=== PATIENT | female | born 1950 | race Caucasian/White ===

== ENCOUNTER 2016-11-14 09:00 | Day surgery (SDC) | payer MEDICARE ==
[2016-11-13 09:46] VITALS: BMI 23.7
[~2016-11-14 09:00] MED LIST: LACTATED RINGERS 1,000 ML IV SCH; LIDOCAINE 1% 20 ML VIAL (10MG/ML) FOR IV START INTRADERMA PRN
[2016-11-14 09:27] VITALS: TEMP 98.5
[2016-11-14] MEDS ORDERED: LIDOCAINE 1% 20 ML VIAL (10MG/ML) FOR IV START INTRADERMA ONE (09:32)
[2016-11-14] MEDS ORDERED: PROPOFOL 10 MG/ML 20 ML VIAL IV ONE (10:10)
--- NOTE | 2016-11-14 10:27 | P.PCN ---
Date of Procedure: 11/14/16 Procedure(s) Performed: BRIEF HISTORY: Patient is a 65-year-old pleasant white female, scheduled for an elective colonoscopy as a part of evaluation of Hemoccult-positive stool. Last colonoscopy was 10 years ago which was normal. PROCEDURE PERFORMED: Colonoscopy. PREOPERATIVE DIAGNOSIS: Hemoccult-positive stool.. IV sedation per Anesthesia. PROCEDURE: After informed consent was obtained, the patient, was brought into the endoscopy unit. IV sedation was administered by Anesthesia under continuous monitoring. Digital rectal examination was normal. Initially the Olympus CF- 160 flexible video colonoscope was then inserted in the rectum, gradually advanced into the cecum without any difficulty. Careful examination was performed as the scope was gradually being withdrawn. Ileocecal valve and the appendiceal orifice were visualized and appeared normal. Prep was excellent. Mucosa of the cecum, ascending colon, transverse colon, descending colon, sigmoid colon, and rectum appeared normal. Scattered sigmoid diverticulosis seen. Retroflexion was performed in the rectum and no lesions were seen. The patient tolerated the procedure well. IMPRESSION: Normal-appearing colon from rectum to cecum with no evidence of colorectal neoplasia. Scattered sigmoid diverticulosis. RECOMMENDATIONS: Findings of this examination were discussed with the patient as well as her family. She was advised to have a repeat screening colonoscopy in 10 years.
[2016-11-14 10:47] VITALS: RESP 18
[2016-11-14 11:00] VITALS: BP 126/67; PULSE 68
== END 2016-11-14 11:07 | disposition home or self-care (01) ==
LOC: ORWHC2ENDO 09:00
PROVIDERS: ATTEND Internal Medicine Gastroenterology
DX: K57.30 Diverticulosis of large intestine without perforation or abscess without bleeding (principal); K92.1 Melena; I10 Essential (primary) hypertension; G47.33 Obstructive sleep apnea (adult) (pediatric); Z79.899 Other long term (current) drug therapy
CPT/HCPCS: 45378; J2704

== ENCOUNTER → 2017-01-14 | Outpatient (CLI) | payer MEDICARE ==
--- NOTE | 2017-01-16 09:14 | MM ---
Reason for exam: clinical finding. Last mammogram was performed 5 months ago. History: Patient is postmenopausal and is nulliparous. Family history of breast cancer in maternal aunt at age 50 and breast cancer in maternal cousin at age 50. Taking estrogen for 12 years. Indicated problem(s): pain in the right breast. Physical Findings: Nurse did not find any significant physical abnormalities on exam. MG 3D Diag Mammo W/Cad RT CC and MLO view(s) were taken of the right breast. Prior study comparison: August 28, 2016, mammogram. May 26, 2015, mammogram. There are scattered fibroglandular densities. A lateral asymmetric density on the CC view does not persist on spot tomosynthesis. A precautionary follow up is recommended at the time of patients annual exam. These results were verbally communicated with the patient and result sheet given to the patient on 01/14/17. ASSESSMENT: Probably benign, BI-RAD 3 RECOMMENDATION: Follow-up diagnostic mammogram of both breasts in 7 months. Back on schedule for August 2016. Manage patient on a clinical basis with regard to right breast pain.
== END | disposition home or self-care (01) ==
LOC: RADMAMWWP 09:28
PROVIDERS: ATTEND Obstetrics & Gynecology
DX: N64.4 Mastodynia (principal)
CPT/HCPCS: G0206; G0279

== ENCOUNTER → 2017-03-01 | Outpatient (CLI) | payer MEDICARE ==
[2017-03-01 11:06] LABS: Anion Gap 12 mmol/L; Blood Urea Nitrogen 10 mg/dL (7-17); Calcium 9.9 mg/dL (8.4-10.2); Carbon Dioxide 26 mmol/L (22-30); Chloride 100 mmol/L (98-107); Glucose 79 mg/dL (74-99); Non-African American GFR(MDRD) >60 (>60 ml/min/1.73 sqM); Potassium 3.8 mmol/L (3.5-5.1); Sodium 138 mmol/L (137-145)
== END | disposition home or self-care (01) ==
LOC: LABWHC1 09:24
PROVIDERS: ATTEND Internal Medicine Interventional Cardiology
DX: I10 Essential (primary) hypertension (principal)
CPT/HCPCS: 36415; 80048

== ENCOUNTER → 2017-09-25 | Outpatient (CLI) | payer MEDICARE ==
[2017-09-25 09:55] LABS: Albumin 4.1 g/dL (3.5-5.0); Alkaline Phosphatase 70 U/L (38-126); Calcium 9.7 mg/dL (8.4-10.2); Phosphorus 3.5 mg/dL (2.5-4.5); Total Protein 6.7 g/dL (6.3-8.2)
[2017-09-25 16:12] LABS: Parathyroid Hormone Intact 58.2 pg/mL (14.0-72.0)
[2017-09-25 17:12] LABS: Vitamin D 25 Hydroxy 27.8 ng/mL (30.0-100.0)
== END | disposition home or self-care (01) ==
LOC: LABWHC1 08:38
PROVIDERS: ATTEND Internal Medicine Endocrinology, Diabetes & Metabolism
DX: N95.1 Menopausal and female climacteric states (principal); Z92.23 Personal history of estrogen therapy; M41.20 Other idiopathic scoliosis, site unspecified; E55.9 Vitamin D deficiency, unspecified
CPT/HCPCS: 36415; 82040; 82306; 82310; 82565; 82670; 83735; 83970; 84075; 84100; 84155

== ENCOUNTER → 2017-09-25 | Outpatient (CLI) | payer MEDICARE ==
--- NOTE | 2017-09-25 09:16 | MM ---
Reason for exam: screening (asymptomatic). Last mammogram was performed 8 months ago. History: Patient is postmenopausal and is nulliparous. Family history of breast cancer in maternal aunt at age 50 and breast cancer in maternal cousin at age 50. Taking estrogen. Physical Findings: A clinical breast exam by your physician is recommended on an annual basis and results should be correlated with mammographic findings. MG 3D Diag Mammo W/Cad CATHY Bilateral CC and MLO view(s) were taken. Prior study comparison: January 14, 2017, right breast MG 3d diag mammo w/cad RT. August 28, 2016, mammogram. The breast tissue is heterogeneously dense. This may lower the sensitivity of mammography. Lateral posterior nodular asymmetry right breast stable for 6 months. No persisting abnormality seen on 3D spot view. Additional 6 month follow up recommended. These results were verbally communicated with the patient and result sheet given to the patient on 09/25/17. ASSESSMENT: Probably benign, BI-RAD 3 RECOMMENDATION: Follow-up diagnostic mammogram of the right breast in 6 months.
== END | disposition home or self-care (01) ==
LOC: RADMAMWWP 07:38
PROVIDERS: ATTEND Obstetrics & Gynecology
DX: R92.8 Other abnormal and inconclusive findings on diagnostic imaging of breast (principal)
CPT/HCPCS: 77066; G0279

== ENCOUNTER 2017-12-02 16:12 | Observation (INO) | payer MEDICARE ==
[2017-12-02 18:29] LABS: Basophils % (A) 1 %; Eosinophils # (A) 0.1 k/uL (0-0.7); Eosinophils % (A) 1 %; HCT 37.9 % (34.0-46.0); HGB 12.3 gm/dL (11.4-16.0); Lymphocytes # (A) 2.2 k/uL (1.0-4.8); Lymphocytes % (A) 38 %; MCH 26.7 pg (25.0-35.0); MCHC 32.4 g/dL (31.0-37.0); MCV 82.6 fL (80.0-100.0); Mean Platelet Volume 6.7; Monocytes # (A) 0.3 k/uL (0-1.0); Monocytes % (A) 6 %; Neutrophils % (A) 52 %; Platelet Count 275 k/uL (150-450); RDW 13.7 % (11.5-15.5); WBC 5.7 k/uL (3.8-10.6)
[2017-12-02 18:40] LABS: ALT 37 U/L (9-52); AST 31 U/L (14-36); Albumin 4.2 g/dL (3.5-5.0); Alkaline Phosphatase 76 U/L (38-126); Amylase 55 U/L (30-110); Anion Gap 11 mmol/L; Blood Urea Nitrogen 10 mg/dL (7-17); Calcium 10.1 mg/dL (8.4-10.2); Carbon Dioxide 29 mmol/L (22-30); Chloride 102 mmol/L (98-107); Glucose 90 mg/dL (74-99); Lipase 74 U/L (23-300); Potassium 3.9 mmol/L (3.5-5.1); Sodium 142 mmol/L (137-145); Total Bilirubin 0.2 mg/dL (0.2-1.3)
[2017-12-02 18:47] LABS: Creatine Kinase 96 U/L (30-135)
[2017-12-02 19:00] LABS: Creatine Kinase MB 1.6 ng/mL (0.0-2.4); Troponin I <0.012 ng/mL (0.000-0.034)
--- NOTE | 2017-12-02 19:21 | ED ---
Abdominal Pain HPI <Jarett Marcos - Last Filed: 12/02/17 20:03> - General Source: patient Mode of arrival: wheelchair Limitations: no limitations <Shanthi Bernstein - Last Filed: 12/02/17 20:13> - General Chief Complaint: Abdominal Pain Stated Complaint: Chest Pain Time Seen by Provider: 12/02/17 18:44 - History of Present Illness Initial Comments: 67-year-old female patient presents to the emergency department today for complaints of left-sided chest pain. Patient states that the pain started yesterday evening on her way home from a barbecue. Patient states that the pain started as a slight ache and progressively worsened until it was very uncomfortable. Patient states the pain woke her up multiple times through the night last night. Patient states that this morning she had an episode of palpitations and then the pain resolved. Patient states that she does have a history of palpitations that was not unusual. Patient states that a couple hours later the pain started again as a dull ache and progressively worsened. Patient states that she has also had increased fatigue over the last 3 days. Patient denies any shortness of breath, nausea, vomiting, or sweats with this. She denies any radiation of the pain to her back. She denies any recent travel , long car rides, leg pain, or calf pain. Shes has had an increase of cough over the last couple of days, states she believes it is from allergies. Patient denies any recent rash, fever, chills, abdominal pain, diarrhea, constipation, back pain, numbness, tingling, dizziness, weakness, hematuria, dysuria, urinary urgency, urinary frequency, headache, visual changes, or any other complaints. (Shanthi Bernstein) - Related Data Home Medications Medication Instructions Recorded Confirmed Estrogens, Conjugated [Premarin] 0.3 mg PO QAM 11/13/16 12/02/17 Losartan Potassium [Cozaar] 100 mg PO QAM 11/13/16 12/02/17 Multivitamins, Thera [Multivitamin 1 tab PO DAILY 11/13/16 12/02/17 (formulary)] Cholecalciferol (Vitamin D3) 2,000 unit PO DAILY 12/02/17 12/02/17 [Vitamin D3] Hydrochlorothiazide [Hydrodiuril] 25 mg PO DAILY 12/02/17 12/02/17 Selenium Sulfate Lotion 1 applic TOPICAL DAILY PRN 12/02/17 12/02/17 Allergies Allergy/AdvReac Type Severity Reaction Status Date / Time celecoxib [From Celebrex] Allergy Rash/Hives Verified 12/02/17 19:35 Review of Systems ROS Other: All systems not noted in ROS Statement are negative. <Jarett Marcos - Last Filed: 12/02/17 20:03> ROS Other: All systems not noted in ROS Statement are negative. <Shanthi Bernstein - Last Filed: 12/02/17 20:13> ROS Statement: Those systems with pertinent positive or pertinent negative responses have been documented in the HPI. Past Medical History Past Medical History: Hypertension, Sleep Apnea/CPAP/BIPAP Additional Past Medical History / Comment(s): uses cpap,heart murmur,PVCs History of Any Multi-Drug Resistant Organisms: None Reported Past Surgical History: Back Surgery, Cardiac Ablation, Hysterectomy Additional Past Surgical History / Comment(s): fusion to back,rt shoulder repair Past Anesthesia/Blood Transfusion Reactions: Postoperative Nausea & Vomiting ( PONV) Past Psychological History: No Psychological Hx Reported Smoking Status: Former smoker Past Alcohol Use History: Occasional Past Drug Use History: None Reported - Past Family History Mother Family Medical History: Cancer Additional Family Medical History / Comment(s): pancreatic Father Family Medical History: No Reported History <Shanthi Bernstein - Last Filed: 12/02/17 20:13> General Exam Limitations: no limitations General appearance: alert, in no apparent distress, other (This is a well- developed, well-nourished adult female patient in no acute distress. Vital signs upon presentation are temperature 98.0F, pulse 70, respirations 18, blood pressure 188/74, pulse ox 99% on room air.) Eye exam: Present: normal appearance, PERRL, EOMI. Absent: scleral icterus, conjunctival injection, periorbital swelling ENT exam: Present: normal exam, normal oropharynx, mucous membranes moist Respiratory exam: Present: normal lung sounds bilaterally. Absent: respiratory distress, wheezes, rales, rhonchi, stridor, chest wall tenderness Cardiovascular Exam: Present: regular rate, normal rhythm, normal heart sounds. Absent: systolic murmur, diastolic murmur, rubs, gallop, clicks GI/Abdominal exam: Present: soft, normal bowel sounds. Absent: distended, tenderness, guarding, rebound, rigid Neurological exam: Present: alert, oriented X3, CN II-XII intact Psychiatric exam: Present: normal affect, normal mood Skin exam: Present: warm, dry, intact, normal color. Absent: rash <Shanthi Bernstein - Last Filed: 12/02/17 20:13> Course <Jarett Marcos - Last Filed: 12/02/17 20:03> <Shanthi Bernstein - Last Filed: 12/02/17 20:13> Vital Signs 12/02/17 16:31 Temperature 98.0 F Pulse Rate 70 Respiratory 18 Rate Blood Pressure 188/74 O2 Sat by Pulse 99 Oximetry - Reevaluation(s) Reevaluation #1: 12/02/17 20:03 PA supervision: I did personally do a [id number] evaluation the patient did discuss findings with her and her . The patient's presentation is consistent with unstable angina she's been having recurrent chest pain and feels tired. No prior history of heart disease. Physical exam is thus far unremarkable chest lungs are clear heart was regular no murmurs. Patient will be admitted case was discussed with Dr. Edwards. (Jarett Marcos) Medical Decision Making - Lab Data Result diagrams: 12/02/17 18:20 12/02/17 18:20 <Jarett Marcos - Last Filed: 12/02/17 20:03> - Lab Data Result diagrams: 12/02/17 18:20 12/02/17 18:20 - EKG Data -: EKG Interpreted by Me - Radiology Data Radiology results: report reviewed, image reviewed <Shanthi Bernstein - Last Filed: 12/02/17 20:13> - Medical Decision Making 67-year-old female patient presents to the emergency department today for complaints of intermittent episodes of left-sided chest pain over the last 2 days. Physical examination is unremarkable. Lungs are clear to auscultation with good air movement. Patient is currently pain-free. Patient also did have an episode of palpitations. Heart sounds are normal. Regular rhythm. Chest x- ray shows no acute cardiopulmonary process. EKG shows normal sinus rhythm. Patient will be admitted, heparin started, and she'll see cardiology tomorrow. My attending Dr. Marcos was in to see and evaluate the patient. She agrees with this plan. (Shanthi Bernstein) - Lab Data Lab Results 12/02/17 12/02/17 12/02/17 Range/Units 18:20 18:20 18:20 WBC 5.7 (3.8-10.6) k/uL RBC 4.60 (3.80-5.40) m/uL Hgb 12.3 (11.4-16.0) gm/dL Hct 37.9 (34.0-46.0) % MCV 82.6 (80.0-100.0) fL MCH 26.7 (25.0-35.0) pg MCHC 32.4 (31.0-37.0) g/dL RDW 13.7 (11.5-15.5) % Plt Count 275 (150-450) k/uL Neutrophils % 52 % Lymphocytes % 38 % Monocytes % 6 % Eosinophils % 1 % Basophils % 1 % Neutrophils # 3.0 (1.3-7.7) k/uL Lymphocytes # 2.2 (1.0-4.8) k/uL Monocytes # 0.3 (0-1.0) k/uL Eosinophils # 0.1 (0-0.7) k/uL Basophils # 0.0 (0-0.2) k/uL Sodium 142 (137-145) mmol/L Potassium 3.9 (3.5-5.1) mmol/L Chloride 102 (98-107) mmol/L Carbon Dioxide 29 (22-30) mmol/L Anion Gap 11 mmol/L BUN 10 (7-17) mg/dL Creatinine 0.50 L (0.52-1.04) mg/dL Est GFR (CKD-EPI)AfAm >90 (>60 ml/min/1.73 sqM) Est GFR (CKD-EPI)NonAf >90 (>60 ml/min/1.73 sqM) Glucose 90 (74-99) mg/dL Calcium 10.1 (8.4-10.2) mg/dL Total Bilirubin 0.2 (0.2-1.3) mg/dL AST 31 (14-36) U/L ALT 37 (9-52) U/L Alkaline Phosphatase 76 (38-126) U/L Total Creatine Kinase 96 (30-135) U/L CK-MB (CK-2) 1.6 (0.0-2.4) ng/mL CK-MB (CK-2) Rel Index 1.7 Troponin I <0.012 (0.000-0.034) ng/mL Total Protein 7.0 (6.3-8.2) g/dL Albumin 4.2 (3.5-5.0) g/dL Amylase 55 (30-110) U/L Lipase 74 (23-300) U/L - EKG Data EKG Comments: EKG obtained at 1708 shows normal sinus rhythm. Ventricular rate is 65,. Interval 144, QRS duration 96, QT 428, QTC 445. No evidence of ST elevation or depression. No ectopy. (Shanthi Bernstein) - Radiology Data Two-view x-ray of the chest shows a heart and mediastinum are normal. Lungs are clear. Diaphragm is normal. There is mild thoracic dextroscoliosis. Impression by Dr. Dowell shows no cardiopulmonary disease. (Shanthi Bernstein) Disposition <Jarett Marcos - Last Filed: 12/02/17 20:03> Decision to Admit Reason: Admit from EC Decision Date: 12/02/17 Decision Time: 20:13 <Shanthi Bernstein - Last Filed: 12/02/17 20:13> Clinical Impression: Chest pain Disposition: ADMITTED IP TO THIS [facility] Condition: Serious Referrals: Meir Mckeon DO [Primary Care Provider] - 1-2 days
--- NOTE | 2017-12-02 19:21 | XR ---
EXAMINATION TYPE: XR chest 2V DATE OF EXAM: 12/02/2017 COMPARISON: NONE HISTORY: Chest pain TECHNIQUE: Frontal and lateral views of the chest are obtained. FINDINGS: Heart and mediastinum are normal. Lungs are clear. Diaphragm is normal. There is mild thor acic dextroscoliosis. IMPRESSION: No cardiopulmonary disease.
[2017-12-02] MEDS ORDERED: HEPARIN SODIUM,PORCINE 5,000 UNIT/ML 1 ML VIAL IV ONE (20:09)
[2017-12-02] MEDS ORDERED: ASPIRIN 81 MG PO STA (20:09)
[2017-12-02] MEDS ORDERED: NITROGLYCERIN SL TABS 0.4 MG TAB SUBLINGUAL PRN (20:09)
[2017-12-02] MEDS ORDERED: [UNRECOGNIZED DRUG - OTHER] TOPICAL PRN (20:13)
[2017-12-02] MEDS ORDERED: HEPARIN SODIUM,PORCINE/D5W PMX 25,000 UNIT in DEXTROSE/WATER 1 500ML.BAG IV SCH (20:15)
[2017-12-02 23:56] VITALS: BMI 23.9
[2017-12-03 01:01] LABS: Creatine Kinase 90 U/L (30-135)
[2017-12-03 01:14] LABS: Creatine Kinase MB 1.4 ng/mL (0.0-2.4); Troponin I <0.012 ng/mL (0.000-0.034)
[2017-12-03] MEDS ORDERED: HEPARIN SODIUM,PORCINE 5,000 UNIT/ML 1 ML VIAL IV PRN (05:15)
[2017-12-03 06:21] LABS: Cholesterol 185 mg/dL (<200); HDL Cholesterol 76 mg/dL (40-60); LDL Cholesterol,Calculated 88 mg/dL (0-99); Triglycerides 107 mg/dL (<150)
[2017-12-03 06:30] LABS: Creatine Kinase 72 U/L (30-135)
[2017-12-03 06:43] LABS: Troponin I <0.012 ng/mL (0.000-0.034)
[2017-12-03 08:09] VITALS: BP 117/58; PULSE 70; RESP 18; TEMP 98.4
[2017-12-03] MEDS ORDERED: HYDROCHLOROTHIAZIDE 25 MG TAB PO SCH (09:00)
[2017-12-03] MEDS ORDERED: ESTROGENS, CONJUGATED 0.3 MG TAB PO SCH (09:00)
[2017-12-03] MEDS ORDERED: ASPIRIN 325 MG TAB PO SCH (09:00)
[2017-12-03] MEDS ORDERED: CHOLECALCIFEROL 1,000 UNIT TAB PO SCH (09:00)
[2017-12-03] MEDS ORDERED: LOSARTAN 50 MG TAB PO SCH (09:00)
--- NOTE | 2017-12-03 11:44 | HP ---
HISTORY AND PHYSICAL HISTORY AND PHYSICAL AND DISCHARGE SUMMARY DATE OF ADMISSION: 12/02/2017 DATE OF DISCHARGE: 12/03/2017 DATE OF SERVICE: 12/03/2017 PRESENTING COMPLAINT: Left lower chest pain. HISTORY OF PRESENTING COMPLAINT: This is a pleasant 67-year-old patient of Dr. Mckeon. Chronic stable medical conditions include hypertension, obstructive sleep apnea uses CPAP machine and a small brain aneurysm. She does not know the details of the latter. The patient Saturday evening noticed just below the breast around the lower right end of the rib, mild sharp pain present off and on for the last couple of days, some worsening with movement. Does not get worse with deep breath. The patient has no shortness of breath. No dizziness. No lightheadedness. No perspiration. No obvious radiation. The patient denies any obvious heartburn. The patient has arthritis in the joints especially the hands and other joints. Not really related to activity. The patient is admitted to rule out a cardiac cause. Apparently, patient did have a stress test about a year ago at [facility]. REVIEW OF SYSTEMS: CONSTITUTIONAL: None. HEENT: None. RESPIRATORY: None. CARDIOVASCULAR: None. GASTROINTESTINAL: None. GENITOURINARY: None. MUSCULOSKELETAL: Arthritic pain in joints. DERMATOLOGICAL: None. HEMATOLOGIC: None. LYMPHATIC: None. PSYCHIATRY: None. NEUROLOGICAL: None. PAST MEDICAL HISTORY: Past medical history of hypertension, obstructive sleep apnea, small brain aneurysm, PVCs. PAST SURGICAL HISTORY: Back surgery, cardiac ablation, hysterectomy, fusion to the back, right shoulder repair. SOCIAL HISTORY: Smoked a pack a day for 16 years, stopped in 1979. . Retired. [employer] grad[employer]. FAMILY HISTORY: Family history of pancreatic cancer. HOME MEDICATIONS: 1. Selenium 1 application topical daily p.r.n. 2. Hydrochlorothiazide 25 mg p.o. daily. 3. Vitamin D3, 2000 units p.o. daily. 4. Multivitamin 1 tablet p.o. daily. 5. Cozaar 100 mg p.o. daily. 6. Conjugated estrogen 0.3 mg p.o. daily. ALLERGIES: Allergy to Celebrex. PHYSICAL EXAMINATION: On examination, temperature 98.4, pulse 70, respiration 18, blood pressure 117/58, pulse ox 95% on room air. GENERAL APPEARANCE: Average built, sitting up, not in distress, comfortable. EYES: Pupils equal. Conjunctivae normal. HENT: External appearance of nose and ears normal. Oral cavity normal. NECK: JVD not raised. Mass not palpable. RESPIRATORY: Effort normal. LUNGS: Clear. CARDIOVASCULAR: First and second sounds normal. No edema. ABDOMEN: Soft, nontender. Liver and spleen not palpable. LYMPHATIC: No lymph node palpable in the neck or axillae. PSYCHIATRY: Alert and oriented x3. Mood and affect normal. NEUROLOGICAL: Pupils equal. Cranial nerves grossly intact. Power and sensation grossly intact. MUSCULOSKELETAL: Evidence of severe osteoarthritis especially in the hands and mild tenderness at the lower end of costochondral junction below the rib cage. INVESTIGATIONS: White count 5.7, hemoglobin 12.3. Potassium 3.9. Troponin x3 negative. LDL 88. EKG normal sinus rhythm, some flipped T-waves from V1 to V3. ASSESSMENT: 1. Left anterior chest wall pain at the lower end of the rib cage appears to be more musculoskeletal, but given patient's age need to rule out a cardiac cause. 2. Essential hypertension. 3. Obstructive sleep apnea, uses a CPAP. 4. Small brain aneurysm, stable. PLAN: Patient was seen by Cardiology, Dr. Richard, who said the patient to walk around does fine. The patient has walked about in the hallway and feels good otherwise. The patient will follow up with [facility]. Care was discussed with the patient. Questions were answered. This is both a history physical and discharge summary on Yoselin Cash. Home medications are going to be same, no change. MMODL / IJN: [id number] /
[2017-12-03] MEDS ORDERED: MULTIVITAMINS, THERA 1 EACH TAB PO SCH (12:00)
--- NOTE | 2017-12-03 12:01 | ECHOF ---
Referral Reason:cp, aortic murmur MEASUREMENTS -------- HEIGHT: 160.0 cm WEIGHT: 61.2 kg BP: 117/58 IVSd: 1.3 cm (0.6 - 1.1) LVIDd: 3.5 cm (3.9 - 5.3) LVPWd: 1.2 cm (0.6 - 1.1) IVSs: 1.5 cm LVIDs: 2.5 cm LVPWs: 1.4 cm LAESV Index (A-L): 25.42 ml/m Ao Diam: 3.0 cm (2.0 - 3.7) AV Cusp: 1.7 cm (1.5 - 2.6) LA Diam: 3.2 cm (2.7 - 3.8) MV EXCURSION: 11.236 mm (> 18.000) MV EF SLOPE: 89 mm/s (70 - 150) EPSS: 0.2 cm MV E Jurgen: 0.98 m/s MV DecT: 272 ms MV A Jurgne: 0.96 m/s MV E/A Ratio: 1.02 AV maxP.18 mmHg AV meanP.39 mmHg AR PHT: 619 ms RAP: 5.00 mmHg RVSP: 25.41 mmHg FINDINGS -------- Sinus rhythm. This was a technically good study. The left ventricular size is normal. There is mild concentric left ventricular hypertrophy. Overa ll left ventricular systolic function is normal with, an EF between 55 - 60 %. Basal inferior LV wa ll motion is hypokinetic. The right ventricle is normal in size and function. The left atrium is normal in size. The right atrium is normal in size. Trace amount of aortic regurgitation. Peak/mean gradient across the Aortic Valve is 15.18mmHg / 8. 39mmHg. AOV is possible Bicuspid. Mild mitral annular calcification present. Mild mitral regurgitation is present. Mild tricuspid regurgitation present. The right ventricular systolic pressure, as measured by Doppl er, is 25.41mmHg. Pulmonic valve appears structurally normal. The aortic root size is normal. Normal inferior vena cava with normal inspiratory collapse consistent with estimated right atrial pre ssure of 5 mmHg. The pericardium is normal. CONCLUSIONS -------- 1. Sinus rhythm. 2. This was a technically good study. 3. The left ventricular size is normal. 4. There is mild concentric left ventricular hypertrophy. 5. Overall left ventricular systolic function is normal with, an EF between 55 - 60 %. 6. Basal inferior LV wall motion is hypokinetic. 7. The right ventricle is normal in size and function. 8. The left atrium is normal in size. 9. The right atrium is normal in size. 10. Trace amount of aortic regurgitation. 11. Peak/mean gradient across the Aortic Valve is 15.18mmHg / 8.39mmHg. 12. AOV is possible Bicuspid. 13. Mild mitral annular calcification present. 14. Mild mitral regurgitation is present. 15. Mild tricuspid regurgitation present. 16. The right ventricular systolic pressure, as measured by Doppler, is 25.41mmHg. 17. Pulmonic valve appears structurally normal. 18. The aortic root size is normal. 19. Normal inferior vena cava with normal inspiratory collapse consistent with estimated right atrial pressure of 5 mmHg. 20. The pericardium is normal. INDUSTRIAL THERAPIST: Autumn Wolfe RDCS
--- NOTE | 2017-12-03 12:46 | P.CRDCN ---
History of Present Illness History of present illness: Mrs. Cash is a pleasant 67-year-old female past medical history significant for hypertension, sleep apnea, brain aneurysm and aortic valve murmur. She denies history of coronary artery disease, diabetes mellitus or dyslipidemia. She follows with Dr. Segal in the office. We have been asked to see her in consultation for chest pain. She describes a pain under the left breast, no radiation of pain to arms, back, neck or jaw. Denies associated shortness of breath, nausea, vomiting, diaphoresis or dizziness. The pain started while she was at rest with no specific aggravating factors. She woke up the following morning with the pain again so she tried changing her position and nothing seemed to make it better. She continued on with her typical activities of the day. She bent down to get something out of the cupboard and the pain came very sharp and intensified. Relieved by the time she presented to ED and has not happened again since admission. EKG reveals sinus mechanism with no nonspecific ST abnormalities anterior leads. Chest x-ray is negative for an acute cardiopulmonary process. Laboratory data reviewed, sodium 142, potassium 3.9, creatinine 0.5, cardiac enzymes negative 3, LDL 88, HDL 76, triglycerides 107, total cholesterol 185. Current cardiac medications include aspirin 81 mg daily, losartan 100 mg daily and hydrochlorothiazide 25 mg daily. She also takes vitamin D, multivitamin and Premarin. Most recent echocardiogram performed in the office December 2016 reveals preserved left ventricular systolic function with normal ejection fraction with mild TR, mild AR and mild MR. Most recent Cardiolite stress test performed December 2016 in the office was negative for reversible ischemia. Review of Systems At the time my exam: CONSTITUTIONAL: Denies fever. Denies chills. EYES: Denies blurred vision. Denies vision changes. Denies eye pain. EARS, NOSE, MOUTH & THROAT: Denies headache. Denies sore throat. Denies ear pain. CARDIOVASCULAR: Denies chest pain. Denies shortness of breath. Denies orthopnea. Denies PND. Denies palpitations. RESPIRATORY: Denies cough. GASTROINTESTINAL: Denies abdominal pain. Denies diarrhea. Denies constipation. Denies nausea. Denies vomiting. MUSCULOSKELETAL: Denies myalgias. INTEGUMENTARY: Denies pruitis. Denies rash. NEUROLOGIC: Denies numbness. Denies tingling. Denies weakness. PSYCHIATRIC: Denies anxiety. Denies depression. ENDOCRINE: Denies fatigue. Denies weight change. Denies polydipsia. Denies polyurina. GENITOURINARY: Denies burning, hematuria or urgency with micturation. HEMATOLOGIC: Denies history of anemia. Denies bleeding. Past Medical History Past Medical History: Hypertension, Sleep Apnea/CPAP/BIPAP Additional Past Medical History / Comment(s): uses cpap,heart murmur,PVCs, brain aneurysm History of Any Multi-Drug Resistant Organisms: None Reported Past Surgical History: Back Surgery, Cardiac Ablation, Hysterectomy Additional Past Surgical History / Comment(s): fusion to back,rt shoulder repair Past Anesthesia/Blood Transfusion Reactions: Postoperative Nausea & Vomiting ( PONV) Past Psychological History: No Psychological Hx Reported Smoking Status: Former smoker Past Alcohol Use History: Occasional Additional Past Alcohol Use History / Comment(s): quit smoking ,smoked approx 14 yrs-1ppd Past Drug Use History: None Reported - Past Family History Mother Family Medical History: Cancer Additional Family Medical History / Comment(s): pancreatic Father Family Medical History: No Reported History Medications and Allergies Home Medications Medication Instructions Recorded Confirmed Type Estrogens, Conjugated [Premarin] 0.3 mg PO QAM 11/13/16 12/02/17 History Losartan Potassium [Cozaar] 100 mg PO QAM 11/13/16 12/02/17 History Multivitamins, Thera [Multivitamin 1 tab PO DAILY 11/13/16 12/02/17 History (formulary)] Cholecalciferol (Vitamin D3) 2,000 unit PO DAILY 12/02/17 12/02/17 History [Vitamin D3] Hydrochlorothiazide [Hydrodiuril] 25 mg PO DAILY 12/02/17 12/02/17 History Selenium Sulfate Lotion 1 applic TOPICAL DAILY PRN 12/02/17 12/02/17 History Aspirin 81 mg PO DAILY #1 chewable 12/03/17 Rx Allergies Allergy/AdvReac Type Severity Reaction Status Date / Time celecoxib [From Celebrex] Allergy Rash/Hives Verified 12/02/17 19:35 Physical Exam Vitals: Vital Signs Temp Pulse Pulse Resp BP BP BP 12/03/17 07:45 98.4 F 70 18 117/58 12/03/17 04:00 16 05/22/18 00:00 98.2 F 66 16 130/61 12/02/17 22:48 98.5 F 67 16 149/69 12/02/17 21:53 98.6 F 67 20 167/80 12/02/17 20:50 64 20 182/77 12/02/17 16:31 98.0 F 70 18 188/74 Pulse Ox 12/03/17 07:45 95 12/03/17 04:00 12/03/17 00:00 98 12/02/17 22:48 95 12/02/17 21:53 100 12/02/17 20:50 99 12/02/17 16:31 99 Intake and Output 12/02/17 12/03/17 12/03/17 22:59 06:59 14:59 Intake Total 146.51 Balance 146.51 Intake: Intake, IV Titration 146.51 Amount Heparin Sodium,Porcine/ 146.51 D5w Pmx 25,000 unit In Dextrose/Water 1 500ml. bag @ 12 UNITS/KG/HR 14. 69 mls/hr IV .Q24H [facility] Rx #:[id number] Other: Voiding Method Toilet # Voids 1 1 Weight 61.235 kg 61.235 kg Blood pressure 117/58 heart rate 70 afebrile maintaining oxygen saturation on room air GENERAL: This is a 67-year-old female in no apparent distress at the time of my examination. HEENT: Head is atraumatic, normocephalic. Pupils are equal, round. Sclerae anicteric. Conjunctivae are clear. Mucous membranes of the mouth are moist. Neck is supple. There is no jugular venous distention. No carotid bruit is heard. LUNGS: Clear to auscultation no wheezes, rales or rhonchi. No chest wall tenderness is noted on palpation or with deep breathing. HEART: Regular rate and rhythm with systolic ejection murmur at the base, no rubs or gallops. S1 and S2 heard. ABDOMEN: Soft, nontender. Bowel sounds are heard. No organomegaly noted. EXTREMITIES: No evidence of peripheral edema and no calf tenderness noted. VASCULAR: Radial and dorsalis pedis pulses palpated, no evidence of clubbing. NEUROLOGIC: Patient is awake, alert and oriented x3. Results 12/02/17 18:20 12/02/17 18:20 Cardiac Enzymes 0512/02/17 12/03/17 Range/Units 18:20 18:20 00:12 AST 31 (14-36) U/L CK-MB (CK-2) 1.6 1.4 (0.0-2.4) ng/mL Troponin I <0.012 <0.012 (0.000-0.034) ng/mL 12/03/17 Range/Units 05:33 AST (14-36) U/L CK-MB (CK-2) 1.0 (0.0-2.4) ng/mL Troponin I <0.012 (0.000-0.034) ng/mL Coagulation 12/03/17 Range/Units 05:33 APTT 30.4 H (22.0-30.0) sec Lipids 12/03/17 Range/Units 05:33 Triglycerides 107 (<150) mg/dL Cholesterol 185 (<200) mg/dL HDL Cholesterol 76 H (40-60) mg/dL CBC 12/02/17 Range/Units 18:20 WBC 5.7 (3.8-10.6) k/uL RBC 4.60 (3.80-5.40) m/uL Hgb 12.3 (11.4-16.0) gm/dL Hct 37.9 (34.0-46.0) % Plt Count 275 (150-450) k/uL Comprehensive Metabolic Panel 12/02/17 Range/Units 18:20 Sodium 142 (137-145) mmol/L Potassium 3.9 (3.5-5.1) mmol/L Chloride 102 (98-107) mmol/L Carbon Dioxide 29 (22-30) mmol/L BUN 10 (7-17) mg/dL Creatinine 0.50 L (0.52-1.04) mg/dL Glucose 90 (74-99) mg/dL Calcium 10.1 (8.4-10.2) mg/dL AST 31 (14-36) U/L ALT 37 (9-52) U/L Alkaline Phosphatase 76 (38-126) U/L Total Protein 7.0 (6.3-8.2) g/dL Albumin 4.2 (3.5-5.0) g/dL Current Medications Generic Name Dose Route Start Last Admin Trade Name Freq PRN Reason Stop Dose Admin Aspirin 325 mg 12/03/17 09:00 Aspirin PO DAILY [facility] Cholecalciferol 2,000 unit 12/03/17 09:00 Vitamin D3 PO DAILY [facility] Estrogens Conjugated 0.3 mg 12/03/17 09:00 Premarin PO QAM [facility] Heparin Sodium (Porcine) 0 unit 12/03/17 05:15 12/03/17 06:58 Heparin IV 3,000 unit PER PROTOCOL PRN Administration Low PTT Protocol Hydrochlorothiazide 25 mg 12/03/17 09:00 Hydrodiuril PO DAILY [facility] Heparin Sodium/Dextrose 25,000 500 mls @ 14.69 mls/hr 12/02/17 20:15 06:58 unit/ IV Solution IV 17.14 units/kg/hr .Q24H [facility] 21 mls/hr Protocol Titration 12 UNITS/KG/HR Losartan Potassium 100 mg 12/03/17 09:00 Cozaar PO QAM [facility] Multivitamins 1 each 12/03/17 12:00 Theragran PO DAILY@1200 [facility] Nitroglycerin 0.4 mg 12/02/17 20:09 Nitrostat SUBLINGUAL Q5M PRN Chest Pain Intake and Output 12/02/17 12/03/17 12/03/17 22:59 06:59 14:59 Intake Total 146.51 Balance 146.51 Intake: Intake, IV Titration 146.51 Amount Heparin Sodium,Porcine/ 146.51 D5w Pmx 25,000 unit In Dextrose/Water 1 500ml. bag @ 12 UNITS/KG/HR 14. 69 mls/hr IV .Q24H [facility] Rx #:[id number] Other: Voiding Method Toilet # Voids 1 1 Weight 61.235 kg 61.235 kg 12/02/17 18:20 12/02/17 18:20 Assessment and Plan Assessment: ASSESSMENT 1. Chest pain, atypical. Some pleuritic factors. An acute coronary event has been ruled out with no EKG evidence of acute ischemia and negative cardiac enzymes. 2. Hypertension, controlled 3. Obstructive sleep apnea 4. Aortic valve murmur PLAN Obtain 2-D echocardiogram and Doppler study to assess cardiac structure and function and further evaluate aortic murmur. An acute coronary event has been ruled out. Discontinue heparin infusion. Increase activity and ambulate in the halls assess for any further symptoms of chest pain. If she remains chest pain-free she is stable from a cardiac standpoint. Follow-up with Dr. Segal in 2-3 weeks. Nurse Practitioner note has been reviewed, I agree with a documented findings and plan of care. Patient was seen and examined.
== END 2017-12-03 13:12 | disposition home or self-care (01) ==
LOC: EC 16:12 → 3OBS 20:03
PROVIDERS: ADMIT Hospitalist; ATTEND Hospitalist
DX: R07.89 Other chest pain (principal); I10 Essential (primary) hypertension; I49.3 Ventricular premature depolarization; I67.1 Cerebral aneurysm, nonruptured; R01.1 Cardiac murmur, unspecified; R05 Cough; R53.83 Other fatigue; G47.33 Obstructive sleep apnea (adult) (pediatric); Z99.89 Dependence on other enabling machines and devices; M19.042 Primary osteoarthritis, left hand; M19.041 Primary osteoarthritis, right hand; M19.90 Unspecified osteoarthritis, unspecified site; Z79.82 Long term (current) use of aspirin; Z79.899 Other long term (current) drug therapy; Z87.891 Personal history of nicotine dependence; Z98.1 Arthrodesis status; Z90.710 Acquired absence of both cervix and uterus; Z88.8 Allergy status to other drugs, medicaments and biological substances; Z80.0 Family history of malignant neoplasm of digestive organs
CPT/HCPCS: 99285 ×2; 96365 ×2; 96366 ×4; 96376 ×3; 36415; 93005; 93306; 80061; 80053; 82150; 82550 ×2; 82553 ×2; 83690; 84484 ×2; 85025; 85730; 71046; G0378 ×2; J1644 ×3

== ENCOUNTER → 2018-04-14 | Outpatient (CLI) | payer MEDICARE ==
[2018-04-14 16:03] LABS: Basophils % (A) 1 %; Eosinophils # (A) 0.1 k/uL (0-0.7); Eosinophils % (A) 1 %; HGB 12.1 gm/dL (11.4-16.0); Lymphocytes # (A) 2.1 k/uL (1.0-4.8); Lymphocytes % (A) 32 %; MCH 26.8 pg (25.0-35.0); MCHC 31.8 g/dL (31.0-37.0); MCV 84.3 fL (80.0-100.0); Mean Platelet Volume 6.8; Monocytes # (A) 0.3 k/uL (0-1.0); Monocytes % (A) 5 %; Neutrophils % (A) 60 %; Platelet Count 287 k/uL (150-450); RBC 4.51 m/uL (3.80-5.40); RDW 13.4 % (11.5-15.5); WBC 6.7 k/uL (3.8-10.6)
[2018-04-14 16:14] LABS: ALT 34 U/L (9-52); AST 27 U/L (14-36)
== END | disposition home or self-care (01) ==
LOC: LABWHC1 14:51
PROVIDERS: ATTEND Dermatology Procedural Dermatology
DX: B35.1 Tinea unguium (principal); L81.4 Other melanin hyperpigmentation; L82.1 Other seborrheic keratosis; L82.0 Inflamed seborrheic keratosis; D22.5 Melanocytic nevi of trunk
CPT/HCPCS: 36415; 84450; 84460; 85025

== ENCOUNTER → 2018-06-16 | Outpatient (CLI) | payer MEDICARE | END | disposition home or self-care (01) | LOC: LABWHC1 14:30 | PROVIDERS: ATTEND Specialist | DX: I67.1 Cerebral aneurysm, nonruptured (principal) | CPT/HCPCS: 36415; 82565; 84520 ==

== ENCOUNTER → 2018-07-21 | Outpatient (CLI) | payer MEDICARE ==
[2018-07-21 17:25] LABS: Basophils % (A) 0 %; Eosinophils # (A) 0.1 k/uL (0-0.7); Eosinophils % (A) 2 %; HCT 34.6 % (34.0-46.0); HGB 11.7 gm/dL (11.4-16.0); Lymphocytes # (A) 1.7 k/uL (1.0-4.8); Lymphocytes % (A) 31 %; MCH 28.3 pg (25.0-35.0); MCHC 33.7 g/dL (31.0-37.0); MCV 83.9 fL (80.0-100.0); Mean Platelet Volume 6.8; Monocytes # (A) 0.3 k/uL (0-1.0); Monocytes % (A) 6 %; Neutrophils # (A) 3.3 k/uL (1.3-7.7); Neutrophils % (A) 59 %; Platelet Count 261 k/uL (150-450); RBC 4.13 m/uL (3.80-5.40); WBC 5.5 k/uL (3.8-10.6)
[2018-07-22 05:07] LABS: ALT 28 U/L (8-44); AST 28 U/L (13-35)
== END | disposition home or self-care (01) ==
LOC: LABWHC1 16:38
PROVIDERS: ATTEND Physician Assistant Medical
DX: B35.1 Tinea unguium (principal)
CPT/HCPCS: 36415; 84450; 84460; 85025

== ENCOUNTER → 2019-01-19 | Outpatient (CLI) | payer MEDICARE ==
[2019-01-19 13:32] LABS: Basophils # (A) 0.1 k/uL (0-0.2); Basophils % (A) 1 %; Eosinophils # (A) 0.1 k/uL (0-0.7); Eosinophils % (A) 1 %; HCT 36.3 % (34.0-46.0); HGB 11.8 gm/dL (11.4-16.0); Lymphocytes % (A) 35 %; MCH 27.2 pg (25.0-35.0); MCHC 32.5 g/dL (31.0-37.0); MCV 83.9 fL (80.0-100.0); Mean Platelet Volume 6.9; Monocytes # (A) 0.3 k/uL (0-1.0); Monocytes % (A) 6 %; Neutrophils # (A) 3.1 k/uL (1.3-7.7); Neutrophils % (A) 54 %; Platelet Count 280 k/uL (150-450); RBC 4.32 m/uL (3.80-5.40); WBC 5.8 k/uL (3.8-10.6)
[2019-01-19 18:13] LABS: ALT 23 U/L (8-44); AST 26 U/L (13-35)
== END | disposition home or self-care (01) ==
LOC: LABWHC1 12:31
PROVIDERS: ATTEND Physician Assistant Medical
DX: B35.1 Tinea unguium (principal)
CPT/HCPCS: 36415; 84450; 84460; 85025

== ENCOUNTER → 2019-01-21 | Outpatient (CLI) | payer MEDICARE ==
--- NOTE | 2019-01-21 11:40 | MM ---
Reason for exam: follow-up at short interval from prior study. Last mammogram was performed 1 year and 4 months ago. History: Patient is postmenopausal and is nulliparous. Family history of breast cancer in maternal aunt at age 50 and breast cancer in maternal cousin at age 50. Taking estrogen. Physical Findings: Nurse did not find any significant physical abnormalities on exam. MG 3D Diag Mammo W/Cad CATHY Bilateral CC and MLO view(s) were taken. Prior study comparison: September 25, 2017, bilateral MG 3d diag mammo w/cad CATHY. January 14, 2017, right breast MG 3d diag mammo w/cad RT. The breast tissue is heterogeneously dense. This may lower the sensitivity of mammography. No suspicious abnormality on the left. Right upper outer quadrant posterior depth focal asymmetry appears similar to priors exams. Precautionary ultrasound will be performed. These results were verbally communicated with the patient and result sheet given to the patient on 01/21/19. ASSESSMENT: Incomplete: need additional imaging evaluation, BI-RAD 0 RECOMMENDATION: Ultrasound of the right breast.
--- NOTE | 2019-01-21 11:41 | USB ---
Reason for exam: additional evaluation requested from abnormal screening. History: Patient is postmenopausal and is nulliparous. Family history of breast cancer in maternal aunt at age 50 and breast cancer in maternal cousin at age 50. Taking estrogen. US Breast Limited RT Right limited breast ultrasound including focal area of concern, retroareolar and axilla demonstrates no cystic or solid lesion seen. [place] of dense tissue noted. These results were verbally communicated with the patient and result sheet given to the patient on 01/21/19. ASSESSMENT: Benign, BI-RAD 2 RECOMMENDATION: Routine screening mammogram of both breasts in 1 year.
== END | disposition home or self-care (01) ==
LOC: RADMAMWWP 10:16
PROVIDERS: ATTEND Family Medicine
DX: R92.8 Other abnormal and inconclusive findings on diagnostic imaging of breast (principal)
CPT/HCPCS: 77066; 76642; G0279; 77062

== ENCOUNTER → 2019-04-14 | Outpatient (CLI) | payer MEDICARE ==
--- NOTE | 2019-04-14 15:56 | XR ---
EXAMINATION TYPE: XR chest 2V DATE OF EXAM: 04/14/2019 COMPARISON: 12/02/2017 TECHNIQUE: PA and lateral views submitted. HISTORY: Cough FINDINGS: The lungs are clear and there is no pneumothorax, pleural effusion, or focal pneumonia. Curvature o f the spine noted. No overt failure. Degenerative changes are seen. IMPRESSION: 1. No acute process.
== END | disposition home or self-care (01) ==
LOC: RADXRMAIN 15:20
PROVIDERS: ATTEND Family Medicine
DX: R05 Cough (principal)
CPT/HCPCS: 71046

== ENCOUNTER → 2019-06-23 | Outpatient (CLI) | payer MEDICARE ==
--- NOTE | 2019-06-23 19:06 | CONS ---
CONSULTATION REASON FOR CONSULTATION: Sleep apnea. This is a 68-year-old female patient who has been evaluated and treated for sleep apnea back in 2011. Her initial evaluation was done by Dr. Reilly. Today she is coming in to see me for further advice. The patient was diagnosed having obstructive sleep apnea based on a polysomnogram that was done on 05/12/2012. The patient was found to have an AHI of 18.6 with a minimum pulse ox of 81 percent. The patient was given CPAP pressure of 7 cm of water. Over the years she has continued using her CPAP without any major difficulties and she is using a Irwin FX nose pillow. No recent weight gain or weight loss. She used to weigh 135 pounds at the time of her diagnosis and currently she is up to 139, which is only 4 pounds weight gain. She has history of hypertension, history of premature ventricular beats for which she has undergone ablation. She has also history of essential tremors. She goes to bed around midnight and wakes up at 8 o'clock in the morning. She is averaging around 7-8 hours of sleep. No major hypersomnia or sleepiness during the day. No snoring while on the CPAP therapy. No apneas while on CPAP therapy. No choking or gasping sensation while on CPAP therapy. The patient has no anxiety. No depression. No tiredness or fatigue during the day. Her machine is functional and she has adequate humidification and comfort while on treatment. PAST MEDICAL HISTORY: 1. Obstructive sleep apnea moderate to severe with an AHI of 18.6. 2. Hypertension. 3. History of symptomatic premature ventricular contractions for which the patient has undergone ablation. 4. Hyperlipidemia. 5. History of headaches. PAST SURGICAL HISTORY: Includes hysterectomy, cardiac ablation for PVCs and tonsillectomy and right shoulder surgery and lumbar fusion. SOCIAL HISTORY: Nonsmoker. No history of alcohol. No history of IV drugs. FAMILY HISTORY: Negative for sleep apnea. ALLERGIES: Drug allergies are none. Patient is sensitive to Celebrex. REVIEW OF SYSTEMS: Fourteen-point review of system was done. Positive findings are mentioned above in history of present illness. PHYSICAL EXAMINATION: BP is 134/63, pulse 63, respirations 16, temperature is 98.1. Saturation 95% on room air. BMI 24.7. Weight is 139, Linwood score of 12. Neck size 13.5 inches. General appearance is calm and comfortable. Head is atraumatic, normocephalic. NECK: Supple. There is no JVD. No goiter or neck mass. LUNGS: Clear to auscultation. HEART: Heart sounds are regular rate and rhythm. Normal S1, S2. No S3. No murmurs. ABDOMEN: Soft, nontender. No organomegaly. EXTREMITIES: No edema. No cyanosis or clubbing. IMPRESSION: 1. Symptomatic obstructive sleep apnea moderately-severe AHI of 18 based on a sleep study in 2011 currently on CPAP pressure of 7. Compliancy was not checked as the patient did not have her CPAP machine today with her. She is however well treated and she is not symptomatic at all in regard to obstructive sleep apnea. 2. Hypertension. 3. History of multiple premature ventricular beats post ablation. 4. Hyperlipidemia. 5. History of headaches. PLAN: 1. Offer this patient AirFit P10 nose pillows. 2. Renew her supplies. 3. See me back with a CPAP machine at later stage for a compliancy check and evaluation. 4. The treatment seems to be successful for now. No need for any adjustment for the time being. The patient will contact me back earlier if she gets symptomatic. Otherwise I will see her back in a year's time in followup. MMODL / IJN: [id number] /
== END ==
LOC: SLEEP 14:10
PROVIDERS: ATTEND Internal Medicine Critical Care Medicine
DX: G47.33 Obstructive sleep apnea (adult) (pediatric) (principal); I10 Essential (primary) hypertension; E78.5 Hyperlipidemia, unspecified; I49.3 Ventricular premature depolarization; Z98.890 Other specified postprocedural states; R51 Headache; Z99.89 Dependence on other enabling machines and devices; Z88.6 Allergy status to analgesic agent
CPT/HCPCS: 99211

== ENCOUNTER → 2020-02-26 | Outpatient (CLI) | payer MEDICARE ==
--- NOTE | 2020-03-01 08:37 | MM ---
Reason for exam: screening (asymptomatic). Last mammogram was performed 1 year and 1 month ago. History: Patient is postmenopausal and is nulliparous. Family history of breast cancer in maternal aunt at age 50 and breast cancer in maternal cousin at age 50. Taking estrogen for 14 years beginning at age 54. Physical Findings: A clinical breast exam by your physician is recommended on an annual basis and results should be correlated with mammographic findings. MG 3D Screening Mammo W/Cad Bilateral CC and MLO view(s) were taken. XCCL view(s) were taken of the right breast. Prior study comparison: January 21, 2019, bilateral MG 3d diag mammo w/cad CATHY. September 25, 2017, bilateral MG 3d diag mammo w/cad CATHY. The breast tissue is heterogeneously dense. This may lower the sensitivity of mammography. No significant changes when compared with prior studies. ASSESSMENT: Negative, BI-RAD 1 RECOMMENDATION: Routine screening mammogram of both breasts in 1 year.
== END | disposition home or self-care (01) ==
LOC: RADMAMWWP 13:07
PROVIDERS: ATTEND Family Medicine
DX: Z12.31 Encounter for screening mammogram for malignant neoplasm of breast (principal)
CPT/HCPCS: 77063; 77067

== ENCOUNTER → 2020-09-07 | Outpatient (CLI) | payer MEDICARE ==
--- NOTE | 2020-09-07 16:31 | MR ---
EXAMINATION TYPE: MR lumbar spine wo con DATE OF EXAM: 09/07/2020 COMPARISON: NONE HISTORY: Pain in the RT lower back and side, neuropathy TECHNIQUE: Multiplanar, multisequence imaging of the lumbar spine is performed without IV contrast. FINDINGS: There is levoconvex scoliosis centered at L1-L2 level. Sagittal images of the lumbar spine show vertebral body height to appear satisfactory. Artifact from metallic disc spacers L4-L5 and L5-S 1 level is present. Multilevel disc desiccation is seen above this. Fairly advanced disc space narrow ing L3-L4 level The conus medullaris is normal in position and signal ending superior L1 level. The bone marrow signal intensity is overall heterogeneous. Axial images at T12-L1 level show moderate facet degenerative changes and ligamentum flavum hypertrop hy. Some posterior lateral thecal sac with mild broad disc bulge effacing the anterior thecal sac, as ymmetric [id number] right-sided neural foraminal narrowing. Axial images at L1-L2 level she moderate right greater than left facet degenerative changes and ligam entum flavum hypertrophy with lobulated posterior disc protrusion. Effacement of anterior and right p osterior lateral thecal sac. Asymmetric moderate to advanced right-sided neural foraminal narrowing. Axial images at L2-L3 level show moderate facet degenerative changes and ligamentum flavum hypertroph y effacing the posterolateral thecal sac. There is mild/moderate broad-based disc bulge effacing the anterior thecal sac. There is mild left and moderate right-sided neural foraminal narrowing. Axial images at the L3-L4 level show moderate facet degenerative changes and ligament flavum hypertro phy. There is posterior spur disc complex. There is effacement of the anterior and posterior lateral thecal sac. There is mild bilateral neural foraminal narrowing. Axial images at L4-L5 levels artifact from metallic disc spacer. There is moderate facet arthropathy and ligamentum flavum hypertrophy effacing the posterior lateral thecal sac. There is mild to moderat e left greater than right bilateral neural foraminal narrowing. Axial images at L5-S1 level show artifact from metallic disc spacer. There is moderate facet arthropa thy bilaterally. Spinal canal preserved. The bilateral neural foramina are patent. No suspicious retroperitoneal findings seen. IMPRESSION: Scoliosis and multilevel degenerative changes as detailed above. Surgical change lower jung mbar spine.
== END | disposition home or self-care (01) ==
LOC: RADMRIMAIN 10:39
PROVIDERS: ATTEND Psychiatry & Neurology Neurology
DX: M47.817 Spondylosis without myelopathy or radiculopathy, lumbosacral region (principal); M47.816 Spondylosis without myelopathy or radiculopathy, lumbar region; M41.86 Other forms of scoliosis, lumbar region; Z98.890 Other specified postprocedural states
CPT/HCPCS: 72148

== ENCOUNTER → 2021-03-10 | Outpatient (CLI) | payer MEDICARE ==
--- NOTE | 2021-03-13 09:54 | MM ---
Reason for exam: screening (asymptomatic). Last mammogram was performed 1 year ago. History: Patient is postmenopausal and is nulliparous. Family history of breast cancer in maternal aunt at age 50 and breast cancer in maternal cousin at age 50. Taking estrogen for 14 years beginning at age 54. Physical Findings: A clinical breast exam by your physician is recommended on an annual basis and results should be correlated with mammographic findings. MG 3D Screening Mammo W/Cad Bilateral CC and MLO view(s) were taken. Prior study comparison: February 26, 2020, bilateral MG 3d screening mammo w/cad. January 21, 2019, bilateral MG 3d diag mammo w/cad CATHY. The breast tissue is heterogeneously dense. This may lower the sensitivity of mammography. There are benign appearing round calcifications in the left breast. There is no discrete abnormality. ASSESSMENT: Benign, BI-RAD 2 RECOMMENDATION: Routine screening mammogram of both breasts in 1 year.
== END | disposition home or self-care (01) ==
LOC: RADMAMWWP 10:11
PROVIDERS: ATTEND Family Medicine
DX: Z12.31 Encounter for screening mammogram for malignant neoplasm of breast (principal); Z80.3 Family history of malignant neoplasm of breast
CPT/HCPCS: 77063; 77067

== ENCOUNTER → 2021-11-16 | Outpatient (CLI) | payer MEDICARE ==
[2021-11-16 15:29] LABS: African American GFR (CKD) >90 (>60 ml/min/1.73 sqM); Blood Urea Nitrogen 6 mg/dL (7-17); Non-African American GFR(CKD) >90 (>60 ml/min/1.73 sqM)
--- NOTE | 2021-11-16 16:12 | CT ---
EXAMINATION TYPE: CT abdomen w con DATE OF EXAM: 11/16/2021 COMPARISON: 08/06/2013 HISTORY: unspecified Jaundice CT DLP: 353.80 mGycm CONTRAST: CT scan of the abdomen is performed with Oral Contrast and with IV Contrast, patient injected with 10 0 mL of Isovue 300. FINDINGS: LUNG BASES-: No visible nodule. No infiltrate. LIVER/GB: There is intra and extrahepatic biliary ductal dilatation. There is distention of the gallb ladder at 8 cm. No space occupying hepatic lesion. Biliary tree is of normal caliber. PANCREAS: There is a hypoattenuating pancreatic head mass measuring 2.6 x 3.0 cm compatible with a ne oplasm. There is a dilatation of the pancreatic duct measuring 6.2 mm. No definite infiltration of th e SMA/SMV. SPLEEN: No splenic enlargement. No lesion seen. ADRENALS: No nodule. No thickening. KIDNEYS/BLADDER: No hydronephrosis. No nephrolithiasis. No distinct renal mass. Urinary bladder g rossly unremarkable. BOWEL: Normal appendix. Normal bowel caliber. No inflammation. GENITAL ORGANS: No gross abnormality. LYMPH NODES: No greater than 1cm abdominal or pelvic lymph nodes are appreciated. AORTA: No significant abnormality. OSSEOUS STRUCTURES: No significant abnormality is seen. OTHER: No significant additional abnormality is seen. IMPRESSION: 1. Pancreatic head mass felt reflect malignancy until proven otherwise. There is evidence of intra an d extrahepatic biliary ductal dilatation and distention of the gallbladder.
== END | disposition home or self-care (01) ==
LOC: RADCTMAIN 14:18
PROVIDERS: ATTEND Family Medicine
DX: R17 Unspecified jaundice (principal)
CPT/HCPCS: 82565; 84520; 74160; 36415; Q9967

== ENCOUNTER 2021-11-18 09:33 | Emergency (ER) | payer MEDICARE ==
[2021-11-18 09:38] VITALS: RESP 20; TEMP 97.9
[2021-11-18] MEDS ORDERED: SODIUM CHLORIDE 0.9% 500 ML 500 ML IV STA (10:24)
--- NOTE | 2021-11-18 10:34 | ED ---
General Adult HPI - General Chief complaint: Recheck/Abnormal Lab/Rx Stated complaint: Sent by PCP Time Seen by Provider: 11/18/21 10:15 Source: patient, RN notes reviewed, old records reviewed Mode of arrival: ambulatory Limitations: no limitations - History of Present Illness Initial comments: This is a 70-year-old female, alert and oriented times x4 that presents ambulatory complaining of jaundice. She was seen by her primary care Dr Mckeon and had a CAT scan done on and lab work. She was found to have a pancreatic mass measuring 2.6 x 3 cm. Her primary care doctor called her this morning telling her that her labs are elevated and she should go to the emergency room to have a surgeon place a drain. Patient denies any fevers, no n ausea, vomiting, no abdominal pain, Severity scale (1-10): 0 Associated Symptoms: other (Frequent stools, jaundiced) - Related Data Home Medications Medication Instructions Recorded Confirmed Estrogens, Conjugated [Premarin] 0.3 mg PO QAM 11/13/16 12/02/17 Losartan Potassium [Cozaar] 100 mg PO QAM 11/13/16 12/02/17 Multivitamins, Thera [Multivitamin 1 tab PO DAILY 11/13/16 12/02/17 (formulary)] Cholecalciferol (Vitamin D3) 2,000 unit PO DAILY 12/02/17 12/02/17 [Vitamin D3] Selenium Sulfate Lotion 1 applic TOPICAL DAILY PRN 12/02/17 12/02/17 hydroCHLOROthiazide [Hydrodiuril] 25 mg PO DAILY 12/02/17 12/02/17 Previous Rx's Medication Instructions Recorded Aspirin 81 mg PO DAILY #1 chewable 12/03/17 Allergies Allergy/AdvReac Type Severity Reaction Status Date / Time celecoxib [From Celebrex] Allergy Rash/Hives Verified 11/18/21 09:38 Review of Systems ROS Statement: Those systems with pertinent positive or pertinent negative responses have been documented in the HPI. ROS Other: All systems not noted in ROS Statement are negative. Past Medical History Past Medical History: Hypertension, Sleep Apnea/CPAP/BIPAP Additional Past Medical History / Comment(s): uses cpap,heart murmur,PVCs, brain aneurysm History of Any Multi-Drug Resistant Organisms: None Reported Past Surgical History: Back Surgery, Cardiac Ablation, Hysterectomy Additional Past Surgical History / Comment(s): fusion to back,rt shoulder repair Past Anesthesia/Blood Transfusion Reactions: Postoperative Nausea & Vomiting (PONV) Past Psychological History: No Psychological Hx Reported Smoking Status: Former smoker Past Alcohol Use History: Occasional Past Drug Use History: None Reported - Past Family History Mother Family Medical History: Cancer Additional Family Medical History / Comment(s): pancreatic Father Family Medical History: No Reported History General Exam Limitations: no limitations General appearance: alert, in no apparent distress Head exam: Present: atraumatic, normocephalic Eye exam: Present: EOMI, scleral icterus. Absent: periorbital swelling, periorbital tenderness ENT exam: Present: normal exam, normal oropharynx, mucous membranes moist Neck exam: Present: normal inspection, full ROM. Absent: tenderness, meningismus Respiratory exam: Present: normal lung sounds bilaterally. Absent: respiratory distress, accessory muscle use Cardiovascular Exam: Present: regular rate GI/Abdominal exam: Present: soft. Absent: distended, tenderness, guarding, rebound, rigid, mass Back exam: Absent: CVA tenderness (R), CVA tenderness (L) Neurological exam: Present: alert, oriented X3, normal gait Psychiatric exam: Present: normal affect, normal mood Skin exam: Present: warm, dry, other (jaundiced). Absent: cyanosis, diaphoretic Course Vital Signs 11/18/21 11/18/21 09:34 13:10 Temperature 97.9 F Pulse Rate 64 65 Respiratory 20 20 Rate Blood Pressure 178/72 164/70 O2 Sat by Pulse 97 97 Oximetry Medical Decision Making - Medical Decision Making Ultrasound of the abdomen shows a 4.6 x 3.6 x 3.4 cm mass in the pancreatic head. The pancreatic duct is markedly dilated at 8 mm. The gallbladder is distended without evidence of cholelithiasis or gallbladder wall thickening. Common bile duct is measuring 1.4 cm. Total bili 5.7, AST 532, ALT 840, alk phos 679 Vital signs are stable and patient is afebrile. Abdomen is soft and nontender. Patient has nausea but denies any vomiting. I did discuss the results of the ultrasound and lab results with the patient. I did tell her that this time we do not have the care that she requires and that would necessitate transfer to another hospital. With shared decision making between patient, myself and her [id number], it was decided that she will be discharged home and will follow up with her doctor and if symptoms worsen she will go to a higher level care facility at [facility] where she is going to be scheduled for evaluation of her pancreatic mass. Patient was advised to go to the emergency room sooner if symptoms worsen including abdominal pain, back pain, fevers, persistent nausea vomiting. Case discussed with Dr. Avery, patient was discharged. - Lab Data Result diagrams: 11/18/21 10:31 11/18/21 10:31 Lab Results 11/18/21 11/18/21 11/18/21 Range/Units 10:31 10:31 10:31 WBC 5.1 (3.8-10.6) k/uL RBC 4.17 (3.80-5.40) m/uL Hgb 11.4 (11.4-16.0) gm/dL Hct 35.6 (34.0-46.0) % MCV 85.4 (80.0-100.0) fL MCH 27.3 (25.0-35.0) pg MCHC 31.9 (31.0-37.0) g/dL RDW 14.8 (11.5-15.5) % Plt Count 344 (150-450) k/uL MPV 7.4 Neutrophils % 66 % Lymphocytes % 24 % Monocytes % 6 % Eosinophils % 1 % Basophils % 1 % Neutrophils # 3.4 (1.3-7.7) k/uL Lymphocytes # 1.2 (1.0-4.8) k/uL Monocytes # 0.3 (0-1.0) k/uL Eosinophils # 0.1 (0-0.7) k/uL Basophils # 0.0 (0-0.2) k/uL PT 10.4 (9.0-12.0) sec INR 0.9 (<1.2) APTT 23.5 (22.0-30.0) sec Sodium (137-145) mmol/L Potassium (3.5-5.1) mmol/L Chloride (98-107) mmol/L Carbon Dioxide (22-30) mmol/L Anion Gap mmol/L BUN (7-17) mg/dL Creatinine (0.52-1.04) mg/dL Est GFR (CKD-EPI)AfAm (>60 ml/min/1.73 sqM) Est GFR (CKD-EPI)NonAf (>60 ml/min/1.73 sqM) Glucose (74-99) mg/dL Plasma Lactic Acid Mark (0.7-2.0) mmol/L Calcium (8.4-10.2) mg/dL Magnesium (1.6-2.3) mg/dL Total Bilirubin (0.2-1.3) mg/dL AST (14-36) U/L ALT (4-34) U/L Alkaline Phosphatase (38-126) U/L Total Protein (6.3-8.2) g/dL Albumin (3.5-5.0) g/dL Amylase (30-110) U/L Lipase (23-300) U/L Urine Color Dark Yellow Urine Appearance Cloudy H (Clear) Urine pH 5.5 (5.0-8.0) Ur Specific [place] 1.009 (1.001-1.035) Urine Protein Negative (Negative) Urine Glucose (UA) Negative (Negative) Urine Ketones 1+ H (Negative) Urine Blood Negative (Negative) Urine Nitrite Negative (Negative) Urine Bilirubin 2+ H (Negative) Urine Urobilinogen <2.0 (<2.0) mg/dL Ur Leukocyte Esterase Negative (Negative) Urine RBC <1 (0-5) /hpf Urine WBC 2 (0-5) /hpf Ur Squamous Epith Cells 5 H (0-4) /hpf Urine Bacteria Many H (None) /hpf Urine Mucus Rare H (None) /hpf 11/18/21 11/18/21 Range/Units 10:31 10:31 WBC (3.8-10.6) k/uL RBC (3.80-5.40) m/uL Hgb (11.4-16.0) gm/dL Hct (34.0-46.0) % MCV (80.0-100.0) fL MCH (25.0-35.0) pg MCHC (31.0-37.0) g/dL RDW (11.5-15.5) % Plt Count (150-450) k/uL MPV Neutrophils % % Lymphocytes % % Monocytes % % Eosinophils % % Basophils % % Neutrophils # (1.3-7.7) k/uL Lymphocytes # (1.0-4.8) k/uL Monocytes # (0-1.0) k/uL Eosinophils # (0-0.7) k/uL Basophils # (0-0.2) k/uL PT (9.0-12.0) sec INR (<1.2) APTT (22.0-30.0) sec Sodium 140 (137-145) mmol/L Potassium 3.9 (3.5-5.1) mmol/L Chloride 107 (98-107) mmol/L Carbon Dioxide 21 L (22-30) mmol/L Anion Gap 12 mmol/L BUN 6 L (7-17) mg/dL Creatinine 0.61 (0.52-1.04) mg/dL Est GFR (CKD-EPI)AfAm >90 (>60 ml/min/1.73 sqM) Est GFR (CKD-EPI)NonAf >90 (>60 ml/min/1.73 sqM) Glucose 120 H (74-99) mg/dL Plasma Lactic Acid Mark 0.8 (0.7-2.0) mmol/L Calcium 9.9 (8.4-10.2) mg/dL Magnesium 2.0 (1.6-2.3) mg/dL Total Bilirubin 5.7 H (0.2-1.3) mg/dL AST 532 H (14-36) U/L ALT 840 H (4-34) U/L Alkaline Phosphatase 679 H (38-126) U/L Total Protein 7.6 (6.3-8.2) g/dL Albumin 4.2 (3.5-5.0) g/dL Amylase 38 (30-110) U/L Lipase 32 (23-300) U/L Urine Color Urine Appearance (Clear) Urine pH (5.0-8.0) Ur Specific [place] (1.001-1.035) Urine Protein (Negative) Urine Glucose (UA) (Negative) Urine Ketones (Negative) Urine Blood (Negative) Urine Nitrite (Negative) Urine Bilirubin (Negative) Urine Urobilinogen (<2.0) mg/dL Ur Leukocyte Esterase (Negative) Urine RBC (0-5) /hpf Urine WBC (0-5) /hpf Ur Squamous Epith Cells (0-4) /hpf Urine Bacteria (None) /hpf Urine Mucus (None) /hpf Disposition Clinical Impression: Jaundice, Pancreatic mass Disposition: HOME SELF-CARE Condition: Good Instructions (If sedation given, give patient instructions): Jaundice (ED) Additional Instructions: At this time our hospital does not have the capability for placement of a biliary stent which may be needed. We have offered to transfer you to [facility] in [place] however you have decided to go home. I believe that at this time you are stable to make this decision. Please go to the emergency room at [facility] in [place] if your symptoms worsen including abdominal pain, back pain, fevers, or persistent nausea/ vomiting. Is patient prescribed a controlled substance at d/c from ED?: No Referrals: Meir Mckeon DO [Primary Care Provider] - 1-2 days Time of Disposition: 12:25
[2021-11-18 10:52] LABS: Basophils % (A) 1 %; Eosinophils # (A) 0.1 k/uL (0-0.7); Eosinophils % (A) 1 %; HCT 35.6 % (34.0-46.0); HGB 11.4 gm/dL (11.4-16.0); Lymphocytes # (A) 1.2 k/uL (1.0-4.8); Lymphocytes % (A) 24 %; MCH 27.3 pg (25.0-35.0); MCHC 31.9 g/dL (31.0-37.0); MCV 85.4 fL (80.0-100.0); Mean Platelet Volume 7.4; Monocytes # (A) 0.3 k/uL (0-1.0); Monocytes % (A) 6 %; Neutrophils # (A) 3.4 k/uL (1.3-7.7); Neutrophils % (A) 66 %; Platelet Count 344 k/uL (150-450); RBC 4.17 m/uL (3.80-5.40); RDW 14.8 % (11.5-15.5); WBC 5.1 k/uL (3.8-10.6)
[2021-11-18 10:59] LABS: INR 0.9 (<1.2); Prothrombin Time 10.4 sec (9.0-12.0)
[2021-11-18 11:00] LABS: Partial Thromboplastin Time 23.5 sec (22.0-30.0)
[2021-11-18 11:04] LABS: AST 532 U/L (14-36); African American GFR (CKD) >90 (>60 ml/min/1.73 sqM); Albumin 4.2 g/dL (3.5-5.0); Alkaline Phosphatase 679 U/L (38-126); Amylase 38 U/L (30-110); Anion Gap 12 mmol/L; Blood Urea Nitrogen 6 mg/dL (7-17); Calcium 9.9 mg/dL (8.4-10.2); Carbon Dioxide 21 mmol/L (22-30); Chloride 107 mmol/L (98-107); Glucose 120 mg/dL (74-99); Lipase 32 U/L (23-300); Non-African American GFR(CKD) >90 (>60 ml/min/1.73 sqM); Potassium 3.9 mmol/L (3.5-5.1); Sodium 140 mmol/L (137-145); Total Bilirubin 5.7 mg/dL (0.2-1.3); Total Protein 7.6 g/dL (6.3-8.2)
--- NOTE | 2021-11-18 11:37 | US ---
EXAMINATION TYPE: US abdomen limited DATE OF EXAM: 11/18/2021 COMPARISON: Recent CT CLINICAL HISTORY: gallbladder. Painless jaundice, recent abnormal CT, abnormal labs EXAM MEASUREMENTS: Liver Length: 14.4 cm Gallbladder Wall: 0.2 cm CBD: 1.4 cm Right Kidney: 10.6 x 4.4 x 4.9 cm Pancreas: Dilated pancreatic duct at 0.8 cm, irregular hypoechoic, vascular lesion at head= 3.6 x 3. 4 x 4.6 cm Liver: Heterogeneous, however no evidence of lesion at this time, intrahepatic ductal dilatation Gallbladder: Distended Evidence for sonographic Dang's sign: No CBD: Dilated Right Kidney: wnl IMPRESSION: 1. 4.6 x 3.6 x 3.4 cm mass in the pancreatic head highly suspicious for neoplasm. The pancreatic duct is markedly dilated at 8 mm. 2. Distended gallbladder without cholelithiasis or gallbladder wall thickening. 3. Dilated common bile duct measuring 1.4 cm. 4. Normal right kidney
[2021-11-18 11:41] LABS: ALT 840 U/L (4-34)
[2021-11-18 12:11] LABS: Appearance,Urine Cloudy (Clear); Bacteria,Urine Many /hpf; Bilirubin,Urine 2+ (Negative); Blood,Urine Negative (Negative); Color,Urine Dark Yellow; Glucose,Urine (UA) Negative (Negative); Ketones,Urine 1+ (Negative); Leukocyte Esterase,Urine Negative (Negative); Mucus,Urine Rare /hpf; Nitrite,Urine Negative (Negative); PH, Urine 5.5 (5.0-8.0); Protein,Urine Negative (Negative); RBC,Urine <1 /hpf (0-5); Specific Gravity,Urine 1.009 (1.001-1.035); Squamous Epithelial Cell,Urine 5 /hpf (0-4); Urobilinogen,Urine <2.0 mg/dL (<2.0); WBC,Urine 2 /hpf (0-5)
[2021-11-18 13:10] VITALS: BP 164/70; PULSE 65
== END 2021-11-18 13:10 | disposition home or self-care (01) ==
LOC: EC 09:33
DX: R17 Unspecified jaundice (principal); I10 Essential (primary) hypertension; F17.200 Nicotine dependence, unspecified, uncomplicated; Z88.6 Allergy status to analgesic agent
CPT/HCPCS: 36415; 76705; 80053; 81001; 82150; 83605; 83690; 83735; 85025; 85610; 85730; 96360; 99284

== ENCOUNTER 2022-01-03 21:12 | Emergency (ER) | payer MEDICARE ==
[2022-01-03 23:35] VITALS: BP 137/54; PULSE 88; RESP 20; TEMP 99.6
[2022-01-03] MEDS ORDERED: ACETAMINOPHEN TAB 500 MG TAB PO STA (23:40)
[2022-01-04] MEDS ORDERED: SODIUM CHLORIDE 0.9% 1,000 ML IV STA (01:43)
[2022-01-04] MEDS ORDERED: AZITHROMYCIN 500 MG TAB PO STA (01:43)
--- NOTE | 2022-01-04 01:44 | ED ---
Fever HPI - General Chief Complaint: Fever Stated Complaint: post chemo-fever Time Seen by Provider: 01/04/22 01:38 Source: patient, RN notes reviewed, old records reviewed Mode of arrival: ambulatory Limitations: no limitations - History of Present Illness Initial Comments: This is a 71-year-old female to the emergency for today. Patient presents today for us for evaluation regards to fever. Patient is on chemotherapy but it was a week ago. June with fever today and sent DF for evaluation regards to cause a fever. Patient has no complaints other than fever she feels hot sweaty and chills. No headache sore throat cough congestion runny nose nausea vomiting diarrhea dysuria abdominal pain etc. No travel history or sick contacts MD Complaint: fever -: hour(s) Temperature Source: subjective Context: sick contacts Associated Symptoms: chills, rigors, myalgias Treatments Prior to Arrival: none - Related Data Home Medications Medication Instructions Recorded Confirmed Estrogens, Conjugated [Premarin] 0.3 mg PO QAM 11/13/16 12/02/17 Losartan Potassium [Cozaar] 100 mg PO QAM 11/13/16 12/02/17 Multivitamins, Thera [Multivitamin 1 tab PO DAILY 11/13/16 12/02/17 (formulary)] Cholecalciferol (Vitamin D3) 2,000 unit PO DAILY 12/02/17 12/02/17 [Vitamin D3] Selenium Sulfate Lotion 1 applic TOPICAL DAILY PRN 12/02/17 12/02/17 hydroCHLOROthiazide [Hydrodiuril] 25 mg PO DAILY 12/02/17 12/02/17 Previous Rx's Medication Instructions Recorded Aspirin 81 mg PO DAILY #1 chewable 12/03/17 Allergies Allergy/AdvReac Type Severity Reaction Status Date / Time celecoxib [From Celebrex] Allergy Rash/Hives Verified 01/03/22 23:49 Review of Systems ROS Statement: Those systems with pertinent positive or pertinent negative responses have been documented in the HPI. ROS Other: All systems not noted in ROS Statement are negative. Past Medical History Past Medical History: Cancer, Hypertension, Sleep Apnea/CPAP/BIPAP Additional Past Medical History / Comment(s): uses cpap,heart murmur,PVCs, brain aneurysm, pancrieatic cancer. History of Any Multi-Drug Resistant Organisms: None Reported Past Surgical History: Back Surgery, Cardiac Ablation, Hysterectomy Additional Past Surgical History / Comment(s): fusion to back,rt shoulder repair, prlasped ueterus, liver stent Past Anesthesia/Blood Transfusion Reactions: Postoperative Nausea & Vomiting (PONV) Past Psychological History: No Psychological Hx Reported Smoking Status: Former smoker Past Alcohol Use History: Occasional Past Drug Use History: None Reported - Past Family History Mother Family Medical History: Cancer Additional Family Medical History / Comment(s): pancreatic Father Family Medical History: No Reported History General Exam Limitations: no limitations General appearance: alert, in no apparent distress Head exam: Present: atraumatic, normocephalic, normal inspection Eye exam: Present: normal appearance, PERRL, EOMI. Absent: scleral icterus, conjunctival injection, periorbital swelling ENT exam: Present: normal exam, mucous membranes moist Neck exam: Present: normal inspection. Absent: tenderness, meningismus, lymphadenopathy Respiratory exam: Present: normal lung sounds bilaterally. Absent: respiratory distress, wheezes, rales, rhonchi, stridor Cardiovascular Exam: Present: regular rate, normal rhythm, normal heart sounds. Absent: systolic murmur, diastolic murmur, rubs, gallop, clicks GI/Abdominal exam: Present: soft, normal bowel sounds. Absent: distended, tenderness, guarding, rebound, rigid Extremities exam: Present: normal inspection, full ROM, normal capillary refill. Absent: tenderness, pedal edema, joint swelling, calf tenderness Back exam: Present: normal inspection Neurological exam: Present: alert, oriented X3, CN II-XII intact Psychiatric exam: Present: normal affect, normal mood Skin exam: Present: warm, dry, intact, normal color. Absent: rash Course Vital Signs 01/03/22 23:19 Temperature 99.6 F Pulse Rate 88 Respiratory 20 Rate Blood Pressure 137/54 O2 Sat by Pulse 99 Oximetry - Reevaluation(s) Reevaluation #1: 01/04/22 Medical record is reviewed Reevaluation #2: 01/04/22 A patient is informed results and questions answered Reevaluation #3: 01/04/22 Patient feels improved with fever control fluid - Consultations Consultation #1: Spoke with Dr. chelsea claros to see the patient on outpatient basis Medical Decision Making - Medical Decision Making 71 female to the emergency department for evaluation patient Dese for evaluation of fever fever with chemotherapy. No cause a fever found patient can be discharged home no antibiotics currently will follow-up with oncology - Lab Data Result diagrams: 01/04/22 01:45 01/04/22 01:45 Lab Results 01/04/22 01/04/22 01/04/22 Range/Units 01:45 01:45 01:45 WBC 19.4 H (3.8-10.6) k/uL RBC 3.55 L (3.80-5.40) m/uL Hgb 10.0 L (11.4-16.0) gm/dL Hct 29.5 L (34.0-46.0) % MCV 83.0 (80.0-100.0) fL MCH 28.1 (25.0-35.0) pg MCHC 33.8 (31.0-37.0) g/dL RDW 14.5 (11.5-15.5) % Plt Count 174 (150-450) k/uL MPV 7.6 Neutrophils % 95 % Lymphocytes % 2 % Monocytes % 3 % Eosinophils % 0 % Basophils % 0 % Neutrophils # 18.4 H (1.3-7.7) k/uL Lymphocytes # 0.3 L (1.0-4.8) k/uL Monocytes # 0.5 (0-1.0) k/uL Eosinophils # 0.0 (0-0.7) k/uL Basophils # 0.1 (0-0.2) k/uL Sodium 133 L (137-145) mmol/L Potassium 3.7 (3.5-5.1) mmol/L Chloride 101 (98-107) mmol/L Carbon Dioxide 25 (22-30) mmol/L Anion Gap 7 mmol/L BUN 15 (7-17) mg/dL Creatinine 0.62 (0.52-1.04) mg/dL Est GFR (CKD-EPI)AfAm >90 (>60 ml/min/1.73 sqM) Est GFR (CKD-EPI)NonAf >90 (>60 ml/min/1.73 sqM) Glucose 89 (74-99) mg/dL Plasma Lactic Acid Mark 1.2 (0.7-2.0) mmol/L Calcium 8.8 (8.4-10.2) mg/dL Total Bilirubin 0.6 (0.2-1.3) mg/dL AST 40 H (14-36) U/L ALT 26 (4-34) U/L Alkaline Phosphatase 174 H (38-126) U/L Total Protein 6.3 (6.3-8.2) g/dL Albumin 3.8 (3.5-5.0) g/dL Urine Color Urine Appearance (Clear) Urine pH (5.0-8.0) Ur Specific [place] (1.001-1.035) Urine Protein (Negative) Urine Glucose (UA) (Negative) Urine Ketones (Negative) Urine Blood (Negative) Urine Nitrite (Negative) Urine Bilirubin (Negative) Urine Urobilinogen (<2.0) mg/dL Ur Leukocyte Esterase (Negative) Urine RBC (0-5) /hpf Urine WBC (0-5) /hpf Ur Squamous Epith Cells (0-4) /hpf Urine Bacteria (None) /hpf Urine Mucus (None) /hpf Coronavirus (PCR) (Not Detectd) Influenza Type A RNA (Not Detectd) Influenza Type B (PCR) (Not Detectd) 01/04/22 01/04/22 01/04/22 Range/Units 01:45 01:45 03:21 WBC (3.8-10.6) k/uL RBC (3.80-5.40) m/uL Hgb (11.4-16.0) gm/dL Hct (34.0-46.0) % MCV (80.0-100.0) fL MCH (25.0-35.0) pg MCHC (31.0-37.0) g/dL RDW (11.5-15.5) % Plt Count (150-450) k/uL MPV Neutrophils % % Lymphocytes % % Monocytes % % Eosinophils % % Basophils % % Neutrophils # (1.3-7.7) k/uL Lymphocytes # (1.0-4.8) k/uL Monocytes # (0-1.0) k/uL Eosinophils # (0-0.7) k/uL Basophils # (0-0.2) k/uL Sodium (137-145) mmol/L Potassium (3.5-5.1) mmol/L Chloride (98-107) mmol/L Carbon Dioxide (22-30) mmol/L Anion Gap mmol/L BUN (7-17) mg/dL Creatinine (0.52-1.04) mg/dL Est GFR (CKD-EPI)AfAm (>60 ml/min/1.73 sqM) Est GFR (CKD-EPI)NonAf (>60 ml/min/1.73 sqM) Glucose (74-99) mg/dL Plasma Lactic Acid Mark (0.7-2.0) mmol/L Calcium (8.4-10.2) mg/dL Total Bilirubin (0.2-1.3) mg/dL AST (14-36) U/L ALT (4-34) U/L Alkaline Phosphatase (38-126) U/L Total Protein (6.3-8.2) g/dL Albumin (3.5-5.0) g/dL Urine Color Yellow Urine Appearance Cloudy H (Clear) Urine pH 5.5 (5.0-8.0) Ur Specific [place] 1.016 (1.001-1.035) Urine Protein Negative (Negative) Urine Glucose (UA) Negative (Negative) Urine Ketones Negative (Negative) Urine Blood Negative (Negative) Urine Nitrite Negative (Negative) Urine Bilirubin Negative (Negative) Urine Urobilinogen <2.0 (<2.0) mg/dL Ur Leukocyte Esterase Negative (Negative) Urine RBC <1 (0-5) /hpf Urine WBC 4 (0-5) /hpf Ur Squamous Epith Cells 4 (0-4) /hpf Urine Bacteria Moderate H (None) /hpf Urine Mucus Rare H (None) /hpf Coronavirus (PCR) Not Detected (Not Detectd) Influenza Type A RNA Not Detected (Not Detectd) Influenza Type B (PCR) Not Detected (Not Detectd) - Radiology Data Radiology results: image reviewed (Patient refusing chest x-ray) Disposition Clinical Impression: Fever of unknown origin Disposition: HOME SELF-CARE Condition: Good Instructions (If sedation given, give patient instructions): Fever in Adults (ED) Is patient prescribed a controlled substance at d/c from ED?: No Referrals: Meir Mckeon DO [Primary Care Provider] - 1-2 days Time of Disposition: 06:30
[2022-01-04 02:22] LABS: Basophils # (A) 0.1 k/uL (0-0.2); Basophils % (A) 0 %; Eosinophils % (A) 0 %; HCT 29.5 % (34.0-46.0); Lymphocytes # (A) 0.3 k/uL (1.0-4.8); Lymphocytes % (A) 2 %; MCH 28.1 pg (25.0-35.0); MCHC 33.8 g/dL (31.0-37.0); Mean Platelet Volume 7.6; Monocytes # (A) 0.5 k/uL (0-1.0); Monocytes % (A) 3 %; Neutrophils # (A) 18.4 k/uL (1.3-7.7); Neutrophils % (A) 95 %; Platelet Count 174 k/uL (150-450); RBC 3.55 m/uL (3.80-5.40); RDW 14.5 % (11.5-15.5); WBC 19.4 k/uL (3.8-10.6)
[2022-01-04 02:43] LABS: ALT 26 U/L (4-34); African American GFR (CKD) >90 (>60 ml/min/1.73 sqM); Albumin 3.8 g/dL (3.5-5.0); Anion Gap 7 mmol/L; Blood Urea Nitrogen 15 mg/dL (7-17); Calcium 8.8 mg/dL (8.4-10.2); Carbon Dioxide 25 mmol/L (22-30); Chloride 101 mmol/L (98-107); Glucose 89 mg/dL (74-99); Non-African American GFR(CKD) >90 (>60 ml/min/1.73 sqM); Sodium 133 mmol/L (137-145); Total Bilirubin 0.6 mg/dL (0.2-1.3); Total Protein 6.3 g/dL (6.3-8.2)
[2022-01-04 03:10] LABS: AST 40 U/L (14-36); Potassium 3.7 mmol/L (3.5-5.1)
[2022-01-04 03:11] LABS: Alkaline Phosphatase 174 U/L (38-126)
[2022-01-04 03:48] LABS: Appearance,Urine Cloudy (Clear); Bacteria,Urine Moderate /hpf; Bilirubin,Urine Negative (Negative); Blood,Urine Negative (Negative); Color,Urine Yellow; Glucose,Urine (UA) Negative (Negative); Ketones,Urine Negative (Negative); Leukocyte Esterase,Urine Negative (Negative); Mucus,Urine Rare /hpf; Nitrite,Urine Negative (Negative); PH, Urine 5.5 (5.0-8.0); Protein,Urine Negative (Negative); RBC,Urine <1 /hpf (0-5); Specific Gravity,Urine 1.016 (1.001-1.035); Squamous Epithelial Cell,Urine 4 /hpf (0-4); Urobilinogen,Urine <2.0 mg/dL (<2.0); WBC,Urine 4 /hpf (0-5)
== END 2022-01-04 05:14 | disposition home or self-care (01) ==
LOC: EC 21:12
DX: R50.9 Fever, unspecified (principal); I10 Essential (primary) hypertension; Z87.891 Personal history of nicotine dependence; Z20.822 Contact with and (suspected) exposure to COVID-19; Z88.6 Allergy status to analgesic agent
CPT/HCPCS: 36415; 80053; 81001; 83605; 85025; 87040; 87502; 87635

== ENCOUNTER → 2022-05-04 | Outpatient (CLI) | payer MEDICARE ==
--- NOTE | 2022-05-07 08:22 | MM ---
Reason for Exam: Screening (asymptomatic). Last mammogram was performed 1 year(s) and 2 month(s) ago. Patient History: Menarche at age 11. Patient has no children. Left ovary removed at age 54. Right ovary removed at age 54. Hysterectomy at age 54. Postmenopausal. Previous chemotherapy at age 71. Currently using Estrogen, beginning at age 54 for 14 years. Maternal cousin had breast cancer, age 50. Maternal aunt had breast cancer, age 50. Risk Values: Monika 5 year model risk: 2.0%. NCI Lifetime model risk: 5.1%. Prior Study Comparison: 05/26/2015 Screening Mammogram, Unknown. 08/28/2016 Screening Mammogram, Unknown. 01/14/2017 Right Diagnostic Mammogram, [facility]. 09/25/2017 Bilateral Diagnostic Mammogram, [facility]. 01/21/2019 Bilateral Diagnostic Mammogram, [facility]. 02/26/2020 Bilateral Screening Mammogram, [facility]. 03/10/2021 Bilateral Screening Mammogram, [facility]. Tissue Density: The breast tissue is heterogeneously dense. This may lower the sensitivity of mammography. Findings: Analyzed By CAD. There is no suspicious group of microcalcifications or new suspicious mass in either breast. Overall Assessment: Negative, BI-RAD 1 Management: Screening Mammogram of both breasts in 1 year. A clinical breast exam by your physician is recommended on an annual basis and results should be correlated with mammographic findings. Electronically signed and approved by: Gerardo Wang M.D. Radiologis
== END | disposition home or self-care (01) ==
LOC: RADMAMWWP 14:03
PROVIDERS: ATTEND Family Medicine
DX: Z12.31 Encounter for screening mammogram for malignant neoplasm of breast (principal)
CPT/HCPCS: 77063; 77067

== ENCOUNTER 2023-02-06 10:10 | Inpatient (IN) | payer MEDICARE ==
[2023-02-06] MEDS ORDERED: ACETAMINOPHEN TAB 325 MG TAB PO STA (11:31)
[2023-02-06] MEDS ORDERED: SODIUM CHLORIDE 0.9% 1,000 ML IV STA ×2 (11:31→11:34)
[2023-02-06] MEDS ORDERED: VANCOMYCIN IV PER PHARMACY 1 EACH MISC MISCELLANE PRN (11:33)
--- NOTE | 2023-02-06 11:35 | ED ---
General Adult HPI - General Chief complaint: Fever Stated complaint: chemo pt- fever Time Seen by Provider: 02/06/23 11:25 Source: patient, RN notes reviewed, old records reviewed Mode of arrival: ambulatory Limitations: no limitations - History of Present Illness Initial comments: Patient is a 72-year-old female presents emergency Department complaining of fever. I was notified by Dr. Tello of the patient's arrival. Patient is currently being treated with chemotherapy for pancreatic cancer. Had fevers of 104-105F at home. Instructed to come to the emergency department for admission, infectious workup, IV antibiotics, with infectious disease consult. Has no obvious acute infectious symptoms. Denies cough, diarrhea, nausea, vomiting, abdominal pain, chest pain. Denies any sore throat, rhinorrhea. Fever started today. Presents for further evaluation at this time. - Related Data Home Medications Medication Instructions Recorded Confirmed Apixaban [Eliquis] 5 mg PO BID 01/08/23 02/06/23 Estradiol Cream [Estrace Cream 1 applic TOPICAL MOWEFR@2100 01/08/23 02/06/23 0.01%] Famotidine [Pepcid] 20 mg PO BID 01/08/23 02/06/23 Lipase/Protease/Amylase [Ric Rangel 1 - 2 cap PO DIRECTED 01/08/23 02/06/23 24,000 Unit Capsule] Cholecalciferol [Vitamin D3 (25 25 mcg PO DAILY 02/06/23 02/06/23 Mcg = 1000 Iu)] Loperamide [Imodium] 2 - 4 mg PO BID PRN 02/06/23 02/06/23 Loperamide [Imodium] 2 mg PO DAILY 02/06/23 02/06/23 Loperamide [Imodium] 2 mg PO QAM 02/06/23 02/06/23 Loperamide [Imodium] 4 mg PO HS 02/06/23 02/06/23 Multivit-Min/Iron/Folic/Lutein 1 tab PO DAILY 02/06/23 02/06/23 [Centrum Silver Women Tablet] Ondansetron Odt [Zofran Odt] 4 mg PO Q4H PRN 02/06/23 02/06/23 Topiramate [Topamax] 50 mg PO BID 02/06/23 02/06/23 hydroCHLOROthiazide 12.5 mg PO DAILY 02/06/23 02/06/23 Allergies Allergy/AdvReac Type Severity Reaction Status Date / Time celecoxib [From Celebrex] Allergy Rash/Hives Verified 02/06/23 12:57 Review of Systems ROS Statement: Those systems with pertinent positive or pertinent negative responses have been documented in the HPI. Review of Systems: CONST: Endorses fever EYES: Denies blurry vision ENT: Denies nasal congestion C/V: Denies Chest pain RESP: Denies shortness of breath GI: Denies abdominal pain : Denies dysuria SKIN: Denies rash. MSK: Denies joint pain. NEURO: Denies headache ROS Other: All systems not noted in ROS Statement are negative. Past Medical History Past Medical History: Cancer, Hypertension, Sleep Apnea/CPAP/BIPAP Additional Past Medical History / Comment(s): heart murmur,PVCs, brain aneurysm. PANCREATIC CANCER History of Any Multi-Drug Resistant Organisms: None Reported Past Surgical History: Back Surgery, Cardiac Ablation, Hysterectomy Additional Past Surgical History / Comment(s): fusion to back,rt shoulder repair, prlasped ueterus, liver stent Past Anesthesia/Blood Transfusion Reactions: Postoperative Nausea & Vomiting (PONV) Past Psychological History: No Psychological Hx Reported Smoking Status: Current some day smoker Past Alcohol Use History: None Reported Past Drug Use History: None Reported - Past Family History Mother Family Medical History: Cancer Additional Family Medical History / Comment(s): pancreatic Father Family Medical History: No Reported History General Exam - General Exam Comments Initial Comments: General: Appears in no acute distress. Patient's febrile HEAD: Normal with no signs of head trauma. EYES: PERRLA, EOMI, conjunctiva normal, no discharge. ENT: Hearing grossly intact, normal oropharynx. RESPIRATORY: Clear breath sounds bilaterally. No wheezes, rales, or rhonchi. C/V: Regular rate and rhythm. S1 and S2 auscultated, no edema, peripheral pulses 2+ and intact throughout ABD: Abd is soft, nontender, nondistended EXT: Normal range of motion, no obvious deformity SKIN: No rashes or lesions observed on exposed skin. NEURO: Alert and oriented 4. Limitations: no limitations Course Vital Signs 02/06/23 10:17 Temperature 100.8 F H Pulse Rate 82 Respiratory 20 Rate Blood Pressure 100/62 O2 Sat by Pulse 99 Oximetry Medical Decision Making - Medical Decision Making Was pt. sent in by a medical professional or institution (DOUG Sood, CHIEF OPERATING OFFICER, urgent care, hospital, or fdc...) When possible be specific @ -No Did you speak to anyone other than the patient for history (EMS, parent, family, police, friend...)? What history was obtained from this source @ -Spoke with Dr. Tello who requested admission for the patient. Requested broad-spectrum antibiotics and infectious disease evaluation. Did you review nursing and triage notes (agree or disagree)? Why? @ -I reviewed and agree with nursing and triage notes Were old charts reviewed (outside hosp., previous admission, EMS record, old EKG, old radiological studies, urgent care reports/EKG's, fdc records)? Report findings @ -No old charts were reviewed Differential Diagnosis (chest pain, altered mental status, abdominal pain women, abdominal pain men, vaginal bleeding, weakness, fever, dyspnea, syncope, headache, dizziness, GI bleed, back pain, seizure, CVA, palpatations, mental health, musculoskeletal)? @ -Differential Fever: Pneumonia, viral URI, endocarditis, myocarditis, pericarditis, otitis, sinusitis, peritonsillar Abscess, retropharyngeal Abscess, epiglottitis, peritonitis, appendicitis, Chiquita cystitis, diverticulitis, hepatitis, colitis, UTI, PID, TOA, pyelonephritis, prostatitis, epididymitis, meningitis, encephalitis, pulmonary embolism, CVA, thyroid storm, pancreatitis, adrenal crisis, cavernous sinus thrombosis, this is not meant to be an all-inclusive list. EKG interpreted by me (3pts min.). @ -None done X-rays interpreted by me (1pt min.). @ -Chest x-ray reveals no obvious acute cardio pulmonary process. CT interpreted by me (1pt min.). @ -None done U/S interpreted by me (1pt. min.). @ -None done What testing was considered but not performed or refused? (CT, X-rays, U/S, labs)? Why? @ -None What meds were considered but not given or refused? Why? @ -None Did you discuss the management of the patient with other professionals (professionals i.e. DOUG Sood, CHIEF OPERATING OFFICER, lab, RT, psych nurse, social sciences lecturer, ampoule inspector, teacher, light armored reconnaissance officer, geriatric case manager)? Give summary @ -Yes, discussed with patient's oncologist Dr. Tello who requested admission. Discussed with the admitting physician, Dr. walden who accepted the patient. Was smoking cessation discussed for >3mins.? @ -No Was critical care preformed (if so, how long)? @ -No Were there social determinants of health that impacted care today? How? (Homelessness, low income, unemployed, alcoholism, drug addiction, transportation, low edu. Level, literacy, decrease access to med. care, senior living, rehab)? @ -No Was there de-escalation of care discussed even if they declined (Discuss DNR or withdrawal of care, Hospice)? DNR status @ -No What co-morbidities impacted this encounter? (DM, HTN, Smoking, COPD, CAD, Cancer, CVA, ARF, Chemo, Hep., AIDS, mental health diagnosis, sleep apnea, morbid obesity)? @ -None Was patient admitted / discharged? Hospital course, mention meds given and route, prescriptions, significant lab abnormalities, going to OR and other pertinent info. @ -Based on the patient's presentation and physical exam, I'm concerned for possible fever of unknown origin in a chemo cancer patient. We will obtain infectious workup and patient will be placed on vancomycin and cefepime. We'll treat with IV fluids. She was in agreement this plan. Vital signs of supplements other than the fever which will determine Tylenol. Patient's labs are remarkable for no leukocytosis. Chronic anemia. Potassium is low at 2.7 which is chronic for the patient. This will be replenished. Magnesium lab is ordered. Remainder labs unremarkable. Chest x-ray shows no obvious acute infectious process. Blood cultures and urine pending. Patient placed on vancomycin and cefepime. I did the patient. She'll be treated for her hypokalemia and we will admit the p atient. Infectious disease consulted. Patient was in agreement this plan. Dr. Tello consulted. Patient admitted under Dr. walden who accepted the patient. Undiagnosed new problem with uncertain prognosis? @ -No Drug Therapy requiring intensive monitoring for toxicity (Heparin, Nitro, Insulin, Cardizem)? @ -No Were any procedures done? @ -No Diagnosis/symptom? @ -Fever of unknown origin in a chemo cancer patient, hypokalemia Acute, or Chronic, or Acute on Chronic? @ -Acute Uncomplicated (without systemic symptoms) or Complicated (systemic symptoms)? @ -Complicated Side effects of treatment? @ -No Exacerbation, Progression, or Severe Exacerbation? @ -No Poses a threat to life or bodily function? How? (Chest pain, [place], [place], pneumonia, PE, COPD, DKA, ARF, appy, cholecystitis, CVA, Diverticulitis, Homicidal, Suicidal, threat to staff... and all critical care pts) @ -Yes - Lab Data Result diagrams: 02/06/23 11:45 02/06/23 11:45 Lab Results 02/06/23 02/06/23 02/06/23 Range/Units 11:45 11:45 11:45 WBC 6.7 (3.8-10.6) k/uL RBC 3.17 L (3.80-5.40) m/uL Hgb 8.8 L (11.4-16.0) gm/dL Hct 27.6 L (34.0-46.0) % MCV 87.3 (80.0-100.0) fL MCH 27.7 (25.0-35.0) pg MCHC 31.8 (31.0-37.0) g/dL RDW 14.7 (11.5-15.5) % Plt Count 183 (150-450) k/uL MPV 10.5 Neutrophils % 90 % Lymphocytes % 5 % Monocytes % 4 % Eosinophils % 1 % Basophils % 0 % Neutrophils # 6.0 (1.3-7.7) k/uL Lymphocytes # 0.4 L (1.0-4.8) k/uL Monocytes # 0.3 (0-1.0) k/uL Eosinophils # 0.0 (0-0.7) k/uL Basophils # 0.0 (0-0.2) k/uL Hypochromasia Slight Sodium 135 L (137-145) mmol/L Potassium 2.7 L* (3.5-5.1) mmol/L Chloride 104 (98-107) mmol/L Carbon Dioxide 23 (22-30) mmol/L Anion Gap 8 mmol/L BUN 14 (7-17) mg/dL Creatinine 0.89 (0.52-1.04) mg/dL Est GFR (CKD-EPI)AfAm 74 (>60 ml/min/1.73 sqM) Est GFR (CKD-EPI)NonAf 65 (>60 ml/min/1.73 sqM) Glucose 108 H (74-99) mg/dL Plasma Lactic Acid Mark 0.9 (0.7-2.0) mmol/L Calcium 8.4 (8.4-10.2) mg/dL Total Bilirubin 0.7 (0.2-1.3) mg/dL AST 105 H (14-36) U/L ALT 57 H (4-34) U/L Alkaline Phosphatase 151 H (38-126) U/L C-Reactive Protein 2.6 H (<1.0) mg/dL Total Protein 6.6 (6.3-8.2) g/dL Albumin 3.7 (3.5-5.0) g/dL Influenza Type A (PCR) (Not Detectd) Influenza Type B (PCR) (Not Detectd) RSV (PCR) (Not Detectd) SARS-CoV-2 (PCR) (Not Detectd) Group A Strep (PCR) (Not Detectd) 02/06/23 02/06/23 Range/Units 11:45 11:45 WBC (3.8-10.6) k/uL RBC (3.80-5.40) m/uL Hgb (11.4-16.0) gm/dL Hct (34.0-46.0) % MCV (80.0-100.0) fL MCH (25.0-35.0) pg MCHC (31.0-37.0) g/dL RDW (11.5-15.5) % Plt Count (150-450) k/uL MPV Neutrophils % % Lymphocytes % % Monocytes % % Eosinophils % % Basophils % % Neutrophils # (1.3-7.7) k/uL Lymphocytes # (1.0-4.8) k/uL Monocytes # (0-1.0) k/uL Eosinophils # (0-0.7) k/uL Basophils # (0-0.2) k/uL Hypochromasia Sodium (137-145) mmol/L Potassium (3.5-5.1) mmol/L Chloride (98-107) mmol/L Carbon Dioxide (22-30) mmol/L Anion Gap mmol/L BUN (7-17) mg/dL Creatinine (0.52-1.04) mg/dL Est GFR (CKD-EPI)AfAm (>60 ml/min/1.73 sqM) Est GFR (CKD-EPI)NonAf (>60 ml/min/1.73 sqM) Glucose (74-99) mg/dL Plasma Lactic Acid Mark (0.7-2.0) mmol/L Calcium (8.4-10.2) mg/dL Total Bilirubin (0.2-1.3) mg/dL AST (14-36) U/L ALT (4-34) U/L Alkaline Phosphatase (38-126) U/L C-Reactive Protein (<1.0) mg/dL Total Protein (6.3-8.2) g/dL Albumin (3.5-5.0) g/dL Influenza Type A (PCR) Not Detected (Not Detectd) Influenza Type B (PCR) Not Detected (Not Detectd) RSV (PCR) Not Detected (Not Detectd) SARS-CoV-2 (PCR) Not Detected (Not Detectd) Group A Strep (PCR) NOT DETECTED (Not Detectd) Disposition Clinical Impression: Fever, Pancreatic cancer, Hypokalemia Disposition: ADMITTED IP TO THIS HOSP Condition: Stable Time of Disposition: 13:40
[2023-02-06] MEDS ORDERED: CEFEPIME 2 GM in SODIUM CHLORIDE 0.9% 100 ML IVPB STA (11:42)
[2023-02-06] MEDS ORDERED: VANCOMYCIN 750 MG in SODIUM CHLORIDE 0.9% 250 ML IVPB ONE (12:00)
[2023-02-06 12:02] LABS: Basophils % (A) 0 %; Eosinophils % (A) 1 %; HCT 27.6 % (34.0-46.0); HGB 8.8 gm/dL (11.4-16.0); Hypochromasia Slight; Lymphocytes # (A) 0.4 k/uL (1.0-4.8); Lymphocytes % (A) 5 %; MCH 27.7 pg (25.0-35.0); MCHC 31.8 g/dL (31.0-37.0); MCV 87.3 fL (80.0-100.0); Mean Platelet Volume 10.5; Monocytes # (A) 0.3 k/uL (0-1.0); Monocytes % (A) 4 %; Neutrophils % (A) 90 %; Platelet Count 183 k/uL (150-450); RBC 3.17 m/uL (3.80-5.40); RDW 14.7 % (11.5-15.5); WBC 6.7 k/uL (3.8-10.6)
[2023-02-06 12:22] LABS: ALT 57 U/L (4-34); AST 105 U/L (14-36); African American GFR (CKD) 74 (>60 ml/min/1.73 sqM); Albumin 3.7 g/dL (3.5-5.0); Alkaline Phosphatase 151 U/L (38-126); Anion Gap 8 mmol/L; Blood Urea Nitrogen 14 mg/dL (7-17); C Reactive Protein 2.6 mg/dL (<1.0); Calcium 8.4 mg/dL (8.4-10.2); Carbon Dioxide 23 mmol/L (22-30); Chloride 104 mmol/L (98-107); Glucose 108 mg/dL (74-99); Non-African American GFR(CKD) 65 (>60 ml/min/1.73 sqM); Sodium 135 mmol/L (137-145); Total Bilirubin 0.7 mg/dL (0.2-1.3); Total Protein 6.6 g/dL (6.3-8.2)
[2023-02-06 12:40] LABS: Potassium 2.7 mmol/L (3.5-5.1)
[2023-02-06] MEDS ORDERED: NALOXONE 0.4 MG/ML 1 ML VIAL IV PRN (13:47)
[2023-02-06] MEDS ORDERED: POTASSIUM CHLORIDE ER 20 MEQ TAB.ER PO STA (13:50)
--- NOTE | 2023-02-06 13:52 | XR ---
EXAMINATION TYPE: XR chest 1V portable DATE OF EXAM: 02/06/2023 1:47 PM COMPARISON: Chest radiographs from 04/14/2019 TECHNIQUE: XR chest 1V portable Portable AP radiograph of the chest. CLINICAL INDICATION:Female, 72 years old with history of fever; FINDINGS: Lungs/Pleura: There is no evidence of pleural effusion, focal consolidation, or pneumothorax. Pulmonary vascularity: Unremarkable. Heart/mediastinum: Cardiomediastinal silhouette is unremarkable. Musculoskeletal: No acute osseous pathology. Scoliotic curvature. Lines/Tubes: Tqfrke-a-Xyxk projecting over the right hemithorax with distal tip projecting over the superior vena cava. IMPRESSION: No acute cardiopulmonary disease/process.
[2023-02-06 16:01] LABS: Appearance,Urine Clear (Clear); Bilirubin,Urine Negative (Negative); Blood,Urine Negative (Negative); Color,Urine Colorless; Glucose,Urine (UA) Negative (Negative); Ketones,Urine Negative (Negative); Leukocyte Esterase,Urine Negative (Negative); Nitrite,Urine Negative (Negative); Protein,Urine Negative (Negative); Specific Gravity,Urine 1.004 (1.001-1.035); Urobilinogen,Urine <2.0 mg/dL (<2.0)
[2023-02-06] MEDS ORDERED: ONDANSETRON 4 MG/2 ML VIAL IVP STA (16:17)
[2023-02-06] MEDS ORDERED: LOPERAMIDE 2 MG CAP PO PRN (16:17)
[2023-02-06] MEDS: POTASSIUM CHLORIDE 10 MEQ in WATER FOR INJECTION 1 100ML.BAG IVPB SCH ×2 (16:21→17:35)
[2023-02-06] MEDS ORDERED: LIPASE PO SCH (16:30)
[2023-02-06] MEDS ORDERED: PROTEASE PO SCH (16:30)
[2023-02-06] MEDS ORDERED: AMYLASE PO SCH (16:30)
[2023-02-06] MEDS ORDERED: [UNRECOGNIZED DRUG - OTHER] PO SCH (16:30)
[2023-02-06] MEDS: ACETAMINOPHEN TAB 325 MG TAB PO PRN (16:34)
[2023-02-06] MEDS ORDERED: LORazepam 2 MG/ML INJ IV PRN (16:53)
--- NOTE | 2023-02-06 16:53 | P.CONS ---
History of Present Illness - Reason for Consult Consult date: 02/06/23 on treatment for pancreatic adenocarcinoma Requesting physician: Cameron Lopez - Chief Complaint fever - History of Present Illness Mrs. Meng is a 72-year-old female patient of Dr. Tello past medical history of He was diagnosed in November 2021 with pancreatic adenocarcinoma. She presented with anorexia, changes in stool that started around September 2021. Symptoms persisted, stools turned later and urine turned darker, she noted jaundice and associated pruritus. CT 11/16/[address] Mckeon. Pancreatic head mass 2.6 x 3 cm with a dilated pancreatic duct, intra-and extrahepatic biliary ductal dilation as well as distention of the gallbladder, no obvious metastatic disease. US 11/19/19 24.6 x 3.6 x 3.4 cm mass in the pancreatic head, distended gallbladder and dilated CBD measuring 1.4 cm. She was seen at [facility], ERCP and EUS 11/23/21, metal stent placed FNA performed, pathology positive for adenocarcinoma. Patient had repeat imaging of the CT CAP at [facility], redemonstrating a 3.8 x 3.4 x 3.3 cm prostatic head mass. There was less than 180 encasement of superior mesenteric vein, abutment of the portal vein without encasement, and proximity to the is empty without encasement or contact. Celiac artery was normal. No obvious metastatic disease was noted. Bilirubin was elevated, and decreased after stent placement, [id number]. She was seen by [facility], borderline resectable. Neoadjuvant chemotherapy possibly radiation recommended. Started neoadjuvant FOLFIRINOX 12/21/21. The patient was seen by Dr. Corona after cycle 6, and was felt to have response on CT scan. 2 more cycles of chemotherapy recommended, followed by surgery. After cycle 8 she had biliary sepsis secondary to stent blockage. She ultimately was able to go to surgery 05/15/22, pathology was an R0 resection but 10/08 lymph nodes positive. Adjuvant chemotherapy ordered, she was started on Gemzar and Xeloda 07/19/22. She was hospitalized for febrile neutropenia after 1 cycle, and enterocolitis, Prolonged recovery. She had 2nd treatment with Gemzar alone 09/06/22. [facility] follow-up CT scans 09/13/19 unfortunately showed 8 metastatic liver lesions, CA-1 9-9 was also rising. Collaboration with GI oncology at [facility], felt that patient relapsed fairly quickly after initial treatment and 5-FU was not tolerated well going back to a regimen containing 5-FU backbone was not recommended. 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 She was evaluated for clinical trial was not eligible for those once available. Treatment options including comfort care were discussed with the patient, she opted for active treatment with Gemzar and Abraxane. She has had cycle 1 day 1, day 15 canceled because of low counts, ultimately discontinued because of family event. She was seen in the office 01/31 and cleared to start cycle 2 day 1, she received it Yesterday. She came to the hospital with complaints of fever, rigors. She denied to me oral irritation, sore throat, earache, sinus pain or pressure, unusual cough, chest pain, she is nauseated, while I was examining patient she vomited, consistency was thicker, look like digested food, no foul order, patient denied dysuria, hematuria, she had a bowel movement yesterday. Potassium 2.7, that is being replaced. WBC 6.7, ANC 6,000 platelets 183,000 hemoglobin 8.8. Patient's liver enzymes are slightly elevated. Urinary analysis is not suspicious, influenza, Strep and RSV testing negative, Chest x-ray negative for acute process Review of Systems 10 point review of systems is negative except as stated in HPI Past Medical History Past Medical History: Cancer, Hypertension, Sleep Apnea/CPAP/BIPAP Additional Past Medical History / Comment(s): heart murmur,PVCs, brain aneurysm. PANCREATIC CANCER History of Any Multi-Drug Resistant Organisms: None Reported Past Surgical History: Back Surgery, Cardiac Ablation, Hysterectomy Additional Past Surgical History / Comment(s): fusion to back,rt shoulder repair, prlasped ueterus, liver stent Past Anesthesia/Blood Transfusion Reactions: Postoperative Nausea & Vomiting (PONV) Past Psychological History: No Psychological Hx Reported Smoking Status: Current some day smoker Past Alcohol Use History: None Reported Past Drug Use History: None Reported - Past Family History Mother Family Medical History: Cancer Additional Family Medical History / Comment(s): pancreatic Father Family Medical History: No Reported History Medications and Allergies Home Medications Medication Instructions Recorded Confirmed Type Apixaban [Eliquis] 5 mg PO BID 01/08/23 02/06/23 History Estradiol Cream [Estrace Cream 1 applic TOPICAL MOWEFR@2100 01/08/23 02/06/23 History 0.01%] Famotidine [Pepcid] 20 mg PO BID 01/08/23 02/06/23 History Lipase/Protease/Amylase [Ric Rangel 1 - 2 cap PO DIRECTED 01/08/23 02/06/23 History 24,000 Unit Capsule] Cholecalciferol [Vitamin D3 (25 25 mcg PO DAILY 02/06/23 02/06/23 History Mcg = 1000 Iu)] Loperamide [Imodium] 2 - 4 mg PO BID PRN 02/06/23 02/06/23 History Loperamide [Imodium] 2 mg PO DAILY 02/06/23 02/06/23 History Loperamide [Imodium] 2 mg PO QAM 02/06/23 02/06/23 History Loperamide [Imodium] 4 mg PO HS 02/06/23 02/06/23 History Multivit-Min/Iron/Folic/Lutein 1 tab PO DAILY 02/06/23 02/06/23 History [Centrum Silver Women Tablet] Ondansetron Odt [Zofran Odt] 4 mg PO Q4H PRN 02/06/23 02/06/23 History Topiramate [Topamax] 50 mg PO BID 02/06/23 02/06/23 History hydroCHLOROthiazide 12.5 mg PO DAILY 02/06/23 02/06/23 History Allergies Allergy/AdvReac Type Severity Reaction Status Date / Time celecoxib [From Celebrex] Allergy Rash/Hives Verified 02/06/23 12:57 Physical Exam Vitals: Vital Signs Temp Pulse Resp BP Pulse Ox 02/06/23 10:17 100.8 F H 82 20 100/62 99 Intake and Output 02/06/23 02/06/23 02/06/23 06:59 14:59 22:59 Other: Weight 48.081 kg - Constitutional rigors General appearance: average body habitus, cooperative, no acute distress - EENT Eyes: anicteric sclerae, EOMI ENT: hearing grossly normal, normal oropharynx - Neck Neck: no lymphadenopathy - Respiratory Respiratory: bilateral: CTA - Cardiovascular Rhythm: regular Heart sounds: normal: S1, S2 Abnormal Heart Sounds: no systolic murmur, no diastolic murmur, no rub, no S3 Gallop, no S4 Gallop, no click, no other leg Peripheral Edema: bilateral: None - Gastrointestinal General gastrointestinal: no absent bowel sounds, no decreased bowel sounds, no distended, no hepatomegaly, no hyperactive bowel sounds, normal bowel sounds, no organomegaly, no rigid, no scaphoid, soft, no splenomegaly, tenderness, no umbilical hernia, no ventral hernia - Integumentary Integumentary: normal - Neurologic Neurologic: CNII-XII intact - Musculoskeletal Musculoskeletal: strength equal bilaterally - Psychiatric Psychiatric: A&O x's 3, appropriate affect, intact judgment & insight Results CBC & Chem 7: 02/06/23 11:45 02/06/23 11:45 Labs: Abnormal Lab Results - Last 24 Hours (Table) 02/06/23 02/06/23 Range/Units 11:45 11:45 RBC 3.17 L (3.80-5.40) m/uL Hgb 8.8 L (11.4-16.0) gm/dL Hct 27.6 L (34.0-46.0) % Lymphocytes # 0.4 L (1.0-4.8) k/uL Sodium 135 L (137-145) mmol/L Potassium 2.7 L* (3.5-5.1) mmol/L Glucose 108 H (74-99) mg/dL AST 105 H (14-36) U/L ALT 57 H (4-34) U/L Alkaline Phosphatase 151 H (38-126) U/L C-Reactive Protein 2.6 H (<1.0) mg/dL Chest x-ray: report reviewed Assessment and Plan (1) Fever Current Visit: Yes Status: Acute Priority: High Code(s): R50.9 - FEVER, UNSPECIFIED SNOMED Code(s): 349594137 (2) Rigors Current Visit: Yes Status: Acute Priority: High Code(s): R68.89 - OTHER GENERAL SYMPTOMS AND SIGNS SNOMED Code(s): 16089094 (3) Hypokalemia Current Visit: Yes Status: Acute Priority: High Code(s): E87.6 - HYPOKALEMIA SNOMED Code(s): 93043716 (4) Nausea & vomiting Current Visit: Yes Status: Acute Priority: High Code(s): R11.2 - NAUSEA WITH VOMITING, UNSPECIFIED SNOMED Code(s): 60761955 (5) Pancreatic adenocarcinoma Current Visit: Yes Status: Chronic Priority: Medium Code(s): C25.9 - MALIGNANT NEOPLASM OF PANCREAS, UNSPECIFIED SNOMED Code(s): 491479451 Plan: Fever and rigors -Patient received Tylenol -She is on empiric antibiotics -Chest x-ray negative for acute process, urinary analysis is not suspicious, flu, RSV testing negative. Pending blood cultures. Will ask for a stool collection to see what the consistency is and if there is concern that should be tested for infection -Patient received treatment yesterday. WBC is 6.7, ANC is 6000. She has probably at least 6 days before she is in eileen. Continue to monitor CBC. No G-CSF At this time. -Suspect this could be tumor fever. We'll see how patient does over the next 24 hours -Clear liquid diet for now Hypokalemia -Potassium 2.7. Replacement has been ordered. Labs in the a.m. Nausea and vomiting, Chemotherapy-induced -IV antiemetics ordered -Clear liquid diet for now Pancreatic adenocarcinoma -metastatic disease -Patient had cycle 2 day 1 yesterday of Gemzar and abraxane -We'll see how patient does during admission. Not sure if she may need a dose adjustment.
[2023-02-06] MEDS ORDERED: HYDROcodone/APAP 5-325MG 1 EACH TAB PO PRN (16:54)
[2023-02-06] MEDS: SALT AND SODA MOUTHWASH 1,000 ML PO SCH ×2 (17:39→21:30)
[2023-02-06] MEDS: LIPASE 20,000/PROTEASE 63,000/AMYLASE 84,000 PO SCH (17:43)
[2023-02-06] MEDS ORDERED: ACETAMINOPHEN SUPPOSITORY 650 MG SUPP RECTAL PRN (18:22)
[2023-02-06] MEDS ORDERED: SODIUM CHLORIDE 0.9% 500 ML 250 ML IV ONE (18:25)
[2023-02-06] MEDS: METOCLOPRAMIDE 5 MG/ML 2 ML VIAL IVP SCH ×2 (18:32→23:57)
[2023-02-06] MEDS: IBUPROFEN 400 MG TAB PO PRN (18:40)
[2023-02-06] MEDS ORDERED: CEFEPIME 2 GM in SODIUM CHLORIDE 0.9% 100 ML IVPB SCH (20:00)
[2023-02-06] MEDS ORDERED: ACETAMINOPHEN IV (For NPO) 720 MG in EMPTY BAG 1 BAG IVPB ONE (20:30)
[2023-02-06] MEDS ORDERED: FAMOTIDINE 20 MG TAB PO SCH (21:00)
[2023-02-06] MEDS ORDERED: HEPARIN SODIUM,PORCINE/PF 5,000 UNIT/0.5 ML SYRINGE SQ SCH (21:00)
[2023-02-06] MEDS: LOPERAMIDE 2 MG CAP PO SCH (21:27)
[2023-02-06] MEDS: FAMOTIDINE 20 MG/2 ML VIAL IV SCH (21:27)
[2023-02-06] MEDS: APIXABAN 5 MG TAB PO SCH (21:27)
[2023-02-06] MEDS: TOPIRAMATE 25 MG TAB PO SCH (21:28)
[2023-02-06] MEDS ORDERED: Potassium Replacement Protocol 1 EACH MISC MISCELLANE PRN (22:05)
[2023-02-06] MEDS ORDERED: Magnesium Replacement Protocol 1 EACH MISC MISCELLANE PRN (22:05)
--- NOTE | 2023-02-06 22:08 | P.HPIM ---
History of Present Illness This is a pleasant 72 years old female who was recently diagnosed with pancreatic cancer undergoing chemotherapy She presents because of fever, Patient was recently diagnosed with pancreatic cancer and this is the second cycle of therapy after day one she received chemotherapy yesterday. The first cycle was few weeks ago and it was cut short from 3 down to 2 because she could not do this. This time she has fever temperature checked by patient and family between 100.5-102. Her main control is that she is not pain as normal as before. Other than that she denies any chest pain or dyspnea. No coughing. Appetite is good. No abdominal pain or vomiting or diarrhea. No hepatic weakness numbness. No rash or joint pain or swelling Patient says that she has history of PE and she takes Eliquis at. she has a temperature of 100.8 on admission. Blunt blood pressure also was on the low side 100/62 slightly tachypneic, heart rate is 82 but saturating well 99% on room air. Labs showing hemoglobin 8.8, rest of CBC is unremarkable. Potassium low at 2.7, rest of BMP is unremarkable Liver enzymes slightly elevated with AST 105 and ALT 57. Viruses R and detected including influenza, RSV, coronavirus Group A strep culture is negative. Urine analysis is requested and is pending Patient is a started on cefepime and IV Vanco and admitted with IV fluids normal saline at 130 mL/h, Review of Systems Review of systems CONSTITUTIONAL: No fever, no malaise, no fatigue. HEENT: No recent visual problems or hearing problems. Denied any sore throat. CARDIOVASCULAR: No orthopnea, PND, no palpitations, no syncope. PULMONARY: No shortness of breath, no cough, no hemoptysis. GASTROINTESTINAL: No diarrhea, no nausea, no vomiting, no abdominal pain. Normoactive bowel sounds. NEUROLOGICAL: No headaches, no weakness, no numbness. HEMATOLOGICAL: Denies any bleeding or petechiae. GENITOURINARY: Denies any burning micturition, frequency, or urgency. MUSCULOSKELETAL/RHEUMATOLOGICAL: Denies any joint pain, swelling, or any muscle pain. ENDOCRINE: Denies any polyuria or polydipsia. Past Medical History Past Medical History: Cancer, Hypertension, Sleep Apnea/CPAP/BIPAP Additional Past Medical History / Comment(s): heart murmur,PVCs, brain aneurysm. PANCREATIC CANCER History of Any Multi-Drug Resistant Organisms: None Reported Past Surgical History: Back Surgery, Cardiac Ablation, Hysterectomy Additional Past Surgical History / Comment(s): fusion to back,rt shoulder repair, prlasped ueterus, liver stent Past Anesthesia/Blood Transfusion Reactions: Postoperative Nausea & Vomiting (PONV) Past Psychological History: No Psychological Hx Reported Smoking Status: Current some day smoker Past Alcohol Use History: None Reported Past Drug Use History: None Reported - Past Family History Mother Family Medical History: Cancer Additional Family Medical History / Comment(s): pancreatic Father Family Medical History: No Reported History Medications and Allergies Home Medications Medication Instructions Recorded Confirmed Type Apixaban [Eliquis] 5 mg PO BID 01/08/23 02/06/23 History Estradiol Cream [Estrace Cream 1 applic TOPICAL MOWEFR@2100 01/08/23 02/06/23 History 0.01%] Famotidine [Pepcid] 20 mg PO BID 01/08/23 02/06/23 History Lipase/Protease/Amylase [Ric Rangel 1 - 2 cap PO DIRECTED 01/08/23 02/06/23 History 24,000 Unit Capsule] Cholecalciferol [Vitamin D3 (25 25 mcg PO DAILY 02/06/23 02/06/23 History Mcg = 1000 Iu)] Loperamide [Imodium] 2 - 4 mg PO BID PRN 02/06/23 02/06/23 History Loperamide [Imodium] 2 mg PO DAILY 02/06/23 02/06/23 History Loperamide [Imodium] 2 mg PO QAM 02/06/23 02/06/23 History Loperamide [Imodium] 4 mg PO HS 02/06/23 02/06/23 History Multivit-Min/Iron/Folic/Lutein 1 tab PO DAILY 02/06/23 02/06/23 History [Centrum Silver Women Tablet] Ondansetron Odt [Zofran Odt] 4 mg PO Q4H PRN 02/06/23 02/06/23 History Topiramate [Topamax] 50 mg PO BID 02/06/23 02/06/23 History hydroCHLOROthiazide 12.5 mg PO DAILY 02/06/23 02/06/23 History Allergies Allergy/AdvReac Type Severity Reaction Status Date / Time celecoxib [From Celebrex] Allergy Rash/Hives Verified 02/06/23 12:57 Physical Exam Vitals: Vital Signs Temp Pulse Resp BP Pulse Ox 02/06/23 10:17 100.8 F H 82 20 100/62 99 Intake and Output 02/05/23 02/06/23 02/06/23 22:59 06:59 14:59 Other: Weight 48.081 kg -GENERAL: The patient is alert and oriented x3, not in any acute distress. Cachectic HEENT: Pupils are round and equally reacting to light. EOMI. No scleral icterus. No conjunctival pallor. Normocephalic, atraumatic. No pharyngeal erythema. No thyromegaly. CARDIOVASCULAR: S1 and S2 present. No murmurs, rubs, or gallops. PULMONARY: Chest is clear to auscultation, no wheezing , no crackles. ABDOMEN: Soft, nontender, nondistended, normoactive bowel sounds. No palpable organomegaly. MUSCULOSKELETAL: No joint swelling or deformity. EXTREMITIES: No cyanosis, clubbing, or pedal edema. NEUROLOGICAL: Gross neurological examination did not reveal any focal deficits. SKIN: No rashes. no petechiae. Results CBC & Chem 7: 02/06/23 11:45 02/06/23 11:45 Labs: Abnormal Lab Results - Last 24 Hours (Table) 02/06/23 02/06/23 Range/Units 11:45 11:45 RBC 3.17 L (3.80-5.40) m/uL Hgb 8.8 L (11.4-16.0) gm/dL Hct 27.6 L (34.0-46.0) % Lymphocytes # 0.4 L (1.0-4.8) k/uL Sodium 135 L (137-145) mmol/L Potassium 2.7 L* (3.5-5.1) mmol/L Glucose 108 H (74-99) mg/dL AST 105 H (14-36) U/L ALT 57 H (4-34) U/L Alkaline Phosphatase 151 H (38-126) U/L C-Reactive Protein 2.6 H (<1.0) mg/dL Assessment and Plan Assessment: Sepsis with fever, unknown source Pancreatic cancer undergoing chemotherapy Generalized weakness Moderate calorie protein nutrition History of pancreatic deficiency on replacement pancreatic enzyme therapy Plan: Continue with antibiotic, IV vancomycin and cefepime per ID team were consulted Hematology/oncology team consult Follow-up panculture follow-up lood culture taken of from the ports repeat magnesium and potassium and replace per protocol Monitored liver enzymes tomorrow and if no improvement then consider further workup Follow-up potassium level Dietary consult Labs and medication were reviewed.. Continue same treatment. Continue with symptomatic treatment. Resume home medication. Monitor labs and vitals. DVT and GI prophylaxis. Further recommendations as per clinical course of the patient DVT prophylaxis: ELIQUIS GI Prophylaxis: Pepcid Prognosis is guarded
--- NOTE | 2023-02-06 22:34 | P.CONS ---
History of Present Illness - Reason for Consult Consult date: 02/06/23 - History of Present Illness Patient is a 72-year-old female with a past medical history significant for hypertension sleep apnea, brain aneurysm and pancreatic cancer for the patient is currently on chemotherapy patient presenting to [facility] ER this morning for evaluation of fever apparently did have a fever of 104F at home fever started the day of presentation the hospital and apparently the patient did have a chemotherapy yesterday patient on presentation to the hospital did have low for 100.8 subsequently spiked a fever of 102 F patient was tachycardic however not hypotensive or hypoxic patient has been complaining of feeling nauseated did have episodes of vomiting she did have low potassium at 2.7 white count was normal did have elevated liver enzymes urine was negative influenza RSV and COVID testing was negative patient did have a chest x-ray no acute cardiopulmonary process patient was started on cefepime and vancomycin infectious disease consulted for further management of antibiotic therapy Past Medical History Past Medical History: Cancer, Hypertension, Sleep Apnea/CPAP/BIPAP Additional Past Medical History / Comment(s): heart murmur,PVCs, brain aneurysm. PANCREATIC CANCER History of Any Multi-Drug Resistant Organisms: None Reported Past Surgical History: Back Surgery, Cardiac Ablation, Hysterectomy Additional Past Surgical History / Comment(s): fusion to back,rt shoulder repair, prlasped ueterus, liver stent Past Anesthesia/Blood Transfusion Reactions: Postoperative Nausea & Vomiting (PONV) Past Psychological History: No Psychological Hx Reported Smoking Status: Current some day smoker Past Alcohol Use History: None Reported Past Drug Use History: None Reported - Past Family History Mother Family Medical History: Cancer Additional Family Medical History / Comment(s): pancreatic Father Family Medical History: No Reported History Medications and Allergies Home Medications Medication Instructions Recorded Confirmed Type Apixaban [Eliquis] 5 mg PO BID 01/08/23 02/06/23 History Estradiol Cream [Estrace Cream 1 applic TOPICAL MOWEFR@2100 01/08/23 02/06/23 History 0.01%] Famotidine [Pepcid] 20 mg PO BID 01/08/23 02/06/23 History Lipase/Protease/Amylase [Ric Rangel 1 - 2 cap PO DIRECTED 01/08/23 02/06/23 History 24,000 Unit Capsule] Cholecalciferol [Vitamin D3 (25 25 mcg PO DAILY 02/06/23 02/06/23 History Mcg = 1000 Iu)] Loperamide [Imodium] 2 - 4 mg PO BID PRN 02/06/23 02/06/23 History Loperamide [Imodium] 2 mg PO DAILY 02/06/23 02/06/23 History Loperamide [Imodium] 2 mg PO QAM 02/06/23 02/06/23 History Loperamide [Imodium] 4 mg PO HS 02/06/23 02/06/23 History Multivit-Min/Iron/Folic/Lutein 1 tab PO DAILY 02/06/23 02/06/23 History [Centrum Silver Women Tablet] Ondansetron Odt [Zofran Odt] 4 mg PO Q4H PRN 02/06/23 02/06/23 History Topiramate [Topamax] 50 mg PO BID 02/06/23 02/06/23 History hydroCHLOROthiazide 12.5 mg PO DAILY 02/06/23 02/06/23 History Allergies Allergy/AdvReac Type Severity Reaction Status Date / Time celecoxib [From Celebrex] Allergy Rash/Hives Verified 02/06/23 12:57 Physical Exam Vitals: Vital Signs Temp Pulse Resp BP Pulse Ox 02/06/23 10:17 100.8 F H 82 20 100/62 99 Intake and Output 02/06/23 02/06/23 02/06/23 06:59 14:59 22:59 Other: Weight 48.081 kg Results CBC & Chem 7: 02/07/23 08:15 02/07/23 11:32 Labs: Abnormal Lab Results - Last 24 Hours (Table) 02/06/23 02/06/23 Range/Units 11:45 11:45 RBC 3.17 L (3.80-5.40) m/uL Hgb 8.8 L (11.4-16.0) gm/dL Hct 27.6 L (34.0-46.0) % Lymphocytes # 0.4 L (1.0-4.8) k/uL Sodium 135 L (137-145) mmol/L Potassium 2.7 L* (3.5-5.1) mmol/L Glucose 108 H (74-99) mg/dL AST 105 H (14-36) U/L ALT 57 H (4-34) U/L Alkaline Phosphatase 151 H (38-126) U/L C-Reactive Protein 2.6 H (<1.0) mg/dL Assessment and Plan Plan: 1patient presented hospital with fever in this patient with a history of pancreatic cancer on chemotherapy patient did have a multiple episode of vomiting and mild tenderness was noticed also have elevated liver enzymes concern for possible intra-abdominal source unfortunately we are not able to order a CT because of her intractable vomiting at this point 2-we will switch antibiotic to Zosyn to better cover for intra-abdominal pathology 3-try to obtain CT abdominal pelvis with oral and IV contrast in the a.m. 4-check inflammatory markers and follow-up on the blood cultures We will follow on clinical condition and cultures to further adjust medication if needed Thank you for this consultation we will follow the patient along with you Dictation was produced using [employer] dictation software. please excuse any grammatical, word or spelling errors. Time with Patient: Greater than 30
[2023-02-06 23:22] LABS: Magnesium 1.6 mg/dL (1.6-2.3)
[2023-02-06] MEDS: PIPERACILLIN-TAZOBACTAM 3.375 GM in SODIUM CHLORIDE 0.9% 100 ML IVPB SCH (23:57)
[2023-02-07] MEDS: SALT AND SODA MOUTHWASH 1,000 ML PO SCH ×6 (00:01→23:13)
[2023-02-07 00:03] LABS: Potassium 2.6 mmol/L (3.5-5.1)
[2023-02-07] MEDS: POTASSIUM CHLORIDE 20 MEQ in WATER FOR INJECTION 1 100ML.BAG IVPB SCH ×3 (00:40→04:23)
[2023-02-07] MEDS: 0.9% NACL WITH KCL 20 MEQ/L 1,000 ML IV SCH ×2 (02:30→16:14)
[2023-02-07] MEDS: MAGNESIUM SULFATE-D5W PMX 1 GM in DEXTROSE/WATER 1 100ML.BAG IVPB SCH ×2 (02:42→04:22)
[2023-02-07] MEDS: METOCLOPRAMIDE 5 MG/ML 2 ML VIAL IVP SCH ×4 (05:33→23:09)
[2023-02-07] MEDS: LIPASE 20,000/PROTEASE 63,000/AMYLASE 84,000 PO SCH ×3 (08:33→16:57)
[2023-02-07] MEDS: IOPAMIDOL CONTRAST (ORAL USE) VIAL PO PRN ×2 (08:35→09:35)
[2023-02-07] MEDS: PIPERACILLIN-TAZOBACTAM 3.375 GM in SODIUM CHLORIDE 0.9% 100 ML IVPB SCH ×3 (08:37→23:11)
[2023-02-07] MEDS: LOPERAMIDE 2 MG CAP PO SCH ×2 (08:37→20:21)
[2023-02-07] MEDS: CHOLECALCIFEROL 25 MCG (1000 IU) TABLET PO SCH (08:37)
[2023-02-07] MEDS: MULTIVITAMINS, THERA 1 EACH TAB PO SCH (08:37)
[2023-02-07] MEDS: TOPIRAMATE 25 MG TAB PO SCH ×2 (08:37→20:20)
[2023-02-07] MEDS: APIXABAN 5 MG TAB PO SCH ×2 (08:37→20:20)
[2023-02-07] MEDS: FAMOTIDINE 20 MG/2 ML VIAL IV SCH ×2 (08:37→20:21)
[2023-02-07] MEDS ORDERED: LOPERAMIDE 2 MG CAP PO SCH (09:00)
[2023-02-07] MEDS ORDERED: VANCOMYCIN 750 MG in SODIUM CHLORIDE 0.9% 250 ML IVPB SCH (12:00)
--- NOTE | 2023-02-07 12:29 | CT ---
EXAMINATION TYPE: CT abdomen pelvis w con CT DLP: 334.8 mGycm, Automated exposure control for dose reduction was used. DATE OF EXAM: 02/07/2023 10:22 AM COMPARISON: 11/16/2021. CLINICAL INDICATION:Female, 72 years old with history of abd pain and fever; abdominal pain, fever TECHNIQUE: Axial CT of the abdomen and pelvis. Sagittal and coronal reformats were created on a [employer] workstation. Contrast used:100 mL of Isovue 300 with IV Contrast, (none if empty) Oral contrast used: with Oral Contrast (none if empty) FINDINGS: LOWER CHEST: Unremarkable ABDOMEN LIVER: New scattered lesions are seen throughout the liver. These are not seen on prior in 2021. The largest in the hepatic lobe measuring. GALLBLADDER AND BILE DUCTS: Unremarkable. PANCREAS: Post Whipple procedure changes. Pancreas is not well visualized and could be incompletely s urgically absent. SPLEEN: Hypodense area within the spleen is new ADRENAL GLANDS: Unremarkable. KIDNEYS AND URETERS: No evidence of hydronephrosis or renal calculus. The ureters are unremarkable. PELVIS BLADDER: Unremarkable REPRODUCTIVE: Unremarkable. ABDOMEN & PELVIS STOMACH AND BOWEL: No evidence of bowel obstruction. Post surgical changes with little. Mild thickening of the duodenum suggested however it is nondistended. The appendix is normal. PERITONEUM/RETROPERITONEUM: No evidence of pneumoperitoneum or free fluid. Fat stranding changes thro ughout the abdomen mesentery and fat. VASCULATURE: Severe atherosclerotic calcifications are present throughout the abdominal aorta and its branches. No evidence of aortic aneurysm. Atherosclerosis of the arterial vasculature. Portal vein i s dilated up to 17 mm. Focal narrowing at the origin of this superior mesenteric artery of at least 5 0% series 3 image 24. MUSCULOSKELETAL: No acute osseous abnormalities, postsurgical changes at L3-L4 and L4-5. This scolios is changes with severe degeneration with facet joint arthropathy also present. No suspicious scleroti c or lucent lesions present within the osseous structures. LYMPH NODES: No gross evidence for lymphadenopathy. SOFT TISSUE/ABDOMINAL WALL: Postsurgical changes anterior abdominal wall. Mild anasarca of the soft t issues. IMPRESSION: 1. Somewhat diffuse fat stranding changes throughout the mesentery which could be secondary to third spacing of fluid versus reactive to some infectious/inflammatory process versus postsurgical change. Mild thickening of the afferent limb which could represent mild enteritis. No other obvious acute pr ocess. 2. New Scattered hepatic lesions and a single splenic lesion which are concerning for pancreatic met astatic disease. 3. Interval Post Whipple procedure changes. 4. New Focal narrowing at the origin of this superior mesenteric artery of at least 50% series 3 susannah ge 24. 5. New Findings suggestive of portal hypertension.
[2023-02-07 12:33] VITALS: BMI 18.8
--- NOTE | 2023-02-07 13:07 | P.PN ---
Subjective Progress Note Date: 02/07/23 Principal diagnosis: hx pancreatic cancer At today's visit patient is resting comfortable in bed. Reports feeling significant improvement in symptoms today. Continues on clear liquid diet. Denies abdominal pain, nausea vomiting and diarrhea. Fever has subsided. Preliminary blood cultures positive for gram-negative bacilli. Patient continues on Zosyn. Objective - Vital Signs Vital signs: Vital Signs Temp 97.6 F 02/07/23 12:00 Pulse 70 02/07/23 12:00 Resp 16 02/07/23 12:00 BP 123/52 02/07/23 12:00 Pulse Ox 100 02/07/23 12:00 FiO2 Intake & Output 02/06/23 02/07/23 02/07/23 18:59 06:59 18:59 Output Total 300 Balance -300 Weight 48.081 kg 48.081 kg Output: Emesis 300 Other: Voiding Method Bedside Commode # Voids 1 1 - Constitutional General appearance: Present: average body habitus, no acute distress - EENT Eyes: Present: anicteric sclerae, EOMI ENT: Present: hearing grossly normal - Respiratory Details: breathing is even and unlabored - Cardiovascular Details: skin warm and dry - Gastrointestinal General gastrointestinal: Present: soft. Absent: distended, tenderness - Integumentary Integumentary: Absent: cyanotic, jaundiced - Neurologic Neurologic Comment(s): grossly intact - Musculoskeletal Musculoskeletal: Present: strength equal bilaterally - Psychiatric Psychiatric: Present: A&O x's 3, appropriate affect, intact judgment & insight - Labs CBC & Chem 7: 02/06/23 11:45 02/07/23 11:32 Labs: Abnormal Lab Results - Last 24 Hours (Table) 02/06/23 Range/Units 22:31 Potassium 2.6 L* (3.5-5.1) mmol/L Microbiology - Last 24 Hours (Table) 02/06/23 11:50 Blood Culture Gram Stain - Preliminary Blood Assessment and Plan (1) Fever Current Visit: Yes Status: Acute Priority: High Code(s): R50.9 - FEVER, UNSPECIFIED SNOMED Code(s): 020100370 (2) Nausea & vomiting Current Visit: Yes Status: Acute Priority: High Code(s): R11.2 - NAUSEA WITH VOMITING, UNSPECIFIED SNOMED Code(s): 03758411 (3) Pancreatic cancer Current Visit: Yes Status: Acute Priority: High Code(s): C25.9 - MALIGNANT NEOPLASM OF PANCREAS, UNSPECIFIED SNOMED Code(s): 636108092 Plan: Fever -Fever has subsided. Preliminary blood cultures positive for gram-negative bacilli. Patient continues on Zosyn. ID following -Chest x-ray negative for acute process, urinary analysis is not suspicious, flu, RSV testing negative. C diff and stool culture ordered -Patient received treatment on 02/05. WBC is 6.7, ANC is 6000. She has probably at least 6 days before she is in eileen. Continue to monitor CBC. No G-CSF at this time. Hypokalemia -Potassium 2.7. Replacement has been ordered. Today, potassium 3.6 Nausea and vomiting, Chemotherapy-induced -IV antiemetics ordered. Reports significant improvement in symptoms. Tolerated some of clear liquid diet last night and this morning without n/v. Abdominal exam benign. Will await CT AP and if patient is still tolerating diet well today, will advance diet in the morning Pancreatic adenocarcinoma -metastatic disease -Patient had cycle 2 day 1 on 02/05 of Gemzar and abraxane -We'll see how patient does during admission. She may need a dose adjustment.
[2023-02-07] MEDS: ACETAMINOPHEN TAB 325 MG TAB PO PRN ×2 (13:24→20:27)
[2023-02-07 14:16] LABS: ALT 42 U/L (8-44); AST 49 U/L (13-35); Albumin 3.2 d/dL (3.8-4.9); Albumin/Globulin Ratio 1.68 Ratio (1.60-3.17); Alkaline Phosphatase 107 U/L (41-126); BUN/Creat Ratio 16.29 Ratio (12.00-20.00); Blood Urea Nitrogen 11.4 mg/dL (9.0-27.0); Calcium 8.2 mg/dL (8.7-10.3); Carbon Dioxide 19.7 mmol/L (21.6-31.8); Chloride 110 mmol/L (96-109); Globulin 1.9 d/dL (1.6-3.3); Glucose 92 mg/dL (70-110); Magnesium 2.5 mg/dL (1.5-2.4); Potassium 3.8 mmol/L (3.5-5.5); Sodium 140 mmol/L (135-145); Total Bilirubin 0.4 mg/dL (0.3-1.2); Total Protein 5.1 d/dL (6.2-8.2)
[2023-02-07 14:19] LABS: Basophils # (A) 0.02 X 10*3/uL (0.00-0.10); Basophils % (A) 0.4 %; Eosinophils # (A) 0.02 X 10*3/uL (0.04-0.35); Eosinophils % (A) 0.4 %; HCT 25.5 % (37.2-46.3); HGB 7.8 d/dL (12.0-15.0); Lymphocytes # (A) 0.57 X 10*3/uL (0.90-5.00); Lymphocytes % (A) 11.3 %; MCH 26.9 pg (27.0-32.0); MCHC 30.6 d/dL (32.0-37.0); MCV 87.9 FL (80.0-97.0); Mean Platelet Volume 11.6 FL (9.5-12.2); Monocytes # (A) 0.14 X 10*3/uL (0.20-1.00); Monocytes % (A) 2.8 %; NRBC Per 100 WBC 0 X 10*3/uL (0.00-0.01); Neutrophils # (A) 4.29 X 10*3/uL (1.80-7.70); Neutrophils % (A) 84.7 %; Platelet Count 143 X 10*3/uL (140-440); RDW 14.2 % (11.5-14.5); WBC 5.06 X 10*3/uL (4.50-10.00)
--- NOTE | 2023-02-07 21:54 | P.PN ---
Subjective Progress Note Date: 02/07/23 Principal diagnosis: Fever and bacteremia Patient is a 72-year-old female with a past medical history significant for hypertension sleep apnea, brain aneurysm and pancreatic cancer for the patient is currently on chemotherapy patient presenting to [facility] ER, for evaluation of fever and also have intractable nausea and vomiting. On today's evaluation that is 02/07/2023, the patient did have resolution of the fever and is afebrile this morning, the patient is currently breathing comfortably on room air denies any chest pain shortness of breath or cough no further vomiting has been complaining of diarrhea Objective - Vital Signs Vital signs: Vital Signs Temp 97.6 F 02/07/23 12:00 Pulse 70 02/07/23 12:00 Resp 16 02/07/23 12:00 BP 123/52 02/07/23 12:00 Pulse Ox 100 02/07/23 12:00 FiO2 Intake & Output 02/06/23 02/07/23 02/07/23 18:59 06:59 18:59 Output Total 300 Balance -300 Weight 48.081 kg 48.081 kg Output: Emesis 300 Other: Voiding Method Bedside Commode # Voids 1 1 - Exam GENERAL DESCRIPTION: An elderly female lying in bed in no distress RESPIRATORY SYSTEM: Unlabored breathing , decreased breath sounds at bases HEART: S1 S2 regular rate and rhythm , ABDOMEN: Soft , no tenderness EXTREMITIES: No edema feet - Labs CBC & Chem 7: 02/07/23 08:15 02/07/23 11:32 Labs: Abnormal Lab Results - Last 24 Hours (Table) 02/06/23 Range/Units 22:31 Potassium 2.6 L* (3.5-5.1) mmol/L Microbiology - Last 24 Hours (Table) 02/06/23 11:50 Blood Culture Gram Stain - Preliminary Blood Assessment and Plan (1) Gram-negative bacteremia Current Visit: Yes Status: Acute Code(s): R78.81 - BACTEREMIA SNOMED Code(s): 569679003128 (2) Fever Current Visit: Yes Status: Acute Code(s): R50.9 - FEVER, UNSPECIFIED SNOME D Code(s): 660665670 Plan: 1patient presented hospital with fever in this patient with a history of pancreatic cancer on chemotherapy patient did have a multiple episode of vomiting and mild tenderness was noticed also have elevated liver enzymes concern for possible intra-abdominal source , patient did have a CT of abdominal pelvis we did show significant inflammatory changes were no evidence of any abscess [id number] bacteremia source is likely abdominal 3patient will continue Zosyn to better cover for intra-abdominal pathology Dictation was produced using [employer] dictation software. please excuse any grammatical, word or spelling errors.
--- NOTE | 2023-02-07 23:39 | PN ---
PROGRESS NOTE DATE OF SERVICE: 02/07/2023 SUBJECTIVE: This is a 72-year-old woman who was admitted with possible sepsis and fever, had pancreatic cancer, undergoing chemotherapy. 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 A CT of the abdomen was done, this showed some abnormalities with postsurgical changes. PAST MEDICAL HISTORY: Reviewed. REVIEW OF SYSTEMS: A 14-point review is negative except as mentioned. CURRENT MEDICATIONS: Reviewed include Zosyn, rest of medications noted. PHYSICAL EXAMINATION: VITAL SIGNS: Pulse is 56, blood pressure 101/50, and respirations 18. HEENT: Conjunctivae normal. NECK: No jugular venous distention. CARDIOVASCULAR: S1, S2. RESPIRATIONS: Breath sounds diminished at the bases. ABDOMEN: Soft, nontender. LABORATORY DATA: Reviewed. ASSESSMENT: 1. Possible sepsis with fever. 2. Pancreatic cancer, undergoing chemotherapy. 3.Whipple disease. 4. Generalized weakness. 5. Moderate protein-calorie malnutrition. 6. Pancreatic deficiency. 7. Severe hypokalemia. RECOMMENDATIONS AND DISCUSSION: This 72-year-old woman presented with multiple complex medical issues, we will monitor the patient closely. I would recommend broad-spectrum IV antibiotics. The cultures so far are negative. Repeat labs, repeat cultures. Repeat LFTs. Closely follow with multiple consultants. Guarded prognosis. Further recommendations to follow. COVID-19 is negative. MMODL / IJN: [id number] / MTDD
[2023-02-08] MEDS: 0.9% NACL WITH KCL 20 MEQ/L 1,000 ML IV SCH ×2 (03:19→16:45)
[2023-02-08] MEDS: METOCLOPRAMIDE 5 MG/ML 2 ML VIAL IVP SCH ×4 (05:17→23:33)
[2023-02-08] MEDS: SALT AND SODA MOUTHWASH 1,000 ML PO SCH ×5 (05:18→23:35)
[2023-02-08] MEDS: LOPERAMIDE 2 MG CAP PO SCH ×2 (05:33→20:41)
[2023-02-08] MEDS: LIPASE 20,000/PROTEASE 63,000/AMYLASE 84,000 PO SCH ×3 (08:09→17:58)
[2023-02-08] MEDS: PIPERACILLIN-TAZOBACTAM 3.375 GM in SODIUM CHLORIDE 0.9% 100 ML IVPB SCH ×3 (09:18→23:34)
[2023-02-08] MEDS: MULTIVITAMINS, THERA 1 EACH TAB PO SCH (09:19)
[2023-02-08] MEDS: APIXABAN 5 MG TAB PO SCH ×2 (09:19→20:46)
[2023-02-08] MEDS: TOPIRAMATE 25 MG TAB PO SCH ×2 (09:19→20:46)
[2023-02-08] MEDS: FAMOTIDINE 20 MG/2 ML VIAL IV SCH ×2 (09:20→20:46)
[2023-02-08] MEDS: CHOLECALCIFEROL 25 MCG (1000 IU) TABLET PO SCH (09:23)
[2023-02-08] MEDS: ONDANSETRON 4 MG/2 ML VIAL IVP PRN ×2 (09:33→15:27)
--- NOTE | 2023-02-08 12:30 | PN ---
PROGRESS NOTE DATE OF SERVICE: 02/08/2023 SUBJECTIVE: This is a 72-year-old woman, who was admitted with possible sepsis with gram-negative bacilli in the setting of immunosuppression, is being closely monitored. Final ID is pending. No chest pain. No palpitation. OBJECTIVE: VITAL SIGNS: Pulse 97, blood pressure 182/77, respirations 18. CHEST: Clear to auscultation. CARDIOVASCULAR: S1, S2. ABDOMEN: Soft. NERVOUS SYSTEM: No focal deficits. LABORATORY DATA: Pending at this time. ASSESSMENT: 1. Possible gram-negative sepsis with fever, post chemotherapy. 2. Pancreatic cancer, undergoing chemotherapy. 3. Whipple's procedure status post. 4. Generalized weakness. 5. Moderate protein-calorie malnutrition. 6. Pancreatic deficiency. 7. Severe hypokalemia. RECOMMENDATIONS: Recommended to continue current management. Continue symptomatic treatment. Continue with antibiotics. The patient is on IV Zosyn. I would recommend repeat labs in the morning and closely follow with multiple consultants. Further recommendations to follow. MMODL / IJN: [id number] /
[2023-02-08 13:49] LABS: Basophils # (A) 0.01 X 10*3/uL (0.00-0.10); Basophils % (A) 0.4 %; Eosinophils # (A) 0.01 X 10*3/uL (0.04-0.35); Eosinophils % (A) 0.4 %; HCT 24.8 % (37.2-46.3); HGB 7.5 d/dL (12.0-15.0); Lymphocytes # (A) 0.32 X 10*3/uL (0.90-5.00); Lymphocytes % (A) 11.3 %; MCH 26.6 pg (27.0-32.0); MCHC 30.2 d/dL (32.0-37.0); MCV 87.9 FL (80.0-97.0); Mean Platelet Volume 12.4 FL (9.5-12.2); Monocytes # (A) 0.13 X 10*3/uL (0.20-1.00); Monocytes % (A) 4.6 %; NRBC Per 100 WBC 0 X 10*3/uL (0.00-0.01); Neutrophils # (A) 2.34 X 10*3/uL (1.80-7.70); Neutrophils % (A) 82.9 %; Platelet Count 135 X 10*3/uL (140-440); RBC 2.82 X 10*6/uL (4.10-5.20); RDW 14.3 % (11.5-14.5); WBC 2.82 X 10*3/uL (4.50-10.00)
[2023-02-08] MEDS: ACETAMINOPHEN TAB 325 MG TAB PO PRN (13:58)
[2023-02-08 14:57] LABS: ALT 39 U/L (8-44); AST 42 U/L (13-35); Albumin 3.1 d/dL (3.8-4.9); Albumin/Globulin Ratio 1.63 Ratio (1.60-3.17); Alkaline Phosphatase 103 U/L (41-126); BUN/Creat Ratio 8.38 Ratio (12.00-20.00); Blood Urea Nitrogen 6.7 mg/dL (9.0-27.0); Calcium 8.3 mg/dL (8.7-10.3); Carbon Dioxide 19.6 mmol/L (21.6-31.8); Chloride 109 mmol/L (96-109); Globulin 1.9 d/dL (1.6-3.3); Glucose 95 mg/dL (70-110); Potassium 4.1 mmol/L (3.5-5.5); Sodium 137 mmol/L (135-145); Total Bilirubin 0.4 mg/dL (0.3-1.2)
--- NOTE | 2023-02-08 15:11 | P.PN ---
Subjective Progress Note Date: 02/08/23 Principal diagnosis: hx pancreatic cancer At today's visit patient is resting comfortable in bed. Reports feeling improvement in symptoms today. Continues on clear liquid diet. Denies abdominal pain, nausea vomiting. Toleratin diet well. She does reports having loose stools this morning. Fever of 100.9 last night. Preliminary blood culture gram stain positive for gram-negative bacilli. Patient continues on Zosyn. Objective - Vital Signs Vital signs: Vital Signs Temp 101.8 F H 02/08/23 14:45 Pulse 84 02/08/23 14:45 Resp 19 02/08/23 14:45 BP 164/72 02/08/23 14:45 Pulse Ox 98 02/08/23 14:45 FiO2 Intake & Output 02/07/23 02/08/23 02/08/23 18:59 06:59 18:59 Intake Total 1600 Balance 1600 Weight 48.081 kg 48.081 kg Intake: Intake, IV Titration 1100 Amount 0.9% NaCl with KCl 20 Meq 900 /l 1,000 ml @ 75 mls/hr IV .[id number] [facility] Rx#: [id number] Piperacillin-Tazobactam 3 200 .375 gm In Sodium Chloride 0.9% 100 ml @ 25 mls/hr IVPB Q8HR [facility] Rx# :[id number] Oral 500 Other: Voiding Method Bedside Commode Bedside Commode # Voids 1 2 1 # Bowel Movements 1 - Constitutional General appearance: Present: average body habitus, no acute distress - EENT Eyes: Present: anicteric sclerae, EOMI ENT: Present: hearing grossly normal - Respiratory Details: breathing is even and unlabored - Cardiovascular Details: skin warm and dry - Gastrointestinal General gastrointestinal: Present: soft. Absent: distended, tenderness - Integumentary Integumentary: Absent: cyanotic, jaundiced - Neurologic Neurologic Comment(s): grossly intact - Musculoskeletal Musculoskeletal: Present: strength equal bilaterally - Psychiatric Psychiatric: Present: A&O x's 3, appropriate affect, intact judgment & insight - Labs CBC & Chem 7: 02/08/23 06:18 02/07/23 11:32 Labs: Abnormal Lab Results - Last 24 Hours (Table) 02/07/23 02/08/23 Range/Units 08:17 06:18 WBC 2.82 L (4.50-10.00) X 10*3/uL RBC 2.82 L (4.10-5.20) X 10*6/uL Hgb 7.5 L (12.0-15.0) d/dL Hct 24.8 L (37.2-46.3) % MCH 26.6 L (27.0-32.0) pg MCHC 30.2 L (32.0-37.0) d/dL Plt Count 135 L (140-440) X 10*3/uL MPV 12.4 H (9.5-12.2) FL Lymphocytes # 0.32 L (0.90-5.00) X 10*3/uL Monocytes # 0.13 L (0.20-1.00) X 10*3/uL Eosinophils # 0.01 L (0.04-0.35) X 10*3/uL Procalcitonin 12.40 H (0.02-0.09) ng/mL Microbiology - Last 24 Hours (Table) 02/06/23 23:55 Nasal Screen MRSA/MSSA - Final Nasal Swab 02/06/23 11:50 Blood Culture Gram Stain - Preliminary Blood Blood Culture - Preliminary Gram Neg Bacilli 02/06/23 21:10 Blood Culture - Preliminary Blood 02/06/23 11:35 Blood Culture - Preliminary Blood - Imaging and Cardiology CT scan - abdomen: report reviewed CT scan - pelvis: report reviewed Assessment and Plan (1) Fever Current Visit: Yes Status: Acute Priority: High Code(s): R50.9 - FEVER, UNSPECIFIED SNOMED Code(s): 350744295 (2) Nausea & vomiting Current Visit: Yes Status: Acute Priority: High Code(s): R11.2 - NAUSEA WITH VOMITING, UNSPECIFIED SNOMED Code(s): 94599356 (3) Pancreatic cancer Current Visit: Yes Status: Acute Priority: High Code(s): C25.9 - MALIGNANT NEOPLASM OF PANCREAS, UNSPECIFIED SNOMED Code(s): 233243765 Plan: Fever/bacteremia -Preliminary blood culture gram stain positive for gram-negative bacilli. Patient continues on Zosyn. ID following -Chest x-ray negative for acute process, urinary analysis is not suspicious, flu, RSV testing negative. -Patient received treatment on 02/05. WBC is 2.8, ANC is 2300. She has probably at least 4-5 days before she is in eileen. Continue to monitor CBC. No G-CSF at this time. Hypokalemia -Resolved. Potassium 4.1 Nausea and vomiting, Chemotherapy-induced -IV antiemetics ordered. Reports significant improvement in symptoms. Tolerating clear liquid diet without abdominal pain and n/v. Abdominal exam benign. However she is experiencing loose stools today. CT abdomen and pelvis revealed somewhat diffuse fat stranding changes throughout the mesentery which could be secondary to third spacing fluid versus reactive to some infectious inflammatory process. Mild thickening of the afferent limb which could represent mild enteritis. No other obvious acute process. C diff and stool culture ordered. Continues on zosyn -Will remain on clear liquid diet today and reassess symptoms tomorrow Pancreatic adenocarcinoma -metastatic disease -Patient had cycle 2 day 1 on 02/05 of Gemzar and abraxane -We'll see how patient does during admission. She may need a dose adjustment. Dr correaests: I have performed H&P and developed impression and plan of care for patient, discussed with dictator. I agree with dictated note, documented as a scribe
[2023-02-08] MEDS: IBUPROFEN 400 MG TAB PO PRN (15:31)
[2023-02-08] MEDS: VANCOMYCIN 125 MG CAPSULE PO SCH ×2 (20:46→23:39)
[2023-02-09] MEDS: 0.9% NACL WITH KCL 20 MEQ/L 1,000 ML IV SCH ×2 (04:07→17:46)
[2023-02-09] MEDS: METOCLOPRAMIDE 5 MG/ML 2 ML VIAL IVP SCH ×4 (05:57→23:12)
[2023-02-09] MEDS: VANCOMYCIN 125 MG CAPSULE PO SCH ×4 (05:58→23:13)
[2023-02-09] MEDS: SALT AND SODA MOUTHWASH 1,000 ML PO SCH ×5 (05:59→23:13)
[2023-02-09] MEDS: APIXABAN 5 MG TAB PO SCH ×2 (07:23→21:28)
[2023-02-09] MEDS: CHOLECALCIFEROL 25 MCG (1000 IU) TABLET PO SCH (07:23)
[2023-02-09] MEDS: TOPIRAMATE 25 MG TAB PO SCH ×2 (07:23→21:28)
[2023-02-09] MEDS: MULTIVITAMINS, THERA 1 EACH TAB PO SCH (07:23)
[2023-02-09] MEDS: LOPERAMIDE 2 MG CAP PO SCH ×2 (07:24→19:41)
[2023-02-09] MEDS: LIPASE 20,000/PROTEASE 63,000/AMYLASE 84,000 PO SCH ×3 (07:25→18:10)
[2023-02-09] MEDS: PIPERACILLIN-TAZOBACTAM 3.375 GM in SODIUM CHLORIDE 0.9% 100 ML IVPB SCH (07:25)
--- NOTE | 2023-02-09 08:20 | P.PN ---
Subjective Progress Note Date: 02/09/23 The patient has not had any diarrhea since last evening. Appetite is slightly better. Generalized weakness persists. She denies any significant abdominal pain, nausea or vomiting. No recurrence of fevers Objective - Vital Signs Vital signs: Vital Signs Temp 98.7 F 02/09/23 01:15 Pulse 74 02/09/23 01:15 Resp 16 02/09/23 01:15 BP 100/58 02/09/23 01:15 Pulse Ox 97 02/09/23 01:15 FiO2 Intake & Output 02/08/23 02/09/23 02/09/23 18:59 06:59 18:59 Weight 48.081 kg Other: Voiding Method Bedside Commode Bedside Commode # Voids 3 3 # Bowel Movements 3 - Constitutional General appearance: Present: no acute distress - EENT Eyes: Present: EOMI ENT: Present: hearing grossly normal, normal oropharynx - Respiratory Respiratory: bilateral: CTA - Cardiovascular Rhythm: regular Heart sounds: normal: S1, S2 - Gastrointestinal General gastrointestinal: Present: normal bowel sounds, soft - Integumentary Integumentary: Present: normal - Neurologic Neurologic: Present: CNII-XII intact - Musculoskeletal Musculoskeletal: Present: generalized weakness, strength equal bilaterally - Psychiatric Psychiatric: Present: A&O x's 3, appropriate affect - Labs CBC & Chem 7: 02/08/23 06:18 02/08/23 06:18 Labs: Abnormal Lab Results - Last 24 Hours (Table) 02/08/23 02/08/23 02/08/23 Range/Units 05:30 06:18 06:18 WBC 2.82 L (4.50-10.00) X 10*3/uL RBC 2.82 L (4.10-5.20) X 10*6/uL Hgb 7.5 L (12.0-15.0) d/dL Hct 24.8 L (37.2-46.3) % MCH 26.6 L (27.0-32.0) pg MCHC 30.2 L (32.0-37.0) d/dL Plt Count 135 L (140-440) X 10*3/uL MPV 12.4 H (9.5-12.2) FL Lymphocytes # 0.32 L (0.90-5.00) X 10*3/uL Monocytes # 0.13 L (0.20-1.00) X 10*3/uL Eosinophils # 0.01 L (0.04-0.35) X 10*3/uL Carbon Dioxide 19.6 L (21.6-31.8) mmol/L BUN 6.7 L (9.0-27.0) mg/dL BUN/Creatinine Ratio 8.38 L (12.00-20.00) Ratio Calcium 8.3 L (8.7-10.3) mg/dL AST 42 H (13-35) U/L Total Protein 5.0 L (6.2-8.2) d/dL Albumin 3.1 L (3.8-4.9) d/dL C. difficile (EIA) Intrp Positive A (Negative) Microbiology - Last 24 Hours (Table) 02/06/23 21:10 Blood Culture - Preliminary Blood 02/06/23 11:35 Blood Culture - Preliminary Blood 02/06/23 23:55 Nasal Screen MRSA/MSSA - Final Nasal Swab 02/06/23 11:50 Blood Culture Gram Stain - Preliminary Blood Blood Culture - Preliminary Gram Neg Bacilli Assessment and Plan (1) C. difficile colitis Narrative/Plan: The patient's stool came back positive for C. diff. She has been placed on oral vancomycin. No diarrhea since last p.m., and no abdominal tenderness on exam. Diet has been advanced today. Follow with the same. Current Visit: Yes Status: Acute Code(s): A04.72 - ENTEROCOLITIS D/T CLOSTRIDIUM DIFFICILE, NOT SPCF RECUR SNOMED Code(s): 731001233 (2) Gram-negative bacteremia Narrative/Plan: On antibiotics per ID. WBC did decline on labs yesterday, but ANC was > 1000. Continue to monitor. If ANC drops to less than 1000, start G-CSF. Current Visit: Yes Status: Acute Code(s): R78.81 - BACTEREMIA SNOMED Code(s): 601251747027 (3) Pancreatic cancer Narrative/Plan: The patient is status post day 1 of cycle #2. We discussed the current situation, in view of her gram-negative bacteremia, and now C. diff colitis. She was advised that due to the same, we will need to delay day 8 treatment, to try to ensure adequate treatment of her infection prior to restarting chemotherapy. We also discussed the risks of reactivation of C. diff when chemo was resumed. Current Visit: Yes Status: Acute Priority: High Code(s): C25.9 - MALIGNANT NEOPLASM OF PANCREAS, UNSPECIFIED SNOMED Code(s): 623740880
[2023-02-09] MEDS: FAMOTIDINE 20 MG/2 ML VIAL IV SCH ×2 (09:31→21:28)
[2023-02-09 09:35] LABS: Basophils % (A) 1 %; Eosinophils % (A) 1 %; HCT 24.6 % (34.0-46.0); HGB 7.5 gm/dL (11.4-16.0); Hypochromasia Marked; Lymphocytes # (A) 0.5 k/uL (1.0-4.8); Lymphocytes % (A) 20 %; MCH 28.1 pg (25.0-35.0); MCHC 30.6 g/dL (31.0-37.0); MCV 91.8 fL (80.0-100.0); Mean Platelet Volume 10.2; Monocytes # (A) 0.1 k/uL (0-1.0); Monocytes % (A) 3 %; Neutrophils # (A) 1.8 k/uL (1.3-7.7); Neutrophils % (A) 73 %; RBC 2.68 m/uL (3.80-5.40); RDW 14.6 % (11.5-15.5); WBC 2.5 k/uL (3.8-10.6)
--- NOTE | 2023-02-09 09:42 | P.PN ---
Subjective Progress Note Date: 02/08/23 Principal diagnosis: Fever and bacteremia Patient is a 72-year-old female with a past medical history significant for hypertension sleep apnea, brain aneurysm and pancreatic cancer for the patient is currently on chemotherapy patient presenting to [facility] ER, for evaluation of fever and also have intractable nausea and vomiting. On today's evaluation that is 02/08/2023, the patient is afebrile this morning, the patient is breathing comfortably on room air, the patient denies any chest pain shortness of breath or cough no further vomiting has been complaining of diarrhea Objective - Vital Signs Vital signs: Vital Signs Temp 99.4 F 02/08/23 08:00 Pulse 97 02/08/23 08:00 Resp 18 02/08/23 08:00 BP 182/77 02/08/23 08:00 Pulse Ox 98 02/08/23 08:00 FiO2 Intake & Output 02/07/23 02/08/23 02/08/23 18:59 06:59 18:59 Intake Total 1600 Balance 1600 Weight 48.081 kg Intake: Intake, IV Titration 1100 Amount 0.9% NaCl with KCl 20 Meq 900 /l 1,000 ml @ 75 mls/hr IV .[id number] [facility] Rx#: [id number] Piperacillin-Tazobactam 3 200 .375 gm In Sodium Chloride 0.9% 100 ml @ 25 mls/hr IVPB Q8HR [facility] Rx# :[id number] Oral 500 Other: Voiding Method Bedside Commode Bedside Commode # Voids 1 2 1 # Bowel Movements 1 - Exam GENERAL DESCRIPTION: An elderly female lying in bed in no distress RESPIRATORY SYSTEM: Unlabored breathing , decreased breath sounds at bases HEART: S1 S2 regular rate and rhythm , ABDOMEN: Soft , no tenderness EXTREMITIES: No edema feet - Labs CBC & Chem 7: 02/08/23 06:18 02/08/23 06:18 Labs: Abnormal Lab Results - Last 24 Hours (Table) 02/07/23 02/07/23 02/07/23 Range/Units 08:15 08:15 08:17 RBC 2.90 L (4.10-5.20) X 10*6/uL Hgb 7.8 L (12.0-15.0) d/dL Hct 25.5 L (37.2-46.3) % MCH 26.9 L (27.0-32.0) pg MCHC 30.6 L (32.0-37.0) d/dL Lymphocytes # 0.57 L (0.90-5.00) X 10*3/uL Monocytes # 0.14 L (0.20-1.00) X 10*3/uL Eosinophils # 0.02 L (0.04-0.35) X 10*3/uL Chloride 110 H (96-109) mmol/L Carbon Dioxide 19.7 L (21.6-31.8) mmol/L Calcium 8.2 L (8.7-10.3) mg/dL Magnesium 2.5 H (1.5-2.4) mg/dL AST 49 H (13-35) U/L Total Protein 5.1 L (6.2-8.2) d/dL Albumin 3.2 L (3.8-4.9) d/dL Procalcitonin 12.40 H (0.02-0.09) ng/mL Microbiology - Last 24 Hours (Table) 02/06/23 23:55 Nasal Screen MRSA/MSSA - Final Nasal Swab 02/06/23 11:50 Blood Culture Gram Stain - Preliminary Blood Blood Culture - Preliminary Gram Neg Bacilli 02/06/23 21:10 Blood Culture - Preliminary Blood 02/06/23 11:35 Blood Culture - Preliminary Blood Assessment and Plan (1) Gram-negative bacteremia Current Visit: Yes Status: Acute Code(s): R78.81 - BACTEREMIA SNOMED Code(s): 807603930599 (2) Fever Current Visit: Yes Status: Acute Code(s): R50.9 - FEVER, UNSPECIFIED SNOMED Code(s): 394241126 Plan: 1patient presented hospital with fever in this patient with a history of pancreatic cancer on chemotherapy patient did have a multiple episode of vomiting and mild tenderness was noticed also have elevated liver enzymes concern for possible intra-abdominal source , patient did have a CT of abdominal pelvis we did show significant inflammatory changes were no evidence of any abscess 2-patient did have gram-negative bacteremia source is likely abdominal, ID and sensitivities pending 3-diarrhea we will check a stool for C. diff and treat if positive 3patient will continue Zosyn to better cover for intra-abdominal pathology Dictation was produced using [employer] dictation software. please excuse any grammatical, word or spelling errors. Time with Patient: Less than 30
[2023-02-09 12:00] LABS: Platelet Count 90 k/uL (150-450)
[2023-02-09] MEDS: hydroCHLOROthiazide 12.5 MG CAP PO SCH (12:57)
--- NOTE | 2023-02-09 13:03 | PN ---
PROGRESS NOTE DATE OF SERVICE: 02/09/2023 SUBJECTIVE: This 72-year-old woman was admitted with fever after chemotherapy, had gram-negative bacilli from the blood culture. The final report is pending. PHYSICAL EXAMINATION: VITAL SIGNS: Pulse 84, blood pressure 110/66, respirations 17. CHEST: Clear to auscultation. ABDOMEN: Soft. NERVOUS SYSTEM: No focal deficits. LABORATORY DATA: WBC 2.5, and platelets are 90. ASSESSMENT: 1. Possible gram-negative sepsis after chemotherapy. 2. Mild pancytopenia. 3. Pancreatic tumor, undergoing chemotherapy. 4. Whipple's procedure, status post. 5. Generalized weakness. 6. Moderate protein-calorie malnutrition. 7. Pancreatic deficiency. 8. Severe hypokalemia. RECOMMENDATIONS: Recommend to continue current management, continue symptomatic treatment. Repeat labs, continue the antibiotics. Await final ID of the organism. Further recommendations to follow. Prognosis guarded. MMODL / IJN: [id number] /
[2023-02-09 13:17] LABS: Blood Urea Nitrogen 5.7 mg/dL (9.0-27.0); Calcium 8.1 mg/dL (8.7-10.3); Chloride 111 mmol/L (96-109); Glucose 90 mg/dL (70-110); Sodium 138 mmol/L (135-145)
--- NOTE | 2023-02-09 14:44 | P.PN ---
Subjective Progress Note Date: 02/09/23 Principal diagnosis: Fever and bacteremia Patient is a 72-year-old female with a past medical history significant for hypertension sleep apnea, brain aneurysm and pancreatic cancer for the patient is currently on chemotherapy patient presenting to [facility] ER, for evaluation of fever and also have intractable nausea and vomiting. On today's evaluation that is 02/09/2023, the patient remains to be afebrile, the patient is breathing comfortably on room air, the patient denies any chest pain shortness of breath or cough, the patient denies having any nausea no vomiting no abdominal pain and diarrhea has slowed down Patient did have white count of 2.5 creatinine 0.6 store for C. diff came back positive, blood cultures an E. coli that is sensitive pathogen Objective - Vital Signs Vital signs: Vital Signs Temp 98.5 F 02/09/23 09:28 Pulse 84 02/09/23 07:30 Resp 17 02/09/23 07:30 BP 126/68 02/09/23 07:30 Pulse Ox 95 02/09/23 07:30 FiO2 Intake & Output 02/08/23 02/09/23 02/09/23 18:59 06:59 18:59 Weight 48.081 kg Other: Voiding Method Bedside Commode Bedside Commode # Voids 3 3 # Bowel Movements 3 - Exam GENERAL DESCRIPTION: An elderly female lying in bed in no distress RESPIRATORY SYSTEM: Unlabored breathing , decreased breath sounds at bases HEART: S1 S2 regular rate and rhythm , ABDOMEN: Soft , no tenderness EXTREMITIES: No edema feet - Labs CBC & Chem 7: 02/09/23 07:37 02/09/23 07:26 Labs: Abnormal Lab Results - Last 24 Hours (Table) 02/08/23 02/08/23 02/08/23 Range/Units 05:30 06:18 06:18 WBC 2.82 L (4.50-10.00) X 10*3/uL RBC 2.82 L (4.10-5.20) X 10*6/uL Hgb 7.5 L (12.0-15.0) d/dL Hct 24.8 L (37.2-46.3) % MCH 26.6 L (27.0-32.0) pg MCHC 30.2 L (32.0-37.0) d/dL Plt Count 135 L (140-440) X 10*3/uL MPV 12.4 H (9.5-12.2) FL Lymphocytes # 0.32 L (0.90-5.00) X 10*3/uL Monocytes # 0.13 L (0.20-1.00) X 10*3/uL Eosinophils # 0.01 L (0.04-0.35) X 10*3/uL Chloride (96-109) mmol/L Carbon Dioxide 19.6 L (21.6-31.8) mmol/L BUN 6.7 L (9.0-27.0) mg/dL BUN/Creatinine Ratio 8.38 L (12.00-20.00) Ratio Calcium 8.3 L (8.7-10.3) mg/dL AST 42 H (13-35) U/L Total Protein 5.0 L (6.2-8.2) d/dL Albumin 3.1 L (3.8-4.9) d/dL C. difficile (EIA) Intrp Positive A (Negative) 02/09/23 02/09/23 Range/Units 07:26 07:37 WBC 2.5 L (4.50-10.00) X 10*3/uL RBC 2.68 L (4.10-5.20) X 10*6/uL Hgb 7.5 L (12.0-15.0) d/dL Hct 24.6 L (37.2-46.3) % MCH (27.0-32.0) pg MCHC 30.6 L (32.0-37.0) d/dL Plt Count 90 L D (140-440) X 10*3/uL MPV (9.5-12.2) FL Lymphocytes # 0.5 L (0.90-5.00) X 10*3/uL Monocytes # (0.20-1.00) X 10*3/uL Eosinophils # (0.04-0.35) X 10*3/uL Chloride 111 H (96-109) mmol/L Carbon Dioxide 19.0 L (21.6-31.8) mmol/L BUN 5.7 L (9.0-27.0) mg/dL BUN/Creatinine Ratio 9.50 L (12.00-20.00) Ratio Calcium 8.1 L (8.7-10.3) mg/dL AST (13-35) U/L Total Protein (6.2-8.2) d/dL Albumin (3.8-4.9) d/dL C. difficile (EIA) Intrp (Negative) Microbiology - Last 24 Hours (Table) 02/06/23 21:10 Blood Culture - Preliminary Blood 02/06/23 11:35 Blood Culture - Preliminary Blood 02/06/23 23:55 Nasal Screen MRSA/MSSA - Final Nasal Swab Assessment and Plan (1) Gram-negative bacteremia Current Visit: Yes Status: Acute Code(s): R78.81 - BACTEREMIA SNOMED Code(s): 530492937216 (2) Fever Current Visit: Yes Status: Acute Code(s): R50.9 - FEVER, UNSPECIFIED SNOMED Code(s): 411451966 Plan: 1patient presented hospital with fever in this patient with a history of pancreatic cancer on chemotherapy patient did have a multiple episode of vomiting and mild tenderness was noticed also have elevated liver enzymes con cern for possible intra-abdominal source , patient did have a CT of abdominal pelvis we did show significant inflammatory changes were no evidence of any abscess 2-patient did have gram-negative bacteremia source is likely abdominal, which has been finalized E. coli sensitive pathogen 3C. diff colitis for the patient was started on oral vancomycin to continue 4we will discontinue Zosyn and start patient on Unasyn and monitor clinical course closely Dictation was produced using [employer] dictation software. please excuse any grammatical, word or spelling errors. Time with Patient: Less than 30
[2023-02-09] MEDS: AMPICILLIN-SULBACTAM 3 GM in SODIUM CHLORIDE 0.9% 100 ML IVPB SCH ×2 (17:47→23:13)
[2023-02-09] MEDS: LIPASE 20,000/PROTEASE 63,000/AMYLASE 84,000 PO PRN (23:20)
[2023-02-10] MEDS: METOCLOPRAMIDE 5 MG/ML 2 ML VIAL IVP SCH ×3 (05:31→19:11)
[2023-02-10] MEDS: AMPICILLIN-SULBACTAM 3 GM in SODIUM CHLORIDE 0.9% 100 ML IVPB SCH ×3 (05:31→18:24)
[2023-02-10] MEDS: SALT AND SODA MOUTHWASH 1,000 ML PO SCH ×4 (05:31→20:32)
[2023-02-10] MEDS: VANCOMYCIN 125 MG CAPSULE PO SCH ×3 (05:34→18:24)
[2023-02-10] MEDS: TOPIRAMATE 25 MG TAB PO SCH ×2 (08:15→21:04)
[2023-02-10] MEDS: LIPASE 20,000/PROTEASE 63,000/AMYLASE 84,000 PO SCH ×3 (08:15→18:23)
[2023-02-10] MEDS: hydroCHLOROthiazide 12.5 MG CAP PO SCH (08:16)
[2023-02-10] MEDS: APIXABAN 5 MG TAB PO SCH ×2 (08:16→20:32)
[2023-02-10] MEDS: CHOLECALCIFEROL 25 MCG (1000 IU) TABLET PO SCH (08:16)
[2023-02-10] MEDS: MULTIVITAMINS, THERA 1 EACH TAB PO SCH (08:16)
[2023-02-10] MEDS: LOPERAMIDE 2 MG CAP PO SCH ×3 (08:16→20:25)
[2023-02-10] MEDS: FAMOTIDINE 20 MG/2 ML VIAL IV SCH ×2 (08:40→20:32)
[2023-02-10] MEDS: 0.9% NACL WITH KCL 20 MEQ/L 1,000 ML IV SCH (08:46)
--- NOTE | 2023-02-10 10:23 | P.PN ---
Subjective Progress Note Date: 02/10/23 The patient states that she had 2 bowel movements yesterday, with essentially a normal diet. However today she already has had 3 BMs, which are quite soft with the most recent one bordering on watery. She denied any significant abdominal pain, nausea or vomiting. Appetite has been reasonable. No re currence of fevers. Objective - Vital Signs Vital signs: Vital Signs Temp 98.7 F 02/10/23 08:00 Pulse 76 02/10/23 08:00 Resp 17 02/10/23 08:00 BP 160/69 02/10/23 08:00 Pulse Ox 95 02/10/23 01:46 FiO2 Intake & Output 02/09/23 02/10/23 02/10/23 18:59 06:59 18:59 Intake Total 1720 1700 480 Balance 1720 1700 480 Intake: Intake, IV Titration 1000 1100 Amount 0.9% NaCl with KCl 20 Meq 900 900 /l 1,000 ml @ 75 mls/hr IV .[id number] [facility] Rx#: [id number] Ampicillin-Sulbactam 3 gm 100 200 In Sodium Chloride 0.9% 100 ml @ 200 mls/hr IVPB Q6HR [facility] Rx#:[id number] Oral 720 600 480 Other: Voiding Method Toilet Bedside Commode # Voids 1 4 # Bowel Movements 1 3 - Constitutional General appearance: Present: no acute distress - EENT Eyes: Present: EOMI ENT: Present: hearing grossly normal, normal oropharynx - Respiratory Respiratory: bilateral: CTA - Cardiovascular Rhythm: regular Heart sounds: normal: S1, S2 - Gastrointestinal General gastrointestinal: Present: normal bowel sounds, soft - Integumentary Integumentary: Present: normal - Neurologic Neurologic: Present: CNII-XII intact - Musculoskeletal Musculoskeletal: Present: generalized weakness, strength equal bilaterally - Psychiatric Psychiatric: Present: A&O x's 3, appropriate affect - Labs CBC & Chem 7: 02/09/23 07:37 02/09/23 07:26 Labs: Abnormal Lab Results - Last 24 Hours (Table) 02/09/23 02/09/23 Range/Units 07:26 07:37 Plt Count 90 L D (150-450) k/uL Lymphocytes # 0.5 L (1.0-4.8) k/uL Chloride 111 H (96-109) mmol/L Carbon Dioxide 19.0 L (21.6-31.8) mmol/L BUN 5.7 L (9.0-27.0) mg/dL BUN/Creatinine Ratio 9.50 L (12.00-20.00) Ratio Calcium 8.1 L (8.7-10.3) mg/dL Microbiology - Last 24 Hours (Table) 02/06/23 21:10 Blood Culture - Preliminary Blood 02/06/23 11:35 Blood Culture - Preliminary Blood 02/06/23 11:50 Blood Culture Gram Stain - Final Blood Blood Culture - Final Escherichia coli Assessment and Plan (1) C. difficile colitis Narrative/Plan: Patient is continuing on vancomycin. She was advanced to regular diet yesterday. She reports possibly some increase in diarrhea today. Abdominal exam remains fairly benign. Case discussed with nursing. Continue current diet with ongoing monitoring. If the area increases, then she'll be changed back to liquid diet or even bowel rest if that is appropriate. Her symptoms may worsen temporarily, because of the drop in her WBC as he is at her eileen from her recent chemo. - Continue vancomycin - Add Questran Current Visit: Yes Status: Acute Code(s): A04.72 - ENTEROCOLITIS D/T CLOSTRIDIUM DIFFICILE, NOT SPCF RECUR SNOMED Code(s): 529949997 (2) Gram-negative bacteremia Narrative/Plan: This is found to be E. coli, likely from bowel source. This was sensitive current antibiotics. Continue antibiotics per ID Current Visit: Yes Status: Acute Code(s): R78.81 - BACTEREMIA SNOMED Code(s): 673839338771 (3) Pancreatic cancer Narrative/Plan: Treatment will be placed on hold, until her current situation is resolved in a satisfactory manner. - Monitor counts and add G-CSF if needed Current Visit: Yes Status: Acute Priority: High Code(s): C25.9 - MALIGNANT NEOPLASM OF PANCREAS, UNSPECIFIED SNOMED Code(s): 471250581
[2023-02-10 12:58] LABS: MCH 26.2 pg (27.0-32.0); MCHC 30.4 d/dL (32.0-37.0); MCV 86.1 FL (80.0-97.0); NRBC Per 100 WBC 0 X 10*3/uL (0.00-0.01); Platelet Count 123 X 10*3/uL (140-440); RBC 2.67 X 10*6/uL (4.10-5.20); RDW 14.2 % (11.5-14.5); WBC 1.85 X 10*3/uL (4.50-10.00)
[2023-02-10 13:27] LABS: ALT 30 U/L (8-44); AST 27 U/L (13-35); Albumin 2.9 d/dL (3.8-4.9); Albumin/Globulin Ratio 1.53 Ratio (1.60-3.17); Alkaline Phosphatase 109 U/L (41-126); BUN/Creat Ratio 13.29 Ratio (12.00-20.00); Blood Urea Nitrogen 9.3 mg/dL (9.0-27.0); Calcium 8.4 mg/dL (8.7-10.3); Carbon Dioxide 20.4 mmol/L (21.6-31.8); Chloride 110 mmol/L (96-109); Globulin 1.9 d/dL (1.6-3.3); Glucose 95 mg/dL (70-110); Potassium 3.9 mmol/L (3.5-5.5); Sodium 139 mmol/L (135-145); Total Bilirubin <0.2 mg/dL (0.3-1.2); Total Protein 4.8 d/dL (6.2-8.2)
[2023-02-10 13:33] LABS: Basophils # (A) 0.01 X 10*3/uL (0.00-0.10); Basophils % (A) 0.5 %; Eosinophils # (A) 0.03 X 10*3/uL (0.04-0.35); Eosinophils % (A) 1.6 %; Lymphocytes # (A) 0.77 X 10*3/uL (0.90-5.00); Lymphocytes % (A) 41.6 %; Monocytes # (A) 0.16 X 10*3/uL (0.20-1.00); Monocytes % (A) 8.6 %; Neutrophils # (A) 0.87 X 10*3/uL (1.80-7.70); Neutrophils % (A) 47.2 %
[2023-02-10] MEDS ORDERED: POTASSIUM CHLORIDE ER 20 MEQ TAB.ER PO SCH (14:00)
--- NOTE | 2023-02-10 14:10 | PN ---
PROGRESS NOTE DATE OF SERVICE: 02/10/2023 SUBJECTIVE: This is a 72-year-old woman who was admitted with sepsis, had E. coli grown from the culture. The patient also had diarrhea. C. diff is positive. No chest pain. No palpitations. No fever. OBJECTIVE: VITAL SIGNS: Pulse is 83, blood pressure 120/66, respirations 16. CHEST: Clear to auscultation. CARDIOVASCULAR: S1 and S2. ABDOMEN: Soft. NERVOUS SYSTEM: No focal deficits. LABORATORY DATA: Hemoglobin 7, white count is 1.85, platelets 123. ASSESSMENT: 1. Gram-negative sepsis with Escherichia coli, status post chemotherapy. 2. Acute Clostridium difficile colitis. 3. Mild pancytopenia. 4. Pancreatic tumor, undergoing chemotherapy. 5. Whipple procedure, status post. 6. History of generalized weakness. 7. Moderate protein-calorie malnutrition and pancreatic deficiency. 8. Severe hypokalemia. RECOMMENDATIONS: Recommend to continue current management, continue symptomatic treatment. Repeat labs. Otherwise, I would recommend to continue with p.o. vancomycin. The patient is on IV Unasyn also. We will obtain some repeat cultures as well. Further recommendations to follow. MMODL / IJN: [id number] /
[2023-02-10] MEDS: CHOLESTYRAMINE (WITH SUGAR) 4 GM PACKET PO SCH ×2 (14:48→18:24)
[2023-02-10] MEDS ORDERED: MAGNESIUM SULFATE-D5W PMX 1 GM in DEXTROSE/WATER 1 100ML.BAG IVPB ONE (15:50)
[2023-02-11] MEDS: 0.9% NACL WITH KCL 20 MEQ/L 1,000 ML IV SCH ×2 (00:12→15:29)
[2023-02-11] MEDS: VANCOMYCIN 125 MG CAPSULE PO SCH ×4 (00:41→18:18)
[2023-02-11] MEDS: METOCLOPRAMIDE 5 MG/ML 2 ML VIAL IVP SCH ×2 (00:41→05:55)
[2023-02-11] MEDS: AMPICILLIN-SULBACTAM 3 GM in SODIUM CHLORIDE 0.9% 100 ML IVPB SCH ×4 (00:42→18:20)
[2023-02-11] MEDS: SALT AND SODA MOUTHWASH 1,000 ML PO SCH ×5 (00:42→20:35)
[2023-02-11] MEDS: LIPASE 20,000/PROTEASE 63,000/AMYLASE 84,000 PO SCH ×3 (08:43→17:05)
[2023-02-11] MEDS: TOPIRAMATE 25 MG TAB PO SCH ×2 (08:43→20:33)
[2023-02-11] MEDS: hydroCHLOROthiazide 12.5 MG CAP PO SCH (08:43)
[2023-02-11] MEDS: MULTIVITAMINS, THERA 1 EACH TAB PO SCH (08:43)
[2023-02-11] MEDS: CHOLECALCIFEROL 25 MCG (1000 IU) TABLET PO SCH (08:44)
[2023-02-11] MEDS: APIXABAN 5 MG TAB PO SCH ×2 (08:44→20:33)
[2023-02-11 08:48] LABS: Basophils # (A) 0.01 X 10*3/uL (0.00-0.10); Basophils % (A) 0.5 %; Eosinophils # (A) 0.03 X 10*3/uL (0.04-0.35); Eosinophils % (A) 1.6 %; HCT 22.8 % (37.2-46.3); Immature Grans, Automated 0 %; Lymphocytes # (A) 0.91 X 10*3/uL (0.90-5.00); Lymphocytes % (A) 49.5 %; MCH 26.4 pg (27.0-32.0); MCHC 30.7 d/dL (32.0-37.0); Mean Platelet Volume 11.7 FL (9.5-12.2); Monocytes # (A) 0.21 X 10*3/uL (0.20-1.00); Monocytes % (A) 11.4 %; NRBC Per 100 WBC 0 X 10*3/uL (0.00-0.01); Neutrophils # (A) 0.68 X 10*3/uL (1.80-7.70); Platelet Count 102 X 10*3/uL (140-440); RBC 2.65 X 10*6/uL (4.10-5.20); RDW 14.1 % (11.5-14.5); WBC 1.84 X 10*3/uL (4.50-10.00)
[2023-02-11] MEDS: FAMOTIDINE 20 MG/2 ML VIAL IV SCH ×2 (08:53→20:33)
[2023-02-11] MEDS: ONDANSETRON 4 MG/2 ML VIAL IVP PRN (08:56)
[2023-02-11] MEDS: LOPERAMIDE 2 MG CAP PO SCH ×2 (10:49→20:33)
[2023-02-11] MEDS: CHOLESTYRAMINE (WITH SUGAR) 4 GM PACKET PO SCH ×3 (12:43→18:19)
[2023-02-11] MEDS ORDERED: FILGRASTIM-SNDZ 300 MCG/0.5 ML SYRINGE SQ SCH ×2 (13:00→18:00)
[2023-02-11 14:03] LABS: BUN/Creat Ratio 13.67 Ratio (12.00-20.00); Blood Urea Nitrogen 8.2 mg/dL (9.0-27.0); Calcium 8.4 mg/dL (8.7-10.3); Carbon Dioxide 18.8 mmol/L (21.6-31.8); Chloride 110 mmol/L (96-109); Glucose 93 mg/dL (70-110); Potassium 3.9 mmol/L (3.5-5.5); Sodium 137 mmol/L (135-145)
--- NOTE | 2023-02-11 14:37 | P.PN ---
Subjective Progress Note Date: 02/11/23 Principal diagnosis: hx pancreatic cancer At today's visit patient is resting comfortably in bed. Reports having nausea this morning, but resolved with anti-emetics. Reports improvement in abdominal pain. States she has had 1 episode of diarrhea today. Continues on oral vanco for treatment of c-diff. Tolerated yogurt and oatmeal today. Due to persisting GI symptoms will place patient on full liquid diet today and reevaluate in the morning. Afebrile x 3 days. Objective - Vital Signs Vital signs: Vital Signs Temp 98.5 F 02/11/23 13:28 Pulse 71 02/11/23 13:28 Resp 16 02/11/23 13:28 BP 152/74 02/11/23 13:28 Pulse Ox 97 02/11/23 13:28 FiO2 Intake & Output 02/10/23 02/11/23 02/11/23 18:59 06:59 18:59 Intake Total 1920 Balance 1920 Intake: Intake, IV Titration 1200 Amount 0.9% NaCl with KCl 20 Meq 900 /l 1,000 ml @ 75 mls/hr IV .[id number] [facility] Rx#: [id number] Ampicillin-Sulbactam 3 gm 200 In Sodium Chloride 0.9% 100 ml @ 200 mls/hr IVPB Q6HR [facility] Rx#:[id number] Magnesium Sulfate-D5w Pmx 100 1 gm In Dextrose/Water 1 100ml.bag @ 100 mls/hr IVPB ONCE ONE Rx#: [id number] Oral 720 Other: Voiding Method Toilet Bedside Commode # Voids 3 # Bowel Movements 2 2 - Constitutional General appearance: Present: average body habitus, no acute distress - EENT Eyes: Present: anicteric sclerae, EOMI ENT: Present: hearing grossly normal - Respiratory Details: breathing even and unlabored - Cardiovascular Details: skin warm and dry - Gastrointestinal General gastrointestinal: Present: soft. Absent: distended, tenderness - Integumentary Integumentary: Present: pale - Neurologic Neurologic: Present: CNII-XII intact - Musculoskeletal Musculoskeletal: Present: strength equal bilaterally - Psychiatric Psychiatric: Present: A&O x's 3, appropriate affect, intact judgment & insight - Labs CBC & Chem 7: 02/11/23 06:28 02/11/23 06:28 Labs: Abnormal Lab Results - Last 24 Hours (Table) 07/31/23 07/31/23 Range/Units 06:28 06:28 WBC 1.84 L (4.50-10.00) X 10*3/uL RBC 2.65 L (4.10-5.20) X 10*6/uL Hgb 7.0 L (12.0-15.0) d/dL Hct 22.8 L (37.2-46.3) % MCH 26.4 L (27.0-32.0) pg MCHC 30.7 L (32.0-37.0) d/dL Plt Count 102 L (140-440) X 10*3/uL Neutrophils # 0.68 L (1.80-7.70) X 10*3/uL Eosinophils # 0.03 L (0.04-0.35) X 10*3/uL Chloride 110 H (96-109) mmol/L Carbon Dioxide 18.8 L (21.6-31.8) mmol/L BUN 8.2 L (9.0-27.0) mg/dL Calcium 8.4 L (8.7-10.3) mg/dL Assessment and Plan (1) Fever Current Visit: Yes Status: Acute Priority: High Code(s): R50.9 - FEVER, UNSPECIFIED SNOMED Code(s): 439118469 (2) Nausea & vomiting Current Visit: Yes Status: Acute Priority: High Code(s): R11.2 - NAUSEA WI TH VOMITING, UNSPECIFIED SNOMED Code(s): 21079818 (3) Pancreatic cancer Current Visit: Yes Status: Acute Priority: High Code(s): C25.9 - MALIGNANT NEOPLASM OF PANCREAS, UNSPECIFIED SNOMED Code(s): 494540977 Plan: C-diff: -Patient is continuing on vancomycin. She was advanced to regular diet but is still having persisting GI issues. Will restart her on full liquid diet today and reevaluate in the morning. Abdominal exam remains fairly benign. Case discussed with nursing. Her symptoms may worsen temporarily, because of the drop in her WBC as he is at her eileen from her recent chemo. - Continue vancomycin - Add Questran Gram negative bactermia: -This is found to be E. coli, likely from bowel source. This was sensitive to current antibiotics. Continue antibiotics per ID Pancreatic cancer: -Patient had cycle 2 day 1 on 02/05 of Gemzar and abraxane. Treatment will be placed on hold, until her current situation is resolved in a satisfactory manner. -ANC 680 today. Will add granix daily until ANC >1000. Hgb 7.0, Plt 102,000. Please transfuse for hemoglobin less than 7. Will continue to monitor
[2023-02-11] MEDS ORDERED: POTASSIUM CHLORIDE ER 20 MEQ TAB.ER PO SCH (15:00)
--- NOTE | 2023-02-11 20:31 | P.PN ---
Subjective This is a pleasant 72 years old female who was recently diagnosed with pancreatic cancer undergoing chemotherapy She presents because of fever, Patient was recently diagnosed with pancreatic cancer and this is the second cycle of therapy after day one she received chemotherapy yesterday. The first cycle was few weeks ago and it was cut short from 3 down to 2 because she could not do this. This time she has fever temperature checked by patient and family between 100.5-102. Her main control is that she is not pain as normal as before. Other than that she denies any chest pain or dyspnea. No coughing. Appetite is good. No abdominal pain or vomiting or diarrhea. No hepatic weakness numbness. No rash or joint pain or swelling Patient says that she has history of PE and she takes Eliquis at. she has a temperature of 100.8 on admission. Blunt blood pressure also was on the low side 100/62 slightly tachypneic, heart rate is 82 but saturating well 99% on room air. Labs showing hemoglobin 8.8, rest of CBC is unremarkable. Potassium low at 2.7, rest of BMP is unremarkable Liver enzymes slightly elevated with AST 105 and ALT 57. Viruses R and detected including influenza, RSV, coronavirus Group A strep culture is negative. Urine analysis is requested and is pending Patient is a started on cefepime and IV Vanco and admitted with IV fluids normal saline at 130 mL/h, 02/11/2023 Patient was admitted with 2 infections, C. diff colitis and E. coli bacteremia. She had fever on admission which is improving while she is currently on oral vancomycin and Unasyn. She still feeling generally weak. She still for continuous nausea despite being on standing dose of Reglan and as needed Zofran. Patient states that these medications are not helping her. We will hold Reglan at the right chest with Phenergan. Patient has low appetite. No significant abdominal pain or tenderness or distention. She still have evidence of pancytopenia WC1.8, hemoglobin 7, platelets 102. Patient was started and filgastrim today hematology/oncologist informed closely. Patient also on liquids for history of PE. CT of the abdomen and pelvis showing new scattered lesions in the liver with no splenic hypodense lesion with mild antritis Objective - Vital Signs Vital signs: Vital Signs Temp 98.5 F 02/11/23 13:28 Pulse 71 02/11/23 13:28 Resp 16 02/11/23 13:28 BP 152/74 02/11/23 13:28 Pulse Ox 97 02/11/23 13:28 FiO2 Intake & Output 02/11/23 02/11/23 02/12/23 06:59 18:59 06:59 Intake Total 1100 Balance 1100 Weight 48.081 kg Intake: Intake, IV Titration 1100 Amount 0.9% NaCl with KCl 20 Meq 900 /l 1,000 ml @ 75 mls/hr IV .[id number] [facility] Rx#: [id number] Ampicillin-Sulbactam 3 gm 200 In Sodium Chloride 0.9% 100 ml @ 200 mls/hr IVPB Q6HR [facility] Rx#:[id number] Other: Voiding Method Toilet Bedside Commode # Voids 3 5 # Bowel Movements 2 1 - Exam -GENERAL: The patient is alert and oriented x3, not in any acute distress. Cachectic HEENT: Pupils are round and equally reacting to light. EOMI. No scleral icterus. No conjunctival pallor. Normocephalic, atraumatic. No pharyngeal erythema. No thyromegaly. CARDIOVASCULAR: S1 and S2 present. No murmurs, rubs, or gallops. PULMONARY: Chest is clear to auscultation, no wheezing , no crackles. ABDOMEN: Soft, nontender, nondistended, normoactive bowel sounds. No palpable organomegaly. MUSCULOSKELETAL: No joint swelling or deformity. EXTREMITIES: No cyanosis, clubbing, or pedal edema. NEUROLOGICAL: Gross neurological examination did not reveal any focal deficits. SKIN: No rashes. no petechiae. - Labs CBC & Chem 7: 02/11/23 06:28 02/11/23 06:28 Labs: Abnormal Lab Results - Last 24 Hours (Table) 02/11/23 02/11/23 Range/Units 06:28 06:28 WBC 1.84 L (4.50-10.00) X 10*3/uL RBC 2.65 L (4.10-5.20) X 10*6/uL Hgb 7.0 L (12.0-15.0) d/dL Hct 22.8 L (37.2-46.3) % MCH 26.4 L (27.0-32.0) pg MCHC 30.7 L (32.0-37.0) d/dL Plt Count 102 L (140-440) X 10*3/uL Neutrophils # 0.68 L (1.80-7.70) X 10*3/uL Eosinophils # 0.03 L (0.04-0.35) X 10*3/uL Chloride 110 H (96-109) mmol/L Carbon Dioxide 18.8 L (21.6-31.8) mmol/L BUN 8.2 L (9.0-27.0) mg/dL Calcium 8.4 L (8.7-10.3) mg/dL Microbiology - Last 24 Hours (Table) 02/06/23 11:35 Blood Culture - Final Blood Assessment and Plan Assessment: Sepsis with fever, secondary to E. coli bacteremia C. diff colitis with mild enteritis Pancreatic cancer undergoing chemotherapy with evidence of new multiple hepatic lesions and one hypodense splenic lesion suspicious for metastatic disease Generalized weakness Moderate to sever calorie protein nutrition History of pancreatic deficiency on replacement pancreatic enzyme therapy Plan: Continue with antibiotic, IV Unasyn per ID team were consulted continue with oral vancomycin Infectious disease team consult on filgastrim Hematology/oncology team consult follow-up lood culture taken of from the ports Dietary consult Labs and medication were reviewed.. Continue same treatment. Continue with symptomatic treatment. Resume home medication. Monitor labs and vitals. DVT and GI prophylaxis. Further recommendations as per clinical course of the patient DVT prophylaxis: ELIQUIS GI Prophylaxis: Pepcid Prognosis is guarded
[2023-02-12] MEDS: SALT AND SODA MOUTHWASH 1,000 ML PO SCH ×4 (00:12→17:39)
[2023-02-12] MEDS: VANCOMYCIN 125 MG CAPSULE PO SCH ×4 (00:12→17:43)
[2023-02-12] MEDS: AMPICILLIN-SULBACTAM 3 GM in SODIUM CHLORIDE 0.9% 100 ML IVPB SCH ×3 (00:12→12:58)
[2023-02-12] MEDS: 0.9% NACL WITH KCL 20 MEQ/L 1,000 ML IV SCH ×2 (02:37→16:48)
[2023-02-12] MEDS ORDERED: PROMETHAZINE 25 MG TAB PO PRN (06:00)
[2023-02-12 06:05] LABS: Basophils % (A) 0 %; Eosinophils % (A) 0 %; HCT 23.8 % (34.0-46.0); HGB 7.4 gm/dL (11.4-16.0); Hypochromasia Marked; Lymphocytes # (A) 1.6 k/uL (1.0-4.8); Lymphocytes % (A) 10 %; MCH 27.1 pg (25.0-35.0); MCV 87.5 fL (80.0-100.0); Mean Platelet Volume 9.1; Monocytes # (A) 0.4 k/uL (0-1.0); Monocytes % (A) 3 %; Neutrophils # (A) 13.6 k/uL (1.3-7.7); Neutrophils % (A) 86 %; Platelet Count 80 k/uL (150-450); RBC 2.72 m/uL (3.80-5.40); RDW 14.7 % (11.5-15.5); WBC 15.9 k/uL (3.8-10.6)
[2023-02-12 07:48] VITALS: RESP 16
[2023-02-12] MEDS: CHOLECALCIFEROL 25 MCG (1000 IU) TABLET PO SCH (08:57)
[2023-02-12] MEDS: LOPERAMIDE 2 MG CAP PO SCH (08:57)
[2023-02-12] MEDS: MULTIVITAMINS, THERA 1 EACH TAB PO SCH (08:57)
[2023-02-12] MEDS: APIXABAN 5 MG TAB PO SCH (08:58)
[2023-02-12] MEDS: LIPASE 20,000/PROTEASE 63,000/AMYLASE 84,000 PO SCH ×2 (08:58→13:08)
[2023-02-12] MEDS: FAMOTIDINE 20 MG/2 ML VIAL IV SCH (08:59)
[2023-02-12] MEDS: TOPIRAMATE 25 MG TAB PO SCH (09:00)
[2023-02-12] MEDS: hydroCHLOROthiazide 12.5 MG CAP PO SCH (09:00)
[2023-02-12] MEDS: ONDANSETRON 4 MG/2 ML VIAL IVP PRN (09:55)
[2023-02-12] MEDS: CHOLESTYRAMINE (WITH SUGAR) 4 GM PACKET PO SCH ×2 (09:56→15:27)
[2023-02-12 12:51] VITALS: BP 131/62; PULSE 73; TEMP 98.6
--- NOTE | 2023-02-12 13:32 | P.PN ---
Subjective Progress Note Date: 02/12/23 Principal diagnosis: Fever and bacteremia Patient is a 72-year-old female with a past medical history significant for hypertension sleep apnea, brain aneurysm and pancreatic cancer for the patient is currently on chemotherapy patient presenting to [facility], for evaluation of fever and also have intractable nausea and vomiting. On today's evaluation that is 02/12/2023, the patient denies any fever and chills, the patient is breathing comfortably on room air, the patient denies any chest pain shortness of breath or cough, the patient denies having any nausea no vomiting, the patient abdominal pain has decreased in intensity, that he has decreased in frequency however still complaining of loose stools, patient is feeling better wants to go home Patient did have white count of 15.9, creatinine 0.6 as of yesterday, stool for C. diff positive, blood cultures an E. coli that is sensitive pathogen, blood culture had been repeated 02/10/2023 and so far negative Objective - Vital Signs Vital signs: Vital Signs Temp 98.9 F 02/12/23 07:27 Pulse 78 02/12/23 07:27 Resp 16 02/12/23 07:27 BP 146/65 02/12/23 07:27 Pulse Ox 97 02/12/23 07:27 FiO2 Intake & Output 02/11/23 02/12/23 02/12/23 18:59 06:59 18:59 Intake Total 2800 Balance 2800 Weight 48.081 kg Intake: Intake, IV Titration 2200 Amount 0.9% NaCl with KCl 20 Meq 1800 /l 1,000 ml @ 75 mls/hr IV .[id number] [facility] Rx#: [id number] Ampicillin-Sulbactam 3 gm 400 In Sodium Chloride 0.9% 100 ml @ 200 mls/hr IVPB Q6HR [facility] Rx#:[id number] Oral 600 Other: Voiding Method Toilet Bedside Commode # Voids 5 3 # Bowel Movements 2 1 - Exam GENERAL DESCRIPTION: An elderly female lying in bed in no distress RESPIRATORY SYSTEM: Unlabored breathing , decreased breath sounds at bases HEART: S1 S2 regular rate and rhythm , ABDOMEN: Soft , no tenderness EXTREMITIES: No edema feet - Labs CBC & Chem 7: 02/12/23 05:54 02/11/23 06:28 Labs: Abnormal Lab Results - Last 24 Hours (Table) 02/11/23 02/12/23 Range/Units 06:28 05:54 WBC 15.9 H (3.8-10.6) k/uL RBC 2.72 L (3.80-5.40) m/uL Hgb 7.4 L (11.4-16.0) gm/dL Hct 23.8 L (34.0-46.0) % Plt Count 80 L (150-450) k/uL Neutrophils # 13.6 H (1.3-7.7) k/uL Chloride 110 H (96-109) mmol/L Carbon Dioxide 18.8 L (21.6-31.8) mmol/L BUN 8.2 L (9.0-27.0) mg/dL Calcium 8.4 L (8.7-10.3) mg/dL Microbiology - Last 24 Hours (Table) 02/06/23 21:10 Blood Culture - Final Blood 02/10/23 14:54 Blood Culture - Preliminary Blood 02/08/23 05:30 Stool Culture - Final Stool 02/06/23 11:35 Blood Culture - Final Blood Assessment and Plan (1) Gram-negative bacteremia Current Visit: Yes Status: Acute Code(s): R78.81 - BACTEREMIA SNOMED Code(s): 422257152707 (2) Fever Current Visit: Yes Status: Acute Code(s): R50.9 - FEVER, UNSPECIFIED SNOMED Code(s): 812130428 Plan: 1patient presented hospital with fever in this patient with a history of pancreatic cancer on chemotherapy patient did have a multiple episode of vomiting and mild tenderness was noticed also have elevated liver enzymes concern for possible intra-abdominal source , patient did have a CT of abdominal pelvis we did show significant inflammatory changes were no evidence of any abscess 2-patient did have E. coli bacteremia source is likely abdominal, patient to continue with Unasyn and plan to finish therapy with oral Cipro and Flagyl prescription has been sent to the pharmacy 3C. diff colitis for which the patient to continue with oral vancomycinx 12 days on discharge prescription was sent to the pharmacy and the patient has been encouraged to increase her probiotic and yogurt intake Dictation was produced using [employer] dictation software. please excuse any gr ammatical, word or spelling errors. Time with Patient: Less than 30
--- NOTE | 2023-02-12 14:23 | P.PN ---
Subjective Progress Note Date: 02/12/23 Principal diagnosis: fever, diarrhea, hypokalemia In follow-up today patient reports 2 loose stools yesterday, she denies diarrhea, consistency is "loose", abdominal pain is minimal now, she denies any incontinence of stool, no black or bloody stool. She is tolerating oral intake, currently on a full liquid diet, no nausea or vomiting. She feels that she is stable enough to be discharged home. Objective - Vital Signs Vital signs: Vital Signs Temp 98.6 F 02/12/23 12:36 Pulse 73 02/12/23 12:36 Resp 16 02/12/23 12:36 BP 131/62 02/12/23 12:36 Pulse Ox 96 02/12/23 12:36 FiO2 Intake & Output 02/11/23 02/12/23 02/12/23 18:59 06:59 18:59 Intake Total 2800 Balance 2800 Weight 48.081 kg Intake: Intake, IV Titration 2200 Amount 0.9% NaCl with KCl 20 Meq 1800 /l 1,000 ml @ 75 mls/hr IV .[id number] [facility] Rx#: [id number] Ampicillin-Sulbactam 3 gm 400 In Sodium Chloride 0.9% 100 ml @ 200 mls/hr IVPB Q6HR [facility] Rx#:[id number] Oral 600 Other: Voiding Method Toilet Toilet Bedside Commode Bedside Commode # Voids 5 3 # Bowel Movements 2 1 - Constitutional General appearance: Present: average body habitus, cooperative, no acute distress - EENT Eyes: Present: anicteric sclerae, EOMI ENT: Present: hearing grossly normal - Respiratory Details: Respirations even and unlabored at rest - Cardiovascular Rhythm: regular Heart sounds: normal: S1, S2 Abnormal Heart Sounds: Absent: systolic murmur, diastolic murmur, rub, S3 G allop, S4 Gallop, click, other - Peripheral edema leg Peripheral Edema: bilateral: None - Gastrointestinal Gastrointestinal Comment(s): No tenderness on palpation General gastrointestinal: Present: soft - Integumentary Integumentary: Present: normal - Neurologic Neurologic: Present: CNII-XII intact - Musculoskeletal Musculoskeletal: Present: strength equal bilaterally - Psychiatric Psychiatric: Present: A&O x's 3, appropriate affect, intact judgment & insight - Labs CBC & Chem 7: 02/12/23 05:54 02/11/23 06:28 Labs: Abnormal Lab Results - Last 24 Hours (Table) 02/12/23 Range/Units 05:54 WBC 15.9 H (3.8-10.6) k/uL RBC 2.72 L (3.80-5.40) m/uL Hgb 7.4 L (11.4-16.0) gm/dL Hct 23.8 L (34.0-46.0) % Plt Count 80 L (150-450) k/uL Neutrophils # 13.6 H (1.3-7.7) k/uL Microbiology - Last 24 Hours (Table) 02/06/23 21:10 Blood Culture - Final Blood 02/10/23 14:54 Blood Culture - Preliminary Blood 02/08/23 05:30 Stool Culture - Final Stool 02/06/23 11:35 Blood Culture - Final Blood Assessment and Plan (1) C. difficile colitis Current Visit: Yes Status: Acute Priority: High Code(s): A04.72 - ENTEROCOLITIS D/T CLOSTRIDIUM DIFFICILE, NOT SPCF RECUR SNOMED Code(s): 674702468 (2) Pancreatic adenocarcinoma Current Visit: Yes Status: Chronic Priority: Medium Code(s): C25.9 - MALIGNANT NEOPLASM OF PANCREAS, UNSPECIFIED SNOMED Code(s): 210198261 (3) Fever Current Visit: Yes Status: Resolved Priority: High Code(s): R50.9 - FEVER, UNSPECIFIED SNOMED Code(s): 356347460 (4) Rigors Current Visit: Yes Status: Resolved Priority: High Code(s): R68.89 - OTHER GENERAL SYMPTOMS AND SIGNS SNOMED Code(s): 04790581 (5) Hypokalemia Current Visit: Yes Status: Resolved Priority: High Code(s): E87.6 - HYPOKALEMIA SNOMED Code(s): 59665406 (6) Nausea & vomiting Current Visit: Yes Status: Resolved Priority: High Code(s): R11.2 - NAUSEA WITH VOMITING, UNSPECIFIED SNOMED Code(s): 62268039 Plan: Clostridium difficile colitis -Source of infection -Infectious Diseases been following and treating patient. -Patient has been on antibiotics for the same. -Decrease in number of episodes of stool a day, patient still reporting loose stools but, denies diarrhea. Other abdominal symptoms are improved -ID recommendations 12 more days of oral vancomycin outpatient. -We will follow-up with the patient next week in the office, recheck the stool at that time. -Once patient has adequately recovered, we'll consider resumption of chemo with prophylactic vancomycin for prevention of recurrent c-diff infection Pancreatic adenocarcinoma -metastatic disease -Patient had cycle 2 day 1 of Gemzar and abraxane, due for cycle 2 day 8 today- on hold for now Fever and rigors -Resolved Hypokalemia -resolved -Potassium 3.9 yesterday. Nausea and vomiting, Chemotherapy-induced -resolved -pt is now on a full liquid diet now, tolerating well -Dietitian consult for written information for pt to transition diet from full to soft...etc, as tolerated. Case discussed with Attending and Nursing attests: I have seen and examined patient, performed H&P, developed impression and plan of care. Discussed with dictator. Agree with d ocumentation, dictated as a scribe
[2023-02-12] MEDS: LIPASE 20,000/PROTEASE 63,000/AMYLASE 84,000 PO PRN (15:27)
--- NOTE | 2023-02-12 17:15 | CDI ---
Documentation Clarification Form Date: 02/12/2023 04:56:50 PM From: Carole Bradley RN, CCDS Email: [email or web address] Admit Date: 02/06/2023 01:47:00 PM Patient Name: Yoselin Cash I Visit Number: [id number] Discharge Date: ATTENTION: The Clinical Documentation Specialists (CDI) and [facility] Coding Staff appreciate your assistance in clarifying documentation. Please respond to the clarification below the line at the bottom and electronically sign. The CDI & [facility] Coding staff will review the response and follow-up if needed. Please note: Queries are made part of the Legal Health Record. If you have any questions, please contact the author of this message via ITS. Dr. Stubbs E Sheet Pancytopenia is documented in your 02/11 progress note. Additional clarification regarding the etiology of pancytopenia is requested. History/Risk factors: recent diagnosis of pancreatic cancer, currently undergoing chemotherapy. Presents with fever. Clinical indicators: 02/11 IM: "She still have evidence of pancytopenia WC1.8, hemoglobin 7, platelets 102." Temp 100.8 on admission 02/11 Labs: WBC 1.84, Hgb 7.0, platelets 102 Treatment: Filgrastim 300mcg SQ daily. Monitor labs 02/10 Oncology: "Treatment will be placed on hold, until her current situation is resolved in a satisfactory. Monitor counts and add G-CSF if needed manner." Please clarify the etiology of pancytopenia, if known: [ ] Pancytopenia due to chemotherapy [ ] Other condition, please specify ____ [ ] Unable to determine Pancytopenia due to chemotherapy MTDD
--- NOTE | 2023-02-12 22:52 | P.DS ---
Providers Date of admission: 02/06/23 13:47 Attending physician: Enoc Chin MD Consults: 02/06/23 13:47 Consult Physician Routine Consulting Provider: Mateusz Tello Consult Reason/Comments: pancreatic cancer, current chemo Do you want consulting provider notified?: Yes Consult Physician Routine Consulting Provider: West Mondragon Consult Reason/Comments: fever, current chemo Do you want consulting provider notified?: Yes Primary care physician: Meir Mckeon [facility] Course: Diagnoses: Sepsis with fever, secondary to E. coli bacteremia and C. diff colitis C. diff colitis with mild enteritis Pancreatic cancer undergoing chemotherapy with evidence of new multiple hepatic lesions and one hypodense splenic lesion suspicious for metastatic disease (versus others, for example fibrotic changes, granulomas) Generalized weakness Moderate to sever calorie protein nutrition History of pancreatic deficiency on replacement pancreatic enzyme therapy Hospital course: This is a pleasant 72 years old female who was recently diagnosed with pancreatic cancer undergoing chemotherapy She presents because of fever, Patient was recently diagnosed with pancreatic cancer and this is the second cycle of therapy after day one she received chemotherapy when day earlier. Presents with fever, found to have E. coli bacteremia and C. diff colitis on CT of the scan of the abdomen showed mild antritis with a new spleen and liver lesions as above. Patient evaluated by ID team and hematology oncology team. Patient showed interval improvement. Today she states that her bowel movements are twice per day and she feels they are improving and she could handle it. Patient also able to tolerate that well. Her strength is improved and she was up in bed. She was last in distress. She denies abdominal pain or tenderness. No other new complaints. Discussed the case with oncology team who recommended discharging the patient today. Also discussed the case with IV team. Patient can be discharged on antibiotic as per ID team (ciprofloxacin, Flagyl and oral vancomycin) were sent to her pharmacy at [facility], they can provide all prescription but they were not sure about the oral vanomycin, so it was ordered from out hospital and confirmed iwth the bed side nurse.l Patient was cleared for discharge by hematology/oncology team and ID team. Problems and management plan were discussed with the patient and he verbalized understanding and acceptance Patient was found stable and can be discharged home in guarded prognosis however he needs follow-up as an outpatient. Patient was instructed to follow up with PCP Dr. Mckeon within one week and patient agrees Patient was instructed to follow up with Dr. Tello in one week and Dr. guo 1 week and she agrees Physical exam Gen: patient is a AAOx3, no distress CVS: S1-S2, RRR, no murmur Lungs: B/L CTA, no wheezing Abdomen: soft, no distention, no tenderness, positive bowel sounds Extremity: no leg edema or induration Time spent more than 35 minutes Patient Condition at Discharge: Stable Plan - Discharge Summary New Discharge Prescriptions: New Ciprofloxacin HCl [Cipro] 500 mg PO BID 10 Days #20 tab metroNIDAZOLE [Flagyl] 500 mg PO TID #30 tab Cholestyramine (with Sugar) [Questran Packet] 4 gm PO TID BETWEEN MEALS 4 Days #12 packet Acetaminophen Suppository [Tylenol Suppository] 650 mg RECTAL Q6HR PRN suppositor PRN Reason: Fever And/ Or Pain Vancomycin HCl [Vancocin HCl] 250 mg PO Q6H 12 Days #96 capsule Continue Famotidine [Pepcid] 20 mg PO BID Lipase/Protease/Amylase [Ric Rangel 24,000 Unit Capsule] 1 - 2 cap PO DIRECTED Apixaban [Eliquis] 5 mg PO BID hydroCHLOROthiazide 12.5 mg PO DAILY Multivit-Min/Iron/Folic/Lutein [Centrum Silver Women Tablet] 1 tab PO DAILY Ondansetron Odt [Zofran ODT] 4 mg PO Q4H PRN PRN Reason: Nausea Estradiol Cream [Estrace Cream 0.01%] 1 applic TOPICAL MOWEFR@2099 Cholecalciferol [Vitamin D3 (25 Mcg = 1000 Iu)] 25 mcg PO DAILY Topiramate [Topamax] 50 mg PO BID Discontinued Loperamide [Imodium] 2 - 4 mg PO BID PRN PRN Reason: Loose Stool Loperamide [Imodium] 2 mg PO DAILY Loperamide [Imodium] 4 mg PO HS Loperamide [Imodium] 2 mg PO QAM Discharge Medication List Apixaban [Eliquis] 5 mg PO BID 01/08/23 [History] Estradiol Cream [Estrace Cream 0.01%] 1 applic TOPICAL MOWEFR@2100 01/08/23 [History] Famotidine [Pepcid] 20 mg PO BID 01/08/23 [History] Lipase/Protease/Amylase [Ric Rangel 24,000 Unit Capsule] 1 - 2 cap PO DIRECTED 01/08/23 [History] Cholecalciferol [Vitamin D3 (25 Mcg = 1000 Iu)] 25 mcg PO DAILY 02/06/23 [History] Multivit-Min/Iron/Folic/Lutein [Centrum Silver Women Tablet] 1 tab PO DAILY 02/06/23 [History] Ondansetron Odt [Zofran ODT] 4 mg PO Q4H PRN 02/06/23 [History] Topiramate [Topamax] 50 mg PO BID 02/06/23 [History] hydroCHLOROthiazide 12.5 mg PO DAILY 02/06/23 [History] Acetaminophen Suppository [Tylenol Suppository] 650 mg RECTAL Q6HR PRN suppositor 02/12/23 [Rx] Cholestyramine (with Sugar) [Questran Packet] 4 gm PO TID BETWEEN MEALS 4 Days #12 packet 02/12/23 [Rx] Ciprofloxacin HCl [Cipro] 500 mg PO BID 10 Days #20 tab 02/12/23 [Rx] Vancomycin HCl [Vancocin HCl] 250 mg PO Q6H 12 Days #96 capsule 02/12/23 [Rx] metroNIDAZOLE [Flagyl] 500 mg PO TID #30 tab 02/12/23 [Rx] Follow up Appointment(s)/Referral(s): Mateusz Tello [STAFF PHYSICIAN] - 1 Week (Patient to make own follow up appt. Office closed at time of discharge. ) Meir Mckeon DO [Primary Care Provider] - 1-2 days West Mondragon MD [STAFF PHYSICIAN] - 2 Weeks (Patient to call and schedule own appt. Office closed at time of discharge. ) Patient Instructions/Handouts: Ciprofloxacin (By mouth), Cholestyramine (By mouth), Metronidazole (By mouth), Vancomycin (By mouth), C. Diff (Clostridioides Difficile) Infection (DC) Discharge Disposition: HOME SELF-CARE
== END 2023-02-12 19:16 | disposition home or self-care (01) | DRG 871 ==
LOC: EC 10:10 → 5NMEDONC 13:47
PROVIDERS: ADMIT Internal Medicine; ATTEND Internal Medicine
DX: A41.51 Sepsis due to Escherichia coli [E. coli] (principal); D61.810 Antineoplastic chemotherapy induced pancytopenia; A04.72 Enterocolitis due to Clostridium difficile, not specified as recurrent; C25.9 Malignant neoplasm of pancreas, unspecified; C78.7 Secondary malignant neoplasm of liver and intrahepatic bile duct; C78.89 Secondary malignant neoplasm of other digestive organs; E44.0 Moderate protein-calorie malnutrition; Z68.1 Body mass index [BMI] 19.9 or less, adult; K76.6 Portal hypertension; I49.3 Ventricular premature depolarization; R63.0 Anorexia; R01.1 Cardiac murmur, unspecified; T45.1X5A Adverse effect of antineoplastic and immunosuppressive drugs, initial encounter; E87.6 Hypokalemia; F17.210 Nicotine dependence, cigarettes, uncomplicated; G25.0 Essential tremor; I10 Essential (primary) hypertension; Z20.822 Contact with and (suspected) exposure to COVID-19; Z71.3 Dietary counseling and surveillance; Z98.1 Arthrodesis status; Z86.79 Personal history of other diseases of the circulatory system; G47.30 Sleep apnea, unspecified; Z96.89 Presence of other specified functional implants; Z79.01 Long term (current) use of anticoagulants; Z79.899 Other long term (current) drug therapy
CPT/HCPCS: 36415; 71045; 74177; 80048; 80053; 81003; 83605; 83735; 84132; 84145; 85025; 86140; 87040; 87045; 87046; 87070; 87077; 87186; 87324; 87636; 87651; 96361; 96365; 96366; 96367; 99285

== ENCOUNTER 2023-03-03 10:26 | Inpatient (IN) | payer MEDICARE ==
[2023-03-03] MEDS ORDERED: IBUPROFEN IV 600 MG in SODIUM CHLORIDE 0.9% 250 ML IV STA (10:28)
[2023-03-03] MEDS ORDERED: VANCOMYCIN IV PER PHARMACY 1 EACH MISC MISCELLANE PRN (10:28)
[2023-03-03] MEDS ORDERED: PIPERACILLIN-TAZOBACTAM 3.375 GM in SODIUM CHLORIDE 0.9% 100 ML IVPB STA (10:33)
--- NOTE | 2023-03-03 10:33 | ED ---
General Adult HPI - General Stated complaint: AMS Time Seen by Provider: 03/03/23 10:26 Source: patient, RN notes reviewed, old records reviewed - History of Present Illness Initial comments: This is a 72-year-old female who has a past medical history significant for pancreatic cancer stage IV. Patient was coming into the hospital today because she had 103.5 fever. EMS stated her mental status was at her baseline when they picked her up and in route to the hospital she became much less responsive and at one point was not responding. Currently patient is able to follow basic directions and answered to where she is and who she is. Patient denies any pain patient denies any problems. Dr. Tello had contacted me earlier that the patient was coming in he wanted a full workup on her and stated that she recently was in the hospital with C. diff. - Related Data Home Medications Medication Instructions Recorded Confirmed Apixaban [Eliquis] 5 mg PO BID 01/08/23 02/06/23 Estradiol Cream [Estrace Cream 1 applic TOPICAL MOWEFR@2100 01/08/23 02/06/23 0.01%] Famotidine [Pepcid] 20 mg PO BID 01/08/23 02/06/23 Lipase/Protease/Amylase [Ric Rangel 1 - 2 cap PO DIRECTED 01/08/23 02/06/23 24,000 Unit Capsule] Cholecalciferol [Vitamin D3 (25 25 mcg PO DAILY 02/06/23 02/06/23 Mcg = 1000 Iu)] Multivit-Min/Iron/Folic/Lutein 1 tab PO DAILY 02/06/23 02/06/23 [Centrum Silver Women Tablet] Ondansetron Odt [Zofran ODT] 4 mg PO Q4H PRN 02/06/23 02/06/23 Topiramate [Topamax] 50 mg PO BID 02/06/23 02/06/23 hydroCHLOROthiazide 12.5 mg PO DAILY 02/06/23 02/06/23 Previous Rx's Medication Instructions Recorded Acetaminophen Suppository [Tylenol 650 mg RECTAL Q6HR PRN suppositor 02/12/23 Suppository] Cholestyramine (with Sugar) 4 gm PO TID BETWEEN MEALS 4 Days 02/12/23 [Questran Packet] #12 packet Ciprofloxacin HCl [Cipro] 500 mg PO BID 10 Days #20 tab 02/12/23 Vancomycin HCl [Vancocin HCl] 250 mg PO Q6H 12 Days #96 capsule 02/12/23 metroNIDAZOLE [Flagyl] 500 mg PO TID #30 tab 02/12/23 Allergies Allergy/AdvReac Type Severity Reaction Status Date / Time celecoxib [From Celebrex] Allergy Rash/Hives Verified 03/03/23 10:33 Review of Systems ROS Statement: Those systems with pertinent positive or pertinent negative responses have been documented in the HPI. ROS Other: All systems not noted in ROS Statement are negative. Past Medical History Past Medical History: Cancer, Hypertension, Sleep Apnea/CPAP/BIPAP Additional Past Medical History / Comment(s): heart murmur,PVCs, brain aneurysm. PANCREATIC CANCER History of Any Multi-Drug Resistant Organisms: None Reported Date of last positivie culture/infection: 02/08/23 Cdiff MDRO Source:: stool Past Surgical History: Back Surgery, Cardiac Ablation, Hysterectomy Additional Past Surgical History / Comment(s): fusion to back,rt shoulder repair, prlasped ueterus, liver stent Past Anesthesia/Blood Transfusion Reactions: Postoperative Nausea & Vomiting (PONV) Past Psychological History: No Psychological Hx Reported Smoking Status: Current some day smoker Past Alcohol Use History: None Reported Past Drug Use History: None Reported - Past Family History Mother Family Medical History: Cancer Additional Family Medical History / Comment(s): pancreatic Father Family Medical History: No Reported History General Exam - General Exam Comments Initial Comments: GENERAL: Patient is well-developed and well-nourished. Patient is nontoxic and well- hydrated and is in mild distress. ENT: Neck is soft and supple. No significant lymphadenopathy is noted. Oropharynx is clear. Moist mucous membranes. Neck has full range of motion without eliciting any pain. EYES: The sclera were anicteric and conjunctiva were pink and moist. Extraocular movements were intact and pupils were equal round and reactive to light. Eyelids were unremarkable. PULMONARY: Unlabored respirations. Good breath sounds bilaterally. No audible rales rhonchi or wheezing was noted. CARDIOVASCULAR: There is a regular rate and rhythm without any murmurs gallops or rubs. ABDOMEN: Soft and nontender with normal bowel sounds. SKIN: Skin is clear with no lesions or rashes and otherwise unremarkable. NEUROLOGIC: Patient is alert and oriented 2. Patient is following basic commands but is very slow and quiet in responding verbally. Cranial nerves II through XII are grossly intact. Motor and sensory are also intact. Normal speech, volume and content. Symmetrical smile. MUSCULOSKELETAL: Normal extremities with adequate strength and full range of motion. No lower extremity swelling or edema. No calf tenderness. LYMPHATICS: No significant lymphadenopathy is noted PSYCHIATRIC: Normal psychiatric evaluation. Course Vital Signs 03/03/23 03/03/23 10:27 11:25 Temperature 100.9 F H 100.2 F H Pulse Rate 82 83 Respiratory 18 18 Rate Blood Pressure 126/59 132/55 O2 Sat by Pulse 100 99 Oximetry Medical Decision Making - Medical Decision Making EKG was interpreted by myself EKG shows a sinus rhythm occasional PAC at 87 bpm W[place] interval 241 per say 6 QT interval 349 QTC is 394. Patient's EKG shows no ST segment elevation or depression. Was pt. sent in by a medical professional or institution (, PA, RUBBER STAMPS AND DIES SUPERVISOR, urgent care, hospital, or care home...) When possible be specific @ -Dr. Tello sent the patient to the emergency department Did you speak to anyone other than the patient for history (EMS, parent, family, police, friend...)? What history was obtained from this source @ -Dr. Tello give a full history to me prior to the patient's arrival Did you review nursing and triage notes (agree or disagree)? Why? @ -I reviewed and agree with nursing and triage notes Were old charts reviewed (outside hosp., previous admission, EMS record, old EKG, old radiological studies, urgent care reports/EKG's, care home records)? Report findings @ -I reviewed prior charts prior lab work on this patient Differential Diagnosis (chest pain, altered mental status, abdominal pain women, abdominal pain men, vaginal bleeding, weakness, fever, dyspnea, syncope, headache, dizziness, GI bleed, back pain, seizure, CVA, palpatations, mental health, musculoskeletal)? @ -Differential Fever: Pneumonia, viral URI, endocarditis, myocarditis, pericarditis, otitis, sinusitis, peritonsillar Abscess, retropharyngeal Abscess, epiglottitis, peritonitis, appendicitis, Chiquita cystitis, diverticulitis, hepatitis, colitis, UTI, PID, TOA, pyelonephritis, prostatitis, epididymitis, meningitis, encephalitis, pulmonary embolism, CVA, thyroid storm, pancreatitis, adrenal cr ludy, cavernous sinus thrombosis, this is not meant to be an all-inclusive list. EKG interpreted by me (3pts min.). @ -As above X-rays interpreted by me (1pt min.). @ -Chest x-ray shows right lower lobe infiltrate CT interpreted by me (1pt min.). @ -None done U/S interpreted by me (1pt. min.). @ -None done What testing was considered but not performed or refused? (CT, X-rays, U/S, labs)? Why? @ -None What meds were considered but not given or refused? Why? @ -None Did you discuss the management of the patient with other professionals (professionals i.e. DrEsther, PA, RU[employer]ER [employer] SUPERVISOR, lab, RT, psych nurse, aids social worker, corporate attorney, teacher, sewage reticulation drafting officer, caseworker)? Give summary @ -I spoke with [facility] hospitalist Dr. Tello on this patient prior to admission Was smoking cessation discussed for >3mins.? @ -No Was critical care preformed (if so, how long)? @ -No Were there social determinants of health that impacted care today? How? (Homelessness, low income, unemployed, alcoholism, drug addiction, transportation, low edu. Level, literacy, decrease access to med. care, longterm, rehab)? @ -No Was there de-escalation of care discussed even if they declined (Discuss DNR or withdrawal of care, Hospice)? DNR status @ -No What co-morbidities impacted this encounter? (DM, HTN, Smoking, COPD, CAD, Cancer, CVA, ARF, Chemo, Hep., AIDS, mental health diagnosis, sleep apnea, morbid obesity)? @ -None Was patient admitted / discharged? Hospital course, mention meds given and route, prescriptions, significant lab abnormalities, going to OR and other pertinent info. @ -Received vancomycin and Zosyn and I conferred with Dr. Tello and he agreed with this treatment initially. X-ray showed questionable right lower lobe infiltrate. I spoke with [facility]ist agreed to admit the patient I wrote admitting orders Undiagnosed new problem with uncertain prognosis? @ -No Drug Therapy requiring intensive monitoring for toxicity (Heparin, Nitro, Insulin, Cardizem)? @ -No Were any procedures done? @ -No Diagnosis/symptom? @ -Pneumonia Acute, or Chronic, or Acute on Chronic? @ -Acute Uncomplicated (without systemic symptoms) or Complicated (systemic symptoms)? @ -Complicated Side effects of treatment? @ -No Exacerbation, Progression, or Severe Exacerbation? @ -No Poses a threat to life or bodily function? How? (Chest pain, [place], [place], pneumonia, PE, COPD, DKA, ARF, appy, cholecystitis, CVA, Diverticulitis, Homicidal, Suicidal, threat to staff... and all critical care pts) @ -Yes this could lead to sepsis and end organ dysfunction Diagnosis/symptom? @ -Pancreatic cancer Acute, or Chronic, or Acute on Chronic? @ -Chronic Uncomplicated (without systemic symptoms) or Complicated (systemic symptoms)? @ -Complicated Side effects of treatment? @ -none Exacerbation, Progression, or Severe Exacerbation] @ -no Poses a threat to life or bodily function? @ -no - Lab Data Result diagrams: 03/03/23 10:29 03/03/23 10:29 Lab Results 03/03/23 03/03/23 03/03/23 Range/Units 10:29 10:29 10:29 WBC 9.8 (3.8-10.6) k/uL RBC 3.67 L (3.80-5.40) m/uL Hgb 9.9 L D (11.4-16.0) gm/dL Hct 30.9 L (34.0-46.0) % MCV 84.2 (80.0-100.0) fL MCH 27.0 (25.0-35.0) pg MCHC 32.1 (31.0-37.0) g/dL RDW 15.5 (11.5-15.5) % Plt Count 116 L (150-450) k/uL MPV 9.1 Neutrophils % 88 % Lymphocytes % 6 % Monocytes % 5 % Eosinophils % 1 % Basophils % 0 % Neutrophils # 8.6 H (1.3-7.7) k/uL Lymphocytes # 0.6 L (1.0-4.8) k/uL Monocytes # 0.5 (0-1.0) k/uL Eosinophils # 0.1 (0-0.7) k/uL Basophils # 0.0 (0-0.2) k/uL Hypochromasia Slight PT 11.3 (9.0-12.0) sec INR 1.1 (<1.2) APTT 20.4 L (22.0-30.0) sec Sodium 135 L (137-145) mmol/L Potassium 3.9 (3.5-5.1) mmol/L Chloride 103 (98-107) mmol/L Carbon Dioxide 22 (22-30) mmol/L Anion Gap 10 mmol/L BUN 11 (7-17) mg/dL Creatinine 0.76 (0.52-1.04) mg/dL Est GFR (CKD-EPI)AfAm >90 (>60 ml/min/1.73 sqM) Est GFR (CKD-EPI)NonAf 79 (>60 ml/min/1.73 sqM) Glucose 105 H (74-99) mg/dL Plasma Lactic Acid Mark (0.7-2.0) mmol/L Calcium 9.2 (8.4-10.2) mg/dL Total Bilirubin 0.8 (0.2-1.3) mg/dL AST 59 H (14-36) U/L ALT 26 (4-34) U/L Alkaline Phosphatase 140 H (38-126) U/L Total Protein 7.1 (6.3-8.2) g/dL Albumin 3.8 (3.5-5.0) g/dL Influenza Type A (PCR) (Not Detectd) Influenza Type B (PCR) (Not Detectd) RSV (PCR) (Not Detectd) SARS-CoV-2 (PCR) (Not Detectd) 03/03/23 03/03/23 Range/Units 10:29 11:27 WBC (3.8-10.6) k/uL RBC (3.80-5.40) m/uL Hgb (11.4-16.0) gm/dL Hct (34.0-46.0) % MCV (80.0-100.0) fL MCH (25.0-35.0) pg MCHC (31.0-37.0) g/dL RDW (11.5-15.5) % Plt Count (150-450) k/uL MPV Neutrophils % % Lymphocytes % % Monocytes % % Eosinophils % % Basophils % % Neutrophils # (1.3-7.7) k/uL Lymphocytes # (1.0-4.8) k/uL Monocytes # (0-1.0) k/uL Eosinophils # (0-0.7) k/uL Basophils # (0-0.2) k/uL Hypochromasia PT (9.0-12.0) sec INR (<1.2) APTT (22.0-30.0) sec Sodium (137-145) mmol/L Potassium (3.5-5.1) mmol/L Chloride (98-107) mmol/L Carbon Dioxide (22-30) mmol/L Anion Gap mmol/L BUN (7-17) mg/dL Creatinine (0.52-1.04) mg/dL Est GFR (CKD-EPI)AfAm (>60 ml/min/1.73 sqM) Est GFR (CKD-EPI)NonAf (>60 ml/min/1.73 sqM) Glucose (74-99) mg/dL Plasma Lactic Acid Mark 1.3 (0.7-2.0) mmol/L Calcium (8.4-10.2) mg/dL Total Bilirubin (0.2-1.3) mg/dL AST (14-36) U/L ALT (4-34) U/L Alkaline Phosphatase (38-126) U/L Total Protein (6.3-8.2) g/dL Albumin (3.5-5.0) g/dL Influenza Type A (PCR) Not Detected (Not Detectd) Influenza Type B (PCR) Not Detected (Not Detectd) RSV (PCR) Not Detected (Not Detectd) SARS-CoV-2 (PCR) Not Detected (Not Detectd) Disposition Clinical Impression: Pneumonia, Pancreatic cancer Disposition: ADMITTED IP TO THIS [facility] Referrals: Meir Mckeon DO [Primary Care Provider] - 1-2 days Time of Disposition: 12:54
--- NOTE | 2023-03-03 10:48 | XR ---
EXAMINATION TYPE: XR chest 2V DATE OF EXAM: 03/03/2023 10:43 AM COMPARISON: Chest radiographs from 02/06/2023 TECHNIQUE: XR chest 2V Frontal and lateral views of the chest. CLINICAL INDICATION:Female, 72 years old with history of Fever; FINDINGS: Lungs/Pleura: No pleural effusion or pneumothorax. Right lower lung subtle patchy airspace opacities. Pulmonary vascularity: Unremarkable. Heart/mediastinum: Cardiomediastinal silhouette is unremarkable. Atherosclerotic calcifications are seen in the aorta. Musculoskeletal: No acute osseous pathology. Scoliotic thoracic spine curvature. Findings: Right chest wall IJ Mediport catheter with distal tip terminating in the high SVC. IMPRESSION: Patchy right lower lung airspace opacities concerning for pneumonia.
[2023-03-03] MEDS: SODIUM CHLORIDE 0.9% 500 ML 500 ML IV SCH ×2 (11:00→11:16)
[2023-03-03] MEDS ORDERED: VANCOMYCIN 750 MG in SODIUM CHLORIDE 0.9% 250 ML IVPB ONE (11:00)
[2023-03-03 11:03] LABS: Basophils % (A) 0 %; Eosinophils # (A) 0.1 k/uL (0-0.7); Eosinophils % (A) 1 %; HCT 30.9 % (34.0-46.0); Hypochromasia Slight; Lymphocytes # (A) 0.6 k/uL (1.0-4.8); Lymphocytes % (A) 6 %; MCHC 32.1 g/dL (31.0-37.0); MCV 84.2 fL (80.0-100.0); Mean Platelet Volume 9.1; Monocytes # (A) 0.5 k/uL (0-1.0); Monocytes % (A) 5 %; Neutrophils # (A) 8.6 k/uL (1.3-7.7); Neutrophils % (A) 88 %; Platelet Count 116 k/uL (150-450); RBC 3.67 m/uL (3.80-5.40); RDW 15.5 % (11.5-15.5); WBC 9.8 k/uL (3.8-10.6)
[2023-03-03 11:06] LABS: HGB 9.9 gm/dL (11.4-16.0)
[2023-03-03 11:14] LABS: INR 1.1 (<1.2); Prothrombin Time 11.3 sec (9.0-12.0)
[2023-03-03 11:18] LABS: ALT 26 U/L (4-34); AST 59 U/L (14-36); African American GFR (CKD) >90 (>60 ml/min/1.73 sqM); Albumin 3.8 g/dL (3.5-5.0); Alkaline Phosphatase 140 U/L (38-126); Anion Gap 10 mmol/L; Blood Urea Nitrogen 11 mg/dL (7-17); Calcium 9.2 mg/dL (8.4-10.2); Carbon Dioxide 22 mmol/L (22-30); Chloride 103 mmol/L (98-107); Glucose 105 mg/dL (74-99); Non-African American GFR(CKD) 79 (>60 ml/min/1.73 sqM); Sodium 135 mmol/L (137-145); Total Bilirubin 0.8 mg/dL (0.2-1.3); Total Protein 7.1 g/dL (6.3-8.2)
[2023-03-03 11:45] LABS: Partial Thromboplastin Time 20.4 sec (22.0-30.0)
[2023-03-03 11:52] LABS: Potassium 3.9 mmol/L (3.5-5.1)
[2023-03-03] MEDS ORDERED: AZITHROMYCIN 500 MG in SODIUM CHLORIDE 0.9% 250 ML IVPB STA (12:55)
[2023-03-03] MEDS ORDERED: PNEUMONIA PROTOCOL UTILIZED 1 EACH MISC PO PRN (12:55)
[2023-03-03] MEDS ORDERED: NALOXONE 0.4 MG/ML 1 ML VIAL IV PRN (14:36)
[2023-03-03] MEDS ORDERED: LIPASE 20,000/PROTEASE 63,000/AMYLASE 84,000 PO PRN (14:45)
--- NOTE | 2023-03-03 14:47 | P.HPIM ---
History of Present Illness H&P Date: 03/03/23 * 72-year-old lady with past medical history significant for adenocarcinoma pancreas, receiving chemotherapy outpatient history of recent C. diff infection completed course of oral vancomycin presented to the emergency department with complaints of fever of 103.5. Patient accompanied with at bedside versus related with history taking. Hasn't patient had visitors at home recently although patient did not have any sick contacts however he will concerned that she might have picked infection from one of the visitors. * EMS was called and patient was brought to the hospital where she was noted to be more confused. Patient is able to follow commands and easily arousable. * Initiated in ER including CBC which showed white blood cell count of 9.8, hemoglobin 9.9 platelet 116, elevated neutrophil count and differential * Basic metabolic panel obtained showed sodium of 135 potassium 3.9 carbon dioxide 20 to be on 11 creatinine 0.76. Lactate of 1.3. * Patient tested negative for influenza, RSV and Covid * Chest x-ray obtained in ER showed right lower lobe infiltrate * Patient complained of fatigue, malaise and not feeling well in general. She denies chest pain abdominal pain diarrhea, dysuria, increased frequency and urgency REVIEW OF SYSTEMS: CONSTITUTIONAL: Fever, fatigue, malaise HEENT: No recent visual problems or hearing problems. Denied any sore throat. CARDIOVASCULAR: No chest pain, orthopnea, PND, no palpitations, no syncope. PULMONARY: No shortness of breath, no cough, no hemoptysis. GASTROINTESTINAL: No diarrhea, no nausea, no vomiting, no abdominal pain. NEUROLOGICAL: No headaches, no weakness, no numbness. HEMATOLOGICAL: Denies any bleeding or petechiae. GENITOURINARY: Denies any burning micturition, frequency, or urgency. MUSCULOSKELETAL/RHEUMATOLOGICAL: Denies any joint pain, swelling, or any muscle pain. ENDOCRINE: Denies any polyuria or polydipsia. The rest of the 14-point review of systems is negative. PHYSICAL EXAMINATION: GENERAL: The patient is alert and oriented x3, ill appearance HEENT: Pupils are round and equally reacting to light. EOMI. CARDIOVASCULAR: S1 and S2 present. No murmurs, rubs, or gallops. PULMONARY: Chest is clear to auscultation, no wheezing or crackles. ABDOMEN: Soft, nontender, nondistended, normoactive bowel sounds. No palpable organomegaly. MUSCULOSKELETAL: No joint swelling or deformity. EXTREMITIES: No cyanosis, clubbing, or pedal edema. NEUROLOGICAL: Gross neurological examination did not reveal any focal deficits. Past Medical History Past Medical History: Cancer, Hypertension, Sleep Apnea/CPAP/BIPAP Additional Past Medical History / Comment(s): heart murmur,PVCs, brain aneurysm. PANCREATIC CANCER History of Any Multi-Drug Resistant Organisms: None Reported Date of last positivie culture/infection: 02/08/23 Cdiff MDRO Source:: stool Past Surgical History: Back Surgery, Cardiac Ablation, Hysterectomy Additional Past Surgical History / Comment(s): fusion to back,rt shoulder rep air, prlasped ueterus, liver stent Past Anesthesia/Blood Transfusion Reactions: Postoperative Nausea & Vomiting (PONV) Past Psychological History: No Psychological Hx Reported Smoking Status: Current some day smoker Past Alcohol Use History: None Reported Past Drug Use History: None Reported - Past Family History Mother Family Medical History: Cancer Additional Family Medical History / Comment(s): pancreatic Father Family Medical History: No Reported History Medications and Allergies Home Medications Medication Instructions Recorded Confirmed Type Apixaban [Eliquis] 5 mg PO BID 01/08/23 03/03/23 History Estradiol Cream [Estrace Cream 1 applic TOPICAL MOWEFR@2100 01/08/23 03/03/23 History 0.01%] Lipase/Protease/Amylase [Ric Rangel 48,000 units PO TID-W/MEALS 01/08/23 03/03/23 History 24,000 Unit Capsule] Cholecalciferol [Vitamin D3 (25 25 mcg PO DAILY 02/06/23 03/03/23 History Mcg = 1000 Iu)] Multivit-Min/Iron/Folic/Lutein 1 tab PO DAILY 02/06/23 03/03/23 History [Centrum Silver Women Tablet] Ondansetron Odt [Zofran ODT] 4 mg PO Q4H PRN 02/06/23 03/03/23 History Topiramate [Topamax] 50 mg PO BID 02/06/23 03/03/23 History hydroCHLOROthiazide 12.5 mg PO DAILY 02/06/23 03/03/23 History Acetaminophen Suppository [Tylenol 650 mg RECTAL Q6HR PRN suppositor 02/12/23 03/03/23 Rx Suppository] Cholestyramine (with Sugar) 4 gm PO TID BETWEEN MEALS 4 Days 02/12/23 03/03/23 Rx [Questran Packet] #12 packet Lipase/Protease/Amylase [Ric Rangel 24,000 units PO DAILY PRN 03/03/23 03/03/23 History 24,000 Unit Capsule] Omeprazole Magnesium [PriLOSEC OTC] 20 mg PO BID 03/03/23 03/03/23 History Allergies Allergy/AdvReac Type Severity Reaction Status Date / Time celecoxib [From Celebrex] Allergy Rash/Hives Verified 03/03/23 13:14 Physical Exam Vitals: Vital Signs Temp Pulse Resp BP Pulse Ox 03/03/23 13:00 99 F 75 18 126/60 97 03/03/23 11:25 100.2 F H 83 18 132/55 99 03/03/23 10:27 100.9 F H 82 18 126/59 100 Intake and Output 03/02/23 03/03/23 03/03/23 22:59 06:59 14:59 Other: Weight 43.091 kg Results CBC & Chem 7: 03/03/23 10:29 03/03/23 10:29 Labs: Abnormal Lab Results - Last 24 Hours (Table) 03/03/23 03/03/23 03/03/23 Range/Units 10:29 10:29 10:29 RBC 3.67 L (3.80-5.40) m/uL Hgb 9.9 L D (11.4-16.0) gm/dL Hct 30.9 L (34.0-46.0) % Plt Count 116 L (150-450) k/uL Neutrophils # 8.6 H (1.3-7.7) k/uL Lymphocytes # 0.6 L (1.0-4.8) k/uL APTT 20.4 L (22.0-30.0) sec Sodium 135 L (137-145) mmol/L Glucose 105 H (74-99) mg/dL AST 59 H (14-36) U/L Alkaline Phosphatase 140 H (38-126) U/L Assessment and Plan Assessment: Assessment and plan * Right lower lobe pneumonia * History pancreatic cancer on chemotherapy immunocompromised * Recent C. diff infection * History of premature ventricular contractions underwent ablation * Hypertension * Hyperlipidemia * History of sleep apnea * In regards to right lower lobe pneumonia, continue Zosyn and vancomycin patient immune compromise. Infectious disease team consulted * Follow up on urine Legionella, CRP and pro-calcitonin levels * Due to history of C. diff infection patient started on prophylactic dose of oral vancomycin while on antibiotic * Home medications reviewed and reconciled, hydrochlorothiazide on hold and setting of infection. Eliquis resumed * CODE STATUS discussed with patient and at bedside full code * Expected length of stay at least 72-96 hours
--- NOTE | 2023-03-03 16:33 | P.CONS ---
History of Present Illness - Reason for Consult Consult date: 03/03/23 Fever, Pancreatic ca - History of Present Illness The patient is a 72-year-old white female, well known to myself. She is a known diagnosis of metastatic pancreatic cancer. I was contacted by her noted today, stating that the patient had a fever of 103.5. She had developed fever yesterday, and it had stabilized in the 100-101 range with regular Tylenol. However since early this a.m. the temperature started rising due to which her called the answering service. Fever was associated with weakness, decreased appetite and some intermittent nausea. She therefore advised to come to the hospital, and was brought in by EMS. Case was discussed in detail with the ER physician. The patient did not have any specific localizing symptoms. Her extremities reveal a possible small right lower lobe infiltrate. Infection workup was performed, and she was admitted on vancomycin and Zosyn. The patient was diagnosed with localized pancreatic cancer initially in 12/03. She was felt to be borderline resectable and neoadjuvant chemotherapy was recommended. She was treated with FOLFIRINOX, and underwent surgery in 06/05, revealing 3 out of 27 lymph nodes positive. Postop she was placed on Xeloda and gemcitabine adjuvantly. Unfortunately she developed metastatic progression, especially in the liver. The patient has since had gemcitabine and cisplatin, on which he progressed. She was then changed to gemcitabine and Abraxane. She had 2/3 treatments of cycle 1, with the third treatment canceled due to cytopenias. She was able to have the day 1 treatment of cycle 2, after which she was admitted to the hospital with fever and subsequently found to have C. diff colitis. The patient on discharge, completed antibiotics for C. diff. She was supposed to follow-up in the office on 03/05/23 to be evaluated to resume treatment. Review of Systems Constitutional: Reports poor appetite, Reports weakness, Reports weight loss Eyes: denies blurred vision, denies pain Ears, nose, mouth and throat: Denies headache, Denies sore throat Cardiovascular: Reports decreased exercise tolerance Respiratory: Denies cough Gastrointestinal: Reports as per HPI Genitourinary: Denies dysuria, Denies hematuria Musculoskeletal: Reports muscle weakness Integumentary: Denies pruritus, Denies rash Neurological: Reports weakness Psychiatric: Denies anxiety, Denies depression Endocrine: Reports fatigue, Reports weight change Hematologic/Lymphatic: Reports as per HPI Past Medical History Past Medical History: Cancer, Hypertension, Sleep Apnea/CPAP/BIPAP Additional Past Medical History / Comment(s): heart murmur,PVCs, brain aneurysm. PANCREATIC CANCER History of Any Multi-Drug Resistant Organisms: None Reported Year Discovered:: 02/08/23 Cdiff MDRO Source:: stool Past Surgical History: Back Surgery, Cardiac Ablation, Hysterectomy Additional Past Surgical History / Comment(s): fusion to back,rt shoulder repair, prlasped ueterus, liver stent Past Anesthesia/Blood Transfusion Reactions: Postoperative Nausea & Vomiting (PONV) Past Psychological History: No Psychological Hx Reported Smoking Status: Current some day smoker Past Alcohol Use History: None Reported Past Drug Use History: None Reported - Past Family History Mother Family Medical History: Cancer Additional Family Medical History / Comment(s): pancreatic Father Family Medical History: No Reported History Medications and Allergies Home Medications Medication Instructions Recorded Confirmed Type Apixaban [Eliquis] 5 mg PO BID 01/08/23 03/03/23 History Estradiol Cream [Estrace Cream 1 applic TOPICAL MOWEFR@2100 01/08/23 03/03/23 History 0.01%] Lipase/Protease/Amylase [Ric Rangel 48,000 units PO TID-W/MEALS 01/08/23 03/03/23 History 24,000 Unit Capsule] Cholecalciferol [Vitamin D3 (25 25 mcg PO DAILY 02/06/23 03/03/23 History Mcg = 1000 Iu)] Multivit-Min/Iron/Folic/Lutein 1 tab PO DAILY 02/06/23 03/03/23 History [Centrum Silver Women Tablet] Ondansetron Odt [Zofran ODT] 4 mg PO Q4H PRN 02/06/23 03/03/23 History Topiramate [Topamax] 50 mg PO BID 02/06/23 03/03/23 History hydroCHLOROthiazide 12.5 mg PO DAILY 02/06/23 03/03/23 History Acetaminophen Suppository [Tylenol 650 mg RECTAL Q6HR PRN suppositor 02/12/23 03/03/23 Rx Suppository] Cholestyramine (with Sugar) 4 gm PO TID BETWEEN MEALS 4 Days 02/12/23 03/03/23 Rx [Questran Packet] #12 packet Lipase/Protease/Amylase [Ric Rangel 24,000 units PO DAILY PRN 03/03/23 03/03/23 History 24,000 Unit Capsule] Omeprazole Magnesium [PriLOSEC OTC] 20 mg PO BID 03/03/23 03/03/23 History Allergies Allergy/AdvReac Type Severity Reaction Status Date / Time celecoxib [From Celebrex] Allergy Rash/Hives Verified 03/03/23 13:14 Physical Exam Vitals: Vital Signs Temp Pulse Pulse Resp BP BP Pulse Ox 03/03/23 15:22 98.6 F 67 14 99/53 97 03/03/23 15:00 84 18 125/80 98 03/03/23 13:00 99 F 75 18 126/60 97 03/03/23 11:25 100.2 F H 83 18 132/55 99 03/03/23 10:27 100.9 F H 82 18 126/59 100 Intake and Output 03/03/23 03/03/23 03/03/23 06:59 14:59 22:59 Other: Weight 43.091 kg - Constitutional General appearance: no acute distress - EENT Eyes: EOMI, PERRLA ENT: hearing grossly normal, normal oropharynx - Neck Neck: no lymphadenopathy Thyroid: bilateral: normal size - Respiratory Respiratory: bilateral: CTA - Cardiovascular Rhythm: regular Heart sounds: normal: S1, S2 - Gastrointestinal General gastrointestinal: normal bowel sounds, soft - Integumentary Integumentary: normal - Neurologic Neurologic: CNII-XII intact - Musculoskeletal Musculoskeletal: generalized weakness, strength equal bilaterally - Psychiatric Psychiatric: A&O x's 3, appropriate affect Results CBC & Chem 7: 03/03/23 10:29 03/03/23 10:29 Labs: Abnormal Lab Results - Last 24 Hours (Table) 03/03/23 03/03/23 03/03/23 Range/Units 10:29 10:29 10:29 RBC 3.67 L (3.80-5.40) m/uL Hgb 9.9 L D (11.4-16.0) gm/dL Hct 30.9 L (34.0-46.0) % Plt Count 116 L (150-450) k/uL Neutrophils # 8.6 H (1.3-7.7) k/uL Lymphocytes # 0.6 L (1.0-4.8) k/uL APTT 20.4 L (22.0-30.0) sec Sodium 135 L (137-145) mmol/L Glucose 105 H (74-99) mg/dL AST 59 H (14-36) U/L Alkaline Phosphatase 140 H (38-126) U/L Chest x-ray: report reviewed Assessment and Plan (1) Fever Narrative/Plan: The patient is admitted with recurrent high fever. She has no definite localizing signs. X-ray shows possible right lower lobe pneumonia. The patient potentially has multiple sources, including central line, as well as the bowel, given recent history of gram-negative bacteremia, pancreatic surgery, and C. diff colitis. She has not had any chemotherapy for several weeks, and her white count was adequate. However given the above it was not felt to be appropriate to try to treat her as an outpatient. She therefore admitted for further management. Cultures are pending. Patient is on broad-spectrum antibiotics, that is, vancomycin and Zosyn. Consult ID. Repeat stool for C. diff if she has diarrhea again. It was discussed with the patient that her tumor fever is also a possibility, but that would have to be a diagnosis of exclusion. Current Visit: No Status: Acute Code(s): R50.9 - FEVER, UNSPECIFIED SNOMED Code(s): 035535905 (2) Pancreatic cancer Narrative/Plan: Diagnostic and therapeutic circumstances as described above. The patient has progressed through multiple lines of treatment. On her current regimen, also, there has been marked increase in the tumor markers, but the patient has not been able to be treated adequately initially due to cytopenias, and then due to her hospital admission for gram-negative bacteremia and C. diff colitis. - It was discussed with that at this time, the plan would be to get her back on active treatment assuming that her acute situation is resolved, and her performance status is still adequate. Current Visit: Yes Status: Acute Priority: High Code(s): C25.9 - MALIGNANT NEOPLASM OF PANCREAS, UNSPECIFIED SNOMED Code(s): 628364386 Plan: The patient is currently a full code. We have discussed hospice and comfort care previously, given her progression on multiple regimens. The patient has expressed a desire to stay on active treatment as long as possible. She is aware that her chances of clinical benefit on the current regimen are slim, given that she has progressed on gemcitabine-containing regimens previously. The patient has a CHEK 2 mutation, and a targeted agent for that has been obtained for her, on a compassionate use basis to be used in the next line of treatment. However this agent is not formally approved for her malignancy, and there is no definite evidence as to clinical benefit for pancreatic cancer. The patient confirmed that she would like to continue on active treatment, if possible. I therefore discussed of course it is indicated with her. She was advised that it would be very reasonable to switch to a no code/no CPR/no intubation status. Given her underlying issues, if she were to deteriorate to point where these were required, she would be highly unlikely to derive any clinical benefit from the same. Her questions were answered in detail. She expressed understanding and appears to be inclined for the same, but would like to discuss it with her .
[2023-03-03] MEDS: VANCOMYCIN 125 MG CAPSULE PO SCH ×2 (16:50→20:51)
[2023-03-03] MEDS: LIPASE 20,000/PROTEASE 63,000/AMYLASE 84,000 PO SCH (16:51)
[2023-03-03] MEDS: CHOLESTYRAMINE (WITH SUGAR) 4 GM PACKET PO SCH ×2 (16:51→17:39)
[2023-03-03] MEDS: SODIUM CHLORIDE 0.9% 1,000 ML IV SCH ×2 (16:54→20:58)
[2023-03-03] MEDS: PIPERACILLIN-TAZOBACTAM 3.375 GM in SODIUM CHLORIDE 0.9% 100 ML IVPB SCH (20:50)
[2023-03-03] MEDS: TOPIRAMATE 25 MG TAB PO SCH (20:50)
[2023-03-03] MEDS: APIXABAN 5 MG TAB PO SCH (20:50)
[2023-03-03] MEDS: ONDANSETRON 4 MG/2 ML VIAL IVP PRN (20:54)
--- NOTE | 2023-03-03 23:16 | P.CONS ---
History of Present Illness - Reason for Consult Consult date: 03/03/23 Sepsis, pneumonia Requesting physician: Mini Song - Chief Complaint Fever x one day - History of Present Illness Patient is a 72-year-old female with a past medical history significant for hypertension and sleep apnea brain aneurysm history of pancreatic cancer on chemotherapy the patient was admitted to [facility] end of January 2023 with sepsis and did have evidence of E. coli bacteremia secondary to abdominal source patient also tested positive for C. difficile colitis and the patient recently completed her treatment both for the bacteremia and C. difficile colitis and the patient has not received any chemotherapy since her last admission patient was doing okay until last evening when the patient spiking a low-grade fever and this morning the patient did have a fever of 103 F patient has been complaining of feeling weak and tired and did have some chills mild headache no URI symptoms no chest pain no shortness of breath or cough some nausea but no vomiting no abdominal pain no diarrhea and no urinary symptoms on presentation to the hospital patient did have a fever 100.9 degrees on right no significant tachycardia hypotension or hypoxemia was noticed, patient did have a normal white count creatinine was normal AST was mildly elevated influenza RSV and COVID testing was negative patient did have a chest x-ray patchy right lower lung airspace opacity concerning for pneumonia however patient do not have any respiratory symptoms UA has not been checked patient was started on Zithromax Zosyn IV and oral vancomycin admitted to the hospital infectious disease was consulted for further management of antibiotic therapy Review of Systems Positive point and negatives has been mentioned in the HPI, complete review of systems was performed and all other systems are negative Past Medical History Past Medical History: Cancer, Hypertension, Sleep Apnea/CPAP/BIPAP Additional Past Medical History / Comment(s): heart murmur,PVCs, brain aneurysm. PANCREATIC CANCER History of Any Multi-Drug Resistant Organisms: None Reported Year Discovered:: 02/08/23 Cdiff MDRO Source:: stool Past Surgical History: Back Surgery, Cardiac Ablation, Hysterectomy Additional Past Surgical History / Comment(s): fusion to back,rt shoulder repair, prlasped ueterus, liver stent Past Anesthesia/Blood Transfusion Reactions: Postoperative Nausea & Vomiting (PONV) Past Psychological History: No Psychological Hx Reported Smoking Status: Current some day smoker Past Alcohol Use History: None Reported Past Drug Use History: None Reported - Past Family History Mother Family Medical History: Cancer Additional Family Medical History / Comment(s): pancreatic Father Family Medical History: No Reported History Medications and Allergies Home Medications Medication Instructions Recorded Confirmed Type Apixaban [Eliquis] 5 mg PO BID 01/08/23 03/03/23 History Estradiol Cream [Estrace Cream 1 applic TOPICAL MOWEFR@2100 01/08/23 03/03/23 History 0.01%] Lipase/Protease/Amylase [Ric Rangel 48,000 units PO TID-W/MEALS 01/08/23 03/03/23 History 24,000 Unit Capsule] Cholecalciferol [Vitamin D3 (25 25 mcg PO DAILY 02/06/23 03/03/23 History Mcg = 1000 Iu)] Multivit-Min/Iron/Folic/Lutein 1 tab PO DAILY 02/06/23 03/03/23 History [Centrum Silver Women Tablet] Topiramate [Topamax] 50 mg PO BID 02/06/23 03/03/23 History Acetaminophen Suppository [Tylenol 650 mg RECTAL Q6HR PRN suppositor 02/12/23 03/03/23 Rx Suppository] Cholestyramine (with Sugar) 4 gm PO TID BETWEEN MEALS 4 Days 02/12/23 03/03/23 Rx [Questran Packet] #12 packet Lipase/Protease/Amylase [Ric Rangel 24,000 units PO DAILY PRN 03/03/23 03/03/23 History 24,000 Unit Capsule] Omeprazole Magnesium [PriLOSEC OTC] 20 mg PO BID 03/03/23 03/03/23 History Ondansetron Odt [Zofran ODT] 4 mg PO Q4H PRN #15 tab 03/09/23 Rx cefUROXime axetiL [Ceftin] 500 mg PO BID 7 Days #14 tab 03/09/23 Rx droNABinol [Marinol] 2.5 mg PO AC-BID #60 cap 03/09/23 Rx metroNIDAZOLE [Flagyl] 500 mg PO TID #21 tab 03/09/23 Rx Allergies Allergy/AdvReac Type Severity Reaction Status Date / Time celecoxib [From Celebrex] Allergy Rash/Hives Verified 03/03/23 13:14 Physical Exam Vitals: Vital Signs Temp Pulse Resp BP Pulse Ox 03/03/23 13:00 99 F 75 18 126/60 97 03/03/23 11:25 100.2 F H 83 18 132/55 99 03/03/23 10:27 100.9 F H 82 18 126/59 100 Intake and Output 03/02/23 03/03/23 03/03/23 22:59 06:59 14:59 Other: Weight 43.091 kg GENERAL DESCRIPTION: Elderly female lying in bed, no distress. No tachypnea or accessory muscle of respiration use. HEENT: Shows Pallor , no scleral icterus. Oral mucous membrane is dry. No pharyngeal erythema or thrush NECK: Trachea central, no thyromegaly. LUNGS: Unlabored breathing. Clear to auscultation anteriorly. No wheeze or crackle. HEART: S1, S2, regular rate and rhythm. No loud murmur ABDOMEN: Soft, no tenderness , guarding or rigidity, no organomegaly EXTREMITIES: No edema of feet. SKIN: No rash, no masses palpable. NEUROLOGICAL: The patient is awake, alert, oriented x3, mood and affect normal. Results CBC & Chem 7: 03/08/23 07:17 03/08/23 07:17 Labs: Abnormal Lab Results - Last 24 Hours (Table) 03/03/23 03/03/23 03/03/23 Range/Units 10:29 10:29 10:29 RBC 3.67 L (3.80-5.40) m/uL Hgb 9.9 L D (11.4-16.0) gm/dL Hct 30.9 L (34.0-46.0) % Plt Count 116 L (150-450) k/uL Neutrophils # 8.6 H (1.3-7.7) k/uL Lymphocytes # 0.6 L (1.0-4.8) k/uL APTT 20.4 L (22.0-30.0) sec Sodium 135 L (137-145) mmol/L Glucose 105 H (74-99) mg/dL AST 59 H (14-36) U/L Alkaline Phosphatase 140 H (38-126) U/L Assessment and Plan (1) Fever Status: Acute Priority: High Code(s): R50.9 - FEVER, UNSPECIFIED SNOMED Code(s): 447713930 Plan: 1patient presented to hospital with a fever in this patient with recent admission to the hospital patient did have a E. coli bacteremia source likely abdominal with a history of pancreatic cancer but there is no evidence of any abscess and also have C. difficile colitis now presenting with a fever patient do not have any respiratory symptoms and clinically doubt pneumonia cemented the patient do not have any diarrhea so clinically doubt C. difficile colitis concerning for possible abdominal source for this fever. 2we will obtain CT of abdominal pelvis with contrast in the a.m. to rule out any intra-abdominal pathology. 3we will continue patient on Zosyn however discontinue Zithromax IV and oral vancomycin. 4gentle IV fluid. We will follow on clinical condition and cultures to further adjust medication if needed Thank you for this consultation we will follow the patient along with you Dictation was produced using [employer] dictation software. please excuse any grammatical, word or spelling errors. Time with Patient: Greater than 30
[2023-03-04] MEDS: SODIUM CHLORIDE 0.9% 1,000 ML IV SCH ×4 (00:41→23:51)
[2023-03-04 02:43] LABS: Appearance,Urine Cloudy (Clear); Bacteria,Urine Occasional /hpf; Bilirubin,Urine Negative (Negative); Blood,Urine Negative (Negative); Color,Urine Yellow; Glucose,Urine (UA) Negative (Negative); Ketones,Urine 1+ (Negative); Leukocyte Esterase,Urine Large (Negative); Mucus,Urine Rare /hpf; Nitrite,Urine Negative (Negative); Protein,Urine Trace (Negative); RBC,Urine 2 /hpf (0-5); Specific Gravity,Urine 1.018 (1.001-1.035); Squamous Epithelial Cell,Urine 36 /hpf (0-4); Urobilinogen,Urine <2.0 mg/dL (<2.0); WBC,Urine 37 /hpf (0-5)
[2023-03-04] MEDS: PIPERACILLIN-TAZOBACTAM 3.375 GM in SODIUM CHLORIDE 0.9% 100 ML IVPB SCH ×3 (04:16→18:00)
[2023-03-04] MEDS: IOPAMIDOL CONTRAST (ORAL USE) VIAL PO PRN ×2 (08:34→09:32)
[2023-03-04] MEDS: ONDANSETRON 4 MG/2 ML VIAL IVP PRN ×2 (08:35→17:11)
[2023-03-04] MEDS ORDERED: AZITHROMYCIN 500 MG in SODIUM CHLORIDE 0.9% 250 ML IVPB SCH (09:00)
--- NOTE | 2023-03-04 10:38 | XR ---
EXAMINATION TYPE: XR chest 2V DATE OF EXAM: 03/04/2023 COMPARISON: 03/03/2023 TECHNIQUE: PA and lateral views submitted. HISTORY: Cough FINDINGS: The lungs are clear and there is no pneumothorax, pleural effusion, or focal pneumonia. Heart size enlarged and no overt failure. Mediport seen with the tip overlying the SVC. Coarsened interstitium. Diffuse osteopenia. Scoliosis with multilevel degenerative disc disease. Chronic widening of the righ t AC joint may be on the basis of prior surgery or reabsorption. IMPRESSION: 1. No consolidative pneumonia. Coarsening of interstitium could be on the basis of bronchitis or mild interstitial pneumonitis.
[2023-03-04 10:47] LABS: HCT 25.1 % (37.2-46.3); HGB 7.5 d/dL (12.0-15.0); MCH 25.3 pg (27.0-32.0); MCHC 29.9 d/dL (32.0-37.0); MCV 84.8 FL (80.0-97.0); Mean Platelet Volume 12.4 FL (9.5-12.2); NRBC Per 100 WBC 0 X 10*3/uL (0.00-0.01); Platelet Count 93 X 10*3/uL (140-440); RBC 2.96 X 10*6/uL (4.10-5.20); RDW 15.6 % (11.5-14.5); WBC 6.22 X 10*3/uL (4.50-10.00)
[2023-03-04] MEDS: LIPASE 20,000/PROTEASE 63,000/AMYLASE 84,000 PO SCH ×3 (11:20→17:18)
[2023-03-04] MEDS: APIXABAN 5 MG TAB PO SCH ×2 (11:21→20:43)
[2023-03-04] MEDS: PANTOPRAZOLE 40 MG/10 ML VIAL IV SCH (11:21)
[2023-03-04] MEDS: CHOLECALCIFEROL 25 MCG (1000 IU) TABLET PO SCH (11:21)
[2023-03-04] MEDS: MULTIVITAMINS, THERA 1 EACH TAB PO SCH (11:21)
[2023-03-04] MEDS: TOPIRAMATE 25 MG TAB PO SCH ×2 (11:21→20:43)
[2023-03-04] MEDS: PANTOPRAZOLE 40 MG TABLET PO SCH (11:21)
[2023-03-04] MEDS: CHOLESTYRAMINE (WITH SUGAR) 4 GM PACKET PO SCH ×3 (11:22→17:18)
[2023-03-04 11:31] LABS: BUN/Creat Ratio 12.38 Ratio (12.00-20.00); Blood Urea Nitrogen 9.9 mg/dL (9.0-27.0); Calcium 8.3 mg/dL (8.7-10.3); Carbon Dioxide 17.5 mmol/L (21.6-31.8); Chloride 108 mmol/L (96-109); Glucose 89 mg/dL (70-110); Sodium 137 mmol/L (135-145)
[2023-03-04] MEDS ORDERED: VANCOMYCIN 750 MG in SODIUM CHLORIDE 0.9% 250 ML IVPB SCH (12:00)
--- NOTE | 2023-03-04 13:37 | P.PN ---
Subjective Progress Note Date: 03/04/23 Principal diagnosis: fever In f/u today pt reports no appetite, generalized weakness, lt ankle swelling. She denies N, diarrhea/watery stools or pain. She is ambulatory. Objective - Vital Signs Vital signs: Vital Signs Temp 99.7 F H 03/04/23 07:41 Pulse 78 03/04/23 07:41 Resp 17 03/04/23 07:41 BP 127/53 03/04/23 07:41 Pulse Ox 97 03/04/23 07:43 FiO2 Intake & Output 03/03/23 03/04/23 03/04/23 18:59 06:59 18:59 Intake Total 160 Output Total 600 Balance 160 -600 Weight 43.091 kg Intake: Oral 160 Output: Urine 600 Other: Voiding Method External Catheter - Constitutional General appearance: Present: average body habitus, cooperative, no acute distress - EENT Eyes: Present: anicteric sclerae, EOMI ENT: Present: hearing grossly normal - Respiratory Details: resp even and unlabored - Cardiovascular Details: skin warm and dry to touch - Peripheral edema ankle Peripheral Edema: right: None, left: Trace - Gastrointestinal General gastrointestinal: Present: soft. Absent: absent bowel sounds, distended, organomegaly, rigid, tenderness - Integumentary Integumentary: Present: normal - Neurologic Neurologic: Present: CNII-XII intact - Musculoskeletal Musculoskeletal: Present: strength equal bilaterally - Psychiatric Psychiatric: Present: A&O x's 3, appropriate affect, intact judgment & insight - Labs CBC & Chem 7: 03/04/23 06:07 03/04/23 06:07 Labs: Abnormal Lab Results - Last 24 Hours (Table) 03/03/23 03/03/23 03/03/23 Range/Units 10:29 10:29 10:29 RBC 3.67 L (3.80-5.40) m/uL Hgb 9.9 L D (11.4-16.0) gm/dL Hct 30.9 L (34.0-46.0) % Plt Count 116 L (150-450) k/uL Neutrophils # 8.6 H (1.3-7.7) k/uL Lymphocytes # 0.6 L (1.0-4.8) k/uL APTT 20.4 L (22.0-30.0) sec Sodium 135 L (137-145) mmol/L Glucose 105 H (74-99) mg/dL AST 59 H (14-36) U/L Alkaline Phosphatase 140 H (38-126) U/L Urine Appearance (Clear) Urine Protein (Negative) Urine Ketones (Negative) Ur Leukocyte Esterase (Negative) Urine WBC (0-5) /hpf Ur Squamous Epith Cells (0-4) /hpf Urine Bacteria (None) /hpf Urine Mucus (None) /hpf 03/04/23 Range/Units 01:55 RBC (3.80-5.40) m/uL Hgb (11.4-16.0) gm/dL Hct (34.0-46.0) % Plt Count (150-450) k/uL Neutrophils # (1.3-7.7) k/uL Lymphocytes # (1.0-4.8) k/uL APTT (22.0-30.0) sec Sodium (137-145) mmol/L Glucose (74-99) mg/dL AST (14-36) U/L Alkaline Phosphatase (38-126) U/L Urine Appearance Cloudy H (Clear) Urine Protein Trace H (Negative) Urine Ketones 1+ H (Negative) Ur Leukocyte Esterase Large H (Negative) Urine WBC 37 H (0-5) /hpf Ur Squamous Epith Cells 36 H (0-4) /hpf Urine Bacteria Occasional H (None) /hpf Urine Mucus Rare H (None) /hpf - Imaging and Cardiology Chest x-ray: report reviewed (Chest x-ray impression, no consolidative pneumonia, coarsening of the interstitium could be on the basis of bronchitis or mild interstitial pneumonitis) Assessment and Plan (1) Fever Current Visit: Yes Status: Acute Priority: High Code(s): R50.9 - FEVER, U NSPECIFIED SNOMED Code(s): 072686872 (2) Pneumonia Current Visit: Yes Status: Acute Priority: Medium Code(s): J18.9 - PNEUMONIA, UNSPECIFIED ORGANISM SNOMED Code(s): 102418936 (3) C. difficile colitis Current Visit: Yes Status: Acute Priority: Medium Code(s): A04.72 - ENTEROCOLITIS D/T CLOSTRIDIUM DIFFICILE, NOT SPCF RECUR SNOMED Code(s): 587370816 (4) Pancreatic adenocarcinoma Current Visit: No Status: Chronic Priority: Medium Code(s): C25.9 - MALIGNANT NEOPLASM OF PANCREAS, UNSPECIFIED SNOMED Code(s): 292443562 Plan: Fever -MAXIMUM TEMPERATURE 100.9 Fahrenheit overnight -Infectious disease following. Antibiotics ordered -Chest x-ray impression, no consolidative pneumonia, coarsening of the interstitium could be on the basis of bronchitis or mild interstitial pneumonitis -Pending CT AP Clostridium diff colitis -Was diagnosed with the same when she was hospitalized about 3 weeks ago -Patient completed antibiotic course within the last week -Currently denying diarrhea. Patient was told to report diarrhea to Nursing immediately and for a specimen to be collected Pancreatic adenocarcinoma -Unfortunately patient has progressed through multiple lines of treatment. She has had difficulty tolerating treatment because of hematological toxicities and then recent significant infection -Most recently there was a significant increase in her PT-12-0-previously in the 100s, now in the thousands. -Patient is still desirous of active treatment. She does understand that her current acute situation needs to be adequately resolved and her performance status needs to be acceptable before considering resuming any type of therapy. She does verbalize understanding this. Follow-up with Dr. Tello after hospital discharge Dr. Tello did ask patient what decisions her and her came to about CODE STATUS. Patient reports they did not come to a conclusion yet but, she will report to the staff as soon as decision is made. attests: I have seen and examined patient, performed H&P, developed impression and plan of care. Discussed with dictator. Agree with docume ntation, dictated as a scribe
--- NOTE | 2023-03-04 14:33 | CT ---
EXAMINATION TYPE: CT abdomen pelvis w con DATE OF EXAM: 03/04/2023 COMPARISON: 02/07/2023 and 11/16/2021 HISTORY: 72-year-old female Fever. Hx of pancreatic cancer. TECHNIQUE: Contiguous axial scanning of the abdomen and pelvis following administration of 100 ml Iso anuj 300 IV contrast. Delayed images through the kidneys and coronal/sagittal reconstructions perform ed. CT DLP: 780 mGycm Automated exposure control for dose reduction was used. FINDINGS: Heart upper limits of normal in size without pericardial effusion. Trace bilateral pleural effusions with adjacent atelectasis. Tiny hiatal hernia. Redemonstrated postsurgical change of Whipple procedure. Redemonstrated are numerous low-density masses throughout the liver, largely new from 11/16/2021 but si milar compared to 02/07/2023, largest measuring up to 2.6 cm versus 2.4 cm, previously. Some pneumobil ia on the left likely due to the patient's hepaticojejunostomy. Diffuse abnormal soft tissue thickening along the retroperitoneum surrounding the SMA and narrowing i t by 50%, axial image 25. The soft tissue here measures up to 3.2 x 2.7 cm and may be minimally large r from prior. There is also new complete versus subtotal occlusion of the upper SMV just adjacent lik lissy secondary to direct invasion. Diffuse anasarca change is redemonstrated. Mild diffuse hazy infiltration of the mesenteric fat like ly due to third spacing. No dilated small bowel or free air. No significant ascites fluid is seen. There is a large amount of solid stool distending the rectum up to 7.5 cm wide. Bladder is partially distended. Numerous pelvic phleboliths. Uterus appears surgically absent. Trace pelvic ascites. Moderate atherosclerotic calcifications infrarenal abdominal aorta and iliac arteries. Degenerated levoconvex scoliosis. Previous L4-L5 and L5-S1 interbody fusion. IMPRESSION: 1. ONGOING DIFFUSE ANASARCA CHANGE. TRACE BILATERAL PLEURAL EFFUSIONS ARE NEW. 2. STATUS POST WHIPPLE PROCEDURE WITH KNOWN NUMEROUS HEPATIC METASTASES, LARGEST MEASURING 2.6 CM LAURIE SACHIN 2.4 CM ON 02/07/2023. 3. ABNORMAL 3.2 X 2.7 CM SOFT TISSUE ALONG THE RETROPERITONEUM SURROUNDING THE SMA AND NARROWING THE ARTERY BY 50%. THE SOFT TISSUE HERE IS SIMILAR TO MINIMALLY INCREASED. 4. JUST ADJACENT, THERE IS NEW COMPLETE VERSUS SUBTOTAL OCCLUSION OF THE UPPER SMV LIKELY SECONDARY T O DIRECT INVASION. This has progressed from the previous stenosis. 5. Possible fecal impaction with the rectum distended up to 7.5 cm wide by solid stool.
--- NOTE | 2023-03-04 14:35 | P.PN ---
Subjective Progress Note Date: 03/04/23 * 72-year-old lady with past medical history significant for adenocarcinoma pancreas, receiving chemotherapy outpatient history of recent C. diff infection completed course of oral vancomycin presented to the emergency department with complaints of fever of 103.5. Patient accompanied with at bedside versus related with history taking. Hasn't patient had visitors at home recently although patient did not have any sick contacts however he will concerned that she might have picked infection from one of the visitors. * EMS was called and patient was brought to the hospital where she was noted to be more confused. Patient is able to follow commands and easily arousable. * Initiated in ER including CBC which showed white blood cell count of 9.8, hemoglobin 9.9 platelet 116, elevated neutrophil count and differential * Basic metabolic panel obtained showed sodium of 135 potassium 3.9 carbon d ioxide 20 to be on 11 creatinine 0.76. Lactate of 1.3. * Patient tested negative for influenza, RSV and Covid * Chest x-ray obtained in ER showed right lower lobe infiltrate * Patient complained of fatigue, malaise and not feeling well in general. She denies chest pain abdominal pain diarrhea, dysuria, increased frequency and urgency * Consult obtained from infectious disease and oncology * 03/04: Patient seen and evaluated bedside. CBC reviewed, CT abdomen and pelvis ordered which is pending at this time. Overnight noted to have fever continue IV antibiotics Objective - Vital Signs Vital signs: Vital Signs Temp 99.7 F H 03/04/23 07:41 Pulse 78 03/04/23 07:41 Resp 17 03/04/23 07:41 BP 127/53 03/04/23 07:41 Pulse Ox 97 03/04/23 07:43 FiO2 Intake & Output 03/03/23 03/04/23 03/04/23 18:59 06:59 18:59 Intake Total 160 Output Total 600 Balance 160 -600 Weight 43.091 kg Intake: Oral 160 Output: Urine 600 Other: Voiding Method External Catheter External Catheter # Bowel Movements 2 - Exam PHYSICAL EXAMINATION: GENERAL: The patient is alert and oriented x3, ill appearance HEENT: Pupils are round and equally reacting to light. EOMI. CARDIOVASCULAR: S1 and S2 present. No murmurs, rubs, or gallops. PULMONARY: Chest is clear to auscultation, no wheezing or crackles. ABDOMEN: Soft, nontender, nondistended, normoactive bowel sounds. No palpable organomegaly. MUSCULOSKELETAL: No joint swelling or deformity. EXTREMITIES: No cyanosis, clubbing, or pedal edema. NEUROLOGICAL: Gross neurological examination did not reveal any focal deficits. - Labs CBC & Chem 7: 03/04/23 06:07 03/04/23 06:07 Labs: Abnormal Lab Results - Last 24 Hours (Table) 03/04/23 03/04/23 03/04/23 Range/Units 01:55 06:07 06:07 RBC 2.96 L (4.10-5.20) X 10*6/uL Hgb 7.5 L (12.0-15.0) d/dL Hct 25.1 L (37.2-46.3) % MCH 25.3 L (27.0-32.0) pg MCHC 29.9 L (32.0-37.0) d/dL RDW 15.6 H (11.5-14.5) % Plt Count 93 L (140-440) X 10*3/uL MPV 12.4 H (9.5-12.2) FL Carbon Dioxide (21.6-31.8) mmol/L Calcium (8.7-10.3) mg/dL C-Reactive Protein (0.00-0.80) mg/dL Procalcitonin 1.22 H (0.02-0.09) ng/mL Urine Appearance Cloudy H (Clear) Urine Protein Trace H (Negative) Urine Ketones 1+ H (Negative) Ur Leukocyte Esterase Large H (Negative) Urine WBC 37 H (0-5) /hpf Ur Squamous Epith Cells 36 H (0-4) /hpf Urine Bacteria Occasional H (None) /hpf Urine Mucus Rare H (None) /hpf 03/04/23 Range/Units 06:07 RBC (4.10-5.20) X 10*6/uL Hgb (12.0-15.0) d/dL Hct (37.2-46.3) % MCH (27.0-32.0) pg MCHC (32.0-37.0) d/dL RDW (11.5-14.5) % Plt Count (140-440) X 10*3/uL MPV (9.5-12.2) FL Carbon Dioxide 17.5 L (21.6-31.8) mmol/L Calcium 8.3 L (8.7-10.3) mg/dL C-Reactive Protein 4.40 H (0.00-0.80) mg/dL Procalcitonin (0.02-0.09) ng/mL Urine Appearance (Clear) Urine Protein (Negative) Urine Ketones (Negative) Ur Leukocyte Esterase (Negative) Urine WBC (0-5) /hpf Ur Squamous Epith Cells (0-4) /hpf Urine Bacteria (None) /hpf Urine Mucus (None) /hpf Assessment and Plan Assessment: Assessment and plan * Right lower lobe pneumonia * History pancreatic cancer on chemotherapy immunocompromised * Recent C. diff infection * History of pulmonary embolism * History of premature ventricular contractions underwent ablation * Hypertension * Hyperlipidemia * History of sleep apnea * In regards to right lower lobe pneumonia, continue Zosyn and vancomycin patient immune compromise. Infectious disease team consulted * Follow up on urine Legionella, CRP and pro-calcitonin levels elevated * Due to history of C. diff infection patient started on prophylactic dose of oral vancomycin, appreciate infectious disease input * Home medications reviewed and reconciled, hydrochlorothiazide on hold and setting of infection. Eliquis resumed * In regards to history of pulmonary embolism continue patient on Eliquis * CODE STATUS discussed with patient and at bedside full code at the time of admission *
[2023-03-04 16:25] VITALS: BMI 16.2
[2023-03-04] MEDS: droNABinol 2.5 MG CAP PO SCH (18:00)
[2023-03-04] MEDS: ACETAMINOPHEN TAB 325 MG TAB PO PRN (20:42)
[2023-03-05] MEDS: PIPERACILLIN-TAZOBACTAM 3.375 GM in SODIUM CHLORIDE 0.9% 100 ML IVPB SCH ×3 (03:15→18:32)
--- NOTE | 2023-03-05 08:18 | P.PN ---
Subjective Progress Note Date: 03/04/23 Principal diagnosis: Fever Patient is a 72-year-old female with a past medical history significant for hypertension and sleep apnea brain aneurysm history of pancreatic cancer on chemotherapy the patient was admitted to [facility] end of January 2023 with sepsis and did have evidence of E. coli bacteremia and C. difficile colitis. Patient now presenting back to the hospital with a fever of 103 F the day of presentation to the hospital also complaining of feeling weak. On today's evaluation that is 03/04/2023 patient did have a low-grade fever 100.9 around 1 AM and the patient is afebrile since then, the patient is breathing comfortably on room air denies any chest pain shortness of breath or cough patient do not have any diarrhea and no urinary symptoms Objective - Vital Signs Vital signs: Vital Signs Temp 99.7 F H 03/04/23 07:41 Pulse 78 03/04/23 07:41 Resp 17 03/04/23 07:41 BP 127/53 03/04/23 07:41 Pulse Ox 97 03/04/23 07:43 FiO2 Intake & Output 03/03/23 03/04/23 03/04/23 18:59 06:59 18:59 Intake Total 160 Output Total 600 Balance 160 -600 Weight 43.091 kg Intake: Oral 160 Output: Urine 600 Other: Voiding Method External Catheter # Bowel Movements 2 - Exam GENERAL DESCRIPTION: Elderly female lying in bed in no distress RESPIRATORY SYSTEM: Unlabored breathing , decreased breath sounds at bases HEART: S1 S2 regular rate and rhythm ,no loud murmurs ABDOMEN: Soft , no tenderness EXTREMITIES: No edema feet - Labs CBC & Chem 7: 03/04/23 06:07 03/04/23 06:07 Labs: Abnormal Lab Results - Last 24 Hours (Table) 03/03/23 03/03/23 03/03/23 Range/Units 10:29 10:29 10:29 RBC 3.67 L (3.80-5.40) m/uL Hgb 9.9 L D (11.4-16.0) gm/dL Hct 30.9 L (34.0-46.0) % MCH (27.0-32.0) pg MCHC (32.0-37.0) d/dL RDW (11.5-14.5) % Plt Count 116 L (150-450) k/uL MPV (9.5-12.2) FL Neutrophils # 8.6 H (1.3-7.7) k/uL Lymphocytes # 0.6 L (1.0-4.8) k/uL APTT 20.4 L (22.0-30.0) sec Sodium 135 L (137-145) mmol/L Glucose 105 H (74-99) mg/dL AST 59 H (14-36) U/L Alkaline Phosphatase 140 H (38-126) U/L Urine Appearance (Clear) Urine Protein (Negative) Urine Ketones (Negative) Ur Leukocyte Esterase (Negative) Urine WBC (0-5) /hpf Ur Squamous Epith Cells (0-4) /hpf Urine Bacteria (None) /hpf Urine Mucus (None) /hpf 03/04/23 03/04/23 Range/Units 01:55 06:07 RBC 2.96 L (3.80-5.40) m/uL Hgb 7.5 L (11.4-16.0) gm/dL Hct 25.1 L (34.0-46.0) % MCH 25.3 L (27.0-32.0) pg MCHC 29.9 L (32.0-37.0) d/dL RDW 15.6 H (11.5-14.5) % Plt Count 93 L (150-450) k/uL MPV 12.4 H (9.5-12.2) FL Neutrophils # (1.3-7.7) k/uL Lymphocytes # (1.0-4.8) k/uL APTT (22.0-30.0) sec Sodium (137-145) mmol/L Glucose (74-99) mg/dL AST (14-36) U/L Alkaline Phosphatase (38-126) U/L Urine Appearance Cloudy H (Clear) Urine Protein Trace H (Negative) Urine Ketones 1+ H (Negative) Ur Leukocyte Esterase Large H (Negative) Urine WBC 37 H (0-5) /hpf Ur Squamous Epith Cells 36 H (0-4) /hpf Urine Bacteria Occasional H (None) /hpf Urine Mucus Rare H (None) /hpf Assessment and Plan (1) Fever Current Visit: Yes Status: Acute Priority: High Code(s): R50.9 - FEVER, UNSPECIFIED SNOMED Code(s): 682205814 Plan: 1patient presented to hospital with a fever in this patient with recent admission to the hospital patient did have a E. coli bacteremia source likely abdominal with a history of pancreatic cancer but there is no evidence of any abscess and also have C. difficile colitis now presenting with a fever patient do not have any respiratory symptoms and clinically doubt pneumonia , the patient do not have any diarrhea so clinically doubt C. difficile colitis concerning for possible abdominal source for this fever. 2patient did have a CT abdominal pelvis just completed waiting for the official report. 3we will keep the patient on Zosyn while waiting for the culture to finalize and monitor clinical course closely Dictation was produced using [employer] dictation software. please excuse any grammatical, word or spelling errors. Time with Patient: Less than 30
[2023-03-05] MEDS: PANTOPRAZOLE 40 MG/10 ML VIAL IV SCH (08:44)
[2023-03-05] MEDS: CHOLESTYRAMINE (WITH SUGAR) 4 GM PACKET PO SCH ×4 (08:44→22:28)
[2023-03-05] MEDS: droNABinol 2.5 MG CAP PO SCH ×2 (08:44→16:52)
[2023-03-05] MEDS: MULTIVITAMINS, THERA 1 EACH TAB PO SCH (08:44)
[2023-03-05] MEDS: LIPASE 20,000/PROTEASE 63,000/AMYLASE 84,000 PO SCH ×3 (08:44→16:52)
[2023-03-05] MEDS: ONDANSETRON 4 MG/2 ML VIAL IVP PRN ×2 (08:44→18:31)
[2023-03-05] MEDS: APIXABAN 5 MG TAB PO SCH ×2 (08:44→22:27)
[2023-03-05] MEDS: TOPIRAMATE 25 MG TAB PO SCH ×2 (08:45→22:41)
[2023-03-05] MEDS: PANTOPRAZOLE 40 MG TABLET PO SCH (08:45)
[2023-03-05] MEDS: CHOLECALCIFEROL 25 MCG (1000 IU) TABLET PO SCH (08:45)
[2023-03-05] MEDS: SODIUM CHLORIDE 0.9% 1,000 ML IV SCH ×2 (08:51→16:53)
[2023-03-05 09:11] LABS: BUN/Creat Ratio 8.75 Ratio (12.00-20.00); Calcium 8.1 mg/dL (8.7-10.3); Carbon Dioxide 19.7 mmol/L (21.6-31.8); Chloride 112 mmol/L (96-109); Glucose 118 mg/dL (70-110); Potassium 3.2 mmol/L (3.5-5.5); Sodium 142 mmol/L (135-145)
[2023-03-05 09:19] LABS: HCT 22.5 % (37.2-46.3); HGB 7.1 d/dL (12.0-15.0); Immature Platelet Fraction 7.2 % (1.1-6.1); MCH 26.3 pg (27.0-32.0); MCHC 31.6 d/dL (32.0-37.0); MCV 83.3 FL (80.0-97.0); Mean Platelet Volume 11.6 FL (9.5-12.2); NRBC Per 100 WBC 0 X 10*3/uL (0.00-0.01); Platelet Count 75 X 10*3/uL (140-440); RDW 15.4 % (11.5-14.5); WBC 5.71 X 10*3/uL (4.50-10.00)
[2023-03-05] MEDS ORDERED: Potassium Replacement Protocol 1 EACH MISC MISCELLANE PRN ×2 (12:55→22:34)
--- NOTE | 2023-03-05 12:58 | P.PN ---
Subjective Progress Note Date: 03/05/23 * 72-year-old lady with past medical history significant for adenocarcinoma pancreas, receiving chemotherapy outpatient history of recent C. diff infection completed course of oral vancomycin presented to the emergency department with complaints of fever of 103.5. Patient accompanied with at bedside versus related with history taking. Hasn't patient had visitors at home recently although patient did not have any sick contacts however he will concerned that she might have picked infection from one of the visitors. * EMS was called and patient was brought to the hospital where she was noted to be more confused. Patient is able to follow commands and easily arousable. * Initiated in ER including CBC which showed white blood cell count of 9.8, hemoglobin 9.9 platelet 116, elevated neutrophil count and differential * Basic metabolic panel obtained showed sodium of 135 potassium 3.9 carbon d ioxide 20 to be on 11 creatinine 0.76. Lactate of 1.3. * Patient tested negative for influenza, RSV and Covid * Chest x-ray obtained in ER showed right lower lobe infiltrate * Patient complained of fatigue, malaise and not feeling well in general. She denies chest pain abdominal pain diarrhea, dysuria, increased frequency and urgency * Consult obtained from infectious disease and oncology * 03/04: Patient seen and evaluated bedside. CBC reviewed, CT abdomen and pelvis ordered which is pending at this time. Overnight noted to have fever continue IV antibiotics * 03/05/2023 : Patient seen and evaluated bedside, CT abdomen and pelvis reviewed, worsening of metastatic disease noted. Continue on IV antibiotics blood cultures reviewed, electrolytes were reviewed and potassium replaced Objective - Vital Signs Vital signs: Vital Signs Temp 99.2 F 03/05/23 11:38 Pulse 68 03/05/23 11:38 Resp 17 03/05/23 11:38 BP 123/62 03/05/23 11:38 Pulse Ox 97 03/05/23 11:38 FiO2 Intake & Output 03/04/23 03/05/23 03/05/23 18:59 06:59 18:59 Weight 43.091 kg Other: Voiding Method External Catheter Bedside Commode Bedside Commode External Catheter # Voids 1 1 # Bowel Movements 2 1 - Exam PHYSICAL EXAMINATION: GENERAL: The patient is alert and oriented x3, ill appearance, pale appearance HEENT: Pupils are round and equally reacting to light. EOMI. CARDIOVASCULAR: S1 and S2 present. No murmurs, rubs, or gallops. PULMONARY: Chest is clear to auscultation, no wheezing or crackles. ABDOMEN: Soft, nontender, nondistended, normoactive bowel sounds. No palpable organomegaly. MUSCULOSKELETAL: No joint swelling or deformity. EXTREMITIES: No cyanosis, clubbing, or pedal edema. NEUROLOGICAL: Gross neurological examination did not reveal any focal deficits. - Labs CBC & Chem 7: 03/05/23 05:24 03/05/23 05:24 Labs: Abnormal Lab Results - Last 24 Hours (Table) 03/05/23 03/05/23 Range/Units 05:24 05:24 RBC 2.70 L (4.10-5.20) X 10*6/uL Hgb 7.1 L (12.0-15.0) d/dL Hct 22.5 L (37.2-46.3) % MCH 26.3 L (27.0-32.0) pg MCHC 31.6 L (32.0-37.0) d/dL RDW 15.4 H (11.5-14.5) % Plt Count 75 L (140-440) X 10*3/uL Immature Plt Fraction 7.2 H (1.1-6.1) % Potassium 3.2 L (3.5-5.5) mmol/L Chloride 112 H (96-109) mmol/L Carbon Dioxide 19.7 L (21.6-31.8) mmol/L BUN 7.0 L (9.0-27.0) mg/dL BUN/Creatinine Ratio 8.75 L (12.00-20.00) Ratio Glucose 118 H (70-110) mg/dL Calcium 8.1 L (8.7-10.3) mg/dL C-Reactive Protein 2.90 H (0.00-0.80) mg/dL Microbiology - Last 24 Hours (Table) 03/03/23 10:30 Blood Culture - Preliminary Blood 03/03/23 10:15 Blood Culture - Preliminary Blood Assessment and Plan Assessment: Assessment and plan * Right lower lobe pneumonia * Sepsis * History pancreatic cancer on chemotherapy immunocompromised, metastatic cancer with liver metastases * Recent C. diff infection * History of pulmonary embolism * History of premature ventricular contractions underwent ablation * Hypertension * Hyperlipidemia * History of sleep apnea * In regards to right lower lobe pneumonia, continue Zosyn. Infectious disease team consulted, vancomycin discontinued * Follow up on urine Legionella, CRP trending down 4.4 followed by 2.9, total calcitonin 1.2 to * Due to history of C. diff infection patient started on prophylactic dose of oral vancomycin, appreciate infectious disease input * Home medications reviewed and reconciled, hydrochlorothiazide on hold and setting of infection. Eliquis resumed * In regards to history of pulmonary embolism continue patient on Eliquis * Oncology following goals of care meeting held patient remains full code * CODE STATUS discussed with patient and at bedside full code at the time of admission *
[2023-03-05] MEDS ORDERED: POTASSIUM CHLORIDE ER 20 MEQ TAB.ER PO ONE (13:00)
--- NOTE | 2023-03-05 15:12 | P.PN ---
Subjective Progress Note Date: 03/05/23 Principal diagnosis: fever In f/u today pt reports she feels a little better today than she did yesterday. In general she is still weak. Appetite was better this morning after resuming Marinol last night. No acute pain. and other family are at the bedside for family meeting. Objective - Vital Signs Vital signs: Vital Signs Temp 98.6 F 03/05/23 07:20 Pulse 67 03/05/23 07:20 Resp 16 03/05/23 07:20 BP 128/53 03/05/23 07:20 Pulse Ox 99 03/05/23 07:20 FiO2 Intake & Output 03/04/23 03/05/23 03/05/23 18:59 06:59 18:59 Weight 43.091 kg Other: Voiding Method External Catheter Bedside Commode Bedside Commode External Catheter # Voids 1 1 # Bowel Movements 2 1 - Constitutional General appearance: Present: cooperative, no acute distress, thin - EENT Eyes: Present: anicteric sclerae, EOMI ENT: Present: hearing grossly normal - Respiratory Details: resp even and unlabored at rest - Peripheral edema foot Peripheral Edema: bilateral: Trace - Neurologic Neurologic: Present: CNII-XII intact (grossly) - Musculoskeletal Musculoskeletal: Present: generalized weakness - Psychiatric Psychiatric: Present: A&O x's 3, appropriate affect, intact judgment & insight - Labs CBC & Chem 7: 03/05/23 05:24 03/05/23 05:24 Labs: Abnormal Lab Results - Last 24 Hours (Table) 03/04/23 03/04/23 03/05/23 Range/Units 06:07 06:07 05:24 RBC 2.70 L (4.10-5.20) X 10*6/uL Hgb 7.1 L (12.0-15.0) d/dL Hct 22.5 L (37.2-46.3) % MCH 26.3 L (27.0-32.0) pg MCHC 31.6 L (32.0-37.0) d/dL RDW 15.4 H (11.5-14.5) % Plt Count 75 L (140-440) X 10*3/uL Immature Plt Fraction 7.2 H (1.1-6.1) % Potassium (3.5-5.5) mmol/L Chloride (96-109) mmol/L Carbon Dioxide 17.5 L (21.6-31.8) mmol/L BUN (9.0-27.0) mg/dL BUN/Creatinine Ratio (12.00-20.00) Ratio Glucose (70-110) mg/dL Calcium 8.3 L (8.7-10.3) mg/dL C-Reactive Protein 4.40 H (0.00-0.80) mg/dL Procalcitonin 1.22 H (0.02-0.09) ng/mL 03/05/23 Range/Units 05:24 RBC (4.10-5.20) X 10*6/uL Hgb (12.0-15.0) d/dL Hct (37.2-46.3) % MCH (27.0-32.0) pg MCHC (32.0-37.0) d/dL RDW (11.5-14.5) % Plt Count (140-440) X 10*3/uL Immature Plt Fraction (1.1-6.1) % Potassium 3.2 L (3.5-5.5) mmol/L Chloride 112 H (96-109) mmol/L Carbon Dioxide 19.7 L (21.6-31.8) mmol/L BUN 7.0 L (9.0-27.0) mg/dL BUN/Creatinine Ratio 8.75 L (12.00-20.00) Ratio Glucose 118 H (70-110) mg/dL Calcium 8.1 L (8.7-10.3) mg/dL C-Reactive Protein 2.90 H (0.00-0.80) mg/dL Procalcitonin (0.02-0.09) ng/mL Microbiology - Last 24 Hours (Table) 03/03/23 10:30 Blood Culture - Preliminary Blood 03/03/23 10:15 Blood Culture - Preliminary Blood - Imaging and Cardiology CT scan - abdomen: report reviewed CT scan - pelvis: report reviewed Assessment and Plan (1) Fever Current Visit: Yes Status: Acute Priority: High Code(s): R50.9 - FEVER, UNSPECIFIED SNOMED Code(s): 726336858 (2) Pneumonia Current Visit: Yes Status: Acute Priority: Medium Code(s): J18.9 - PNEUMONIA, UNSPECIFIED ORGANISM SNOMED Code(s): 878406425 (3) C. difficile colitis Current Visit: Yes Status: Acute Priority: Medium Code(s): A04.72 - ENTEROCOLITIS D/T CLOSTRIDIUM DIFFICILE, NOT SPCF RECUR SNOMED Code(s): 396562859 (4) Pancreatic adenocarcinoma Current Visit: No Status: Chronic Priority: Medium Code(s): C25.9 - MALIGNANT NEOPLASM OF PANCREAS, UNSPECIFIED SNOMED Code(s): 429626261 Plan: Fever -MAXIMUM TEMPERATURE 101.8 Fahrenheit overnight -Infectious disease following. Antibiotics cont -Chest x-ray impression, no consolidative pneumonia, coarsening of the interstitium could be on the basis of bronchitis or mild interstitial pneumonitis -CT AP impression, diffuse anasarca change, trace bilateral pleural effusions, hepatic metastases slightly enlarged, and abnormal 3.2 x 2.7 cm soft tissue mass along the retroperitoneum surrounding the SMA and narrowing the artery by 50%. This is minimally increased. 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 Possible fecal impaction with the rectum distended up to 7.5 cm wide. Results were reviewed with patient and her family. Clostridium diff colitis -Was diagnosed with the same when she was hospitalized about 3 weeks ago -Patient completed antibiotic course within the last week -Denies diarrhea. Pancreatic adenocarcinoma -Unfortunately patient has progressed through multiple lines of treatment. She has had difficulty tolerating treatment because of hematological toxicities and then recent significant infection -Most recently there was a significant increase in her VO-30-3-previously in the 100s, now in the thousands. There appears to be some progression seen on the CT AP. Dr. Tello had a long discussion with the patient and her family about concerns for the treatment options that remain available to the pt. There is a 2 drug chemotherapy regimen for treatment of pancreatic cancer unfortunately, patient has received one of the drugs with 2 other regimens, and her disease is progressed. The concern is his that using this drug in combination is not going to be adequate enough to treat her disease, or her disease is already resistant to it. The likelihood that this regimen will be effective and provide patient with quantity and quality of life is very low. 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 We were able to obtain a targeted oral agent for compassionate use, as it is not currently approved for use in pancreatic adenocarcinoma. Made very clear to the patient and her family that this drug has not been approved in her type of malignancy so, cannot say with any certainty that the medication will have any effect on pancreatic cancer or benefit her in any way. All questions and concerns were answered to patient and family's satisfaction Code Status was reviewed extensively. Multiple questions and concerns addressed. Pending decision from the patient and her family. attests: I have seen and examined patient, performed H&P, developed impression and plan of care. Discussed with dictator. Agree with documentation, dictated as a scribe Time with Patient: Greater than 30 (Greater than 45 minutes was spent counseling and coordinating care)
--- NOTE | 2023-03-05 16:35 | P.PN ---
Subjective Progress Note Date: 03/05/23 Principal diagnosis: Fever Patient is a 72-year-old female with a past medical history significant for hypertension and sleep apnea brain aneurysm history of pancreatic cancer on chemotherapy the patient was admitted to [facility] end of January 2023 with sepsis and did have evidence of E. coli bacteremia and C. difficile colitis.Patient now presenting back to the hospital with a fever of 103 F the day of presentation to the hospital also complaining of feeling weak. On today's evaluation that is 03/05/2023 Patient did spike a fever of 101.8F last night the patient is afebrile this morning, patient is breathing comfortably on room air patient denies having any chest pain shortness of breath or cough no nausea no vomiting no abdominal pain has developed diarrhea Patient did have a hemoglobin of 7.1 white count is 5.71 creatinine 0.8, stool for C. diff is pending blood culture so far pending Objective - Vital Signs Vital signs: Vital Signs Temp 98.6 F 03/05/23 07:20 Pulse 67 03/05/23 07:20 Resp 16 03/05/23 07:20 BP 128/53 03/05/23 07:20 Pulse Ox 99 03/05/23 07:20 FiO2 Intake & Output 03/04/23 03/05/23 03/05/23 18:59 06:59 18:59 Weight 43.091 kg Other: Voiding Method External Catheter Bedside Commode Bedside Commode External Catheter # Voids 1 1 # Bowel Movements 2 1 - Exam GENERAL DESCRIPTION: Elderly female lying in bed in no distress RESPIRATORY SYSTEM: Unlabored breathing , decreased breath sounds at bases HEART: S1 S2 regular rate and rhythm ,no loud murmurs ABDOMEN: Soft , no tenderness EXTREMITIES: No edema feet - Labs CBC & Chem 7: 03/05/23 05:24 03/05/23 05:24 Labs: Abnormal Lab Results - Last 24 Hours (Table) 03/04/23 03/04/23 03/05/23 Range/Units 06:07 06:07 05:24 RBC 2.70 L (4.10-5.20) X 10*6/uL Hgb 7.1 L (12.0-15.0) d/dL Hct 22.5 L (37.2-46.3) % MCH 26.3 L (27.0-32.0) pg MCHC 31.6 L (32.0-37.0) d/dL RDW 15.4 H (11.5-14.5) % Plt Count 75 L (140-440) X 10*3/uL Immature Plt Fraction 7.2 H (1.1-6.1) % Potassium (3.5-5.5) mmol/L Chloride (96-109) mmol/L Carbon Dioxide 17.5 L (21.6-31.8) mmol/L BUN (9.0-27.0) mg/dL BUN/Creatinine Ratio (12.00-20.00) Ratio Glucose (70-110) mg/dL Calcium 8.3 L (8.7-10.3) mg/dL C-Reactive Protein 4.40 H (0.00-0.80) mg/dL Procalcitonin 1.22 H (0.02-0.09) ng/mL 03/05/23 Range/Units 05:24 RBC (4.10-5.20) X 10*6/uL Hgb (12.0-15.0) d/dL Hct (37.2-46.3) % MCH (27.0-32.0) pg MCHC (32.0-37.0) d/dL RDW (11.5-14.5) % Plt Count (140-440) X 10*3/uL Immature Plt Fraction (1.1-6.1) % Potassium 3.2 L (3.5-5.5) mmol/L Chloride 112 H (96-109) mmol/L Carbon Dioxide 19.7 L (21.6-31.8) mmol/L BUN 7.0 L (9.0-27.0) mg/dL BUN/Creatinine Ratio 8.75 L (12.00-20.00) Ratio Glucose 118 H (70-110) mg/dL Calcium 8.1 L (8.7-10.3) mg/dL C-Reactive Protein 2.90 H (0.00-0.80) mg/dL Procalcitonin (0.02-0.09) ng/mL Microbiology - Last 24 Hours (Table) 03/03/23 10:30 Blood Culture - Preliminary Blood 03/03/23 10:15 Blood Culture - Preliminary Blood Assessment and Plan (1) Fever Current Visit: Yes Status: Acute Priority: High Code(s): R50.9 - FEVER, UNSPECIFIED SNOMED Code(s): 614020554 Plan: 1patient presented to hospital with a fever in this patient with recent admission to the hospital patient did have a E. coli bacteremia source likely abdominal with a history of pancreatic cancer but there is no evidence of any abscess and also have C. difficile colitis now presenting with a fever patient do not have any respiratory symptoms and clinically doubt pneumonia , the patient do not have any diarrhea so clinically doubt C. difficile colitis concerning for possible abdominal source for this fever. 2patient did have a CT abdominal pelvis did not mention any colitis, however did show hepatic metastasis and also abnormal soft tissue surrounding the SMA and also subtotal occlusion of the upper SMV 3patient fever possibly related to abdominal source and question of possible intermittent ischemia, continue with the Zosyn patient has developed diarrhea we will check a stool for C. diff and treat if positive Dictation was produced using [employer] dictation software. please excuse any grammatical, word or spelling errors.
[2023-03-05] MEDS: LOPERAMIDE 2 MG CAP PO PRN (22:27)
[2023-03-05] MEDS: POTASSIUM CHLORIDE ER 20 MEQ TAB.ER PO SCH ×2 (22:43→23:53)
[2023-03-06] MEDS: POTASSIUM CHLORIDE ER 20 MEQ TAB.ER PO SCH ×5 (01:07→22:34)
[2023-03-06] MEDS ORDERED: Potassium Replacement Protocol 1 EACH MISC MISCELLANE PRN (03:09)
[2023-03-06] MEDS: PIPERACILLIN-TAZOBACTAM 3.375 GM in SODIUM CHLORIDE 0.9% 100 ML IVPB SCH ×3 (03:28→17:39)
[2023-03-06] MEDS: SODIUM CHLORIDE 0.9% 1,000 ML IV SCH ×3 (03:29→22:36)
[2023-03-06] MEDS: LIPASE 20,000/PROTEASE 63,000/AMYLASE 84,000 PO SCH ×2 (08:36→11:24)
[2023-03-06] MEDS: droNABinol 2.5 MG CAP PO SCH ×2 (08:36→17:38)
[2023-03-06] MEDS: CHOLECALCIFEROL 25 MCG (1000 IU) TABLET PO SCH (08:36)
[2023-03-06] MEDS: TOPIRAMATE 25 MG TAB PO SCH ×2 (08:36→19:58)
[2023-03-06] MEDS: PANTOPRAZOLE 40 MG/10 ML VIAL IV SCH (08:36)
[2023-03-06] MEDS: APIXABAN 5 MG TAB PO SCH ×2 (08:36→19:58)
[2023-03-06] MEDS: MULTIVITAMINS, THERA 1 EACH TAB PO SCH (08:36)
[2023-03-06] MEDS: PANTOPRAZOLE 40 MG TABLET PO SCH ×2 (08:36→08:44)
[2023-03-06] MEDS: ONDANSETRON 4 MG/2 ML VIAL IVP PRN ×2 (08:47→17:38)
[2023-03-06 09:06] LABS: BUN/Creat Ratio 7.86 Ratio (12.00-20.00); Blood Urea Nitrogen 5.5 mg/dL (9.0-27.0); Calcium 8.1 mg/dL (8.7-10.3); Carbon Dioxide 16.9 mmol/L (21.6-31.8); Chloride 113 mmol/L (96-109); Glucose 95 mg/dL (70-110); Potassium 3.5 mmol/L (3.5-5.5); Sodium 140 mmol/L (135-145)
[2023-03-06 09:41] LABS: HCT 23.8 % (37.2-46.3); HGB 7.4 d/dL (12.0-15.0); Immature Platelet Fraction 7.6 % (1.1-6.1); MCH 25.8 pg (27.0-32.0); MCHC 31.1 d/dL (32.0-37.0); MCV 82.9 FL (80.0-97.0); Mean Platelet Volume 11.6 FL (9.5-12.2); NRBC Per 100 WBC 0 X 10*3/uL (0.00-0.01); Platelet Count 75 X 10*3/uL (140-440); RBC 2.87 X 10*6/uL (4.10-5.20); RDW 15.1 % (11.5-14.5); WBC 5.01 X 10*3/uL (4.50-10.00)
[2023-03-06] MEDS: CHOLESTYRAMINE (WITH SUGAR) 4 GM PACKET PO SCH ×2 (10:41→17:39)
--- NOTE | 2023-03-06 11:29 | CDI ---
Documentation Clarification Form Date: 03/06/2023 11:00:21 AM From: Deborah Pierson RN, CCDS Admit Date: 03/03/2023 12:55:00 PM Patient Name: Yoselin Cash I Visit Number: [id number] Discharge Date: ATTENTION: The Clinical Documentation Specialists (CDI) and [facility] Coding Staff appreciate your assistance in clarifying documentation. Please respond to the clarification below the line at the bottom and electronically sign. The CDI & [facility] Coding staff will review the response and follow-up if needed. Please note: Queries are made part of the Legal Health Record. If you have any questions, please contact the author of this message via ITS. Dr. Mini Song The Registered Dietitian assessment on 03/04/2023 indicates this patient meets criteria for malnutrition, severe in the setting of chronic illness. Based on this information and the findings below, is there an additional diagnosis that is clinically appropriate for this patient? History/Risk Factors: Pneumonia, Pancreatic cancer, Recent C. diff infection, immunocompromised Clinical Indicators: admitted for fever, weakness decreased appetite and intermittent nausea. Current BMI: 16.3 43.091kg height 5ft 4 in 72-year old female with pancreatic adenocarcinoma with hepatic metastases. She has progressed through multiple lines of treatment per oncology progress notes on 03/05/23. Labs: WBC 9.8 HGB 9.9, 7.[address] Consult Assessment: Intake poor 0-25% Underweight Malnutrition Severe malnutrition in the setting of chronic illness Treatment: Gluten Free, regular diet + ONS high KCL/PRO TID Supplements: Ensure clear TID Monitor PO Is there an additional diagnosis that is clinically appropriate for this patient? [ ] Mild Protein-Calorie Malnutrition [ ] Moderate Protein-Calorie Malnutrition [y ] Severe Protein-Calorie Malnutrition [ ] Other condition, please specify [ ] Unable to Determine Reference: Using the ASPEN Guidelines, Undernutrition (Malnutrition) is characterized by at least two of the following six findings. The severity can be determined based on the criteria listed below. Malnutrition Characteristics for Moderate and Severe Malnutrition Type of Malnutrition Acute Illness or Injury Chronic Illness Degree of Malnutrition Non-severe (moderate) Malnutrition Severe Malnutrition Non-severe (moderate) Malnutrition Severe Malnutrition (Template Last Revised: January 2023) MTDD
[2023-03-06] MEDS: LOPERAMIDE 2 MG CAP PO PRN ×2 (11:34→21:29)
--- NOTE | 2023-03-06 13:20 | P.PN ---
Subjective Progress Note Date: 03/06/23 * 72-year-old lady with past medical history significant for adenocarcinoma pancreas, receiving chemotherapy outpatient history of recent C. diff infection completed course of oral vancomycin presented to the emergency department with complaints of fever of 103.5. Patient accompanied with at bedside versus related with history taking. Hasn't patient had visitors at home recently although patient did not have any sick contacts however he will concerned that she might have picked infection from one of the visitors. * EMS was called and patient was brought to the hospital where she was noted to be more confused. Patient is able to follow commands and easily arousable. * Initiated in ER including CBC which showed white blood cell count of 9.8, hemoglobin 9.9 platelet 116, elevated neutrophil count and differential * Basic metabolic panel obtained showed sodium of 135 potassium 3.9 carbon d ioxide 20 to be on 11 creatinine 0.76. Lactate of 1.3. * Patient tested negative for influenza, RSV and Covid * Chest x-ray obtained in ER showed right lower lobe infiltrate * Patient complained of fatigue, malaise and not feeling well in general. She denies chest pain abdominal pain diarrhea, dysuria, increased frequency and urgency * Consult obtained from infectious disease and oncology * 03/04: Patient seen and evaluated bedside. CBC reviewed, CT abdomen and pelvis ordered which is pending at this time. Overnight noted to have fever continue IV antibiotics * 03/05/2023 : Patient seen and evaluated bedside, CT abdomen and pelvis reviewed, worsening of metastatic disease noted. Continue on IV antibiotics blood cultures reviewed, electrolytes were reviewed and potassium replaced * 03/06/2023: Patient seen and evaluated bedside. Patient does complain of nausea and fatigue and malaise. Continue patient on IV antibiotic plan discussed with her in detail patient appears frustrated in general however very cooperative patient was explained that abdominal discomfort could be secondary to malignancy Objective - Vital Signs Vital signs: Vital Signs Temp 98.8 F 03/06/23 12:00 Pulse 69 03/06/23 12:00 Resp 16 03/06/23 12:00 BP 136/67 03/06/23 12:00 Pulse Ox 98 03/06/23 12:00 FiO2 21 03/06/23 09:20 Intake & Output 03/05/23 03/06/23 03/06/23 18:59 06:59 18:59 Other: Voiding Method Bedside Commode Bedside Commode # Voids 1 3 1 # Bowel Movements 1 2 1 - Exam PHYSICAL EXAMINATION: GENERAL: The patient is alert and oriented x3, ill appearance, pale appearance HEENT: Pupils are round and equally reacting to light. EOMI. CARDIOVASCULAR: S1 and S2 present. No murmurs, rubs, or gallops. PULMONARY: Chest is clear to auscultation, no wheezing or crackles. ABDOMEN: Soft, nontender, nondistended, normoactive bowel sounds. No palpable organomegaly. MUSCULOSKELETAL: No joint swelling or deformity. EXTREMITIES: No cyanosis, clubbing, or pedal edema. NEUROLOGICAL: Gross neurological examination did not reveal any focal deficits. - Labs CBC & Chem 7: 03/06/23 04:04 03/06/23 06:24 Labs: Abnormal Lab Results - Last 24 Hours (Table) 03/05/23 03/06/23 03/06/23 Range/Units 21:51 02:30 04:04 RBC 2.87 L (4.10-5.20) X 10*6/uL Hgb 7.4 L (12.0-15.0) d/dL Hct 23.8 L (37.2-46.3) % MCH 25.8 L (27.0-32.0) pg MCHC 31.1 L (32.0-37.0) d/dL RDW 15.1 H (11.5-14.5) % Plt Count 75 L (140-440) X 10*3/uL Immature Plt Fraction 7.6 H (1.1-6.1) % Potassium 2.8 L 3.2 L (3.5-5.1) mmol/L Chloride (96-109) mmol/L Carbon Dioxide (21.6-31.8) mmol/L BUN (9.0-27.0) mg/dL BUN/Creatinine Ratio (12.00-20.00) Ratio Calcium (8.7-10.3) mg/dL 03/06/23 Range/Units 04:04 RBC (4.10-5.20) X 10*6/uL Hgb (12.0-15.0) d/dL Hct (37.2-46.3) % MCH (27.0-32.0) pg MCHC (32.0-37.0) d/dL RDW (11.5-14.5) % Plt Count (140-440) X 10*3/uL Immature Plt Fraction (1.1-6.1) % Potassium (3.5-5.1) mmol/L Chloride 113 H (96-109) mmol/L Carbon Dioxide 16.9 L (21.6-31.8) mmol/L BUN 5.5 L (9.0-27.0) mg/dL BUN/Creatinine Ratio 7.86 L (12.00-20.00) Ratio Calcium 8.1 L (8.7-10.3) mg/dL Microbiology - Last 24 Hours (Table) 03/03/23 10:30 Blood Culture - Preliminary Blood 03/03/23 10:15 Blood Culture - Preliminary Blood Assessment and Plan Assessment: Assessment and plan * Right lower lobe pneumonia * Sepsis * History pancreatic cancer on chemotherapy immunocompromised, metastatic cancer with liver metastases * Recent C. diff infection * History of pulmonary embolism * History of premature ventricular contractions underwent ablation * Hypertension * Hyperlipidemia * History of sleep apnea * In regards to right lower lobe pneumonia, continue Zosyn. Infectious disease team consulted, vancomycin discontinued * Follow up on urine Legionella, CRP trending down 4.4 followed by 2.9,Procalcitonin 1.22 * Due to history of C. diff infection patient started on prophylactic dose of oral vancomycin, appreciate infectious disease input * Home medications reviewed and reconciled, hydrochlorothiazide on hold and setting of infection. Eliquis resumed * In regards to history of pulmonary embolism continue patient on Eliquis * Oncology following goals of care meeting held patient remains full code * CODE STATUS discussed with patient and at bedside full code * Prognosis remains guarded secondary to multiple comorbidities
[2023-03-06] MEDS ORDERED: CREON 24000 UNIT PO PRN (15:22)
--- NOTE | 2023-03-06 16:09 | P.PN ---
Subjective Progress Note Date: 03/06/23 Principal diagnosis: fever In f/u today pt reports trouble sleeping last night because she was having potassium replaced, she walked to the Nurses station and back. No fever or d iarrhea, no resp symptoms. Objective - Vital Signs Vital signs: Vital Signs Temp 98.8 F 03/06/23 12:00 Pulse 69 03/06/23 12:00 Resp 16 03/06/23 12:00 BP 136/67 03/06/23 12:00 Pulse Ox 98 03/06/23 12:00 FiO2 21 03/06/23 09:20 Intake & Output 03/05/23 03/06/23 03/06/23 18:59 06:59 18:59 Weight 43.091 kg Other: Voiding Method Bedside Commode Bedside Commode # Voids 1 3 1 # Bowel Movements 1 2 1 - Constitutional General appearance: Present: cooperative, no acute distress, thin - EENT Eyes: Present: anicteric sclerae, EOMI ENT: Present: hearing grossly normal - Respiratory Details: resp even and unlabored at rest - Neurologic Neurologic: Present: CNII-XII intact - Psychiatric Psychiatric: Present: A&O x's 3, appropriate affect, intact judgment & insight - Labs CBC & Chem 7: 03/06/23 04:04 03/06/23 06:24 Labs: Abnormal Lab Results - Last 24 Hours (Table) 03/05/23 03/06/23 03/06/23 Range/Units 21:51 02:30 04:04 RBC 2.87 L (4.10-5.20) X 10*6/uL Hgb 7.4 L (12.0-15.0) d/dL Hct 23.8 L (37.2-46.3) % MCH 25.8 L (27.0-32.0) pg MCHC 31.1 L (32.0-37.0) d/dL RDW 15.1 H (11.5-14.5) % Plt Count 75 L (140-440) X 10*3/uL Immature Plt Fraction 7.6 H (1.1-6.1) % Potassium 2.8 L 3.2 L (3.5-5.1) mmol/L Chloride (96-109) mmol/L Carbon Dioxide (21.6-31.8) mmol/L BUN (9.0-27.0) mg/dL BUN/Creatinine Ratio (12.00-20.00) Ratio Calcium (8.7-10.3) mg/dL 03/06/23 Range/Units 04:04 RBC (4.10-5.20) X 10*6/uL Hgb (12.0-15.0) d/dL Hct (37.2-46.3) % MCH (27.0-32.0) pg MCHC (32.0-37.0) d/dL RDW (11.5-14.5) % Plt Count (140-440) X 10*3/uL Immature Plt Fraction (1.1-6.1) % Potassium (3.5-5.1) mmol/L Chloride 113 H (96-109) mmol/L Carbon Dioxide 16.9 L (21.6-31.8) mmol/L BUN 5.5 L (9.0-27.0) mg/dL BUN/Creatinine Ratio 7.86 L (12.00-20.00) Ratio Calcium 8.1 L (8.7-10.3) mg/dL Microbiology - Last 24 Hours (Table) 03/03/23 10:30 Blood Culture - Preliminary Blood 03/03/23 10:15 Blood Culture - Preliminary Blood Assessment and Plan (1) Fever Current Visit: Yes Status: Acute Priority: High Code(s): R50.9 - FEVER, UNSPECIFIED SNOMED Code(s): 769530233 (2) Pneumonia Current Visit: Yes Status: Acute Priority: Medium Code(s): J18.9 - PNEUMONIA, UNSPECIFIED ORGANISM SNOMED Code(s): 854787012 (3) C. difficile colitis Current Visit: Yes Status: Acute Priority: Medium Code(s): A04.72 - ENTEROCOLITIS D/T CLOSTRIDIUM DIFFICILE, NOT SPCF RECUR SNOMED Code(s): 263172030 (4) Pancreatic adenocarcinoma Current Visit: No Status: Chronic Priority: Medium Code(s): C25.9 - MA LIGNANT NEOPLASM OF PANCREAS, UNSPECIFIED SNOMED Code(s): 281397304 Plan: Fever -No fever since 03/04 -Infectious disease following. Antibiotics cont, prophylaxis for c-diff started -Chest x-ray 03/04 impression, no consolidative pneumonia, coarsening of the interstitium could be on the basis of bronchitis or mild interstitial pneumonitis -CT AP 03/04 impression, diffuse anasarca change, trace bilateral pleural effusions, hepatic metastases slightly enlarged, and abnormal 3.2 x 2.7 cm soft tissue mass along the retroperitoneum surrounding the SMA and narrowing the artery by 50%. This is minimally increased. 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 Possible fecal impaction with the rectum distended up to 7.5 cm wide. -Results were reviewed with patient and her family previously. Reinforced today disease progression Clostridium diff colitis -Was diagnosed with the same when she was hospitalized about 3 weeks ago -Denies diarrhea. -ID started prophylactic vanco Pancreatic adenocarcinoma -Unfortunately, patient has progressed through multiple lines of treatment. She has had difficulty tolerating treatment because of hematological toxicities and then recent significant infection -Most recently there was a significant increase in her IK-73-2-previously in the 100s, now in the thousands. There appears to be some progression seen on the CT AP. -Options for treatment limited. 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 There is a targeted agent available but, it is not approved for use in pancreatic adenocarcinoma. It was able to be obtained through compassionate use but pt has had infection and unable to start. She has been told that there is no data that this will treat pancreatic carcinoma. Pt and have updated code status. They deny any questions at this time
[2023-03-06] MEDS: CREON 24000 UNIT PO SCH (17:39)
[2023-03-06] MEDS: ACETAMINOPHEN TAB 325 MG TAB PO PRN (17:46)
[2023-03-07] MEDS: SODIUM CHLORIDE 0.9% 1,000 ML IV SCH ×2 (04:39→20:29)
[2023-03-07] MEDS: PIPERACILLIN-TAZOBACTAM 3.375 GM in SODIUM CHLORIDE 0.9% 100 ML IVPB SCH ×3 (06:31→20:28)
[2023-03-07] MEDS: MULTIVITAMINS, THERA 1 EACH TAB PO SCH (08:52)
[2023-03-07] MEDS: PANTOPRAZOLE 40 MG TABLET PO SCH (08:52)
[2023-03-07] MEDS: APIXABAN 5 MG TAB PO SCH ×2 (08:52→20:26)
[2023-03-07] MEDS: CHOLECALCIFEROL 25 MCG (1000 IU) TABLET PO SCH (08:52)
[2023-03-07] MEDS: droNABinol 2.5 MG CAP PO SCH ×2 (08:52→18:25)
[2023-03-07] MEDS: CREON 24000 UNIT PO SCH ×3 (08:54→18:25)
[2023-03-07] MEDS: TOPIRAMATE 25 MG TAB PO SCH ×2 (08:54→20:26)
[2023-03-07] MEDS: PANTOPRAZOLE 40 MG/10 ML VIAL IV SCH (09:09)
[2023-03-07] MEDS: ONDANSETRON 4 MG/2 ML VIAL IVP PRN (09:10)
[2023-03-07] MEDS: CHOLESTYRAMINE (WITH SUGAR) 4 GM PACKET PO SCH ×2 (11:00→18:26)
[2023-03-07] MEDS: ACETAMINOPHEN TAB 325 MG TAB PO PRN (15:13)
[2023-03-07] MEDS: LOPERAMIDE 2 MG CAP PO PRN (15:13)
--- NOTE | 2023-03-07 15:45 | P.PN ---
Subjective Progress Note Date: 03/07/23 Principal diagnosis: fever In f/u today pt reports she was up to the bathroom, appetite is poor, mild N, no recent vomiting, she denies diarrhea. Objective - Vital Signs Vital signs: Vital Signs Temp 99 F 03/07/23 08:00 Pulse 78 03/07/23 08:00 Resp 16 03/07/23 08:00 BP 120/67 03/07/23 08:00 Pulse Ox 93 L 03/07/23 08:00 FiO2 21 03/06/23 09:20 Intake & Output 03/06/23 03/07/23 03/07/23 18:59 06:59 18:59 Intake Total 500 Balance 500 Weight 43.091 kg Intake: Oral 500 Other: Voiding Method Bedside Commode Bedside Commode # Voids 1 1 # Bowel Movements 1 1 - Constitutional General appearance: Present: cooperative, no acute distress, thin - EENT Eyes: Present: anicteric sclerae, EOMI ENT: Present: hearing grossly normal - Respiratory Details: resp even and unlabored - Cardiovascular Details: skin warm and dry to touch - Peripheral edema leg Peripheral Edema: bilateral: None - Gastrointestinal General gastrointestinal: Present: tenderness - Integumentary Integumentary: Present: pale - Neurologic Neurologic: Present: CNII-XII intact - Musculoskeletal Musculoskeletal: Present: generalized weakness - Psychiatric Psychiatric: Present: A&O x's 3, appropriate affect, intact judgment & insight - Labs CBC & Chem 7: 03/06/23 04:04 03/07/23 01:22 Labs: Microbiology - Last 24 Hours (Table) 03/03/23 10:30 Blood Culture - Preliminary Blood 03/03/23 10:15 Blood Culture - Preliminary Blood Assessment and Plan (1) Fever Current Visit: Yes Status: Acute Priority: High Code(s): R50.9 - FEVER, UNSPECIFIED SNOMED Code(s): 181096356 (2) Pneumonia Current Visit: Yes Status: Acute Priority: Medium Code(s): J18.9 - PNEUMON IA, UNSPECIFIED ORGANISM SNOMED Code(s): 976631929 (3) C. difficile colitis Current Visit: Yes Status: Acute Priority: Medium Code(s): A04.72 - ENTER OCOLITIS D/T CLOSTRIDIUM DIFFICILE, NOT SPCF RECUR SNOMED Code(s): 423 448240 (4) Pancreatic adenocarcinoma Current Visit: No Status: Chronic Priority: Medium Code(s): C25.9 - MALIGNANT NEOPLASM OF PANCREAS, UNSPECIFIED SNOMED Code(s): 013789786 Plan: Fever-resolved -No fever since 03/04 -Infectious disease following. Antibiotics cont, prophylaxis for c-diff started. -Chest x-ray 03/04 impression, no consolidative pneumonia, coarsening of the interstitium could be on the basis of bronchitis or mild interstitial pneumonitis -CT AP 03/04 impression, diffuse anasarca change, trace bilateral pleural effusions, hepatic metastases slightly enlarged, and abnormal 3.2 x 2.7 cm soft tissue mass along the retroperitoneum surrounding the SMA and narrowing the artery by 50%. This is minimally increased. 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 Possible fecal impaction with the rectum distended up to 7.5 cm wide. Clostridium diff colitis -Was diagnosed with the same when she was hospitalized about 1mo ago -No diarrhea. -ID started prophylactic vanco Pancreatic adenocarcinoma -Unfortunately, patient has progressed through multiple lines of treatment. She has had difficulty tolerating treatment because of hematological toxicities and then recent significant infection -Most recently there was a significant increase in her GH-95-2-previously in the 100s, now in the thousands. There appears to be some progression seen on the CT AP. -Options for treatment limited. 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 There is a targeted agent available but, it is not approved for use in pancreatic adenocarcinoma. It was able to be obtained through compassionate use but, pt has had infection and unable to start. She has been told that there is no data that this will treat pancreatic carcinoma. N, abd discomfort, anorexia -Dr. Tello discussed with pt that her N, poor appetite, abd discomfort are most likely symptoms from progressive cancer and disease in the liver. Pt ok from Onc standpoint to be discharged once cleared by Attending and other consulting MDs. Would appreciate ID recommendations as to when they feel pt could be put back on treatment for pancreatic cancer-of pt decides that she wants more treatment-and if pt should be on prophylactic abd Attests: I have seen and examined pt, performed H&P, developed impression and plan of care. Discussed with dictator. Agree with documentation, dictated as a scribe.
[2023-03-07 17:36] LABS: HCT 24.6 % (37.2-46.3); HGB 7.6 d/dL (12.0-15.0); MCH 25.5 pg (27.0-32.0); MCHC 30.9 d/dL (32.0-37.0); MCV 82.6 FL (80.0-97.0); NRBC Per 100 WBC 0 X 10*3/uL (0.00-0.01); Platelet Count 61 X 10*3/uL (140-440); RBC 2.98 X 10*6/uL (4.10-5.20); RDW 15.2 % (11.5-14.5); WBC 4.85 X 10*3/uL (4.50-10.00)
--- NOTE | 2023-03-07 21:46 | P.PN ---
Subjective Progress Note Date: 03/06/23 Principal diagnosis: Fever Patient is a 72-year-old female with a past medical history significant for hypertension and sleep apnea brain aneurysm history of pancreatic cancer on chemotherapy the patient was admitted to [facility] end of January 2023 with sepsis and did have evidence of E. coli bacteremia and C. difficile colitis.Patient now presenting back to the hospital with a fever of 103 F the day of presentation to the hospital also complaining of feeling weak. On today's evaluation that is 03/06/2023 patient did have a low-grade fever of 99.7 negative for This morning, the patient is breathing comfortably on room air denies having any chest pain shortness of breath or cough no nausea vomiting no abdominal pain did have some diarrhea. Patient did have a normal white count 5.01 creatinine 0.7 procalcitonin was 1.22 stool for C. difficile came back negative blood culture so far pending Objective - Vital Signs Vital signs: Vital Signs Temp 98.8 F 03/06/23 12:00 Pulse 69 03/06/23 12:00 Resp 16 03/06/23 12:00 BP 136/67 03/06/23 12:00 Pulse Ox 98 03/06/23 12:00 FiO2 21 03/06/23 09:20 Intake & Output 03/05/23 03/06/23 03/06/23 18:59 06:59 18:59 Weight 43.091 kg Other: Voiding Method Bedside Commode Bedside Commode # Voids 1 3 1 # Bowel Movements 1 2 1 - Exam GENERAL DESCRIPTION: Elderly female lying in bed in no distress RESPIRATORY SYSTEM: Unlabored breathing , decreased breath sounds at bases HEART: S1 S2 regular rate and rhythm ,no loud murmurs ABDOMEN: Soft , no tenderness EXTREMITIES: No edema feet - Labs CBC & Chem 7: 03/07/23 07:19 03/07/23 01:22 Labs: Abnormal Lab Results - Last 24 Hours (Table) 03/05/23 03/06/23 03/06/23 Range/Units 21:51 02:30 04:04 RBC 2.87 L (4.10-5.20) X 10*6/uL Hgb 7.4 L (12.0-15.0) d/dL Hct 23.8 L (37.2-46.3) % MCH 25.8 L (27.0-32.0) pg MCHC 31.1 L (32.0-37.0) d/dL RDW 15.1 H (11.5-14.5) % Plt Count 75 L (140-440) X 10*3/uL Immature Plt Fraction 7.6 H (1.1-6.1) % Potassium 2.8 L 3.2 L (3.5-5.1) mmol/L Chloride (96-109) mmol/L Carbon Dioxide (21.6-31.8) mmol/L BUN (9.0-27.0) mg/dL BUN/Creatinine Ratio (12.00-20.00) Ratio Calcium (8.7-10.3) mg/dL 03/06/23 Range/Units 04:04 RBC (4.10-5.20) X 10*6/uL Hgb (12.0-15.0) d/dL Hct (37.2-46.3) % MCH (27.0-32.0) pg MCHC (32.0-37.0) d/dL RDW (11.5-14.5) % Plt Count (140-440) X 10*3/uL Immature Plt Fraction (1.1-6.1) % Potassium (3.5-5.1) mmol/L Chloride 113 H (96-109) mmol/L Carbon Dioxide 16.9 L (21.6-31.8) mmol/L BUN 5.5 L (9.0-27.0) mg/dL BUN/Creatinine Ratio 7.86 L (12.00-20.00) Ratio Calcium 8.1 L (8.7-10.3) mg/dL Microbiology - Last 24 Hours (Table) 03/03/23 10:30 Blood Culture - Preliminary Blood 03/03/23 10:15 Blood Culture - Preliminary Blood Assessment and Plan (1) Fever Current Visit: Yes Status: Acute Priority: High Code(s): R50.9 - FEVER, UNSPECIFIED SNOMED Code(s): 122864734 Plan: 1patient presented to hospital with a fever in this patient with recent admission to the hospital patient did have a E. coli bacteremia source likely abdominal with a history of pancreatic cancer but there is no evidence of any abscess and also have C. difficile colitis now presenting with a fever patient do not have any respiratory symptoms and clinically doubt pneumonia , the pa tiemarion do not have any diarrhea so clinically doubt C. difficile colitis concerning for possible abdominal source for this fever. 2patient did have a CT abdominal pelvis did not mention any colitis, however did show hepatic metastasis and also abnormal soft tissue surrounding the SMA and also subtotal occlusion of the upper SMV 3patient fever possibly related to abdominal source and question of possible intermittent ischemia, , Patient did have a overall improvement in her fever pattern and a culture has been negative so far to continue with the Zosyn. 4diarrhea stool for C. difficile has been negative recommend symptomatic treatment with Questran Dictation was produced using [employer] dictation software. please excuse any grammatical, word or spelling errors. Time with Patient: Less than 30
--- NOTE | 2023-03-07 21:48 | P.PN ---
Subjective Progress Note Date: 03/07/23 Principal diagnosis: Fever Patient is a 72-year-old female with a past medical history significant for hypertension and sleep apnea brain aneurysm history of pancreatic cancer on chemotherapy the patient was admitted to [facility] end of January 2023 with sepsis and did have evidence of E. coli bacteremia and C. difficile colitis.Patient now presenting back to the hospital with a fever of 103 F the day of presentation to the hospital also complaining of feeling weak. On today's evaluation that is 03/07/2023 patient has been afebrile for more than 24 hours, the patient is breathing comfortably on room air denies any chest pain shortness of breath or cough no abdominal pain did have improvement in her diarrhea no nausea no vomiting no chest pain shortness of breath or cough. Patient did have a white count of 4.85 creatinine 0.7 influenza RSV COVID and C. difficile was negative urine for the urine for Legionella antigen negative blood culture has been negative Objective - Vital Signs Vital signs: Vital Signs Temp 99.2 F 03/07/23 13:01 Pulse 74 03/07/23 13:01 Resp 16 03/07/23 13:01 BP 149/56 03/07/23 13:01 Pulse Ox 95 03/07/23 13:01 FiO2 21 03/06/23 09:20 Intake & Output 03/06/23 03/07/23 03/07/23 18:59 06:59 18:59 Intake Total 500 Balance 500 Weight 43.091 kg Intake: Oral 500 Other: Voiding Method Bedside Commode Bedside Commode # Voids 1 1 # Bowel Movements 1 1 - Exam GENERAL DESCRIPTION: Elderly female lying in bed in no distress RESPIRATORY SYSTEM: Unlabored breathing , decreased breath sounds at bases HEART: S1 S2 regular rate and rhythm ,no loud murmurs ABDOMEN: Soft , no tenderness EXTREMITIES: No edema feet - Labs CBC & Chem 7: 03/07/23 07:19 03/07/23 01:22 Labs: Microbiology - Last 24 Hours (Table) 03/03/23 10:30 Blood Culture - Preliminary Blood 03/03/23 10:15 Blood Culture - Preliminary Blood Assessment and Plan (1) Fever Current Visit: Yes Status: Acute Priority: High Code(s): R50.9 - FEVER, UNSPECIFIED SNOMED Code(s): 777844030 Plan: 1patient presented to hospital with a fever in this patient with recent admission to the hospital patient did have a E. coli bacteremia source likely abdominal with a history of pancreatic cancer but there is no evidence of any abscess and also have C. difficile colitis now presenting with a fever patient do not have any respiratory symptoms and clinically doubt pneumonia , Patient did not have any diarrhea initially subsequently did have diarrhea however stool for C. difficile is negative, continue symptomatic treatment and probiotics 2patient did have a CT abdominal pelvis did not mention any colitis, however did show hepatic metastasis and also abnormal soft tissue surrounding the SMA and also subtotal occlusion of the upper SMV 3patient fever possibly related to abdominal source and question of possible intermittent ischemia, We will keep the patient on Zosyn however if the culture remains negative the patient remains to be afebrile may consider short course of oral Augmentin on discharge Dictation was produced using [employer] dictation software. please excuse any grammatical, word or spelling errors. Time with Patient: Less than 30
[2023-03-08] MEDS: LACTOBACILLUS ACIDOPHILUS/PECT 1 EACH CAPSULE PO SCH ×3 (00:39→21:48)
--- NOTE | 2023-03-08 00:41 | P.PN ---
Subjective 72-year-old lady with past medical history significant for adenocarcinoma pancreas, receiving chemotherapy outpatient history of recent C. diff infection completed course of oral vancomycin presented to the emergency department with complaints of fever of 103.5. Patient accompanied with at bedside versus related with history taking. Hasn't patient had visitors at home recently although patient did not have any sick contacts however he will concerned that she might have picked infection from one of the visitors. * EMS was called and patient was brought to the hospital where she was noted to be more confused. Patient is able to follow commands and easily arousable. * Initiated in ER including CBC which showed white blood cell count of 9.8, hemoglobin 9.9 platelet 116, elevated neutrophil count and differential * Basic metabolic panel obtained showed sodium of 135 potassium 3.9 carbon dioxide 20 to be on 11 creatinine 0.76. Lactate of 1.3. * Patient tested negative for influenza, RSV and Covid * Chest x-ray obtained in ER showed right lower lobe infiltrate * Patient complained of fatigue, malaise and not feeling well in general. She denies chest pain abdominal pain diarrhea, dysuria, increased frequency and urgency * Consult obtained from infectious disease and oncology * 03/04: Patient seen and evaluated bedside. CBC reviewed, CT abdomen and pelvis ordered which is pending at this time. Overnight noted to have fever continue IV antibiotics * 03/05/2023 : Patient seen and evaluated bedside, CT abdomen and pelvis reviewed, worsening of metastatic disease noted. Continue on IV antibiotics blood cultures reviewed, electrolytes were reviewed and potassium replaced * 03/06/2023: Patient seen and evaluated bedside. Patient does complain of nausea and fatigue and malaise. Continue patient on IV antibiotic plan discussed with her in detail patient appears frustrated in general however very cooperative patient was explained that abdominal discomfort could be secondary to malignancy * 03/07/2023 Patient was admitted with right lower lobe pneumonia, she has history of pancreatic cancer and immunocompromise she status post Whipple procedure with liver metastasis, she's been followed closely by hematology/and oncology team. And so infectious team on the case, she is responding to treatment well with Zosyn with plan to switch her to oral Augmentin upon discharge. No new complaints Objective - Vital Signs Vital signs: Vital Signs Temp 99.2 F 03/07/23 13:01 Pulse 74 03/07/23 13:01 Resp 16 03/07/23 13:01 BP 149/56 03/07/23 13:01 Pulse Ox 95 03/07/23 13:01 FiO2 21 03/06/23 09:20 Intake & Output 03/06/23 03/07/23 03/07/23 18:59 06:59 18:59 Intake Total 500 Balance 500 Weight 43.091 kg Intake: Oral 500 Other: Voiding Method Bedside Commode Bedside Commode # Voids 1 1 # Bowel Movements 1 1 - Exam -GENERAL: The patient is alert and oriented x3, not in any acute distress. Well developed, well nourished. Pale and weak HEENT: Pupils are round and equally reacting to light. EOMI. No scleral icterus. No conjunctival pallor. Normocephalic, atraumatic. No pharyngeal erythema. No thyromegaly. CARDIOVASCULAR: S1 and S2 present. No murmurs, rubs, or gallops. PULMONARY: Chest is clear to auscultation, no wheezing , no crackles. ABDOMEN: Soft, nontender, nondistended, normoactive bowel sounds. No palpable organomegaly. MUSCULOSKELETAL: No joint swelling or deformity. EXTREMITIES: No cyanosis, clubbing, or pedal edema. NEUROLOGICAL: Gross neurological examination did not reveal any focal deficits. SKIN: No rashes. no petechiae. - Labs CBC & Chem 7: 03/07/23 07:19 03/07/23 01:22 Labs: Microbiology - Last 24 Hours (Table) 03/03/23 10:30 Blood Culture - Preliminary Blood 03/03/23 10:15 Blood Culture - Preliminary Blood Assessment and Plan Assessment: * Right lower lobe pneumonia * Sepsis * pancreatic cancer on chemotherapy immunocompromised, with liver metastases * Recent C. diff infection * History of pulmonary embolism on eliquis * History of premature ventricular contractions underwent ablation * Hypertension * Hyperlipidemia * History of sleep apnea Plan: Generic Zosyn, possible switch to Augmentin upon discharge Continue gentle hydration Continue with Eliquis home dose of 5 mg Infectious disease and hematology oncology team on the case Labs and medication were reviewed.. Continue same treatment. Continue with symptomatic treatment. Resume home medication. Monitor labs and vitals. DVT and GI prophylaxis. Further recommendations as per clinical course of the patient DVT prophylaxis Eliquis GI prophylaxis: Protonix Prognosis is guarded
[2023-03-08 01:37] LABS: BUN/Creat Ratio 8.71 Ratio (12.00-20.00); Blood Urea Nitrogen 6.1 mg/dL (9.0-27.0); Calcium 8.5 mg/dL (8.7-10.3); Carbon Dioxide 16.8 mmol/L (21.6-31.8); Chloride 114 mmol/L (96-109); Glucose 102 mg/dL (70-110); Potassium 3.8 mmol/L (3.5-5.5); Sodium 139 mmol/L (135-145)
[2023-03-08] MEDS: PIPERACILLIN-TAZOBACTAM 3.375 GM in SODIUM CHLORIDE 0.9% 100 ML IVPB SCH ×2 (05:06→14:33)
[2023-03-08] MEDS: droNABinol 2.5 MG CAP PO SCH ×2 (06:41→17:50)
[2023-03-08] MEDS: PANTOPRAZOLE 40 MG/10 ML VIAL IV SCH (08:26)
[2023-03-08] MEDS: CHOLESTYRAMINE (WITH SUGAR) 4 GM PACKET PO SCH ×2 (08:28→17:48)
[2023-03-08] MEDS: APIXABAN 5 MG TAB PO SCH ×2 (08:31→21:48)
[2023-03-08] MEDS: ONDANSETRON 4 MG/2 ML VIAL IVP PRN ×2 (08:31→18:41)
[2023-03-08] MEDS: CREON 24000 UNIT PO SCH ×3 (08:31→17:50)
[2023-03-08] MEDS: PANTOPRAZOLE 40 MG TABLET PO SCH (08:31)
[2023-03-08] MEDS: MULTIVITAMINS, THERA 1 EACH TAB PO SCH (08:31)
[2023-03-08] MEDS: LOPERAMIDE 2 MG CAP PO PRN (08:31)
[2023-03-08] MEDS: TOPIRAMATE 25 MG TAB PO SCH ×2 (08:32→21:48)
[2023-03-08] MEDS: CHOLECALCIFEROL 25 MCG (1000 IU) TABLET PO SCH (08:32)
[2023-03-08 11:13] LABS: ALT 20 U/L (8-44); AST 33 U/L (13-35); Albumin 2.8 d/dL (3.8-4.9); Alkaline Phosphatase 107 U/L (41-126); Blood Urea Nitrogen 7.2 mg/dL (9.0-27.0); Calcium 8.4 mg/dL (8.7-10.3); Carbon Dioxide 18.1 mmol/L (21.6-31.8); Chloride 112 mmol/L (96-109); Glucose 97 mg/dL (70-110); Potassium 3.4 mmol/L (3.5-5.5); Sodium 139 mmol/L (135-145); Total Bilirubin 0.2 mg/dL (0.3-1.2); Total Protein 4.8 d/dL (6.2-8.2)
[2023-03-08 11:57] LABS: Basophils # (A) 0.02 X 10*3/uL (0.00-0.10); Basophils % (A) 0.3 %; Eosinophils # (A) 0.17 X 10*3/uL (0.04-0.35); Eosinophils % (A) 2.8 %; HCT 24.1 % (37.2-46.3); HGB 7.6 d/dL (12.0-15.0); Immature Platelet Fraction 9.3 % (1.1-6.1); Lymphocytes # (A) 1.12 X 10*3/uL (0.90-5.00); Lymphocytes % (A) 18.5 %; MCH 25.9 pg (27.0-32.0); MCHC 31.5 d/dL (32.0-37.0); Mean Platelet Volume 12.6 FL (9.5-12.2); Monocytes % (A) 11.6 %; NRBC Per 100 WBC 0 X 10*3/uL (0.00-0.01); Neutrophils # (A) 4.02 X 10*3/uL (1.80-7.70); Neutrophils % (A) 66.5 %; Platelet Count 65 X 10*3/uL (140-440); RBC 2.94 X 10*6/uL (4.10-5.20); RBC Morphology Normal (Normal); RDW 15.3 % (11.5-14.5); WBC 6.05 X 10*3/uL (4.50-10.00)
[2023-03-08] MEDS: ACETAMINOPHEN TAB 325 MG TAB PO PRN (11:59)
[2023-03-08] MEDS: SODIUM CHLORIDE 0.9% 1,000 ML IV SCH (14:35)
[2023-03-08] MEDS: metroNIDAZOLE 500 MG TAB PO SCH ×2 (15:29→21:48)
--- NOTE | 2023-03-08 17:40 | P.PN ---
Subjective Progress Note Date: 03/08/23 Principal diagnosis: Fever Patient is a 72-year-old female with a past medical history significant for hypertension and sleep apnea brain aneurysm history of pancreatic cancer on chemotherapy the patient was admitted to [facility] end of January 2023 with sepsis and did have evidence of E. coli bacteremia and C. difficile colitis.Patient now presenting back to the hospital with a fever of 103 F the day of presentation to the hospital also complaining of feeling weak. On today's evaluation that is 03/08/2023 patient remains to be afebrile, the patient is breathing comfortably on room air , the patient denies any chest pain shortness of breath or cough no abdominal pain, did have 2 episodes of loose stool no blood or mucus in the stool no urinary symptoms, Patient did have a white count of 6.05, creatinine 0.6, stool for C. difficile was negative urine for the urine for Legionella antigen negative blood culture has been negative Objective - Vital Signs Vital signs: Vital Signs Temp 98.6 F 03/08/23 13:09 Pulse 70 03/08/23 13:09 Resp 16 03/08/23 13:09 BP 147/57 03/08/23 13:09 Pulse Ox 94 L 03/08/23 13:09 FiO2 21 03/08/23 06:56 Intake & Output 03/07/23 03/08/23 03/08/23 18:59 06:59 18:59 Other: Voiding Method Bedside Commode Bedside Commode Bedside Commode # Voids 2 2 - Exam GENERAL DESCRIPTION: Elderly female lying in bed in no distress RESPIRATORY SYSTEM: Unlabored breathing , decreased breath sounds at bases HEART: S1 S2 regular rate and rhythm ,no loud murmurs ABDOMEN: Soft , no tenderness EXTREMITIES: No edema feet - Labs CBC & Chem 7: 03/08/23 07:17 03/08/23 07:17 Labs: Abnormal Lab Results - Last 24 Hours (Table) 03/07/23 03/07/23 03/08/23 Range/Units 07:19 07:19 07:17 RBC 2.98 L 2.94 L (4.10-5.20) X 10*6/uL Hgb 7.6 L 7.6 L (12.0-15.0) d/dL Hct 24.6 L 24.1 L (37.2-46.3) % MCH 25.5 L 25.9 L (27.0-32.0) pg MCHC 30.9 L 31.5 L (32.0-37.0) d/dL RDW 15.2 H 15.3 H (11.5-14.5) % Plt Count 61 L 65 L (140-440) X 10*3/uL MPV 12.6 H (9.5-12.2) FL Immature Plt Fraction 9.3 H (1.1-6.1) % Potassium (3.5-5.5) mmol/L Chloride 114 H (96-109) mmol/L Carbon Dioxide 16.8 L (21.6-31.8) mmol/L BUN 6.1 L (9.0-27.0) mg/dL BUN/Creatinine Ratio 8.71 L (12.00-20.00) Ratio Calcium 8.5 L (8.7-10.3) mg/dL Total Bilirubin (0.3-1.2) mg/dL C-Reactive Protein (0.00-0.80) mg/dL Total Protein (6.2-8.2) d/dL Albumin (3.8-4.9) d/dL Albumin/Globulin Ratio (1.60-3.17) Ratio 08/25/23 Range/Units 07:17 RBC (4.10-5.20) X 10*6/uL Hgb (12.0-15.0) d/dL Hct (37.2-46.3) % MCH (27.0-32.0) pg MCHC (32.0-37.0) d/dL RDW (11.5-14.5) % Plt Count (140-440) X 10*3/uL MPV (9.5-12.2) FL Immature Plt Fraction (1.1-6.1) % Potassium 3.4 L (3.5-5.5) mmol/L Chloride 112 H (96-109) mmol/L Carbon Dioxide 18.1 L (21.6-31.8) mmol/L BUN 7.2 L (9.0-27.0) mg/dL BUN/Creatinine Ratio (12.00-20.00) Ratio Calcium 8.4 L (8.7-10.3) mg/dL Total Bilirubin 0.2 L (0.3-1.2) mg/dL C-Reactive Protein 2.10 H (0.00-0.80) mg/dL Total Protein 4.8 L (6.2-8.2) d/dL Albumin 2.8 L (3.8-4.9) d/dL Albumin/Globulin Ratio 1.40 L (1.60-3.17) Ratio Assessment and Plan (1) Fever Current Visit: Yes Status: Acute Priority: High Code(s): R50.9 - FEVER, UNSPECIFIED SNOMED Code(s): 936978720 Plan: 1patient presented to hospital with a fever in this patient with recent admission to the hospital patient did have a E. coli bacteremia source likely abdominal with a history of pancreatic cancer but there is no evidence of any abscess and also have C. difficile colitis now presenting with a fever patient do not have any respiratory symptoms and clinically doubt pneumonia , Patient did not have any diarrhea initially subsequently did have diarrhea however stool for C. difficile is negative, continue symptomatic treatment and probiotics 2patient did have a CT abdominal pelvis did not mention any colitis, however did show hepatic metastasis and also abnormal soft tissue surrounding the SMA and also subtotal occlusion of the upper SMV 3patient fever possibly related to abdominal source and question of possible intermittent ischemia related to extension of her cancer, this has been discussed in detail with oncology team and the patient may benefit from restarting of her chemotherapy keeping in mind her diarrhea some of it could be associated to Zosyn, we will discontinue Zosyn and start the patient on Rocephin and Flagyl and if continued to improve short course of oral Ceftin and Flagyl Dictation was produced using [employer] dictation software. please excuse any grammatical, word or spelling errors. Time with Patient: Less than 30
--- NOTE | 2023-03-08 21:20 | P.PN ---
Subjective 72-year-old lady with past medical history significant for adenocarcinoma pancreas, receiving chemotherapy outpatient history of recent C. diff infection completed course of oral vancomycin presented to the emergency department with complaints of fever of 103.5. Patient accompanied with at bedside versus related with history taking. Hasn't patient had visitors at home recently although patient did not have any sick contacts however he will concerned that she might have picked infection from one of the visitors. * EMS was called and patient was brought to the hospital where she was noted to be more confused. Patient is able to follow commands and easily arousable. * Initiated in ER including CBC which showed white blood cell count of 9.8, hemoglobin 9.9 platelet 116, elevated neutrophil count and differential * Basic metabolic panel obtained showed sodium of 135 potassium 3.9 carbon dioxide 20 to be on 11 creatinine 0.76. Lactate of 1.3. * Patient tested negative for influenza, RSV and Covid * Chest x-ray obtained in ER showed right lower lobe infiltrate * Patient complained of fatigue, malaise and not feeling well in general. She denies chest pain abdominal pain diarrhea, dysuria, increased frequency and urgency * Consult obtained from infectious disease and oncology * 03/04: Patient seen and evaluated bedside. CBC reviewed, CT abdomen and pelvis ordered which is pending at this time. Overnight noted to have fever continue IV antibiotics * 03/05/2023 : Patient seen and evaluated bedside, CT abdomen and pelvis reviewed, worsening of metastatic disease noted. Continue on IV antibiotics blood cultures reviewed, electrolytes were reviewed and potassium replaced * 03/06/2023: Patient seen and evaluated bedside. Patient does complain of nausea and fatigue and malaise. Continue patient on IV antibiotic plan discussed with her in detail patient appears frustrated in general however very cooperative patient was explained that abdominal discomfort could be secondary to malignancy * 03/07/2023 Patient was admitted with right lower lobe pneumonia, she has history of pancreatic cancer and immunocompromise she status post Whipple procedure with liver metastasis, she's been followed closely by hematology/and oncology team. And so infectious team on the case, she is responding to treatment well with Zosyn with plan to switch her to oral Augmentin upon discharge. No new complaints 03/08/2030 Patient initially was for right lower lobe pneumonia, on the initial chest x-ray however repeat chest x-ray showing improvement in her right lower lobe pneumonia and possible interstitial infiltrate. I reviewed both chest x-ray and agreed with the pneumonia. Patient is mildly dyspneic at rest Also patient with evidence of pancreatic cancer with liver metastasis. Abdominal source of infection was also suspected. Patient is currently covered with Zosyn which was wished today to ceftriaxone and Flagyl in the hopes that it will decrease diarrhea. However patient tolerates diet well. We will stop her IV fluids tonight and be monitored in the morning if she remains stable medically because that for discharge in the morning Objective - Vital Signs Vital signs: Vital Signs Temp 98.6 F 03/08/23 13:09 Pulse 70 03/08/23 13:09 Resp 16 03/08/23 13:09 BP 147/57 03/08/23 13:09 Pulse Ox 94 L 03/08/23 13:09 FiO2 21 03/08/23 06:56 Intake & Output 03/07/23 03/08/23 03/08/23 18:59 06:59 18:59 Other: Voiding Method Bedside Commode Bedside Commode Bedside Commode # Voids 2 2 - Exam -GENERAL: The patient is alert and oriented x3, not in any acute distress. Well developed, well nourished. Pale and weak HEENT: Pupils are round and equally reacting to light. EOMI. No scleral icterus. No conjunctival pallor. Normocephalic, atraumatic. No pharyngeal erythema. No thyromegaly. CARDIOVASCULAR: S1 and S2 present. No murmurs, rubs, or gallops. PULMONARY: Chest is clear to auscultation, no wheezing , no crackles. ABDOMEN: Soft, nontender, nondistended, normoactive bowel sounds. No palpable organomegaly. MUSCULOSKELETAL: No joint swelling or deformity. EXTREMITIES: No cyanosis, clubbing, or pedal edema. NEUROLOGICAL: Gross neurological examination did not reveal any focal deficits. SKIN: No rashes. no petechiae. - Labs CBC & Chem 7: 03/08/23 07:17 03/08/23 07:17 Labs: Abnormal Lab Results - Last 24 Hours (Table) 03/07/23 03/07/23 03/08/23 Range/Units 07:19 07:19 07:17 RBC 2.98 L 2.94 L (4.10-5.20) X 10*6/uL Hgb 7.6 L 7.6 L (12.0-15.0) d/dL Hct 24.6 L 24.1 L (37.2-46.3) % MCH 25.5 L 25.9 L (27.0-32.0) pg MCHC 30.9 L 31.5 L (32.0-37.0) d/dL RDW 15.2 H 15.3 H (11.5-14.5) % Plt Count 61 L 65 L (140-440) X 10*3/uL MPV 12.6 H (9.5-12.2) FL Immature Plt Fraction 9.3 H (1.1-6.1) % Potassium (3.5-5.5) mmol/L Chloride 114 H (96-109) mmol/L Carbon Dioxide 16.8 L (21.6-31.8) mmol/L BUN 6.1 L (9.0-27.0) mg/dL BUN/Creatinine Ratio 8.71 L (12.00-20.00) Ratio Calcium 8.5 L (8.7-10.3) mg/dL Total Bilirubin (0.3-1.2) mg/dL C-Reactive Protein (0.00-0.80) mg/dL Total Protein (6.2-8.2) d/dL Albumin (3.8-4.9) d/dL Albumin/Globulin Ratio (1.60-3.17) Ratio //23 Range/Units 07:17 RBC (4.10-5.20) X 10*6/uL Hgb (12.0-15.0) d/dL Hct (37.2-46.3) % MCH (27.0-32.0) pg MCHC (32.0-37.0) d/dL RDW (11.5-14.5) % Plt Count (140-440) X 10*3/uL MPV (9.5-12.2) FL Immature Plt Fraction (1.1-6.1) % Potassium 3.4 L (3.5-5.5) mmol/L Chloride 112 H (96-109) mmol/L Carbon Dioxide 18.1 L (21.6-31.8) mmol/L BUN 7.2 L (9.0-27.0) mg/dL BUN/Creatinine Ratio (12.00-20.00) Ratio Calcium 8.4 L (8.7-10.3) mg/dL Total Bilirubin 0.2 L (0.3-1.2) mg/dL C-Reactive Protein 2.10 H (0.00-0.80) mg/dL Total Protein 4.8 L (6.2-8.2) d/dL Albumin 2.8 L (3.8-4.9) d/dL Albumin/Globulin Ratio 1.40 L (1.60-3.17) Ratio Assessment and Plan Assessment: * Right lower lobe pneumonia * Sepsis * pancreatic cancer on chemotherapy immunocompromised, with liver metastases * Recent C. diff infection * History of pulmonary embolism on eliquis * History of premature ventricular contractions underwent ablation * Hypertension * Hyperlipidemia * History of sleep apnea Plan: Generic Zosyn, possible switch to Augmentin upon discharge Continue gentle hydration Continue with Eliquis home dose of 5 mg Infectious disease and hematology oncology team on the case Labs and medication were reviewed.. Continue same treatment. Continue with symptomatic treatment. Resume home medication. Monitor labs and vitals. DVT and GI prophylaxis. Further recommendations as per clinical course of the patient DVT prophylaxis Eliquis GI prophylaxis: Protonix Prognosis is guarded
[2023-03-09] MEDS: ONDANSETRON 4 MG/2 ML VIAL IVP PRN ×3 (02:07→14:47)
[2023-03-09 08:30] VITALS: BP 147/54; PULSE 82; RESP 16; TEMP 98.7
--- NOTE | 2023-03-09 08:59 | P.PN ---
Subjective Progress Note Date: 03/08/23 Principal diagnosis: fever At today's visit patient is resting comfortably in bed. Patient reports feeling unwell. States she is experiencing persisting fatigue, generalized weakness, and decreased appetite. She is also experiencing intermittent nausea, but denies vomiting. Zofran ordered as needed, patient reports improvement with medication. Marinol ordered for appetite stimulant. Patient encouraged to increase oral intake as tolerated. Objective - Vital Signs Vital signs: Vital Signs Temp 98.4 F 03/08/23 19:14 Pulse 68 03/08/23 19:14 Resp 18 03/08/23 19:14 BP 151/72 03/08/23 19:14 Pulse Ox 97 03/08/23 19:14 FiO2 21 03/08/23 06:56 Intake & Output 03/08/23 03/08/23 03/09/23 06:59 18:59 06:59 Intake Total 900 Balance 900 Intake: Intake, IV Titration 900 Amount Sodium Chloride 0.9% 1, 900 000 ml @ 75 mls/hr IV . [id number] [facility] Rx#:[id number] Other: Voiding Method Bedside Commode Bedside Commode # Voids 2 1 - Constitutional General appearance: Present: no acute distress, thin - EENT Eyes: Present: anicteric sclerae, EOMI ENT: Present: hearing grossly normal - Respiratory Details: breathing even and unlabored - Cardiovascular Details: skin warm and dry - Integumentary Integumentary: Present: pale. Absent: cyanotic - Neurologic Neurologic Comment(s): grossly intact - Musculoskeletal Musculoskeletal: Present: generalized weakness - Psychiatric Psychiatric: Present: A&O x's 3, appropriate affect, intact judgment & insight - Labs CBC & Chem 7: 03/08/23 07:17 03/08/23 07:17 Labs: Abnormal Lab Results - Last 24 Hours (Table) 03/07/23 03/08/23 03/08/23 Range/Units 07:19 07:17 07:17 RBC 2.94 L (4.10-5.20) X 10*6/uL Hgb 7.6 L (12.0-15.0) d/dL Hct 24.1 L (37.2-46.3) % MCH 25.9 L (27.0-32.0) pg MCHC 31.5 L (32.0-37.0) d/dL RDW 15.3 H (11.5-14.5) % Plt Count 65 L (140-440) X 10*3/uL MPV 12.6 H (9.5-12.2) FL Immature Plt Fraction 9.3 H (1.1-6.1) % Potassium 3.4 L (3.5-5.5) mmol/L Chloride 114 H 112 H (96-109) mmol/L Carbon Dioxide 16.8 L 18.1 L (21.6-31.8) mmol/L BUN 6.1 L 7.2 L (9.0-27.0) mg/dL BUN/Creatinine Ratio 8.71 L (12.00-20.00) Ratio Calcium 8.5 L 8.4 L (8.7-10.3) mg/dL Total Bilirubin 0.2 L (0.3-1.2) mg/dL C-Reactive Protein 2.10 H (0.00-0.80) mg/dL Total Protein 4.8 L (6.2-8.2) d/dL Albumin 2.8 L (3.8-4.9) d/dL Albumin/Globulin Ratio 1.40 L (1.60-3.17) Ratio Microbiology - Last 24 Hours (Table) 03/03/23 10:30 Blood Culture - Final Blood 03/03/23 10:15 Blood Culture - Final Blood Assessment and Plan (1) Fever Current Visit: Yes Status: Acute Priority: High Code(s): R50.9 - FEVER, UNSPECIFIED SNOMED Code(s): 432856914 (2) Pancreatic cancer Current Visit: Yes Status: Acute Priority: High Code(s): C25.9 - MALIGNANT NEOPLASM OF PANCREAS, UNSPECIFIED SNOMED Code(s): 240365123 Plan: Fever-resolved -No fever since 03/04 -Infectious disease following. Antibiotics cont -C diff negative, blood cultures negative thus far -Chest x-ray 03/04 impression, no consolidative pneumonia, coarsening of the interstitium could be on the basis of bronchitis or mild interstitial pneumonitis -CT AP 03/04 impression, diffuse anasarca change, trace bilateral pleural effusions, hepatic metastases slightly enlarged, and abnormal 3.2 x 2.7 cm soft tissue mass along the retroperitoneum surrounding the SMA and narrowing the ar zbigniew by 50%. This is minimally increased. 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 Possible fecal impaction with the rectum distended up to 7.5 cm wide. Pancreatic adenocarcinoma -Unfortunately, patient has progressed through multiple lines of treatment. She has had difficulty tolerating treatment because of hematological toxicities and then recent significant infection -Most recently there was a significant increase in her YH-31-2-previously in the 100s, now in the thousands. There appears to be some progression seen on the CT AP. -Options for treatment limited. 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 There is a targeted agent available but, it is not approved for use in pancreatic adenocarcinoma. It was able to be obtained through [employer] use but, pt has had infection and unable to start. She has been told that there is no data that this will treat pancreatic carcinoma. -Spoke with ID, will treat with flagyl and rocephin, if pt remains afebrile and blood cultures remain negative, they will discharge within the next 24-48 hours. Believe fever is due to possible intermittent ischemic bowel r/t metastsaic disease/disease progression. Agree with restarting treatment as soon as possible upon discharge. F/u scheduled with Dr. Tello on 03/11. Will discuss starting lynparza vs restarting systemic IV chemo. Pt is agreeable with plan Nausea, abd discomfort, anorexia -Dr. Tello discussed with pt that her nausea, poor appetite, and abd discomfort are most likely symptoms from progressive cancer and disease in the liver. -Continue supportive measures. Encouraged increasing oral intake as tolerated *Pt ok from Onc standpoint to be discharged once cleared by Attending and other consulting MDs. Attests: I have seen and examined pt, performed H&P, developed impression and plan of care. Discussed with dictator. Agree with documentation, dictated as a scribe
[2023-03-09] MEDS: PANTOPRAZOLE 40 MG/10 ML VIAL IV SCH (09:04)
[2023-03-09] MEDS: ACETAMINOPHEN TAB 325 MG TAB PO PRN (09:10)
[2023-03-09] MEDS: LOPERAMIDE 2 MG CAP PO PRN (09:14)
[2023-03-09] MEDS: TOPIRAMATE 25 MG TAB PO SCH (09:14)
[2023-03-09] MEDS: LACTOBACILLUS ACIDOPHILUS/PECT 1 EACH CAPSULE PO SCH (09:14)
[2023-03-09] MEDS: droNABinol 2.5 MG CAP PO SCH (09:15)
[2023-03-09] MEDS: PANTOPRAZOLE 40 MG TABLET PO SCH (09:15)
[2023-03-09] MEDS: metroNIDAZOLE 500 MG TAB PO SCH ×2 (09:15→15:18)
[2023-03-09] MEDS: APIXABAN 5 MG TAB PO SCH (09:15)
[2023-03-09] MEDS: MULTIVITAMINS, THERA 1 EACH TAB PO SCH (09:15)
[2023-03-09] MEDS: CREON 24000 UNIT PO SCH ×2 (09:15→12:51)
[2023-03-09] MEDS: CHOLECALCIFEROL 25 MCG (1000 IU) TABLET PO SCH (09:15)
[2023-03-09] MEDS: CHOLESTYRAMINE (WITH SUGAR) 4 GM PACKET PO SCH (10:52)
--- NOTE | 2023-03-09 17:16 | P.PN ---
Subjective Progress Note Date: 03/09/23 Principal diagnosis: Fever Patient is a 72-year-old female with a past medical history significant for hypertension and sleep apnea brain aneurysm history of pancreatic cancer on chemotherapy the patient was admitted to [facility] end of January 2023 with sepsis and did have evidence of E. coli bacteremia and C. difficile colitis.Patient now presenting back to the hospital with a fever of 103 F the day of presentation to the hospital also complaining of feeling weak. On today's evaluation that is 03/09/2023 patient continues to be afebrile, the patient is breathing comfortably on room air , the patient denies any chest pain shortness of breath or cough , the patient denies having any abdominal pain, and did have improvement in her diarrhea no nausea no vomiting and no urinary symptoms Patient did have a white count of 6.05, creatinine 0.6 as of yesterday no blood work was done today, stool for C. difficile was negative urine for the urine for Legionella antigen negative blood culture has been negative Objective - Vital Signs Vital signs: Vital Signs Temp 98.7 F 03/09/23 07:42 Pulse 82 03/09/23 07:42 Resp 16 03/09/23 07:42 BP 147/54 03/09/23 07:42 Pulse Ox 95 03/09/23 10:18 FiO2 21 03/09/23 10:18 Intake & Output 03/08/23 03/09/23 03/09/23 18:59 06:59 18:59 Intake Total 900 500 Balance 900 500 Intake: Intake, IV Titration 900 Amount Sodium Chloride 0.9% 1, 900 000 ml @ 75 mls/hr IV . [id number] [facility] Rx#:[id number] Oral 500 Other: Voiding Method Bedside Commode Bedside Commode Bedside Commode # Voids 2 - Exam GENERAL DESCRIPTION: Elderly female lying in bed in no distress RESPIRATORY SYSTEM: Unlabored breathing , decreased breath sounds at bases HEART: S1 S2 regular rate and rhythm ,no loud murmurs ABDOMEN: Soft , no tenderness EXTREMITIES: No edema feet - Labs CBC & Chem 7: 03/08/23 07:17 03/08/23 07:17 Labs: Microbiology - Last 24 Hours (Table) 03/03/23 10:30 Blood Culture - Final Blood 03/03/23 10:15 Blood Culture - Final Blood Assessment and Plan (1) Fever Status: Acute Priority: High Code(s): R50.9 - FEVER, UNSPECIFIED SNOMED Code(s): 186802517 Plan: 1patient presented to hospital with a fever in this patient with recent admission to the hospital patient did have a E. coli bacteremia source likely abdominal with a history of pancreatic cancer but there is no evidence of any abscess and also have C. difficile colitis now presenting with a fever patient d o not have any respiratory symptoms and clinically doubt pneumonia , Patient did not have any diarrhea initially subsequently did have diarrhea however stool for C. difficile is negative, continue symptomatic treatment and probiotics 2patient did have a CT abdominal pelvis did not mention any colitis, however did show hepatic metastasis and also abnormal soft tissue surrounding the SMA and also subtotal occlusion of the upper SMV 3patient fever possibly related to abdominal source and question of possible intermittent ischemia related to extension of her cancer, this has been discussed in detail with oncology team and the patient may benefit from restarting of her chemotherapy patient has shown clinical improvement on Rocephin and Flagyl we will finish therapy with short course of oral Ceftin and Flagyl, prescription sent to the pharmacy question consider also and Dictation was produced using [employer] dictation software. please excuse any grammatical, word or spelling errors. Time with Patient: Less than 30
--- NOTE | 2023-03-10 06:10 | P.DS ---
Providers Date of admission: 03/03/23 12:55 Attending physician: Mini Song MD Consults: 03/03/23 12:25 Consult Physician Routine Consulting Provider: West Mondragon Consult Reason/Comments: sepsis,Pneumonia Do you want consulting provider notified?: Yes 03/03/23 14:47 Consult Physician Routine Consulting Provider: Mateusz Tello Consult Reason/Comments: Pancreatic adenocarcinoma receiving chemotherapy outpatient Do you want consulting provider notified?: Yes Primary care physician: Meir [facility] Course: Date of service 03/09/2023. Patient is seen and examined by me at bedside on 03/09/2023 and she was discharged home on the same day . Not could not be done yesterday because the system was down and would not open from outside the hospital. Diagnoses: Right lower lobe pneumonia Sepsis pancreatic cancer on chemotherapy immunocompromised, with liver metastases Recent C. diff infection, currently no C. diff infection with this was negative History of pulmonary embolism on eliquis History of premature ventricular contractions underwent ablation Hypertension Hyperlipidemia History of sleep apnea Hospital course: 72-year-old lady with past medical history significant for adenocarcinoma of the pancreas, receiving chemotherapy outpatient history of recent C. diff infection completed course of oral vancomycin presented to the emergency department with complaints of fever of 103.5. Patient was found to have right lower lobe pneumonia, repeat chest x-ray showing improvement also patient kept on antibiotics with infectious disease consult for her urinary tract infection and possible also intra-abdominal infection is suspected given her abnormal anatomy and pancreatic cancer with recent therapy. Patient treated with broad-spectrum antibiotic Zosyn and then change yesterday to ceftriaxone and Flagyl by ID team to decrease the chances of diarrhea. And to decrease the chances of C. diff there are patient is discharged on Ceftin and Flagyl as per ID team re commendation. On the day of discharge patient still feels generally weak but improving, she tolerates diet well. She feels fine and she wants to go home today. is at bedside and he is agreeable. Patient still has generally poor appetite given her illness, extensive encouragement and support for the patient is provided to help her eat more at home and patient and are agreeable. Patient also told me she couldn't walk to the bathroom back and forth in her room. No other new complaints. Patient was cleared for discharge by all consultants included hematology/oncology team and infectious disease team. Problems and management plan were discussed with the patient and he verbalized understanding and acceptance Patient was found stable and can be discharged home in guarded prognosis however he needs follow-up as an outpatient. Patient was instructed to follow up with PCP Dr. Mckeon within one week and patient agrees Patient was instructed to follow up with oncologist Dr. pacheco in 1-2 weeks and infectious disease Dr[address] Mondragon in one week and she is agreeable Physical exam -Gen: patient is a AAOx3, no distress. Generalized weakness, improving slowly and gradually CVS: S1-S2, RRR, no murmur Lungs: B/L CTA, no wheezing Abdomen: soft, no distention, no tenderness, positive bowel sounds Extremity: no leg edema or induration Time spent more than 35 minutes Plan - Discharge Summary Discharge Rx Participant: No New Discharge Prescriptions: New cefUROXime axetiL [Ceftin] 500 mg PO BID 7 Days #14 tab droNABinol [Marinol] 2.5 mg PO AC-BID #60 cap metroNIDAZOLE [Flagyl] 500 mg PO TID #21 tab Continue Lipase/Protease/Amylase [Ric Rangel 24,000 Unit Capsule] 48,000 units PO TID- W/MEALS Apixaban [Eliquis] 5 mg PO BID Multivit-Min/Iron/Folic/Lutein [Centrum Silver Women Tablet] 1 tab PO DAILY Cholestyramine (with Sugar) [Questran Packet] 4 gm PO TID BETWEEN MEALS 4 Days #12 packet Acetaminophen Suppository [Tylenol Suppository] 650 mg RECTAL Q6HR PRN suppositor PRN Reason: Fever And/ Or Pain Omeprazole Magnesium [PriLOSEC OTC] 20 mg PO BID Lipase/Protease/Amylase [Ric Rangel 24,000 Unit Capsule] 24,000 units PO DAILY PRN PRN Reason: snacks Ondansetron Odt [Zofran ODT] 4 mg PO Q4H PRN #15 tab PRN Reason: Nausea Estradiol Cream [Estrace Cream 0.01%] 1 applic TOPICAL MOWEFR@2100 Cholecalciferol [Vitamin D3 (25 Mcg = 1000 Iu)] 25 mcg PO DAILY Topiramate [Topamax] 50 mg PO BID Discontinued hydroCHLOROthiazide 12.5 mg PO DAILY Discharge Medication List Apixaban [Eliquis] 5 mg PO BID 01/08/23 [History] Estradiol Cream [Estrace Cream 0.01%] 1 applic TOPICAL MOWEFR@2100 01/08/23 [History] Lipase/Protease/Amylase [Ric Rangel 24,000 Unit Capsule] 48,000 units PO TID- W/MEALS 01/08/23 [History] Cholecalciferol [Vitamin D3 (25 Mcg = 1000 Iu)] 25 mcg PO DAILY 02/06/23 [His tory] Multivit-Min/Iron/Folic/Lutein [Centrum Silver Women Tablet] 1 tab PO DAILY 02/06/23 [History] Topiramate [Topamax] 50 mg PO BID 02/06/23 [History] Acetaminophen Suppository [Tylenol Suppository] 650 mg RECTAL Q6HR PRN suppositor 02/12/23 [Rx] Cholestyramine (with Sugar) [Questran Packet] 4 gm PO TID BETWEEN MEALS 4 Days #12 packet 02/12/23 [Rx] Lipase/Protease/Amylase [Ric Rangel 24,000 Unit Capsule] 24,000 units PO DAILY PRN 03/03/23 [History] Omeprazole Magnesium [PriLOSEC OTC] 20 mg PO BID 03/03/23 [History] Ondansetron Odt [Zofran ODT] 4 mg PO Q4H PRN #15 tab 03/09/23 [Rx] cefUROXime axetiL [Ceftin] 500 mg PO BID 7 Days #14 tab 03/09/23 [Rx] droNABinol [Marinol] 2.5 mg PO AC-BID #60 cap 03/09/23 [Rx] metroNIDAZOLE [Flagyl] 500 mg PO TID #21 tab 03/09/23 [Rx] Follow up Appointment(s)/Referral(s): Mateusz Tello [STAFF PHYSICIAN] - 2 Weeks Meir Mckeon DO [Primary Care Provider] - 1-2 days West Mondragon MD [STAFF PHYSICIAN] - 1 Week [facility] Visiting Nurse, [NON-STAFF] - As Needed Patient Instructions/Handouts: Cefuroxime (By mouth), Metronidazole (By mouth), Dronabinol (By mouth) Activity/Diet/Wound Care/Special Instructions: regular diet activity is restricted till you see your doctor Discharge Disposition: HOME SELF-CARE
== END 2023-03-09 16:20 | disposition home or self-care (01) | DRG 871 ==
LOC: EC 10:26 → 5NMEDONC 12:55
PROVIDERS: ADMIT Internal Medicine; ATTEND Internal Medicine
DX: A41.9 Sepsis, unspecified organism (principal); E43 Unspecified severe protein-calorie malnutrition; J18.9 Pneumonia, unspecified organism; A04.72 Enterocolitis due to Clostridium difficile, not specified as recurrent; C25.9 Malignant neoplasm of pancreas, unspecified; C78.7 Secondary malignant neoplasm of liver and intrahepatic bile duct; D84.821 Immunodeficiency due to drugs; Z68.1 Body mass index [BMI] 19.9 or less, adult; D75.9 Disease of blood and blood-forming organs, unspecified; E78.5 Hyperlipidemia, unspecified; F17.200 Nicotine dependence, unspecified, uncomplicated; I11.9 Hypertensive heart disease without heart failure; T45.1X5A Adverse effect of antineoplastic and immunosuppressive drugs, initial encounter; Z79.01 Long term (current) use of anticoagulants; Z79.899 Other long term (current) drug therapy; Z86.711 Personal history of pulmonary embolism; Z90.710 Acquired absence of both cervix and uterus
CPT/HCPCS: 36415; 71046; 74177; 80048; 80053; 81001; 83605; 84132; 84145; 85025; 85027; 85610; 85730; 86140; 87040; 87324; 87449; 87636; 93005; 94760; 96361; 96365; 96367; 99285

== ENCOUNTER 2023-04-05 22:06 | Emergency (ER) | payer MEDICARE ==
[2023-04-05] MEDS ORDERED: SODIUM CHLORIDE 0.9% 1,000 ML IV ONE (22:41)
[2023-04-05 23:11] LABS: Anisocytosis Moderate; Basophils % (A) 0 %; Eosinophils # (A) 0.1 k/uL (0-0.7); Eosinophils % (A) 1 %; Hypochromasia Slight; Lymphocytes # (A) 1.6 k/uL (1.0-4.8); Lymphocytes % (A) 20 %; MCH 27.2 pg (25.0-35.0); MCHC 32.3 g/dL (31.0-37.0); MCV 84.3 fL (80.0-100.0); Mean Platelet Volume 9.7; Microcytosis Slight; Monocytes # (A) 0.4 k/uL (0-1.0); Monocytes % (A) 5 %; Neutrophils % (A) 73 %; RDW 22.1 % (11.5-15.5); WBC 8.1 k/uL (3.8-10.6)
[2023-04-05 23:17] LABS: HCT 15.2 % (34.0-46.0)
[2023-04-05 23:18] LABS: ALT 24 U/L (4-34); AST 44 U/L (14-36); African American GFR (CKD) >90 (>60 ml/min/1.73 sqM); Albumin 3.3 g/dL (3.5-5.0); Alkaline Phosphatase 87 U/L (38-126); Anion Gap 7 mmol/L; Blood Urea Nitrogen 15 mg/dL (7-17); Calcium 8.7 mg/dL (8.4-10.2); Carbon Dioxide 18 mmol/L (22-30); Chloride 108 mmol/L (98-107); Glucose 111 mg/dL (74-99); Non-African American GFR(CKD) 79 (>60 ml/min/1.73 sqM); Potassium 3.5 mmol/L (3.5-5.1); Sodium 133 mmol/L (137-145); Total Bilirubin 0.4 mg/dL (0.2-1.3); Total Protein 5.7 g/dL (6.3-8.2)
[2023-04-05 23:29] LABS: HGB 4.9 gm/dL (11.4-16.0); Platelet Count 55 k/uL (150-450)
[2023-04-05] MEDS ORDERED: PANTOPRAZOLE 40 MG/10 ML VIAL IVP STA (23:33)
[2023-04-05 23:38] LABS: INR 1.4 (<1.2); Partial Thromboplastin Time 21.3 sec (22.0-30.0); Prothrombin Time 13.7 sec (9.0-12.0)
--- NOTE | 2023-04-05 23:40 | ED ---
General Adult HPI - General Source: EMS, RN notes reviewed Mode of arrival: EMS <Veronica Millan - Last Filed: 04/06/23 03:51> <Cameron Lopez - Last Filed: 04/06/23 06:30> - General Chief complaint: Weakness Stated complaint: GI bleed, weakness Time Seen by Provider: 04/05/23 22:19 - History of Present Illness Initial comments: 72-year-old female with a past medical history significant for pancreatic cancer presents the emergency department with a chief complaint of rectal bleeding. Patient reports that she had a small bowel movement at approximately 7 PM. She notes that her stools normally bed/maroon in color how ever she noticed bright red blood on the toilet paper. She is taking Eliquis for anticoagulation. She reports no fever, chills, palpitations, shortness of breath, dizziness, lightheadedness, abdominal pain. She does report feeling more fatigued the last 2 days. She is a patient of Dr. Tello. She denies recent chemotherapy. She is taking oral lamparza on for her cancer management. (Veronica Millan) - Related Data Home Medications Medication Instructions Recorded Confirmed Apixaban [Eliquis] 5 mg PO BID 01/08/23 03/03/23 Estradiol Cream [Estrace Cream 1 applic TOPICAL MOWEFR@2100 01/08/23 03/03/23 0.01%] Lipase/Protease/Amylase [Ric Rangel 48,000 units PO TID-W/MEALS 01/08/23 03/03/23 24,000 Unit Capsule] Cholecalciferol [Vitamin D3 (25 25 mcg PO DAILY 02/06/23 03/03/23 Mcg = 1000 Iu)] Multivit-Min/Iron/Folic/Lutein 1 tab PO DAILY 02/06/23 03/03/23 [Centrum Silver Women Tablet] Topiramate [Topamax] 50 mg PO BID 02/06/23 03/03/23 Lipase/Protease/Amylase [Ric Rangel 24,000 units PO DAILY PRN 03/03/23 03/03/23 24,000 Unit Capsule] Omeprazole Magnesium [PriLOSEC OTC] 20 mg PO BID 03/03/23 03/03/23 Previous Rx's Medication Instructions Recorded Acetaminophen Suppository [Tylenol 650 mg RECTAL Q6HR PRN suppositor 02/12/23 Suppository] Cholestyramine (with Sugar) 4 gm PO TID BETWEEN MEALS 4 Days 02/12/23 [Questran Packet] #12 packet Ondansetron Odt [Zofran ODT] 4 mg PO Q4H PRN #15 tab 03/09/23 cefUROXime axetiL [Ceftin] 500 mg PO BID 7 Days #14 tab 03/09/23 droNABinol [Marinol] 2.5 mg PO AC-BID #60 cap 03/09/23 metroNIDAZOLE [Flagyl] 500 mg PO TID #21 tab 03/09/23 Allergies Allergy/AdvReac Type Severity Reaction Status Date / Time celecoxib [From Celebrex] Allergy Rash/Hives Verified 04/05/23 22:12 Review of Systems ROS Other: All systems not noted in ROS Statement are negative. <Veronica Millan - Last Filed: 04/06/23 03:51> ROS Other: All systems not noted in ROS Statement are negative. <Cameron Lopez - Last Filed: 04/06/23 06:30> ROS Statement: Those systems with pertinent positive or pertinent negative responses have been documented in the HPI. Past Medical History Past Medical History: Cancer, Hypertension, Sleep Apnea/CPAP/BIPAP Additional Past Medical History / Comment(s): heart murmur,PVCs, brain aneurysm. PANCREATIC CANCER History of Any Multi-Drug Resistant Organisms: None Reported Date of last positivie culture/infection: 02/08/23 Cdiff MDRO Source:: stool Past Surgical History: Back Surgery, Cardiac Ablation, Hysterectomy Additional Past Surgical History / Comment(s): fusion to back,rt shoulder repair, prlasped ueterus, liver stent Past Anesthesia/Blood Transfusion Reactions: Postoperative Nausea & Vomiting (PONV) Past Psychological History: No Psychological Hx Reported Smoking Status: Current some day smoker Past Alcohol Use History: None Reported Past Drug Use History: None Reported - Past Family History Mother Family Medical History: Cancer Additional Family Medical History / Comment(s): pancreatic Father Family Medical History: No Reported History <Veronica Millan - Last Filed: 04/06/23 03:51> Course <Veronica Millan - Last Filed: 04/06/23 03:51> Vital Signs 04/05/23 04/05/2304/06/23 22:09 23:12 01:30 Temperature 98.4 F Pulse Rate 63 72 81 Respiratory 18 18 18 Rate Blood Pressure 113/48 119/52 124/54 O2 Sat by Pulse 97 98 99 Oximetry 04/06/23 04/06/23 04/06/23 01:36 01:47 02:06 Temperature 99.7 F H 99.5 F 99.7 F H Pulse Rate 78 75 76 Respiratory 16 18 18 Rate Blood Pressure 102/52 105/50 109/54 O2 Sat by Pulse 97 98 Oximetry 04/06/23 04/06/23 04/06/23 02:07 03:48 04:02 Temperature 99.7 F H 98.7 F 98.8 F Pulse Rate 76 68 68 Respiratory 18 18 18 Rate Blood Pressure 109/54 119/55 117/56 O2 Sat by Pulse 98 98 Oximetry - Reevaluation(s) Reevaluation #1: 04/05/23 23:39 Case discussed with Heme/Onc states patient irradiated blood products. (Veronica Lundberg i) Reevaluation #2: 04/05/23 23:[address] Slaetr who recommends transferring patient to [facility] for GI coverage. (Veronica Millan) Reevaluation #3: 04/06/23 00:27 Patient reevaluated. Patient refusing to go to [facility]. Patient requesting to be transferred to [facility]. [facility] Paged. (Veronica Millan) Reevaluation #4: 04/06/23 01:45 Case discussed with [facility] who agrees and accepts the patient for ER to MICU transfer (Veronica Millan) Reevaluation #5: 04/06/23 02:13 Patient reevaluated. Patient resting comfortably. Agreeable with the plan for transfer. 04/06/23 03:[address] Mitchell, [facility] ER attending, who agrees to accept patient for ER to ER transfer (Veronica Millan) Medical Decision Making - Lab Data Result diagrams: 04/05/23 22:52 04/05/23 22:59 <Veronica Millan - Last Filed: 04/06/23 03:51> - Lab Data Result diagrams: 04/05/23 22:52 04/05/23 22:59 <Cameron Lopez - Last Filed: 04/06/23 06:30> - Medical Decision Making Was pt. sent in by a medical professional or institution (DOUG Sood, [employer]ISH[employer], urgent care, hospital, or fci...) When possible be specific @ -[No] Did you speak to anyone other than the patient for history (EMS, parent, family, police, friend...)? What history was obtained from this source @ -[No] Did you review nursing and triage notes (agree or disagree)? Why? @ -[I reviewed and agree with nursing and triage notes] Were old charts reviewed (outside hosp., previous admission, EMS record, old EKG, old radiological studies, urgent care reports/EKG's, fci records)? Report findings @ -[No old charts were reviewed] Differential Diagnosis (chest pain, altered mental status, abdominal pain women, abdominal pain men, vaginal bleeding, weakness, fever, dyspnea, syncope, headache, dizziness, GI bleed, back pain, seizure, CVA, palpatations, mental health, musculoskeletal)? @ -[not applicable] EKG interpreted by me (3pts min.). @ -[As above] X-rays interpreted by me (1pt min.). @ -[None done] CT interpreted by me (1pt min.). @ -[None done] U/S interpreted by me (1pt. min.). @ -[None done] What testing was considered but not performed or refused? (CT, X-rays, U/S, labs)? Why? @ -[None] What meds were considered but not given or refused? Why? @ -[None] Did you discuss the management of the patient with other professionals (professionals i.e. DOUG Sood, SNU[employer]OX FINISHER, lab, RT, psych nurse, child welfare social worker, automotive window tinter, teacher, labor relations officer, ed case manager)? Give summary @ -Dr. Slater - [facility] Stack - [facility] Was smoking cessation discussed for >3mins.? @ -[No] Was critical care preformed (if so, how long)? @ -[No] Were there social determinants of health that impacted care today? How? (Homelessness, low income, unemployed, alcoholism, drug addiction, transportation, low edu. Level, literacy, decrease access to med. care, correction, rehab)? @ -[No] Was there de-escalation of care discussed even if they declined (Discuss DNR or withdrawal of care, Hospice)? DNR status @ -[No] What co-morbidities impacted this encounter? (DM, HTN, Smoking, COPD, CAD, Cancer, CVA, ARF, Chemo, Hep., AIDS, mental health diagnosis, sleep apnea, morbid obesity)? @ -[None] Was patient admitted / discharged? Hospital course, mention meds given and route, prescriptions, significant lab abnormalities, going to OR and other pertinent info. @ -Transfer to [facility]. This is a 72-year-old female with a past medical history significant for pancreatic cancer who presents emergency Department with blood in her stool. Patient had a thorough history and physical exam performed on the ED. Heart rate regular rate and rhythm, lungs clear to auscultation bilaterally abdomen is soft and nontender. Stool cultures positive. With light red bloody stool in the rectal vault. Patient continues to have active] stools while in the course of the ED. Patient had laboratory studies performed on the ED. WBC 8.1, hemoglobin 12.9 hematocrit 15.2 platelets 55 Sodium 133, potassium 3.5 chloride 108 BUN 15, creatinine 0.76 lactic acid 1.2 Urinalysis negative Covid influenza RSV negative Patient was offered CT imaging however she is declining at the time of evaluation. Case was discussed with Dr. Slater, general surgery who recommends transferring the patient to facility with GI coverage. Patient requesting to be transferred [facility]. Case is discussed with Dr. Pan, medical ICU attending who agrees and accepts the patient for transfer. Patient was given Protonix into units of red blood cells during the course of the ED. She will be transferred via EMS in stable condition. Case discussed with Dr. Lopez, [facility] who agrees with plan of care Undiagnosed new problem with uncertain prognosis? @ -[No] Drug Therapy requiring intensive monitoring for toxicity (Heparin, Nitro, Insulin, Cardizem)? @ -[No] Were any procedures done? @ -[No] Diagnosis/symptom? @ -Lower GI Bleed - Anemia - Hx of Pancreatic Cancer Acute, or Chronic, or Acute on Chronic? @ -Acute Uncomplicated (without systemic symptoms) or Complicated (systemic symptoms)? @ -Uncomplicated Side effects of treatment? @ -[No] Exacerbation, Progression, or Severe Exacerbation? @ -[No] Poses a threat to life or bodily function? How? (Chest pain, [place], [place], pneumonia, PE, COPD, DKA, ARF, appy, cholecystitis, CVA, Diverticulitis, Homicidal, Suicidal, threat to staff... and all critical care pts) @ -yes, Active lower GI bleed on Eliquis (Veronica Millan) - Lab Data Lab Results 04/05/23 04/05/23 04/05/23 Range/Units 22:52 22:56 22:59 WBC 8.1 (3.8-10.6) k/uL RBC 1.80 L (3.80-5.40) m/uL Hgb 4.9 L* D (11.4-16.0) gm/dL Hct 15.2 L* (34.0-46.0) % MCV 84.3 (80.0-100.0) fL MCH 27.2 (25.0-35.0) pg MCHC 32.3 (31.0-37.0) g/dL RDW 22.1 H (11.5-15.5) % Plt Count 55 L D (150-450) k/uL MPV 9.7 Neutrophils % 73 % Lymphocytes % 20 % Monocytes % 5 % Eosinophils % 1 % Basophils % 0 % Neutrophils # 6.0 (1.3-7.7) k/uL Lymphocytes # 1.6 (1.0-4.8) k/uL Monocytes # 0.4 (0-1.0) k/uL Eosinophils # 0.1 (0-0.7) k/uL Basophils # 0.0 (0-0.2) k/uL Hypochromasia Slight Anisocytosis Moderate Microcytosis Slight PT (9.0-12.0) sec INR (<1.2) APTT (22.0-30.0) sec Sodium 133 L (137-145) mmol/L Potassium 3.5 (3.5-5.1) mmol/L Chloride 108 H (98-107) mmol/L Carbon Dioxide 18 L (22-30) mmol/L Anion Gap 7 mmol/L BUN 15 (7-17) mg/dL Creatinine 0.76 (0.52-1.04) mg/dL Est GFR (CKD-EPI)AfAm >90 (>60 ml/min/1.73 sqM) Est GFR (CKD-EPI)NonAf 79 (>60 ml/min/1.73 sqM) Glucose 111 H (74-99) mg/dL Plasma Lactic Acid Mark (0.7-2.0) mmol/L Calcium 8.7 (8.4-10.2) mg/dL Total Bilirubin 0.4 (0.2-1.3) mg/dL AST 44 H (14-36) U/L ALT 24 (4-34) U/L Alkaline Phosphatase 87 (38-126) U/L Total Protein 5.7 L (6.3-8.2) g/dL Albumin 3.3 L (3.5-5.0) g/dL Urine Color Urine Appearance (Clear) Urine pH (5.0-8.0) Ur Specific [place] (1.001-1.035) Urine Protein (Negative) Urine Glucose (UA) (Negative) Urine Ketones (Negative) Urine Blood (Negative) Urine Nitrite (Negative) Urine Bilirubin (Negative) Urine Urobilinogen (<2.0) mg/dL Ur Leukocyte Esterase (Negative) Stool Occult Blood (Negative) Influenza Type A (PCR) (Not Detectd) Influenza Type B (PCR) (Not Detectd) RSV (PCR) (Not Detectd) SARS-CoV-2 (PCR) (Not Detectd) Blood Type B Positive Blood Type Confirm Blood Type Recheck No Previous Record Bld Type Recheck Status CABO Indicated Antibody Screen NEGATIVE Crossmatch See Detail Spec Expiration Date 04/08/2023 - 235504/05/23 04/05/23 04/05/23 Range/Units 22:59 22:59 22:59 WBC (3.8-10.6) k/uL RBC (3.80-5.40) m/uL Hgb (11.4-16.0) gm/dL Hct (34.0-46.0) % MCV (80.0-100.0) fL MCH (25.0-35.0) pg MCHC (31.0-37.0) g/dL RDW (11.5-15.5) % Plt Count (150-450) k/uL MPV Neutrophils % % Lymphocytes % % Monocytes % % Eosinophils % % Basophils % % Neutrophils # (1.3-7.7) k/uL Lymphocytes # (1.0-4.8) k/uL Monocytes # (0-1.0) k/uL Eosinophils # (0-0.7) k/uL Basophils # (0-0.2) k/uL Hypochromasia Anisocytosis Microcytosis PT 13.7 H (9.0-12.0) sec INR 1.4 H (<1.2) APTT 21.3 L (22.0-30.0) sec Sodium (137-145) mmol/L Potassium (3.5-5.1) mmol/L Chloride (98-107) mmol/L Carbon Dioxide (22-30) mmol/L Anion Gap mmol/L BUN (7-17) mg/dL Creatinine (0.52-1.04) mg/dL Est GFR (CKD-EPI)AfAm (>60 ml/min/1.73 sqM) Est GFR (CKD-EPI)NonAf (>60 ml/min/1.73 sqM) Glucose (74-99) mg/dL Plasma Lactic Acid Mark 1.2 (0.7-2.0) mmol/L Calcium (8.4-10.2) mg/dL Total Bilirubin (0.2-1.3) mg/dL AST (14-36) U/L ALT (4-34) U/L Alkaline Phosphatase (38-126) U/L Total Protein (6.3-8.2) g/dL Albumin (3.5-5.0) g/dL Urine Color Urine Appearance (Clear) Urine pH (5.0-8.0) Ur Specific [place] (1.001-1.035) Urine Protein (Negative) Urine Glucose (UA) (Negative) Urine Ketones (Negative) Urine Blood (Negative) Urine Nitrite (Negative) Urine Bilirubin (Negative) Urine Urobilinogen (<2.0) mg/dL Ur Leukocyte Esterase (Negative) Stool Occult Blood (Negative) Influenza Type A (PCR) Not Detected (Not Detectd) Influenza Type B (PCR) Not Detected (Not Detectd) RSV (PCR) Not Detected (Not Detectd) SARS-CoV-2 (PCR) Not Detected (Not Detectd) Blood Type Blood Type Confirm Blood Type Recheck Bld Type Recheck Status Antibody Screen Crossmatch Spec Expiration Date 04/05/23 04/05/23 04/06/23 Range/Units 23:34 23:46 00:10 WBC (3.8-10.6) k/uL RBC (3.80-5.40) m/uL Hgb (11.4-16.0) gm/dL Hct (34.0-46.0) % MCV (80.0-100.0) fL MCH (25.0-35.0) pg MCHC (31.0-37.0) g/dL RDW (11.5-15.5) % Plt Count (150-450) k/uL MPV Neutrophils % % Lymphocytes % % Monocytes % % Eosinophils % % Basophils % % Neutrophils # (1.3-7.7) k/uL Lymphocytes # (1.0-4.8) k/uL Monocytes # (0-1.0) k/uL Eosinophils # (0-0.7) k/uL Basophils # (0-0.2) k/uL Hypochromasia Anisocytosis Microcytosis PT (9.0-12.0) sec INR (<1.2) APTT (22.0-30.0) sec Sodium (137-145) mmol/L Potassium (3.5-5.1) mmol/L Chloride (98-107) mmol/L Carbon Dioxide (22-30) mmol/L Anion Gap mmol/L BUN (7-17) mg/dL Creatinine (0.52-1.04) mg/dL Est GFR (CKD-EPI)AfAm (>60 ml/min/1.73 sqM) Est GFR (CKD-EPI)NonAf (>60 ml/min/1.73 sqM) Glucose (74-99) mg/dL Plasma Lactic Acid Mark (0.7-2.0) mmol/L Calcium (8.4-10.2) mg/dL Total Bilirubin (0.2-1.3) mg/dL AST (14-36) U/L ALT (4-34) U/L Alkaline Phosphatase (38-126) U/L Total Protein (6.3-8.2) g/dL Albumin (3.5-5.0) g/dL Urine Color Colorless Urine Appearance Clear (Clear) Urine pH 6.0 (5.0-8.0) Ur Specific [place] 1.007 (1.001-1.035) Urine Protein Negative (Negative) Urine Glucose (UA) Negative (Negative) Urine Ketones Negative (Negative) Urine Blood Negative (Negative) Urine Nitrite Negative (Negative) Urine Bilirubin Negative (Negative) Urine Urobilinogen <2.0 (<2.0) mg/dL Ur Leukocyte Esterase Negative (Negative) Stool Occult Blood Positive H (Negative) Influenza Type A (PCR) (Not Detectd) Influenza Type B (PCR) (Not Detectd) RSV (PCR) (Not Detectd) SARS-CoV-2 (PCR) (Not Detectd) Blood Type Blood Type Confirm B Positive Blood Type Recheck Bld Type Recheck Status Antibody Screen Crossmatch Spec Expiration Date Critical Care Time Critical Care Time: Yes Total Critical Care Time: 41 <Cameron Lopez - Last Filed: 04/06/23 06:30> Disposition Is patient prescribed a controlled substance at d/c from ED?: No Time of Disposition: 02:01 - Out of Hospital Transfer - Req. Specs Out of Hospital Transfer - Requested Specifics: Other Emergency Center ([facility]) <Veronica Millan - Last Filed: 04/06/23 03:51> <Cameron Lopez - Last Filed: 04/06/23 06:30> Clinical Impression: Pancreatic cancer, Anemia, GI bleed Disposition: OTHER INSTITUTION NOT DEFINED Condition: Serious Referrals: Meir Mckeon DO [Primary Care Provider] - 1-2 days
[2023-04-06] MEDS ORDERED: HYDROmorphone 0.5 MG/0.5 ML SYRINGE IVP STA (00:07)
[2023-04-06] MEDS ORDERED: ONDANSETRON 4 MG/2 ML VIAL IVP STA (00:07)
[2023-04-06] MEDS ORDERED: PROCHLORPERAZINE INJ 10 MG/2 ML VIAL IVP STA (00:07)
[2023-04-06 01:40] LABS: Appearance,Urine Clear (Clear); Bilirubin,Urine Negative (Negative); Blood,Urine Negative (Negative); Color,Urine Colorless; Glucose,Urine (UA) Negative (Negative); Ketones,Urine Negative (Negative); Leukocyte Esterase,Urine Negative (Negative); Nitrite,Urine Negative (Negative); Protein,Urine Negative (Negative); Specific Gravity,Urine 1.007 (1.001-1.035); Urobilinogen,Urine <2.0 mg/dL (<2.0)
[2023-04-06 01:50] VITALS: RESP 18
[2023-04-06] MEDS ORDERED: Kcentra PER PHARMACY 1 EACH MISC MISCELLANE PRN (03:16)
[2023-04-06] MEDS ORDERED: HUMAN PROTHROMBIN COMPLX IV ONE (03:30)
[2023-04-06] MEDS ORDERED: HUMAN PROTHROMBIN COMPLX 500 UNIT/16 ML VIAL IV ONE (03:48)
[2023-04-06 03:50] VITALS: PULSE 68
[2023-04-06 04:10] VITALS: BP 117/56; TEMP 98.8
== END 2023-04-06 04:33 | disposition other institution (70) ==
LOC: EC 22:06
DX: K92.2 Gastrointestinal hemorrhage, unspecified (principal); C25.9 Malignant neoplasm of pancreas, unspecified; D64.9 Anemia, unspecified; I10 Essential (primary) hypertension; F17.200 Nicotine dependence, unspecified, uncomplicated; Z88.6 Allergy status to analgesic agent; Z79.01 Long term (current) use of anticoagulants; Z79.899 Other long term (current) drug therapy; Z20.822 Contact with and (suspected) exposure to COVID-19
CPT/HCPCS: 36415; 86900; 86901; 80053; 83605; 85025; 85610; 85730; 86850; 86920; 82272; 81003; 87636; 99291; 36430; 96361 ×2; 96365; 96375 ×3; P9016; J0780; J2405; J7168; C9113

== ENCOUNTER 2023-04-26 18:14 | Emergency (ER) | payer MEDICARE ==
--- NOTE | 2023-04-26 18:22 | ED ---
General Adult HPI - General Source: RN notes reviewed <Veronica Millan - Last Filed: 04/26/23 18:20> - General Source: RN notes reviewed, old records reviewed Limitations: no limitations - History of Present Illness -: hour(s) Radiation: non-radiation Severity scale (1-10): 4 Consistency: constant Improves with: none Worsens with: none Associated Symptoms: malaise, shortness of breath, weakness <Jovanny Dial - Last Filed: 04/29/23 13:03> - General Stated complaint: transfusion Time Seen by Provider: 04/26/23 18:20 - History of Present Illness Initial comments: 72 year old female with a past medical history significant for pancreatic cancer presents the emergency department with a chief complaint of abnormal labs. Patient sent by Dr. Tello. (Veronica Millan) This is a 72-year-old female to the emergency department for evaluation of cancer patient underlying cancer does have DIC and was sent to the ER for evaluation. Patient was sent by Dr. Tello oncology for transfusion of cryoprecipitate (Jovanny Dial) - Related Data Home Medications Medication Instructions Recorded Confirmed Estradiol Cream [Estrace Cream 1 applic TOPICAL MOWEFR@2100 01/08/23 04/12/23 0.01%] Lipase/Protease/Amylase [Ric Rangel 48,000 units PO TID-W/MEALS 01/08/23 04/12/23 24,000 Unit Capsule] Cholecalciferol [Vitamin D3 (25 25 mcg PO DAILY@1200 02/06/23 04/12/23 Mcg = 1000 Iu)] Multivit-Min/Iron/Folic/Lutein 1 tab PO DAILY@1200 02/06/23 04/12/23 [Centrum Silver Women Tablet] Topiramate [Topamax] 50 mg PO BID 02/06/23 04/12/23 Lipase/Protease/Amylase [Ric Rangel 24,000 units PO DAILY PRN 03/03/23 04/12/23 24,000 Unit Capsule] Omeprazole Magnesium [PriLOSEC OTC] 20 mg PO BID 03/03/23 04/12/23 HYDROcodone/APAP 7.5-325MG [[place] 1 tab PO Q4H PRN 04/12/23 04/12/23 7.5-325] Olaparib [Lynparza] 300 mg PO BID 04/12/23 04/12/23 Prochlorperazine [Compazine] 10 mg PO Q6H PRN 04/12/23 04/12/23 Previous Rx's Medication Instructions Recorded Acetaminophen Suppository [Tylenol 650 mg RECTAL Q6HR PRN suppositor 02/12/23 Suppository] Ondansetron Odt [Zofran ODT] 4 mg PO Q4H PRN #15 tab 03/09/23 Allergies Allergy/AdvReac Type Severity Reaction Status Date / Time celecoxib [From Celebrex] Allergy Rash/Hives Verified 04/26/23 19:06 Review of Systems ROS Other: All systems not noted in ROS Statement are negative. <Veronica Millan - Last Filed: 04/26/23 18:20> ROS Other: All systems not noted in ROS Statement are negative. <Jovanny Dial - Last Filed: 04/29/23 13:03> ROS Statement: Those systems with pertinent positive or pertinent negative responses have been documented in the HPI. Past Medical History Past Medical History: Cancer, Hypertension, Sleep Apnea/CPAP/BIPAP Additional Past Medical History / Comment(s): heart murmur,PVCs, brain aneurysm. PANCREATIC CANCER History of Any Multi-Drug Resistant Organisms: None Reported Date of last positivie culture/infection: 02/08/23 Cdiff MDRO Source:: stool Past Surgical History: Back Surgery, Cardiac Ablation, Hysterectomy Additional Past Surgical History / Comment(s): fusion to back,rt shoulder repair, prlasped ueterus, liver stent Past Anesthesia/Blood Transfusion Reactions: Postoperative Nausea & Vomiting (PONV) Past Psychological History: No Psychological Hx Reported Smoking Status: Current some day smoker Past Alcohol Use History: None Reported Past Drug Use History: None Reported - Past Family History Mother Family Medical History: Cancer Additional Family Medical History / Comment(s): pancreatic Father Family Medical History: No Reported History <Veronica Millan - Last Filed: 04/26/23 18:20> General Exam <Veronica Millan - Last Filed: 04/26/23 18:20> General appearance: alert, in no apparent distress Head exam: Present: atraumatic, normocephalic, normal inspection Eye exam: Present: normal appearance, PERRL, EOMI. Absent: scleral icterus, conjunctival injection, periorbital swelling ENT exam: Present: normal exam, mucous membranes moist Neck exam: Present: normal inspection. Absent: tenderness, meningismus, lymphadenopathy Respiratory exam: Present: normal lung sounds bilaterally. Absent: respiratory distress, wheezes, rales, rhonchi, stridor Cardiovascular Exam: Present: regular rate, normal rhythm, normal heart sounds. Absent: systolic murmur, diastolic murmur, rubs, gallop, clicks GI/Abdominal exam: Present: soft, normal bowel sounds. Absent: distended, tenderness, guarding, rebound, rigid Extremities exam: Present: normal inspection, full ROM, normal capillary refill. Absent: tenderness, pedal edema, joint swelling, calf tenderness Back exam: Present: normal inspection Neurological exam: Present: alert, oriented X3, CN II-XII intact Psychiatric exam: Present: normal affect, normal mood Skin exam: Present: warm, dry, intact, normal color. Absent: rash <Jovanny Dial - Last Filed: 04/29/23 13:03> - General Exam Comments Initial Comments: Visual Physical Exam Vital signs reviewed General: Well-appearing, nontoxic, no acute distress. Head: Normocephalic, atraumatic Eyes: PERRLA, EOMI ENT: Airway patent Chest: Nonlabored breathing Skin: No visual rash, normal skin tone Neuro: Alert and oriented 3 Musculoskeletal: No gross abnormalities I performed the quick note portion of this exam, verbal signature Veronica Millan PA-C (Veronica Millan) Course <Jovanny Dial - Last Filed: 04/29/23 13:03> Vital Signs 04/26/23 04/26/23 04/26/23 19:02 22:05 22:15 Temperature 96.7 F L 98.7 F 98.4 F Pulse Rate 72 64 60 Respiratory 18 15 16 Rate Blood Pressure 125/56 150/68 145/65 O2 Sat by Pulse 100 96 Oximetry 04/26/23 22:35 Temperature 98.7 F Pulse Rate 66 Respiratory 16 Rate Blood Pressure 138/63 O2 Sat by Pulse 95 Oximetry - Reevaluation(s) Reevaluation #1: 04/26/23 19:21 Medical records reviewed (Jovanny Dial) Reevaluation #2: 04/26/23 20:18 Patient has no change in symptoms here in the ER (Jovanny Dial) Reevaluation #3: 04/26/23 20:18 Patient informed results questions answered (Jovanny Dial) Reevaluation #4: 04/26/23 19:21 Was pt. sent in by a medical professional or institution (DOUG Sood, WAITER, urgent care, hospital, or fci...) When possible be specific @ -no Did you speak to anyone other than the patient for history (EMS, parent, family, police, friend...)? What history was obtained from this source @ -He has had did speak with patient's oncologist regarding treatment plan Did you review nursing and triage notes (agree or disagree)? Why? @ -agree Are old charts reviewed (outside hosp., previous admission, EMS record, old EKG, old radiological studies, urgent care reports/EKG's, fci records)? Report findings @ -yes Differential Diagnosis (chest pain, altered mental status, abdominal pain women, abdominal pain men, vaginal bleeding, weakness, fever, dyspnea, syncope, headache, dizziness, GI bleed, back pain, seizure, CVA, palpatations, mental health, musculoskeletal)? @ -prior EKG interpreted by me (3pts min.). @ -no X-rays interpreted by me (1pt min.). @ -no CT interpreted by me (1pt min.). @ -no U/S interpreted by me (1pt. min.). @ -no What testing was considered but not performed or refused? (CT, X-rays, U/S, labs)? Why? @ -none What meds were considered but not given or refused? Why? @ -none Did you discuss the management of the patient with other professionals (professionals i.e. DOUG Sood, WAITER, lab, RT, psych nurse, social service technician, tailor garment fitter, teacher, executive officer special warfare team, case sealer)? Give summary @ -no Was smoking cessation discussed for >3mins.? @ -no Was critical care preformed (if so, how long)? @ -no Were there social determinants of health that impacted care today? How? (Homelessness, low income, unemployed, alcoholism, drug addiction, transportation, low edu. Level, literacy, decrease access to med. care, shelter, rehab)? @ -none Was there de-escalation of care discussed even if they declined (Discuss DNR or withdrawal of care, Hospice)? DNR status @ -no What co-morbidities impacted this encounter? (DM, HTN, Smoking, COPD, CAD, Cancer, CVA, ARF, Chemo, Hep., AIDS, mental health diagnosis, sleep apnea, morbid obesity)? @ -none Was patient admitted / discharged? Hospital course, mention meds given and ro ankush, prescriptions, significant lab abnormalities, going to OR and other pertinent info. @ - 72 female to the emergency department for evaluation, patient is in DIC from oncologic disease. Patient is in no current distress given transfusion after precipitating here in the ER can be discharged home Discharge Undiagnosed new problem with uncertain prognosis? @ -no Drug Therapy requiring intensive monitoring for toxicity (Heparin, Nitro, Insulin, Cardizem)? @ -no Were any procedures done? @ -no Diagnosis/symptom? @ -DIC from oncology treatment and underlying cancer Acute, or Chronic, or Acute on Chronic? @ -Acute Uncomplicated (without systemic symptoms) or Complicated (systemic symptoms)? @ -Complicated Side effects of treatment? @ -no Exacerbation, Progression, or Severe Exacerbation? @ -exacerbation Poses a threat to life or bodily function? How? (Chest pain, [place], [place], pneumonia, PE, COPD, DKA, ARF, appy, cholecystitis, CVA, Diverticulitis, Homicidal, Suicidal, threat to staff... and all critical care pts) @ -yes severe debilitating illness (Jovanny Dial) Reevaluation #5: 04/26/23 19:21 Differential Weakness: Hypoglycemia, shock, sepsis, hyponatremia, anemia, infection, [place], ETOH, adverse medicine reaction, overdose, stroke, this is not meant to be an all-inclusive list. (Jovanny Dial) Medical Decision Making <Jovanny Dial - Last Filed: 04/29/23 13:03> - Medical Decision Making 72 female to the emergency department for evaluation, patient is in DIC from oncologic disease. Patient is in no current distress given transfusion after precipitating here in the ER can be discharged home (Jovanny Dial) - Lab Data Lab Results 04/26/23 04/26/23 Range/Units 20:57 20:57 Blood Type B Positive Blood Type Recheck B Pos Bld Type Recheck Status No Antibody Screen NEGATIVE Transfuse Cryo 04/26/23 Spec Expiration Date 04/29/20232356 Disposition <Veronica Millan - Last Filed: 04/26/23 18:20> Is patient prescribed a controlled substance at d/c from ED?: No Time of Disposition: 20:30 <Joavnny Dial - Last Filed: 04/29/23 13:03> Clinical Impression: Weakness Disposition: HOME SELF-CARE Condition: Good Instructions (If sedation given, give patient instructions): Weakness (ED) Referrals: Meir Mckeon DO [Primary Care Provider] - 1-2 days
[2023-04-26] MEDS ORDERED: SODIUM CHLORIDE 0.9% 500 ML 500 ML IV STA (19:20)
[2023-04-26 22:25] VITALS: RESP 16
[2023-04-26 22:57] VITALS: BP 138/63; PULSE 66; TEMP 98.7
== END 2023-04-26 23:00 | disposition home or self-care (01) ==
LOC: EC 18:14
DX: R53.1 Weakness (principal); I10 Essential (primary) hypertension; G47.30 Sleep apnea, unspecified; F17.200 Nicotine dependence, unspecified, uncomplicated; Z79.899 Other long term (current) drug therapy; Z88.6 Allergy status to analgesic agent; Z88.8 Allergy status to other drugs, medicaments and biological substances
CPT/HCPCS: 86900; 86901; 86850; 99283; 36430; P9012